=== PATIENT | male | born 1945 | race Caucasian/White ===

== ENCOUNTER 2016-04-09 17:50 | Emergency (ER) | payer BC ==
[~2016-04-09] VITALS: Ht 175.3 cm; Wt 54.0 kg
[~2016-04-09 17:50] MED LIST: ACTUDL PEG; AMLO-114 PEG; ASPCH81X PEG; ATOR-24 PEG; CHLO0.12 MT; CLOP1TAB15 PEG; LABE1TAB28 PEG; NUTR-673 PEG; NYSCR30 TD; OXYC1TAB3 PEG; PANTPAK PEG; PETR49OI TD; [UNRECOGNIZED DRUG - OTHER] PEG
[2016-04-09 17:55] VITALS: TEMP 36.7; Ht 175.3 cm; Wt 54.0 kg
[2016-04-09] MEDS ORDERED: FAMO20TA9 PEG (18:33)
[2016-04-09] MEDS ORDERED: LBT/300 PEG (18:33)
[2016-04-09] MEDS ORDERED: CRD1 PEG (18:33)
--- NOTE | 2016-04-09 19:55 | DIAGNOSTIC IMAGING REPORT ---
KUB HISTORY: feeding tube verification, please use one dose contrast COMPARISON: KUB 10/15/2006. FINDINGS: Water-soluble contrast was injected through the indwelling gastrostomy tube. The bulb is inflated within the expected location of the gastric antrum. Contrast is seen within the stomach and proximal small bowel. There is no extraluminal contrast to suggest a leak. IVC filter is noted. Multiple small gallstones. There are surgical clips within the epigastric region. Large amount well-formed stool seen within the descending colon. Pacemaker wires are noted. No pneumoperitoneum or pneumatosis. IMPRESSION: The gastrostomy tube appears to be in good position. The injected contrast confirms an intraluminal location within the gastric antrum. Electronically signed by: West Griffin M.D. 04/09/2016 7:53 PM Dictated Date/Time: 04/09/2016 7:51 PM
[2016-04-09 20:22] VITALS: BP 122/72; PULSE 68; O2SAT 96
--- NOTE | 2016-04-09 22:39 | EMERGENCY ROOM VISIT NOTE ---
History Report prepared by Brielle: Olvin Guerrero Under the Supervision of: Dr. Clay Maldonado M.D. First contact with patient: 18:31 Chief Complaint: FEEDING TUBE PROBLEM Stated Complaint: PEG TUBE PULLED OUT (G-TUBE) History of Present Illness The patient is a 70 year old male who presents to the Emergency Room with complaints of a sudden feeding tube problem occurring around 1700 today. The patient's daughter states that he is currently in minimal discomfort. The daughter states that the caregiver was giving medicine through the G-tube, and they both jerked and the tube came out. They then called [facility] for their normal doctor, and they recommended them to come to the ED for evaluation. The daughter states that the patient has had the G-tube for about a year and a half now. Pt denies LOC, headache, fevers, chills, diaphoresis, visual changes, neck pain, chest pain, breathing difficulties, nausea, vomiting, abdominal pain, back pain, melena, hematochezia, urinary symptoms, numbness, weakness, lymphadenopathy, rash, or other complaints. Source of History: patient, family Onset: 1700 Position: other (feeding tube) Symptom Intensity: minimal Quality: other (removal) Timing: other (sudden) Review of Systems See HPI for pertinent positives and negatives. A total of ten systems were reviewed and were otherwise negative. 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 Surgical Problems: (1) History of laryngoscopy (2) S/P cataract surgery (3) S/p colonoscopy (4) S/p EGD (5) S/P IVC filter (6) S/p laparoscopic hepatectomy partial lobectomy (7) S/p left carotid stent placement (8) S/P wrist surgery Family History Cancer FATHER (lung CA) Social History Smoking Status: Never Smoker Alcohol Use: none Drug Use: none Marital Status: Housing Status: lives with significant other Current/Historical Medications Scheduled Amlodipine (Norvasc), 10 MG PEG QAM Aspirin (Aspirin Chewable), 81 MG PEG QAM Atorvastatin (Lipitor), 40 MG PEG QPM Banana Flakes (Banatrol), 1 PKT PEG TID Chlorhexidine Gluconate (Peridex Oral Soln), 15 ML MT BID Clopidogrel (Plavix), 75 MG PEG QAM Doxazosin Mesylate (Doxazosin Mesylate), 1 MG PEG DAILY Enteral Nutrition Formula (Jevity 1.5 Octaviano), PEG CONTINOUS Famotidine (Pepcid), 20 MG PEG DAILY Labetalol Hcl (Normodyne), 300 MG PEG TID Nystatin (Nystatin Cream), 1 APPLN TD BID Petrolatum-Zinc Oxide (Sensi-Care Protective Bar), 1 APPLN TD BID Scheduled PRN Acetaminophen (Acetaminophen), 650 MG PEG Q4 PRN for Mild Pain Oxycodone Ir (Roxicodone Ir), 10 MG PEG Q4H PRN for Severe Pain Oxycodone Ir (Roxicodone Ir), 5 MG PEG Q4 PRN for Moderate Pain Allergies Coded Allergies: No Known Allergies (Verified , 01/10/15) Physical Exam Vital Signs Date Time Temp Pulse Resp B/P Pulse Ox O2 Delivery O2 Flow Rate FiO2 04/09/16 20:22 68 16 122/72 96 Room Air 04/09/16 19:18 69 16 119/73 96 Room Air 04/09/16 17:55 36.7 81 18 109/69 97 Room Air Physical Exam GENERAL: Awake, alert, well-appearing, in no distress HENT: Normocephalic, atraumatic. Oropharynx unremarkable. EYES: Normal conjunctiva. Sclera non-icteric. NECK: Supple. No nuchal rigidity. FROM. No JVD. RESPIRATORY: Clear to auscultation. CARDIAC: Regular rate, normal rhythm. Extremities warm and well perfused. Pulses equal. ABDOMEN: Ostomy in the left upper quadrant. Soft, non-distended. No tenderness to palpation. No rebound or guarding. No masses. MUSCULOSKELETAL: Chest examination reveals no tenderness. There is no CVA tenderness to palpation. No joint edema. LOWER EXTREMITIES: Calves are equal size bilaterally and non-tender. No edema. No discoloration. NEURO: Normal sensorium. No sensory or motor deficits noted. SKIN: No rash or jaundice noted. Medical Decision & Procedures ER Provider Diagnostic Interpretation: X-ray: Per my interpretation, radiologist review. KUB HISTORY: feeding tube verification, please use one dose contrast COMPARISON: KUB 10/15/2006. FINDINGS: Water-soluble contrast was injected through the indwelling gastrostomy tube. The bulb is inflated within the expected location of the gastric antrum. Contrast is seen within the stomach and proximal small bowel. There is no extraluminal contrast to suggest a leak. IVC filter is noted. Multiple small gallstones. There are surgical clips within the epigastric region. Large amount well-formed stool seen within the descending colon. Pacemaker wires are noted. No pneumoperitoneum or pneumatosis. IMPRESSION: The gastrostomy tube appears to be in good position. The injected contrast confirms an intraluminal location within the gastric antrum. Electronically signed by: West Griffin M.D. 04/09/2016 7:53 PM Dictated Date/Time: 04/09/2016 7:51 PM ED Course 1831: The patient was evaluated in room C7. A complete history and physical exam was performed. 1846: 14 Georgian Kc catheter was inserted into the gastrotomy site without difficulty or complications 2019: I reevaluated the patient, and he is doing well. Discussed results and discharge instructions: He verbalized understanding and agreement. The patient is ready for discharge. Medical Decision The patient presented to emergency department with his feeding tube pulled out. I evaluated the patient. His physical examination was unremarkable. The ostomy was still open. I was able to place a 14 Georgian Kc catheter to temporize the tract. A KUB with contrast was done and the tube was confirmed to be in position. This was dressed. The patient has a follow-up tomorrow with [facility] gastroenterology. I discussed the care with the patient 's daughter. They desired discharge. There is no evidence of perforation or infection. The patient will be discharged and follow-up tomorrow. Impression Primary Impression: Gastrostomy complication Scribe Attestation The scribe's documentation has been prepared under my direction and personally reviewed by me in its entirety. I confirm that the note above accurately reflects all work, treatment, procedures, and medical decision making performed by me. Departure Information Dispostion Home / Self-Care Referrals Vishnu Rai M.D. ([facility]) (PCP) Forms HOME CARE DOCUMENTATION FORM, IMPORTANT VISIT INFORMATION, WORK / SCHOOL INSTRUCTIONS Patient Instructions A Signature Page, 2theloo Additional Instructions Continue current care. The tube is verified in place and can be used if needed for medications or feeding. Please flush well after use. Return to the Emergency Room for any tube problems, abdominal pain, fever or as needed. Follow up with gastroenterology tomorrow as scheduled.
== END 2016-04-09 20:33 | disposition home or self-care (01) ==
LOC: C.EDB 17:52 → C.EDC 20:33
DX: K94.29 Other complications of gastrostomy (principal); K21.9 Gastro-esophageal reflux disease without esophagitis; Z95.0 Presence of cardiac pacemaker; Z86.711 Personal history of pulmonary embolism; Z86.718 Personal history of other venous thrombosis and embolism; Z85.89 Personal history of malignant neoplasm of other organs and systems; Z79.02 Long term (current) use of antithrombotics/antiplatelets; Z79.82 Long term (current) use of aspirin; Z79.899 Other long term (current) drug therapy; Z80.1 Family history of malignant neoplasm of trachea, bronchus and lung

== ENCOUNTER 2024-03-05 14:42 | Inpatient (IN) ==
--- NOTE | 2024-03-05 15:16 | Emergency Department Note ---
Impression & Plan Generalized weakness, Elevated troponin, Closed rib fracture, Frequent falls, Pneumonia ED Provider Note ED Provider Note NAME: GABRIEL WEST AGE:78 SEX: Male : 1945 ARRIVES VIA: EMS INFORMANT: Patient, daughter ED PROVIDER(s): Harleen Quinn DO CHIEF COMPLAINT: Weakness, falls HPI: This is a 78-year-old male presents emergency department due to concern for weakness and recurrent falls. Patient lives at home with family helps to care for him. Patient has had prior strokes but does have expressive aphasia. Family states he had a fall on Thursday when attempting to transfer to go to the bathroom. He seemed okay when they helped him up just rather "sore" which they thought was from the fall. He states since then he has been hesitant to go to the bathroom and has been incontinent of stool several times. They have not noticed any change in the stools. Patient receives tube feeds. The seem to be working normally and he is not appear to have any distress or discomfort following tube feeds. They state he fell again yesterday. Family concerned for possible increased weakness as they felt his legs may be more weaker and that is perhaps why he fell. They state he does occasionally fall. They had not noticed any recent URI symptoms or cough. They had not noticed any recent fevers. PAST MEDICAL HISTORY:See Below PAST SURGICAL HISTORY:See Below FAMILY HISTORY:See Below SOCIAL HISTORY:See Below HOME MEDICATIONS:See Below ALLERGIES:See Below VITALS:See Below PHYSICAL EXAMINATION: GENERAL: alert, well appearing, well nourished, no distress, non-toxic EYE EXAM: normal conjunctiva, PERRL and EOM's grossly intact OROPHARYNX: no exudate, no erythema, lips, buccal mucosa, and tongue normal and mucous membranes are moist NECK: supple, no nuchal rigidity, no adenopathy, non-tender LUNGS: Clear to auscultation. Normal chest wall mechanics, no w/r/r HEART: no murmurs, S1 normal and S2 normal ABDOMEN: abdomen soft, non-tender, normo-active bowel sounds, no masses, no rebound or guarding. Feeding tube in place. BACK: Back is symmetrical on inspection and there is no deformity, no midline tenderness, no CVA tenderness. SKIN: no rashes, petechiae, orbruising UPPER EXTREMITIES: nml pulses b/l, right upper extremity with chronic appearing muscular atrophy and contractures secondary to prior stroke LOWER EXTREMITIES: No pitting edema. FROM, nml pulses b/l. Scattered areas bilaterally to distal lower extremities of abrasions, healing lacerations, and areas of ecchymosis in various stages of healing NEURO EXAM: Normal sensorium, cranial nerves II-XII grossly intact, normal speech, no facial droop,nogross weakness of arms, no gross weakness of legs. Gross sensation intact. No ataxia. Vital Signs: reviewed and remarkable Differential Diagnosis: dehydration, stroke, anemia, hypoglycemia, hyponatremia, hypernatremia, urinary tract infection, pneumonia, bronchitis, sepsis, gastroenteritis, additional abdominal pathology, metabolic abnormalities, as well as others were considered MEDICAL DECISION MAKING: This is a 78-year-old male presents emergency department with family who provides majority of the history due to concern for increased weakness and recurrent falls over the last few days. Patient with complex past medical history including prior strokes and expressive aphasia. Patient does have weakness at baseline although they feel that has been worsening in the last few days and patient has had several falls. They states he does fall occasionally although they felt it was worse recently. He was afebrile vital signs stable on arrival. Labs drawn and sent, IV established, EKG and chest ray performed at bedside interpreted me and patient monitored on telemetry. Due to daughters concern for looser stools compared to normal and patient seemingly holding his abdomen at 1 point this week he was initially sent for CT of the abdomen pelvis as well as CT lumbar spine to evaluate for possible etiology of the weakness as well as possible trauma given recent falls. Patient CT is reassuring although did note a rib fracture. Following this finding, patient sent for CT chest for further evaluation. A rib fracture was again noted, no other evidence of pulmonary contusion, or other acute trauma. There was mention of possible pneumonia versus mass on the right. In light of patient's history of prior pneumonia including aspiration, he was started on IV Zosyn as he was noted to have a leukocytosis initially. Procalcitonin and lactic added as a precaution. Patient noted to have elevated troponin. I did feel initial chest x-ray had mildly increased interstitial markings and did add a BNP, this was also elevated. Patient's EKG did not show any changes. Due to patient's limitations in conversation, it is unclear if he has been having chest pain even preceding the fall. It is possible this could have been contributing to his weakness which led to the falls. Troponin may also be elevated secondary to evolving infection. All results were discussed with the patient and daughter at bedside. We discussed further need for additional inpatient evaluation and management and she verbalized understanding was in agreement. Case discussed with the hospitalist team additionally. Consultation(s): 1929: Discussed with Dr. Fierro, [facility] hospitalist team, for additional evaluation and management. ER Treatment Provided: See below 1510: Discussed with daughter who now presents to bedside. Diagnostics Interpreted By Me: -ECG: nsr at 71, nml axis, nml intervals, no acute ST/T wave changes -Cardiac Monitoring: An order was placed for continuous cardiac monitoring. The monitor shows a rate of 74 with normal sinus rhythm. -Laboratory studies: As stated above and show below. -Imaging studies: X-ray Chest: A single view study of the chest was reviewed and was negative for cardiomegaly, focal infiltrate, effusion, pulmonary edema, or wide mediastinum. Triage Nursing Note Reviewed Prior/Outside Records Reviewed Critical Care: Critical care of 46 min performed to assess and manage high likelihood of life-threatening elevated troponin, involving labs and imaging performed with assessment to evaluate weakness diagnosis with frequent reassessment. This time includes bedside time, treatment discussions with patient/family/consultants, documentation time and excludes procedure time. Past Med/Surg History Problem List Pneumonia (Acute) Frequent falls (Acute) Thrombocytopenia Postobstructive pneumonia Mass of upper lobe of right lung Closed rib fracture (Acute) Elevated troponin (Acute) Generalized weakness (Acute) Esophageal thickening Weakness (Acute) Esophageal stricture (Chronic) Respiratory failure with hypoxia (Acute) Pneumonia (Acute) DVT prophylaxis Discharge planning issues Epistaxis (Acute) Aspiration pneumonia (Acute) Sepsis Cholelithiasis (Chronic) Noted on CT chest 04/11/18 Pulmonary nodule (Chronic) Noted on CT chest 04/11/18. Follow-up in 6 months recommended. 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 Surgical History S/P percutaneous endoscopic gastrostomy (PEG) tube placement History of esophagogastroduodenoscopy (EGD) History of carotid endarterectomy RIGHT? History of tonsillectomy Family History Other Cancer Family history of stroke Hypertension Social History Smoking Status: Former smoker Cigarettes Per Day: 20; Second Hand Exposure: No; Do You Dip or Chew Tobacco: No; Tobacco Cessation Education Requested by Patient: No Hx Alcohol Use: No Hx Substance Use: No Preferred Language: [place] Communication Ability: Impaired Communication Ability Comment: DIFFICULTY WITH VERBAL COMMUNICATION. A&O X3 PER DAUGHTER. Set Up Operator Tool Required: No Beliefs That Will Affect Care: None marital status: Current Living Situation: Family Other Information That Helps Us Care for You: No Feels Safe at Home: Yes Safety Concerns: Feels Safe At This Time Assistive Devices: Wheelchair Allergies Allergies Allergy/AdvReac Type Severity Reaction Status Date / Time No Known Allergies Allergy Unknown Verified 11/28/19 10:09 Home Meds Home Medications Medication Instructions Recorded Confirmed acetaminophen 325 mg capsule 975 mg feeding tube BID PRN Pain 04/11/18 03/05/24 (Tylenol) amlodipine 10 mg tablet (Norvasc) 5 mg feeding tube QAM 04/11/18 03/05/24 aspirin 81 mg chewable tablet 81 mg feeding tube [id number] 04/11/18 03/05/24 atorvastatin 40 mg tablet (Lipitor) 40 mg feeding tube HS 04/11/18 03/05/24 clopidogrel 75 mg tablet (Plavix) 75 mg feeding tube QAM 04/11/18 03/05/24 famotidine 20 mg tablet (Pepcid) 20 mg feeding tube QAM 04/11/18 03/05/24 labetalol 300 mg tablet 300 mg feeding tube TID 04/11/18 03/05/24 lactose-reduced food with fiber 375 ea feeding tube BID 11/28/19 03/05/24 oral liquid lactose-reduced food with fiber 500 ea feeding tube QPM 11/28/19 03/05/24 oral liquid finasteride 5 mg tablet 5 mg feeding tube DAILY 03/05/24 03/05/24 ketoconazole 2 % topical cream 1 applic topical DIRECTED PRN 03/05/24 03/05/24 Other triamcinolone acetonide 0.1 % 1 applic topical BID PRN Other 03/05/24 03/05/24 topical cream Results & Data (ED) Vital Signs Vital Signs - 24 hr 03/05/24 14:45 03/05/24 14:49 03/05/24 14:54 Temperature 37.1 C Temperature Source Oral Pulse Rate 69 70 Pulse Rate [Apical] Pulse Rate from SpO2 Sensor 70 Respiratory Rate 18 22 Respiratory Effort / Characteristics Non-Labored Spontaneous Respiratory Depth Normal Respiratory Pattern Regular Blood Pressure 107/58 L 107/58 L Blood Pressure [Left Arm] Blood Pressure Mean 75 74 Blood Pressure Mean [Left Arm] Pulse Oximetry 97 97 Oxygen Delivery Method Room Air Sepsis Recent Fever Within 48 Hours No Sepsis New/Unexplained Change in Mental Status No Sepsis Action Taken by Nursing No Action Required 03/05/24 15:00 03/05/24 15:03 03/05/24 15:16 Temperature Temperature Source Pulse Rate 70 Pulse Rate [Apical] 69 Pulse Rate from SpO2 Sensor 70 Respiratory Rate 23 18 Respiratory Effort / Characteristics Respiratory Depth Respiratory Pattern Blood Pressure 122/58 L Blood Pressure [Left Arm] 122/58 L Blood Pressure Mean 85 Blood Pressure Mean [Left Arm] 79 Pulse Oximetry 98 98 Oxygen Delivery Method Room Air Sepsis Recent Fever Within 48 Hours Sepsis New/Unexplained Change in Mental Status Sepsis Action Taken by Nursing 03/05/24 15:16 03/05/24 15:27 03/05/24 15:45 Temperature Temperature Source Pulse Rate 69 70 Pulse Rate [Apical] Pulse Rate from SpO2 Sensor 69 70 Respiratory Rate 20 19 Respiratory Effort / Characteristics Respiratory Depth Respiratory Pattern Blood Pressure Blood Pressure [Left Arm] Blood Pressure Mean Blood Pressure Mean [Left Arm] Pulse Oximetry 97 95 Oxygen Delivery Method Room Air Sepsis Recent Fever Within 48 Hours Sepsis New/Unexplained Change in Mental Status Sepsis Action Taken by Nursing 03/05/24 15:51 03/05/24 16:00 03/05/24 16:00 Temperature Temperature Source Pulse Rate 69 69 Pulse Rate [Apical] Pulse Rate from SpO2 Sensor 70 69 Respiratory Rate 18 20 Respiratory Effort / Characteristics Respiratory Depth Respiratory Pattern Blood Pressure 137/64 Blood Pressure [Left Arm] Blood Pressure Mean 101 Blood Pressure Mean [Left Arm] Pulse Oximetry 96 96 Oxygen Delivery Method Sepsis Recent Fever Within 48 Hours Sepsis New/Unexplained Change in Mental Status Sepsis Action Taken by Nursing 03/05/24 16:12 03/05/24 16:23 03/05/24 16:30 Temperature Temperature Source Pulse Rate 71 70 72 Pulse Rate [Apical] Pulse Rate from SpO2 Sensor 72 73 Respiratory Rate 24 Respiratory Effort / Characteristics Respiratory Depth Respiratory Pattern Blood Pressure Blood Pressure [Left Arm] Blood Pressure Mean Blood Pressure Mean [Left Arm] Pulse Oximetry 93 95 Oxygen Delivery Method Sepsis Recent Fever Within 48 Hours Sepsis New/Unexplained Change in Mental Status Sepsis Action Taken by Nursing 03/05/24 16:51 03/05/24 17:00 03/05/24 19:00 Temperature Temperature Source Pulse Rate 72 62 Pulse Rate [Apical] 73 Pulse Rate from SpO2 Sensor 72 Respiratory Rate 23 17 24 Respiratory Effort / Characteristics Respiratory Depth Respiratory Pattern Blood Pressure 135/73 Blood Pressure [Left Arm] 118/56 L Blood Pressure Mean 106 Blood Pressure Mean [Left Arm] 76 Pulse Oximetry 99 100 94 Oxygen Delivery Method Room Air Sepsis Recent Fever Within 48 Hours Sepsis New/Unexplained Change in Mental Status Sepsis Action Taken by Nursing Laboratory Data 03/06/24 10:43 03/06/24 10:43 Lab Results 03/05/24 03/05/24 03/05/24 Range/Units 15:29 15:52 18:57 WBC 18.59 H (4.8-10.8) K/ul RBC 3.43 L (4.70-6.10) M/uL Hgb 10.8 L (14.0-18.0) g/dl Hct 33.3 L (42.0-52.0) % MCV 97.1 (80.0-100.0) fL MCH 31.5 (25.0-34.0) pg MCHC 32.4 (32.0-36.0) g/dL RDW Std Deviation 50.4 H (36.4-46.3) fL RDW Coeff of Ming 14.1 (11.5-14.5) % Plt Count 75 L (130-400) K/uL MPV 13.3 H (9.4-12.4) fL Immature Gran % (Auto) 2.5 % Neut % (Auto) 80.7 % Lymph % (Auto) 3.4 % [place] % (Auto) 13.1 % Eos % (Auto) 0.0 % Baso % (Auto) 0.3 % Neut # (Auto) 15.01 H (1.40-6.50) K/uL Lymph # (Auto) 0.63 L (1.20-3.40) K/uL [place] # (Auto) 2.43 H (0.11-0.59) K/uL Eos # (Auto) 0.00 (0.00-0.50) K/uL Baso # (Auto) 0.05 (0.00-0.20) K/uL Immature Gran # (Auto) 0.47 H (0.01-0.20) K/uL Dohle Bodies 1+ Polychromasia 1+ Sodium 133 L (136-145) mmol/L Potassium 4.4 (3.5-5.1) mmol/L Chloride 100 (98-107) mmol/L Carbon Dioxide 23 (21-32) mmol/L Anion Gap 10 (3-11) BUN 53 H (6-23) mg/dl Creatinine 1.28 (0.6-1.4) mg/dl Est Cr Clr Drug Dosing 47.5 ml/min eGFR 58.00 BUN/Creatinine Ratio 41.4 H (10-20) Glucose 131 H (70-99(Fasting)) mg/dl Lactate 1.9 (0.4-2.0) mmol/L Calcium 9.6 (8.6-10.3) mg/dl Magnesium 2.1 (1.7-2.4) mg/dl Total Bilirubin 0.9 (0.2-1.0) mg/dl AST 28 (13-39) U/L ALT 28 (7-52) U/L Alkaline Phosphatase 88 (34-104) U/L Troponin I High Sens 375.7 H* (0-20) pg/ml B-Natriuretic Peptide 285 H (0-100) pg/ml Total Protein 7.0 (6.0-8.3) gm/dl Albumin 4.2 (3.4-5.0) gm/dl Globulin 2.8 (2.5-4.0) gm/dl Albumin/Globulin Ratio 1.5 (0.9-2) Procalcitonin 0.34 (0-0.5) ng/ml TSH 6.032 H (0.300-4.500) uIu/ml Free T4 0.70 (0.61-1.60) ng/dl Adenovirus (PCR) Not Detected (NotDetected) B. pertussis DNA (PCR) Not Detected (NotDetected) B.parapertussis DNA PCR Not Detected (NotDetected) C. pneumoniae DNA (PCR) Not Detected (NotDetected) Coronavirus OC43 (PCR) Not Detected (NotDetected) Coronavirus HKU1 (PCR) Not Detected (NotDetected) Coronavirus 229E (PCR) Not Detected (NotDetected) SARS-CoV-2 (PCR) Not Detected (NotDetected) Coronavirus NL63 (PCR) Not Detected (NotDetected) Human Metapneumovir PCR Not Detected (NotDetected) Influenza Type A (PCR) Not Detected (NotDetected) Influenza Type B (PCR) Not Detected (NotDetected) M. pneumoniae (PCR) Not Detected (NotDetected) Parainfluenza 1 (PCR) Not Detected (NotDetected) Parainfluenza 2 (PCR) Not Detected (NotDetected) Parainfluenza 3 (PCR) Not Detected (NotDetected) Parainfluenza 4 (PCR) Not Detected (NotDetected) RSV (PCR) Not Detected (NotDetected) Entero/Rhino (PCR) Not Detected (NotDetected) Administered Medications Acetaminophen (Acetaminophen Susp 325 Mg/10.15 Ml Udc) 975 mg PEG BID PRN PRN Reason: Pain Stop: 04/04/24 22:53 Last Admin: 03/06/24 16:56 Dose: 975 mg Documented By: TMP Amlodipine Besylate (Amlodipine Besylate 5 Mg Tab) [facility] Stop: 04/05/24 08:59 Last Admin: 03/06/24 10:10 Dose: 5 mg Documented By: TMP Atorvastatin Calcium (Atorvastatin 40 Mg Tab) 40 mg PEG [facility] Stop: 04/04/24 22:46 Last Admin: 03/06/24 20:35 Dose: 40 mg Documented By: Admin: 03/06/24 00:29 Dose: 40 mg Documented By: ZHANG Clopidogrel Bisulfate (Clopidogrel Bisulfate 75 Mg Tab) 75 mg [facility] [place] Stop: 04/05/24 08:59 Last Admin: 03/06/24 10:09 Dose: 75 mg Documented By: TMP Famotidine (Famotidine 20 Mg Tab) 20 mg JT [facility] Stop: 04/05/24 08:59 Last Admin: 03/06/24 10:09 Dose: 20 mg Documented By: TMP Finasteride (Finasteride 5 Mg Tab) 5 mg PEG [facility] Stop: 04/05/24 20:59 Last Admin: 03/06/24 20:36 Dose: 5 mg Documented By: EVELYN Piperacillin Sod/Tazobactam Sod (Zosyn) 4.5 gm in 100 mls @ 25 mls/hr IV Q8H [facility]; Protocol Stop: 03/11/24 00:00 Last Infusion: 03/06/24 17:15 Dose: 25 mls/hr Documented By: Infusion: 03/06/24 16:58 Dose: 0 mls/hr Documented By: Admin: 03/06/24 16:50 Dose: 25 mls/hr Documented By: Infusion: 03/06/24 13:08 Dose: Infused Documented By: Admin: 03/06/24 08:53 Dose: 25 mls/hr Documented By: Infusion: 03/06/24 05:49 Dose: Infused Documented By: Admin: 03/06/24 00:29 Dose: 25 mls/hr Documented By: ZHANG Doxycycline Hyclate 100 mg/ (Dextrose) 100 mls @ 50 mls/hr IV Q12H [facility] Stop: 03/10/24 22:46 Last Infusion: 03/06/24 15:09 Dose: Infused Documented By: Admin: 03/06/24 13:09 Dose: 50 mls/hr Documented By: Infusion: 03/06/24 02:59 Dose: Infused Documented By: Admin: 03/06/24 00:29 Dose: 50 mls/hr Documented By: ZHANG Labetalol HCl (Labetalol Hcl 300 Mg Tab) 300 mg PEG TID [facility] Stop: 04/04/24 22:46 Last Admin: 03/06/24 20:35 Dose: 300 mg Documented By: Admin: 03/06/24 13:58 Dose: 300 mg Documented By: Admin: 03/06/24 10:10 Dose: 300 mg Documented By: Admin: 03/06/24 00:29 Dose: 300 mg Documented By: ZHANG Nutritional Formula (Patient's Own Enteral Feeding) 0 ml PEG UD@0900,1200,1700 [facility]; Protocol Stop: 04/05/24 11:59 Last Admin: 03/06/24 16:51 Dose: 125 ml Documented By: Admin: 03/06/24 11:35 Dose: 375 ml Documented By: CELESTE Sterile Water (Tube Feeding Water Flush) 100 ml PEG Q4H [facility] Stop: 04/05/24 11:59 Last Admin: 03/06/24 20:32 Dose: 100 ml Documented By: Admin: 03/06/24 16:51 Dose: 100 ml Documented By: Admin: 03/06/24 11:35 Dose: 100 ml Documented By: CELESTE Discontinued Medications Finasteride (Finasteride 5 Mg Tab) 5 mg PEG DAILY [facility] Stop: 04/05/24 08:59 Last Admin: 03/06/24 10:54 Dose: Not Given Documented By: CELESTE Sodium Chloride (Nss) 500 mls @ 80 mls/hr IV .Q6H15M [facility] Stop: 03/05/24 21:44 Last Infusion: 03/05/24 22:00 Dose: Infused Documented By: Admin: 03/05/24 15:37 Dose: 80 mls/hr Documented By: MAGUE Piperacillin Sod/Tazobactam Sod (Zosyn) 4.5 gm in 100 mls @ 200 mls/hr IV NOW ONE; Protocol Stop: 03/05/24 19:13 Last Infusion: 03/05/24 20:11 Dose: Infused Documented By: Admin: 03/05/24 19:25 Dose: 200 mls/hr Documented By: RICK Sodium Chloride (Nss) 1,000 mls @ 80 mls/hr IV .[id number] [facility] Stop: 03/06/24 11:16 Last Infusion: 03/06/24 13:09 Dose: Infused Documented By: Admin: 03/06/24 00:30 Dose: 80 mls/hr Documented By: ZHANG Ioversol (Optiray 320 100ml) 90 ml IV ONCE ONE Stop: 03/05/24 17:13 Last Admin: 03/05/24 17:12 Dose: 90 ml Documented By: TANJA Ioversol (Optiray 320 100ml) 90 ml IV ONCE ONE Stop: 03/05/24 18:15 Last Admin: 03/05/24 18:15 Dose: 90 ml Documented By: YUMI Imaging Data Radiologist's Impression: Abdomen/Pelvis CT 03/05/24 15:16 EXAM: CT Abdomen and Pelvis With Intravenous Contrast INDICATION: Posttraumatic pain. TECHNIQUE: Axial computed tomography images of the abdomen and pelvis with intravenous contrast. Sagittal and coronal reformatted images were created and reviewed. This CT exam was performed using one or more of the following dose reduction techniques: automated exposure control, adjustment of the mA and/or kV according to patient size, and/or use of iterative reconstruction technique. CONTRAST: 90ml of Optiray 320 was administered intravenously. COMPARISON: No relevant prior studies available. FINDINGS: Limitations: None. Lung bases: Airway thickening and atelectasis present in the lung bases. Pleural space: No basilar pleural effusion. Heart: Cardiomegaly noted. Cardiac pacing device noted. Metallic artifact limits assessment of lead integrity. Mediastinum: No abnormality noted. ABDOMEN: Liver: No abnormality noted. Gallbladder and bile ducts: Innumerable gallstones present. No ductal dilatation or stone. Pancreas: Homogeneous enhancement. No mass, inflammation or ductal dilation. Spleen: No significant abnormality noted. Adrenals: No significant abnormality noted. Kidneys and ureters: Simple bilateral renal cysts noted. No follow-up necessary. No stones or hydronephrosis. There is a 5 mm nonobstructing stone in each renal upper pole. Renal vascular calcification noted. No hydronephrosis. No urinary gas or perinephric fluid. Stomach and bowel: Large amounts of stool in the redundant colon without obstruction or inflammation. Gastrostomy balloon inflated in the stomach. PELVIS: Appendix: No findings to suggest acute appendicitis. Bladder: No filling defects to suggest mass or large stone. No inflammation. Reproductive: No abnormalities noted. ABDOMEN and PELVIS: Intraperitoneal space: No free air. No significant fluid collection. Bones/joints: There is an acute appearing nondisplaced fracture of the right lateral ninth and 10th ribs. Degenerative changes present in the spine. No pelvic or spinal fracture noted. Soft tissues: There is mild subcutaneous contusion at the level of the right hip. There are small bilateral fat containing inguinal hernias. Vasculature: Inferior vena cava filter in good position. Atherosclerotic calcification of the aorta and branches. No aneurysm. Lymph nodes: No pathologically enlarged lymph nodes. IMPRESSION: 1. There are acute appearing nondisplaced fractures of the right lateral ninth and 10th ribs. 2. No traumatic change of the solid organs. 3. Large amounts of stool in the colon without obstruction. 4. Cholelithiasis. 5. There is mild subcutaneous contusion at the level of the right hip. No body wall hematoma noted. ACT 112: Negative or not required by law. Electronically signed by Humera Hemphill 03-05-2024 5:41 PM Chest X-Ray 03/05/24 15:16 EXAM: Radiograph of the Chest 1 View INDICATION: Weakness TECHNIQUE: Frontal view of the chest. COMPARISON: 11/28/2019 and 04/12/2018 FINDINGS: Lungs and pleural spaces: Generalized increased interstitial markings with 1.4 x 1.3 cm nodular versus infiltrate in the right perihilar. . Heart: Shape and configuration within normal limits allowing for technique. Mediastinum: Normal contour. Bones/joints: No fracture, erosion or dislocation. Soft tissues: No abnormality noted. No radiopaque foreign body noted. Vasculature: Left carotid stent is present. Tubes, lines and devices: Stable prominent cardiac shadow and right atrial and ventricular intact pacing wires. Upper abdomen: No abnormality noted. IMPRESSION: 1. Increased interstitial markings may reflect bronchitis or vascular congestion. 2. Right perihilar infiltrate versus nodule. If additional imaging is warranted rather than follow-up following treatment, CT with contrast is the modality of choice. ACT 112: Negative or not required by law. Electronically signed by Humera Hemphill 03-05-2024 4:[address] 03/05/24 15:16 EXAM: CT Lumbar Spine With Intravenous Contrast INDICATION: Posttraumatic back pain. Change in bowel habits. TECHNIQUE: Axial computed tomography images of the lumbar spine with intravenous contrast. Sagittal and coronal reformatted images were created and reviewed. This CT exam was performed using one or more of the following dose reduction techniques: automated exposure control, adjustment of the mA and/or kV according to patient size, and/or use of iterative reconstruction technique. CONTRAST: 90ml of Optiray 320 was administered intravenously. COMPARISON: No relevant prior studies available. FINDINGS: Limitations: None. Vertebrae: There is mild facet hypertrophic change at all levels. Mild to moderate diffuse spondylosis. Mild uncal spurring noted at L3-L4. Moderate to space narrowing L3-L4 and L1-L2. Mild narrowing noted at other levels. Sacrum/coccyx: No significant abnormality noted. No acute change noted. Discs/spinal canal/neural foramina: See above. Soft tissues: No significant abnormality noted. Vasculature: Inferior vena cava filter in good position. IMPRESSION: Degenerative changes. No lumbar fracture. ACT 112: Negative or not required by law. Electronically signed by Humera Hemphill 03-05-2024 5:[address] 03/05/24 17:50 EXAM: CT Chest With Intravenous Contrast INDICATION: Posttraumatic pain. Rib fracture. TECHNIQUE: Axial computed tomography images of the chest with intravenous contrast. Sagittal and coronal reformatted images were created and reviewed. This CT exam was performed using one or more of the following dose reduction techniques: automated exposure control, adjustment of the mA and/or kV according to patient size, and/or use of iterative reconstruction technique. CONTRAST: 89ml of Optiray 320 was administered intravenously. COMPARISON: CT abdomen the same day. FINDINGS: Limitations: None. Lungs and pleural spaces: There is a right upper lobe perihilar soft tissue mass measuring 2.3 cm transverse by 1.7 cm AP by 1.5 cm long. There is a 5 mm noncalcified nodule in the right lower lobe posterior to the major fissure series 3 image 25. There is airway thickening which is likely chronic. T there is mucus in the left mainstem bronchus. No bronchiectasis. No consolidation. No significant effusion. Heart: Cardiomegaly noted. Cardiac pacing device noted. Metallic artifact limits assessment of lead integrity. Thyroid: No abnormality noted. Bones/joints: There is an acute nondisplaced fracture of the right lateral ninth rib. Soft tissues: No significant abnormality noted. Vasculature: No abnormality noted. No thoracic aortic aneurysm. Lymph nodes: No enlarged lymph nodes. IMPRESSION: 1. There is an acute fracture of the right lateral ninth rib. 2. Right perihilar upper lobe soft tissue mass. Considerations include neoplasm, pneumonia and adenopathy. 3. Mucus in the left mainstem bronchus. There is chronic airway thickening and basilar atelectasis. 4. Cholelithiasis. ACT 112: Negative or not required by law. Electronically signed by Humera Hemphill 03-05-2024 6:37 PM Discharge Plan Visit Data Chief Complaint: Fall Stated Complaint: WEAKNESS ED Provider: Harleen Quinn Discharge Problem: Generalized weakness, Elevated troponin, Closed rib fracture, Frequent falls, Pneumonia Patient Disposition: Admitted As Inpatient Discharge Instructions Interventions: ED Discharge Assessment Last Done: 03/05/24 21:45
[2024-03-05] MEDS: SODIUM CHLORIDE 0.9% 500 ML IV SCH (15:37)
--- NOTE | 2024-03-05 16:01 | XRay Report ---
EXAM: Radiograph of the Chest 1 View INDICATION: Weakness TECHNIQUE: Frontal view of the chest. COMPARISON: 11/28/2019 and 04/12/2018 FINDINGS: Lungs and pleural spaces: Generalized increased interstitial markings with 1.4 x 1.3 cm nodular versus infiltrate in the right perihilar. . Heart: Shape and configuration within normal limits allowing for technique. Mediastinum: Normal contour. Bones/joints: No fracture, erosion or dislocation. Soft tissues: No abnormality noted. No radiopaque foreign body noted. Vasculature: Left carotid stent is present. Tubes, lines and devices: Stable prominent cardiac shadow and right atrial and ventricular intact pacing wires. Upper abdomen: No abnormality noted. IMPRESSION: 1. Increased interstitial markings may reflect bronchitis or vascular congestion. 2. Right perihilar infiltrate versus nodule. If additional imaging is warranted rather than follow-up following treatment, CT with contrast is the modality of choice. ACT 112: Negative or not required by law. Electronically signed by Humera Hemphill 03-05-2024 4:00 PM
[2024-03-05 16:25] LABS: Albumin Globulin Ratio 1.5 (0.9-2); Albumin Level 4.2 gm/dl (3.4-5.0); BUN Creatinine Ratio 41.4 (10-20); Bilirubin,Total 0.9 mg/dl (0.2-1.0); Calcium 9.6 mg/dl (8.6-10.3); Creatinine Clr Calc Pharmacy 47.5 ml/min; Globulin 2.8 gm/dl (2.5-4.0); Magnesium 2.1 mg/dl (1.7-2.4); Potassium 4.4 mmol/L (3.5-5.1)
[2024-03-05 16:31] LABS: Troponin I High Sensitivity 375.7 pg/ml (0-20)
[2024-03-05 16:32] LABS: Basophils # (auto) 0.05 K/uL (0.00-0.20); Basophils % (auto) 0.3 %; Dohle Bodies 1+; Hematocrit (blood only) 33.3 % (42.0-52.0); Hemoglobin 10.8 g/dl (14.0-18.0); Immature Granulocytes # (auto) 0.47 K/uL (0.01-0.20); Immature Granulocytes % (auto) 2.5 %; Lymphocytes # (auto) 0.63 K/uL (1.20-3.40); Lymphocytes % (auto) 3.4 %; Mean Corpuscular Hemoglobin 31.5 pg (25.0-34.0); Mean Corpuscular Hgb Conc 32.4 g/dL (32.0-36.0); Mean Corpuscular Volume 97.1 fL (80.0-100.0); Mean Platelet Volume 13.3 fL (9.4-12.4); Monocytes # (auto) 2.43 K/uL (0.11-0.59); Monocytes % (auto) 13.1 %; Neutrophils # (auto) 15.01 K/uL (1.40-6.50); Neutrophils % (auto) 80.7 %; Platelet Count 75 K/uL (130-400); Polychromasia 1+; RDW Coefficient of Variation 14.1 % (11.5-14.5); RDW Standard Deviation 50.4 fL (36.4-46.3); Red Blood Count 3.43 M/uL (4.70-6.10); White Blood Count 18.59 K/ul (4.8-10.8)
[2024-03-05 16:38] LABS: Thyroid Stimulating Hormone 6.032 uIu/ml (0.300-4.500)
[2024-03-05 16:45] LABS: Adenovirus PCR Not Detected (NotDetected); Bordetella parapertussis PCR Not Detected (NotDetected); Bordetella pertussis PCR Not Detected (NotDetected); Chlamydia pneumoniae PCR Not Detected (NotDetected); Coronavirus 229E PCR Not Detected (NotDetected); Coronavirus CoV-2 (COVID19)PCR Not Detected (NotDetected); Coronavirus HKU1 PCR Not Detected (NotDetected); Coronavirus NL63 PCR Not Detected (NotDetected); Coronavirus OC43PCR Not Detected (NotDetected); Human Metapneumovirus PCR Not Detected (NotDetected); Influenza A PCR Not Detected (NotDetected); Influenza B PCR Not Detected (NotDetected); Mycoplasma pneumoniae PCR Not Detected (NotDetected); Parainfluenza Virus 1 PCR Not Detected (NotDetected); Parainfluenza Virus 2 PCR Not Detected (NotDetected); Parainfluenza Virus 3 PCR Not Detected (NotDetected); Parainfluenza Virus 4 PCR Not Detected (NotDetected); Respiratory Syncytial VirusPCR Not Detected (NotDetected); Rhinovirus/Enterovirus PCR Not Detected (NotDetected)
[2024-03-05] MEDS: OPTIRAY 320 100ml IV ONE ×2 (17:12→18:15)
[2024-03-05 17:14] LABS: T4 Free Thyroxine 0.7 ng/dl (0.61-1.60)
--- NOTE | 2024-03-05 17:26 | CT Scan Report ---
EXAM: CT Lumbar Spine With Intravenous Contrast INDICATION: Posttraumatic back pain. Change in bowel habits. TECHNIQUE: Axial computed tomography images of the lumbar spine with intravenous contrast. Sagittal and coronal reformatted images were created and reviewed. This CT exam was performed using one or more of the following dose reduction techniques: automated exposure control, adjustment of the mA and/or kV according to patient size, and/or use of iterative reconstruction technique. CONTRAST: 90ml of Optiray 320 was administered intravenously. COMPARISON: No relevant prior studies available. FINDINGS: Limitations: None. Vertebrae: There is mild facet hypertrophic change at all levels. Mild to moderate diffuse spondylosis. Mild uncal spurring noted at L3-L4. Moderate to space narrowing L3-L4 and L1-L2. Mild narrowing noted at other levels. Sacrum/coccyx: No significant abnormality noted. No acute change noted. Discs/spinal canal/neural foramina: See above. Soft tissues: No significant abnormality noted. Vasculature: Inferior vena cava filter in good position. IMPRESSION: Degenerative changes. No lumbar fracture. ACT 112: Negative or not required by law. Electronically signed by Humera Hemphill 03-05-2024 5:26 PM
--- NOTE | 2024-03-05 17:42 | CT Scan Report ---
EXAM: CT Abdomen and Pelvis With Intravenous Contrast INDICATION: Posttraumatic pain. TECHNIQUE: Axial computed tomography images of the abdomen and pelvis with intravenous contrast. Sagittal and coronal reformatted images were created and reviewed. This CT exam was performed using one or more of the following dose reduction techniques: automated exposure control, adjustment of the mA and/or kV according to patient size, and/or use of iterative reconstruction technique. CONTRAST: 90ml of Optiray 320 was administered intravenously. COMPARISON: No relevant prior studies available. FINDINGS: Limitations: None. Lung bases: Airway thickening and atelectasis present in the lung bases. Pleural space: No basilar pleural effusion. Heart: Cardiomegaly noted. Cardiac pacing device noted. Metallic artifact limits assessment of lead integrity. Mediastinum: No abnormality noted. ABDOMEN: Liver: No abnormality noted. Gallbladder and bile ducts: Innumerable gallstones present. No ductal dilatation or stone. Pancreas: Homogeneous enhancement. No mass, inflammation or ductal dilation. Spleen: No significant abnormality noted. Adrenals: No significant abnormality noted. Kidneys and ureters: Simple bilateral renal cysts noted. No follow-up necessary. No stones or hydronephrosis. There is a 5 mm nonobstructing stone in each renal upper pole. Renal vascular calcification noted. No hydronephrosis. No urinary gas or perinephric fluid. Stomach and bowel: Large amounts of stool in the redundant colon without obstruction or inflammation. Gastrostomy balloon inflated in the stomach. PELVIS: Appendix: No findings to suggest acute appendicitis. Bladder: No filling defects to suggest mass or large stone. No inflammation. Reproductive: No abnormalities noted. ABDOMEN and PELVIS: Intraperitoneal space: No free air. No significant fluid collection. Bones/joints: There is an acute appearing nondisplaced fracture of the right lateral ninth and 10th ribs. Degenerative changes present in the spine. No pelvic or spinal fracture noted. Soft tissues: There is mild subcutaneous contusion at the level of the right hip. There are small bilateral fat containing inguinal hernias. Vasculature: Inferior vena cava filter in good position. Atherosclerotic calcification of the aorta and branches. No aneurysm. Lymph nodes: No pathologically enlarged lymph nodes. IMPRESSION: 1. There are acute appearing nondisplaced fractures of the right lateral ninth and 10th ribs. 2. No traumatic change of the solid organs. 3. Large amounts of stool in the colon without obstruction. 4. Cholelithiasis. 5. There is mild subcutaneous contusion at the level of the right hip. No body wall hematoma noted. ACT 112: Negative or not required by law. Electronically signed by Humera Hemphill 03-05-2024 5:41 PM
--- NOTE | 2024-03-05 18:37 | CT Scan Report ---
EXAM: CT Chest With Intravenous Contrast INDICATION: Posttraumatic pain. Rib fracture. TECHNIQUE: Axial computed tomography images of the chest with intravenous contrast. Sagittal and coronal reformatted images were created and reviewed. This CT exam was performed using one or more of the following dose reduction techniques: automated exposure control, adjustment of the mA and/or kV according to patient size, and/or use of iterative reconstruction technique. CONTRAST: 89ml of Optiray 320 was administered intravenously. COMPARISON: CT abdomen the same day. FINDINGS: Limitations: None. Lungs and pleural spaces: There is a right upper lobe perihilar soft tissue mass measuring 2.3 cm transverse by 1.7 cm AP by 1.5 cm long. There is a 5 mm noncalcified nodule in the right lower lobe posterior to the major fissure series 3 image 25. There is airway thickening which is likely chronic. T there is mucus in the left mainstem bronchus. No bronchiectasis. No consolidation. No significant effusion. Heart: Cardiomegaly noted. Cardiac pacing device noted. Metallic artifact limits assessment of lead integrity. Thyroid: No abnormality noted. Bones/joints: There is an acute nondisplaced fracture of the right lateral ninth rib. Soft tissues: No significant abnormality noted. Vasculature: No abnormality noted. No thoracic aortic aneurysm. Lymph nodes: No enlarged lymph nodes. IMPRESSION: 1. There is an acute fracture of the right lateral ninth rib. 2. Right perihilar upper lobe soft tissue mass. Considerations include neoplasm, pneumonia and adenopathy. 3. Mucus in the left mainstem bronchus. There is chronic airway thickening and basilar atelectasis. 4. Cholelithiasis. ACT 112: Negative or not required by law. Electronically signed by Humera Hemphill 03-05-2024 6:37 PM
[2024-03-05] MEDS: PIPERACILLIN/TAZOBACTAM 4.5 GM/100 ML BAG IV ONE (19:25)
[2024-03-05] MEDS ORDERED: TRIAMCINOLONE ACET 0.1% CR 15 GM TUBE TOP PRN (22:47)
[2024-03-05] MEDS ORDERED: LACTOSE REDUCED FOOD WITH FIBR feeding tube SCH ×2 (22:47)
[2024-03-05] MEDS ORDERED: NITROGLYCERIN SL 0.4 MG/TAB TAB SL PRN (22:47)
[2024-03-05] MEDS ORDERED: KETOCONAZOLE 2% CR 15 GM TUBE EXT PRN (22:47)
[2024-03-05 23:14] LABS: Appearance Urine Clear (Clear); Bacteria Urine Automated None Seen (None Seen); Bilirubin Urine Negative (Negative); Blood Urine 1+ (Negative); Cast Urine Automated 0-2 /lpf (0-2); Color Urine Yellow; Epithelial Cell Urine Auto 0-2 /hpf (0-2); Glucose Urine UA Negative (Negative); Ketones Urine Negative (Negative); Leukocyte Esterase Urine Trace (Negative); Nitrite Urine Negative (Negative); Protein Urine Negative (Negative); Specific Gravity Urine > 1.045 (1.000-1.030); Urobilinogen Urine Negative (Negative); WBC Urine Automated 0-5 /hpf (0-5); pH Urine 5.5 (4.5-7.5)
[2024-03-06] MEDS: PIPERACILLIN/TAZOBACTAM 4.5 GM/100 ML BAG IV SCH (00:29)
[2024-03-06] MEDS: ATORVASTATIN 40 MG TAB PEG SCH (00:29)
[2024-03-06] MEDS: DOXYCYCLINE HYCLATE 100 MG in DEXTROSE 5% MINI-B 100 ML IV SCH (00:29)
[2024-03-06] MEDS: LABETALOL HCL 300 MG TAB PEG SCH (00:29)
[2024-03-06] MEDS: SODIUM CHLORIDE 0.9% 1,000 ML IV SCH (00:30)
--- NOTE | 2024-03-06 08:00 | History & Physical Report ---
Date of Service March 05, 2024 Assessment & Plan (1) Pneumonia: Plan: 78-year-old male with past medical history significant for hypertension history of CVA with expressive aphasia and nonambulatory status, status post PEG tube, hypertension, history of tonsillar cancer s/p chemo radiation treatment, radiation-induced arteritis, carotid stenosis, GERD, esophageal stricture, history of DVT and PE, sinus node dysfunction status post pacemaker, BPH comes because of fall. Patient is mostly bedbound. Patient can transfer to the wheelchair. Last Thursday he fell down when getting transferred to the wheelchair but did not pass out. Since then he had couple more falls and the family brought him here. He seems to holding his chest but family not sure if he has any pain. No recent fever. No cough. No nausea or vomiting. He alternates diarrhea and constipation. Micturating okay. Daughter is in the room who helped with H&P. Hemodynamics are okay. Pneumonia leukocytosis Chest CT showing right perihilar upper lobe soft tissue mass possible pneumonia versus neoplasm's and adenopathy and also mucus in left mainstem bronchus seen Started on Zosyn and Doxy Pulmonary consult for further recommendations Elevated troponin Initial troponin 375 and repeat is 301 Patient does not seem to be in distress EKG no acute findings Mostly demand ischemia from ongoing infection Holding IV heparin for now as patient has thrombocytopenia Will follow serial cardiac enzymes and echo Cardiac consult in a.m. 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 Had complete remission but 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 Also had some rectovesical mass which was biopsied and was squamous cell carcinoma Heme-onc was following but stopped following after he had a stroke in 2015 as per epic notes Thrombocytopenia Chronic Platelets 75 today Will follow labs Anemia Hemoglobin 10.8 Baseline around 13 range Will check stool for Hemoccult Iron studies vitamin B12 and folate levels Follow labs DVT prophylaxis SCDs for now as patient is thrombocytopenia Disposition Med/telemetry and close monitor CODE STATUS full code as per discussion with daughter History of Present Illness Chief Complaint: Falls Primary Care Provider: Reid Barraza MD 78-year-old male with past medical history significant for hypertension history of CVA with expressive aphasia and nonambulatory status, status post PEG tube, hypertension, history of tonsillar cancer s/p chemo radiation treatment, radiation-induced arteritis, carotid stenosis, GERD, esophageal stricture, history of DVT and PE, sinus node dysfunction status post pacemaker, BPH comes because of fall. Patient is mostly bedbound. Patient can transfer to the wheelchair. Last Thursday he fell down when getting transferred to the wheelchair but did not pass out. Since then he had couple more falls and the family brought him here. He seems to holding his chest but family not sure if he has any pain. No recent fever. No cough. No nausea or vomiting. He alternates diarrhea and constipation. Micturating okay. Daughter is in the room who helped with H&P. Hemodynamics are okay. Past medical history. As mentioned above Past surgical history. Alveoloplasty with extraction. Biopsy of the throat. Colonoscopy. EGD. Pacemaker placement. Laryngoscopy. Laparoscopic Ectomy partial lobectomy. Mechanical thrombectomy. Left carotid stent with cerebral angiogram. [place] filter. Social history. . Quit smoking 2007. Smoked 1 pack a day for 40 years. No alcohol history. No drug use. Family history. Father had lung cancer. Allergies Allergy/AdvReac Type Severity Reaction Status Date / Time No Known Allergies Allergy Unknown Verified 11/28/19 10:09 Home Medications Medication Instructions Recorded Confirmed Type acetaminophen 325 mg capsule 975 mg feeding tube BID PRN Pain 04/11/18 03/05/24 History (Tylenol) amlodipine 10 mg tablet (Norvasc) 5 mg feeding tube QAM 04/11/18 03/05/24 History aspirin 81 mg chewable tablet 81 mg feeding tube [id number] 04/11/18 03/05/24 History atorvastatin 40 mg tablet (Lipitor) 40 mg feeding tube HS 04/11/18 03/05/24 History clopidogrel 75 mg tablet (Plavix) 75 mg feeding tube QAM 04/11/18 03/05/24 History famotidine 20 mg tablet (Pepcid) 20 mg feeding tube QAM 04/11/18 03/05/24 History labetalol 300 mg tablet 300 mg feeding tube TID 04/11/18 03/05/24 History lactose-reduced food with fiber 375 ea feeding tube BID 11/28/19 03/05/24 History oral liquid lactose-reduced food with fiber 500 ea feeding tube QPM 11/28/19 03/05/24 History oral liquid finasteride 5 mg tablet 5 mg feeding tube DAILY 03/05/24 03/05/24 History ketoconazole 2 % topical cream 1 applic topical DIRECTED PRN 03/05/24 03/05/24 History Other triamcinolone acetonide 0.1 % 1 applic topical BID PRN Other 03/05/24 03/05/24 History topical cream Past Med/Surg History Problem List Closed rib fracture (Acute) Elevated troponin (Acute) Generalized weakness (Acute) Esophageal thickening Weakness (Acute) Esophageal stricture (Chronic) Respiratory failure with hypoxia (Acute) Pneumonia (Acute) DVT prophylaxis Discharge planning issues Epistaxis (Acute) Aspiration pneumonia (Acute) Sepsis Cholelithiasis (Chronic) Noted on CT chest 04/11/18 Pulmonary nodule (Chronic) Noted on CT chest 04/11/18. Follow-up in 6 months recommended. Dyslipidemia (Chronic) Nutrition disorder (Chronic) Essential hypertension (Chronic) Cerebrovascular disease (Chronic) stroke 2014 with left carotid thrombectomy + stent left MCA stroke 2016 with residual expressive aphasia and RUE weakness Sensorineural hearing loss (Chronic) Neoplasm of tonsil (Chronic) "s/p excision, chemo, and radiation, with mets to liver s/p partial liver resection" GERD (gastroesophageal reflux disease) (Chronic) H/O History of DVT of lower extremity (Chronic) 2013 History of pulmonary embolism (Chronic) 2013 Sinus node dysfunction (Chronic) Cardiac pacemaker in situ (Chronic) LAST CHECKED JUNE 2018 Left carotid artery stenosis (Chronic) S/P cataract surgery (Chronic) S/P wrist surgery (Chronic) History of laryngoscopy (Chronic) S/P IVC filter (Chronic) Medical History (Updated 03/06/24 @ 00:07 by Harleen Quinn DO) Pneumonia H/O ASPIRATION PNEUMONIA PER RECORD Carotid stenosis Stroke ~4 YEARS AGO. Surgical History S/P percutaneous endoscopic gastrostomy (PEG) tube placement History of esophagogastroduodenoscopy (EGD) History of carotid endarterectomy RIGHT? History of tonsillectomy Family History Other Cancer Family history of stroke Hypertension Social History Smoking Status: Former smoker Cigarettes Per Day: 20; Second Hand Exposure: No; Do You Dip or Chew Tobacco: No; Tobacco Cessation Education Requested by Patient: No Hx Alcohol Use: No Hx Substance Use: No Preferred Language: Belarusian Communication Ability: Impaired Communication Ability Comment: DIFFICULTY WITH VERBAL COMMUNICATION. A&O X3 PER DAUGHTER. Motorized Squad [employer] Required: No Beliefs That Will Affect Care: None marital status: Current Living Situation: Family Other Information That Helps Us Care for You: No Feels Safe at Home: Yes Safety Concerns: Feels Safe At This Time Assistive Devices: Wheelchair Review of Systems Review of Systems: Other Expressive aphasia Physical Exam Physical Exam: General- aphasia, Not in distress Head- atraumatic Eyes- PERRL. ENT- oropharynx dry Neck- supple, no JVD. Lungs- clear to auscultation and percussion Heart- regular rate and rhythm; no murmur, no gallop. Abdomen- normal bowel sounds, soft, nontender, no distension.Peg tube site no erythema or drainage seen Extremities- no pretibial edema, no erythema seen Neuro- alert and awake expressive aphasia present ; PERRL, no facial palsy; minimal movement of lower extremities Results & Data Results & Data Vital Signs (Past 12 Hours) Vital Signs Temp Pulse Pulse Resp BP BP Pulse Ox 03/05/24 17:00 62 17 135/73 100 03/05/24 16:51 72 23 99 03/05/24 16:30 72 24 95 03/05/24 16:23 70 03/05/24 16:12 71 93 03/05/24 16:00 137/64 03/05/24 16:00 69 20 96 03/05/24 15:51 69 18 96 03/05/24 15:45 70 19 95 03/05/24 15:27 69 20 97 03/05/24 15:16 03/05/24 15:16 69 18 122/58 L 98 03/05/24 15:03 70 23 98 03/05/24 15:00 122/58 L 03/05/24 14:54 70 22 97 03/05/24 14:49 37.1 C 69 18 107/58 L 97 03/05/24 14:45 107/58 L O2 Del Method 03/05/24 17:00 03/05/24 16:51 03/05/24 16:30 03/05/24 16:23 03/05/24 16:12 03/05/24 16:00 03/05/24 16:00 03/05/24 15:51 03/05/24 15:45 03/05/24 15:27 03/05/24 15:16 Room Air 03/05/24 15:16 Room Air 03/05/24 15:03 03/05/24 15:00 03/05/24 14:54 03/05/24 14:49 Room Air 03/05/24 14:45 Diagnostic Findings Laboratory Results WBC 18.59 K/ul (4.8-10.8) H 03/05/24 15:52 RBC 3.43 M/uL (4.70-6.10) L 03/05/24 15:52 Hgb 10.8 g/dl (14.0-18.0) L 03/05/24 15:52 Hct 33.3 % (42.0-52.0) L 03/05/24 15:52 MCV 97.1 fL (80.0-100.0) 03/05/24 15:52 MCH 31.5 pg (25.0-34.0) 03/05/24 15:52 MCHC 32.4 g/dL (32.0-36.0) 03/05/24 15:52 RDW Std Deviation 50.4 fL (36.4-46.3) H 03/05/24 15:52 RDW Coeff of Ming 14.1 % (11.5-14.5) 03/05/24 15:52 Plt Count 75 K/uL (130-400) L 03/05/24 15:52 MPV 13.3 fL (9.4-12.4) H 03/05/24 15:52 Immature Gran % (Auto) 2.5 % 03/05/24 15:52 Neut % (Auto) 80.7 % 03/05/24 15:52 Lymph % (Auto) 3.4 % 03/05/24 15:52 [place] % (Auto) 13.1 % 03/05/24 15:52 Eos % (Auto) 0.0 % 03/05/24 15:52 Baso % (Auto) 0.3 % 03/05/24 15:52 Neut # (Auto) 15.01 K/uL (1.40-6.50) H 03/05/24 15:52 Lymph # (Auto) 0.63 K/uL (1.20-3.40) L 03/05/24 15:52 [place] # (Auto) 2.43 K/uL (0.11-0.59) H 03/05/24 15:52 Eos # (Auto) 0.00 K/uL (0.00-0.50) 03/05/24 15:52 Baso # (Auto) 0.05 K/uL (0.00-0.20) 03/05/24 15:52 Immature Gran # (Auto) 0.47 K/uL (0.01-0.20) H 03/05/24 15:52 Dohle Bodies 1+ 03/05/24 15:52 Polychromasia 1+ 03/05/24 15:52 Sodium 133 mmol/L (136-145) L 03/05/24 15:52 Potassium 4.4 mmol/L (3.5-5.1) 03/05/24 15:52 Chloride 100 mmol/L (98-107) 03/05/24 15:52 Carbon Dioxide 23 mmol/L (21-32) 03/05/24 15:52 Anion Gap 10 (3-11) 03/05/24 15:52 BUN 53 mg/dl (6-23) H 03/05/24 15:52 Creatinine 1.28 mg/dl (0.6-1.4) 03/05/24 15:52 Est Cr Clr Drug Dosing 47.5 ml/min 03/05/24 15:52 eGFR 58.00 03/05/24 15:52 BUN/Creatinine Ratio 41.4 (10-20) H 03/05/24 15:52 Glucose 131 mg/dl (70-99(Fasting)) H 03/05/24 15:52 Lactate 1.9 mmol/L (0.4-2.0) 03/05/24 18:57 Calcium 9.6 mg/dl (8.6-10.3) 03/05/24 15:52 Magnesium 2.1 mg/dl (1.7-2.4) 03/05/24 15:52 Total Bilirubin 0.9 mg/dl (0.2-1.0) 03/05/24 15:52 AST 28 U/L (13-39) 03/05/24 15:52 ALT 28 U/L (7-52) 03/05/24 15:52 Alkaline Phosphatase 88 U/L (34-104) 03/05/24 15:52 Troponin I High Sens 301.5 pg/ml (0-20) H* 03/05/24 21:39 B-Natriuretic Peptide 285 pg/ml (0-100) H 03/05/24 15:52 Total Protein 7.0 gm/dl (6.0-8.3) 03/05/24 15:52 Albumin 4.2 gm/dl (3.4-5.0) 03/05/24 15:52 Globulin 2.8 gm/dl (2.5-4.0) 03/05/24 15:52 Albumin/Globulin Ratio 1.5 (0.9-2) 03/05/24 15:52 Procalcitonin 0.34 ng/ml (0-0.5) 03/05/24 15:52 TSH 6.032 uIu/ml (0.300-4.500) H 03/05/24 15:52 Free T4 0.70 ng/dl (0.61-1.60) 03/05/24 15:52 Urine Color Yellow 03/05/24 22:20 Urine Appearance Clear (Clear) 03/05/24 22:20 Urine pH 5.5 (4.5-7.5) 03/05/24 22:20 Ur Specific [place] > 1.045 (1.000-1.030) H 03/05/24 22:20 Urine Protein Negative (Negative) 03/05/24 22:20 Urine Glucose (UA) Negative (Negative) 03/05/24 22:20 Urine Ketones Negative (Negative) 03/05/24 22:20 Urine Blood 1+ (Negative) H 03/05/24 22:20 Urine Nitrite Negative (Negative) 03/05/24 22:20 Urine Bilirubin Negative (Negative) 03/05/24 22:20 Urine Urobilinogen Negative (Negative) 03/05/24 22:20 Ur Leukocyte Esterase Trace (Negative) H 03/05/24 22:20 Urine WBC (Auto) 0-5 /hpf (0-5) 03/05/24 22:20 Urine RBC (Auto) 6-10 /hpf (0-2) H 03/05/24 22:20 U Hyaline Cast (Auto) 0-2 /lpf (0-2) 03/05/24 22:20 U Epithel Cells (Auto) 0-2 /hpf (0-2) 03/05/24 22:20 Urine Bacteria (Auto) None Seen (None Seen) 03/05/24 22:20 Adenovirus (PCR) Not Detected (NotDetected) 03/05/24 15:29 B. pertussis DNA (PCR) Not Detected (NotDetected) 03/05/24 15:29 B.parapertussis DNA PCR Not Detected (NotDetected) 03/05/24 15:29 C. pneumoniae DNA (PCR) Not Detected (NotDetected) 03/05/24 15:29 Coronavirus OC43 (PCR) Not Detected (NotDetected) 03/05/24 15:29 Coronavirus HKU1 (PCR) Not Detected (NotDetected) 03/05/24 15:29 Coronavirus 229E (PCR) Not Detected (NotDetected) 03/05/24 15:29 SARS-CoV-2 (PCR) Not Detected (NotDetected) 03/05/24 15:29 Coronavirus NL63 (PCR) Not Detected (NotDetected) 03/05/24 15:29 Human Metapneumovir PCR Not Detected (NotDetected) 03/05/24 15:29 Influenza Type A (PCR) Not Detected (NotDetected) 03/05/24 15:29 Influenza Type B (PCR) Not Detected (NotDetected) 03/05/24 15:29 M. pneumoniae (PCR) Not Detected (NotDetected) 03/05/24 15:29 Parainfluenza 1 (PCR) Not Detected (NotDetected) 03/05/24 15:29 Parainfluenza 2 (PCR) Not Detected (NotDetected) 03/05/24 15:29 Parainfluenza 3 (PCR) Not Detected (NotDetected) 03/05/24 15:29 Parainfluenza 4 (PCR) Not Detected (NotDetected) 03/05/24 15:29 RSV (PCR) Not Detected (NotDetected) 03/05/24 15:29 Entero/Rhino (PCR) Not Detected (NotDetected) 03/05/24 15:29 Impressions Abdomen/Pelvis CT 03/05/24 15:16 EXAM: CT Abdomen and Pelvis With Intravenous Contrast INDICATION: Posttraumatic pain. TECHNIQUE: Axial computed tomography images of the abdomen and pelvis with intravenous contrast. Sagittal and coronal reformatted images were created and reviewed. This CT exam was performed using one or more of the following dose reduction techniques: automated exposure control, adjustment of the mA and/or kV according to patient size, and/or use of iterative reconstruction technique. CONTRAST: 90ml of Optiray 320 was administered intravenously. COMPARISON: No relevant prior studies available. FINDINGS: Limitations: None. Lung bases: Airway thickening and atelectasis present in the lung bases. Pleural space: No basilar pleural effusion. Heart: Cardiomegaly noted. Cardiac pacing device noted. Metallic artifact limits assessment of lead integrity. Mediastinum: No abnormality noted. ABDOMEN: Liver: No abnormality noted. Gallbladder and bile ducts: Innumerable gallstones present. No ductal dilatation or stone. Pancreas: Homogeneous enhancement. No mass, inflammation or ductal dilation. Spleen: No significant abnormality noted. Adrenals: No significant abnormality noted. Kidneys and ureters: Simple bilateral renal cysts noted. No follow-up necessary. No stones or hydronephrosis. There is a 5 mm nonobstructing stone in each renal upper pole. Renal vascular calcification noted. No hydronephrosis. No urinary gas or perinephric fluid. Stomach and bowel: Large amounts of stool in the redundant colon without obstruction or inflammation. Gastrostomy balloon inflated in the stomach. PELVIS: Appendix: No findings to suggest acute appendicitis. Bladder: No filling defects to suggest mass or large stone. No inflammation. Reproductive: No abnormalities noted. ABDOMEN and PELVIS: Intraperitoneal space: No free air. No significant fluid collection. Bones/joints: There is an acute appearing nondisplaced fracture of the right lateral ninth and 10th ribs. Degenerative changes present in the spine. No pelvic or spinal fracture noted. Soft tissues: There is mild subcutaneous contusion at the level of the right hip. There are small bilateral fat containing inguinal hernias. Vasculature: Inferior vena cava filter in good position. Atherosclerotic calcification of the aorta and branches. No aneurysm. Lymph nodes: No pathologically enlarged lymph nodes. IMPRESSION: 1. There are acute appearing nondisplaced fractures of the right lateral ninth and 10th ribs. 2. No traumatic change of the solid organs. 3. Large amounts of stool in the colon without obstruction. 4. Cholelithiasis. 5. There is mild subcutaneous contusion at the level of the right hip. No body wall hematoma noted. ACT 112: Negative or not required by law. Electronically signed by Humera Hemphill 03-05-2024 5:41 PM Chest X-Ray 03/05/24 15:16 EXAM: Radiograph of the Chest 1 View INDICATION: Weakness TECHNIQUE: Frontal view of the chest. COMPARISON: 11/28/2019 and 04/12/2018 FINDINGS: Lungs and pleural spaces: Generalized increased interstitial markings with 1.4 x 1.3 cm nodular versus infiltrate in the right perihilar. . Heart: Shape and configuration within normal limits allowing for technique. Mediastinum: Normal contour. Bones/joints: No fracture, erosion or dislocation. Soft tissues: No abnormality noted. No radiopaque foreign body noted. Vasculature: Left carotid stent is present. Tubes, lines and devices: Stable prominent cardiac shadow and right atrial and ventricular intact pacing wires. Upper abdomen: No abnormality noted. IMPRESSION: 1. Increased interstitial markings may reflect bronchitis or vascular congestion. 2. Right perihilar infiltrate versus nodule. If additional imaging is warranted rather than follow-up following treatment, CT with contrast is the modality of choice. ACT 112: Negative or not required by law. Electronically signed by Humera Hemphill 03-05-2024 4:[address] 03/05/24 15:16 EXAM: CT Lumbar Spine With Intravenous Contrast INDICATION: Posttraumatic back pain. Change in bowel habits. TECHNIQUE: Axial computed tomography images of the lumbar spine with intravenous contrast. Sagittal and coronal reformatted images were created and reviewed. This CT exam was performed using one or more of the following dose reduction techniques: automated exposure control, adjustment of the mA and/or kV according to patient size, and/or use of iterative reconstruction technique. CONTRAST: 90ml of Optiray 320 was administered intravenously. COMPARISON: No relevant prior studies available. FINDINGS: Limitations: None. Vertebrae: There is mild facet hypertrophic change at all levels. Mild to moderate diffuse spondylosis. Mild uncal spurring noted at L3-L4. Moderate to space narrowing L3-L4 and L1-L2. Mild narrowing noted at other levels. Sacrum/coccyx: No significant abnormality noted. No acute change noted. Discs/spinal canal/neural foramina: See above. Soft tissues: No significant abnormality noted. Vasculature: Inferior vena cava filter in good position. IMPRESSION: Degenerative changes. No lumbar fracture. ACT 112: Negative or not required by law. Electronically signed by Humera Hemphill 03-05-2024 5:[address] 03/05/24 17:50 EXAM: CT Chest With Intravenous Contrast INDICATION: Posttraumatic pain. Rib fracture. TECHNIQUE: Axial computed tomography images of the chest with intravenous contrast. Sagittal and coronal reformatted images were created and reviewed. This CT exam was performed using one or more of the following dose reduction techniques: automated exposure control, adjustment of the mA and/or kV according to patient size, and/or use of iterative reconstruction technique. CONTRAST: 89ml of Optiray 320 was administered intravenously. COMPARISON: CT abdomen the same day. FINDINGS: Limitations: None. Lungs and pleural spaces: There is a right upper lobe perihilar soft tissue mass measuring 2.3 cm transverse by 1.7 cm AP by 1.5 cm long. There is a 5 mm noncalcified nodule in the right lower lobe posterior to the major fissure series 3 image 25. There is airway thickening which is likely chronic. T there is mucus in the left mainstem bronchus. No bronchiectasis. No consolidation. No significant effusion. Heart: Cardiomegaly noted. Cardiac pacing device noted. Metallic artifact limits assessment of lead integrity. Thyroid: No abnormality noted. Bones/joints: There is an acute nondisplaced fracture of the right lateral ninth rib. Soft tissues: No significant abnormality noted. Vasculature: No abnormality noted. No thoracic aortic aneurysm. Lymph nodes: No enlarged lymph nodes. IMPRESSION: 1. There is an acute fracture of the right lateral ninth rib. 2. Right perihilar upper lobe soft tissue mass. Considerations include neoplasm, pneumonia and adenopathy. 3. Mucus in the left mainstem bronchus. There is chronic airway thickening and basilar atelectasis. 4. Cholelithiasis. ACT 112: Negative or not required by law. Electronically signed by Humera Hemphill 03-05-2024 6:37 PM ECG Additional Comments: ECG. Atrial paced rhythm at rate of 71. No significant change was found. Code Status & VTE Plan VTE Prophylaxis Plan VTE Prophylaxis will be ordered: Yes (1) Pneumonia Aspiration pneumonia type: unspecified Laterality: bilateral Lung location: unspecified part of lung Pneumonia type: aspiration pneumonia Qualified Code(s): J69.0 - Pneumonitis due to inhalation of food and vomit
--- NOTE | 2024-03-06 08:25 | Electrocardiogram Report ---
Test Reason : Blood Pressure : */* mmHG Vent. Rate : 71 BPM Atrial Rate : 71 BPM P-R Int : 170 ms QRS Dur : 70 ms QT Int : 412 ms P-R-T Axes : -3 56 73 degrees QTcB Int : 447 ms Atrial-paced rhythm Abnormal ECG When compared with ECG of 28-Nov-2019 08:50, No significant change was found Confirmed by Raghu Matthews ([id number]) on 03/06/2024 8:24:50 AM Referred By: REFERRED SELF Confirmed By: Raghu Matthews
--- NOTE | 2024-03-06 08:31 | Cardiology Consultation ---
Date of Consultation March 06, 2024 Assessment & Plan (1) Elevated troponin: (2) Closed rib fracture: (3) Generalized weakness: (4) Pneumonia: Plan Complex 78-year-old male with multiple recent falls and rib fracture per review of the records referred for evaluation of elevated troponin. EKG with atrial paced rhythm both no acute ischemic changes with normal AV node conduction. Echocardiogram without wall motion abnormality. Suspect demand based ischemia on basis of underlying medical concerns. Would continue to treat with home medications. No symptoms and thrombocytopenia contraindication to IV heparin History of Present Illness Reason for Consultation: Elevated troponin Requesting Physician: [facility] hospitalist Attending Physician: Jorge Lucero MD History of Present Illness 78-year-old male with complex history as outlined. Notable for prior stroke, hypertension, sick sinus syndrome status post dual-chamber pacemaker insertion. Patient has expressive aphasia as well as limited mobility. Clinical history obtained from review of records with patient difficulty verbalizing complaints. Notes reflect multiple falls in the recent week with acute right rib fracture. Possible pneumonia. Laboratory studies on broad check on admission demonstrated elevation in troponins. No acute EKG changes. Echocardiogram with preserved wall motion Patient does not admit to current chest pain Allergies Allergy/AdvReac Type Severity Reaction Status Date / Time No Known Allergies Allergy Unknown Verified 11/28/19 10:09 Home Medications Medication Instructions Recorded Confirmed Type acetaminophen 325 mg capsule 975 mg feeding tube BID PRN Pain 04/11/18 03/05/24 History (Tylenol) amlodipine 10 mg tablet (Norvasc) 5 mg feeding tube QAM 04/11/18 03/05/24 History aspirin 81 mg chewable tablet 81 mg feeding tube [id number] 04/11/18 03/05/24 History atorvastatin 40 mg tablet (Lipitor) 40 mg feeding tube HS 04/11/18 03/05/24 History clopidogrel 75 mg tablet (Plavix) 75 mg feeding tube QAM 04/11/18 03/05/24 History famotidine 20 mg tablet (Pepcid) 20 mg feeding tube QAM 04/11/18 03/05/24 H istory labetalol 300 mg tablet 300 mg feeding tube TID 04/11/18 03/05/24 History lactose-reduced food with fiber 375 ea feeding tube BID 11/28/19 03/05/24 History oral liquid lactose-reduced food with fiber 500 ea feeding tube QPM 11/28/19 03/05/24 History oral liquid finasteride 5 mg tablet 5 mg feeding tube DAILY 03/05/24 03/05/24 History ketoconazole 2 % topical cream 1 applic topical DIRECTED PRN 03/05/24 03/05/24 History Other triamcinolone acetonide 0.1 % 1 applic topical BID PRN Other 03/05/24 03/05/24 History topical cream Patient History Medical History (Updated 03/06/24 @ 00:07 by Harleen uQinn DO) Pneumonia H/O ASPIRATION PNEUMONIA PER RECORD Carotid stenosis Stroke ~4 YEARS AGO. Surgical History S/P percutaneous endoscopic gastrostomy (PEG) tube placement History of esophagogastroduodenoscopy (EGD) History of carotid endarterectomy RIGHT? History of tonsillectomy Family History Other Cancer Family history of stroke Hypertension Social History Smoking Status: Former smoker Cigarettes Per Day: 20; Second Hand Exposure: No; Do You Dip or Chew Tobacco: No; Tobacco Cessation Education Requested by Patient: No Hx Alcohol Use: No Hx Substance Use: No Preferred Language: Irish Communication Ability: Impaired Communication Ability Comment: DIFFICULTY WITH VERBAL COMMUNICATION. A&O X3 PER DAUGHTER. [employer] Specialist Required: No Beliefs That Will Affect Care: None marital status: Current Living Situation: Family Other Information That Helps Us Care for You: No Feels Safe at Home: Yes Safety Concerns: Feels Safe At This Time Assistive Devices: Wheelchair Review of Systems Review of Systems: Unobtainable due to cognitive status Physical Exam Constitutional: no acute distress Eyes: PERRL, conjunctivae normal, anicteric sclerae Neck: Radiation changes Respiratory: symmetric chest movement Auscultation: + diminished lung sounds Cardiovascular: Rate/Rhythm: regular rate and regular rhythm (Atrial paced) Heart Sounds: normal S1 and normal S2 Vessels: no JVD Extremities: no edema Chest (Breasts): Chest: + pacemaker Gastrointestinal (Abdomen): G-tube in place Results & Data Vital Signs (Past 12 Hours) Vital Signs Temp Pulse Pulse Pulse Resp BP Pulse Ox 03/06/24 07:37 36.4 C L 70 16 122/61 95 03/06/24 07:05 64 03/06/24 03:07 36.5 C 71 18 130/63 96 03/05/24 22:24 81 03/05/24 22:20 36.4 C L 84 16 114/51 L 97 03/05/24 21:42 91 H 20 130/66 93 O2 Del Method 03/06/24 07:37 Room Air 03/06/24 07:05 03/06/24 03:07 Room Air 03/05/24 22:24 03/05/24 22:20 Room Air 03/05/24 21:42 Room Air Laboratory Results Laboratory Results - last 24 hr 03/05/24 03/05/24 03/05/24 15:29 15:52 18:57 WBC 18.59 H RBC 3.43 L Hgb 10.8 L Hct 33.3 L MCV 97.1 MCH 31.5 MCHC 32.4 RDW Std Deviation 50.4 H RDW Coeff of Ming 14.1 Plt Count 75 L MPV 13.3 H Immature Gran % (Auto) 2.5 Neut % (Auto) 80.7 Lymph % (Auto) 3.4 Fisher % (Auto) 13.1 Eos % (Auto) 0.0 Baso % (Auto) 0.3 Neut # (Auto) 15.01 H Lymph # (Auto) 0.63 L Fisher # (Auto) 2.43 H Eos # (Auto) 0.00 Baso # (Auto) 0.05 Immature Gran # (Auto) 0.47 H Dohle Bodies 1+ Polychromasia 1+ Sodium 133 L Potassium 4.4 Chloride 100 Carbon Dioxide 23 Anion Gap 10 BUN 53 H Creatinine 1.28 Est Cr Clr Drug Dosing 47.5 eGFR 58.00 BUN/Creatinine Ratio 41.4 H Glucose 131 H Lactate 1.9 Calcium 9.6 Magnesium 2.1 Total Bilirubin 0.9 AST 28 ALT 28 Alkaline Phosphatase 88 Troponin I High Sens 375.7 H* B-Natriuretic Peptide 285 H Total Protein 7.0 Albumin 4.2 Globulin 2.8 Albumin/Globulin Ratio 1.5 Procalcitonin 0.34 TSH 6.032 H Free T4 0.70 Urine Color Urine Appearance Urine pH Ur Specific [place] Urine Protein Urine Glucose (UA) Urine Ketones Urine Blood Urine Nitrite Urine Bilirubin Urine Urobilinogen Ur Leukocyte Esterase Urine WBC (Auto) Urine RBC (Auto) U Hyaline Cast (Auto) U Epithel Cells (Auto) Urine Bacteria (Auto) Adenovirus (PCR) Not Detected B. pertussis DNA (PCR) Not Detected B.parapertussis DNA PCR Not Detected C. pneumoniae DNA (PCR) Not Detected Coronavirus OC43 (PCR) Not Detected Coronavirus HKU1 (PCR) Not Detected Coronavirus 229E (PCR) Not Detected SARS-CoV-2 (PCR) Not Detected Coronavirus NL63 (PCR) Not Detected Human Metapneumovir PCR Not Detected Influenza Type A (PCR) Not Detected Influenza Type B (PCR) Not Detected M. pneumoniae (PCR) Not Detected Parainfluenza 1 (PCR) Not Detected Parainfluenza 2 (PCR) Not Detected Parainfluenza 3 (PCR) Not Detected Parainfluenza 4 (PCR) Not Detected RSV (PCR) Not Detected Entero/Rhino (PCR) Not Detected 03/05/24 03/05/24 21:39 22:20 WBC RBC Hgb Hct MCV MCH MCHC RDW Std Deviation RDW Coeff of Ming Plt Count MPV Immature Gran % (Auto) Neut % (Auto) Lymph % (Auto) Fisher % (Auto) Eos % (Auto) Baso % (Auto) Neut # (Auto) Lymph # (Auto) Fisher # (Auto) Eos # (Auto) Baso # (Auto) Immature Gran # (Auto) Dohle Bodies Polychromasia Sodium Potassium Chloride Carbon Dioxide Anion Gap BUN Creatinine Est Cr Clr Drug Dosing eGFR BUN/Creatinine Ratio Glucose Lactate Calcium Magnesium Total Bilirubin AST ALT Alkaline Phosphatase Troponin I High Sens 301.5 H* B-Natriuretic Peptide Total Protein Albumin Globulin Albumin/Globulin Ratio Procalcitonin TSH Free T4 Urine Color Yellow Urine Appearance Clear Urine pH 5.5 Ur Specific [place] > 1.045 H Urine Protein Negative Urine Glucose (UA) Negative Urine Ketones Negative Urine Blood 1+ H Urine Nitrite Negative Urine Bilirubin Negative Urine Urobilinogen Negative Ur Leukocyte Esterase Trace H Urine WBC (Auto) 0-5 Urine RBC (Auto) 6-10 H U Hyaline Cast (Auto) 0-2 U Epithel Cells (Auto) 0-2 Urine Bacteria (Auto) None Seen Adenovirus (PCR) B. pertussis DNA (PCR) B.parapertussis DNA PCR C. pneumoniae DNA (PCR) Coronavirus OC43 (PCR) Coronavirus HKU1 (PCR) Coronavirus 229E (PCR) SARS-CoV-2 (PCR) Coronavirus NL63 (PCR) Human Metapneumovir PCR Influenza Type A (PCR) Influenza Type B (PCR) M. pneumoniae (PCR) Parainfluenza 1 (PCR) Parainfluenza 2 (PCR) Parainfluenza 3 (PCR) Parainfluenza 4 (PCR) RSV (PCR) Entero/Rhino (PCR) Diagnostic Findings Pacemaker interrogation 11/21/2023 Normal device function estimated battery life 5.75 years 99% atrial pacing 0% RV pacing no atrial fibrillation (4) Pneumonia Aspiration pneumonia type: unspecified Laterality: bilateral Lung location: unspecified part of lung Pneumonia type: aspiration pneumonia Qualified Code(s): J69.0 - Pneumonitis due to inhalation of food and vomit
--- NOTE | 2024-03-06 08:34 | Electrocardiogram Report ---
Test Reason : Blood Pressure : */* mmHG Vent. Rate : 68 BPM Atrial Rate : 68 BPM P-R Int : 172 ms QRS Dur : 68 ms QT Int : 436 ms P-R-T Axes : 50 45 63 degrees QTcB Int : 463 ms Atrial-paced rhythm Abnormal ECG When compared with ECG of 05-Mar-2024 14:48, No significant change was found Confirmed by Raghu Matthews ([id number]) on 03/06/2024 8:33:37 AM Referred By: REFERRED SELF Confirmed By: Raghu Matthews
[2024-03-06] MEDS: FAMOTIDINE 20 MG TAB JT SCH (10:09)
[2024-03-06] MEDS: CLOPIDOGREL BISULFATE 75 MG TAB PEG SCH (10:09)
[2024-03-06] MEDS: amLODIPine BESYLATE 5 MG TAB PEG SCH (10:10)
[2024-03-06] MEDS: FINASTERIDE 5 MG TAB PEG SCH ×2 (10:54→20:36)
[2024-03-06 11:11] LABS: Basophils # (auto) 0.04 K/uL (0.00-0.20); Basophils % (auto) 0.3 %; Eosinophils # (auto) 0.02 K/uL (0.00-0.50); Eosinophils % (auto) 0.2 %; Hematocrit (blood only) 35.6 % (42.0-52.0); Hemoglobin 11.2 g/dl (14.0-18.0); Immature Granulocytes # (auto) 0.06 K/uL (0.01-0.20); Immature Granulocytes % (auto) 0.5 %; Lymphocytes % (auto) 6.2 %; Mean Corpuscular Hemoglobin 31.7 pg (25.0-34.0); Mean Corpuscular Hgb Conc 31.5 g/dL (32.0-36.0); Mean Corpuscular Volume 100.8 fL (80.0-100.0); Monocytes % (auto) 13.8 %; Neutrophils # (auto) 10.28 K/uL (1.40-6.50); Platelet Count 63 K/uL (130-400); RDW Coefficient of Variation 14.5 % (11.5-14.5); RDW Standard Deviation 53.1 fL (36.4-46.3); Red Blood Count 3.53 M/uL (4.70-6.10)
[2024-03-06 11:24] LABS: Iron 20 mcg/dl (35-175); Total Iron Binding Cap Calc 314 mcg/dl (250-450); Transferrin (FE) Percent Satur 6 % (20-50); Unsaturated Iron Binding Cap 294 mcg/dl (155-355)
[2024-03-06 11:28] LABS: BUN Creatinine Ratio 33.1 (10-20); Calcium 9.2 mg/dl (8.6-10.3); Creatinine Clr Calc Pharmacy 46.3 ml/min; Magnesium 2.3 mg/dl (1.7-2.4); Potassium 4.1 mmol/L (3.5-5.1)
[2024-03-06] MEDS: TUBE FEEDING WATER FLUSH PEG SCH (11:35)
[2024-03-06] MEDS: PATIENT'S OWN ENTERAL FEEDING PEG SCH (11:35)
[2024-03-06 11:54] LABS: Folate (Folic Acid),Ser orPlas > 22.30 ng/ml (>5.38)
[2024-03-06 11:55] LABS: Vitamin B12 907 pg/ml (180-914)
--- NOTE | 2024-03-06 11:56 | Hospitalist Progress Note ---
Date of Service March 06, 2024 Assessment & Plan (1) Pneumonia: Plan: 78-year-old male with past medical history significant for hypertension history of CVA with expressive aphasia and nonambulatory status, status post PEG tube, hypertension, history of tonsillar cancer s/p chemo radiation treatment, radiation-induced arteritis, carotid stenosis, GERD, esophageal stricture, history of DVT and PE, sinus node dysfunction status post pacemaker, BPH comes because of fall. Patient is mostly bedbound. Patient can transfer to the wheelchair. Last Thursday he fell down when getting transferred to the wheelchair but did not pass out. Since then he had couple more falls and the family brought him here. He seems to holding his chest but family not sure if he has any pain. No recent fever. No cough. No nausea or vomiting. He alternates diarrhea and constipation. Micturating okay. Daughter is in the room who helped with H&P. Hemodynamics are okay. Pneumonia Leukocytosis Chest CT showing right perihilar upper lobe soft tissue mass possible pneumonia versus neoplasm's and adenopathy and also mucus in left mainstem bronchus seen Started on Zosyn and Doxy - cont. WBC 18k -> 13K Pulmonary consulted for further recommendations - cont. current abx, then may switch to Levaquin Mass of upper lobe of right lung: Per pulm. - Patient had an incidental 3 cm right upper lobe mass on CT chest as part of a trauma workup this admission. The mass may potentially be partially involving the right upper lobe bronchus. I do not have any older CT chest scans to review aside for 2019 where there was a perifissural nodule measuring about 8 mm in a similar region. Presumably this area has grown over time. I do not have records of his oncological care. 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 Recommend to involve pt's outpatient oncologist to discuss. He is currently quite complex given the rib fractures, acute pneumonia and thrombocytopenia. He is also on Plavix for history of CVA. I do not think that he is currently a candidate for bronchoscopy but may be in the near future once the acute issues resolved. I would recommend an outpatient PET scan and would defer bronchoscopy to be done at the preference of the patient and the patient's family perhaps in [place] when he is clinically stable. Elevated troponin Initial troponin 375 and repeat is 301 Patient does not seem to be in distress EKG no acute findings Mostly demand ischemia from ongoing infection Holding IV heparin for now as patient has thrombocytopenia serial cardiac enzymes and echo obtained Cardiology consulted, appreciate their input Falls Possibly from above PT OT when stable Rib fracture Acute fracture of the right lateral ninth rib Pain control History of CVA Expressive aphasia Mostly bedbound Can transfer to wheelchair Nutrition from PEG tube Meds via PEG tube On aspirin Plavix and statin PT OT when stable Hyperlipidemia On statin Hypertension On labetalol and amlodipine Will monitor Nutrition Tube feeds Continue home tube feeds Dietitian consult 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 Had complete remission but 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 Also had some rectovesical mass which was biopsied and was squamous cell carcinoma Heme-onc was following but stopped following after he had a stroke in 2014 as per [facility] notes Thrombocytopenia Chronic Platelets 75 on admission Will follow labs Anemia Hemoglobin 10.8 Baseline around 13 range Will check stool for Hemoccult Iron studies vitamin B12 and folate levels Follow labs DVT prophylaxis SCDs for now as patient is thrombocytopenia Disposition Med/telemetry and close monitor CODE STATUS full code as per discussion of admitting provier with daughter Admission and Anticipated Discharge Date Admission Date: March 05, 2024 Subjective Pt seen in follow up of PNA Pt has hx of CVA, aphasic, hx of lung nodule. PEG tube w/ tube feeds at home. Presents after fall, + leukocytosis, + elevated troponin, rib fx Currently laying in bed in NAD, seems to have no complaints. Pt's present at the bedside and also voices no complaints. When asked if he has any pain, shortness of breath etc. pt states no WBC 18k -> 13K Review of Systems Review of Systems: All systems reviewed & are unremarkable except as noted in Subjective Physical Exam Physical Exam: General- elderly M , +chronically ill appearing, +aphasia, NAD Head- atraumatic Eyes- PERRL. Neck- supple Lungs- + mild rhonchi, no wheezing Heart- regular rate and rhythm; no murmur Abdomen- normal bowel sounds, soft, nontender, no distension.Peg tube site no erythema or drainage seen Extremities- no pretibial edema, no erythema seen Neuro- alert and awake expressive aphasia present ; PERRL, no facial palsy; minimal movement of lower extremities Results & Data Results & Data Vital Signs (Past 12 Hours) Vital Signs Temp Pulse Pulse Pulse Resp BP Pulse Ox 03/06/24 11:48 37.1 C 82 20 118/58 L 95 03/06/24 10:10 03/06/24 07:37 36.4 C L 70 16 122/61 95 03/06/24 07:05 64 03/06/24 03:07 36.5 C 71 18 130/63 96 O2 Del Method 03/06/24 11:48 Room Air 03/06/24 10:10 Room Air 03/06/24 07:37 Room Air 03/06/24 07:05 03/06/24 03:07 Room Air Laboratory Results 03/06/24 03/05/24 03/05/24 Range/Units 10:43 22:20 21:39 WBC 13.00 H (4.8-10.8) K/ul RBC 3.53 L (4.70-6.10) M/uL Hgb 11.2 L (14.0-18.0) g/dl Hct 35.6 L (42.0-52.0) % MCV 100.8 H (80.0-100.0) fL MCH 31.7 (25.0-34.0) pg MCHC 31.5 L (32.0-36.0) g/dL RDW Std Deviation 53.1 H (36.4-46.3) fL RDW Coeff of Ming 14.5 (11.5-14.5) % Plt Count 63 L (130-400) K/uL MPV 13.0 H (9.4-12.4) fL Immature Gran % (Auto) 0.5 % Neut % (Auto) 79.0 % Lymph % (Auto) 6.2 % [place] % (Auto) 13.8 % Eos % (Auto) 0.2 % Baso % (Auto) 0.3 % Neut # (Auto) 10.28 H (1.40-6.50) K/uL Lymph # (Auto) 0.80 L (1.20-3.40) K/uL [place] # (Auto) 1.80 H (0.11-0.59) K/uL Eos # (Auto) 0.02 (0.00-0.50) K/uL Baso # (Auto) 0.04 (0.00-0.20) K/uL Immature Gran # (Auto) 0.06 (0.01-0.20) K/uL Dohle Bodies Polychromasia Sodium 137 (136-145) mmol/L Potassium 4.1 (3.5-5.1) mmol/L Chloride 105 (98-107) mmol/L Carbon Dioxide 25 (21-32) mmol/L Anion Gap 7 (3-11) BUN 42 H (6-23) mg/dl Creatinine 1.27 (0.6-1.4) mg/dl Est Cr Clr Drug Dosing 46.3 ml/min eGFR 58.55 BUN/Creatinine Ratio 33.1 H (10-20) Glucose 118 H (70-99(Fasting)) mg/dl Lactate (0.4-2.0) mmol/L Calcium 9.2 (8.6-10.3) mg/dl Magnesium 2.3 (1.7-2.4) mg/dl Iron 20 L (35-175) mcg/dl TIBC 314 (250-450) mcg/dl Unsaturated IBC 294 (155-355) mcg/dl Transferrin % Sat 6 L (20-50) % Total Bilirubin (0.2-1.0) mg/dl AST (13-39) U/L ALT (7-52) U/L Alkaline Phosphatase (34-104) U/L Troponin I High Sens 270.9 H* 301.5 H* (0-20) pg/ml B-Natriuretic Peptide (0-100) pg/ml Total Protein (6.0-8.3) gm/dl Albumin (3.4-5.0) gm/dl Globulin (2.5-4.0) gm/dl Albumin/Globulin Ratio (0.9-2) Vitamin B12 Pending Folate > 22.30 (>5.38) ng/ml Procalcitonin (0-0.5) ng/ml TSH (0.300-4.500) uIu/ml Free T4 (0.61-1.60) ng/dl Urine Color Yellow Urine Appearance Clear (Clear) Urine pH 5.5 (4.5-7.5) Ur Specific [place] > 1.045 H (1.000-1.030) Urine Protein Negative (Negative) Urine Glucose (UA) Negative (Negative) Urine Ketones Negative (Negative) Urine Blood 1+ H (Negative) Urine Nitrite Negative (Negative) Urine Bilirubin Negative (Negative) Urine Urobilinogen Negative (Negative) Ur Leukocyte Esterase Trace H (Negative) Urine WBC (Auto) 0-5 (0-5) /hpf Urine RBC (Auto) 6-10 H (0-2) /hpf U Hyaline Cast (Auto) 0-2 (0-2) /lpf U Epithel Cells (Auto) 0-2 (0-2) /hpf Urine Bacteria (Auto) None Seen (None Seen) Adenovirus (PCR) (NotDetected) B. pertussis DNA (PCR) (NotDetected) B.parapertussis DNA PCR (NotDetected) C. pneumoniae DNA (PCR) (NotDetected) Coronavirus OC43 (PCR) (NotDetected) Coronavirus HKU1 (PCR) (NotDetected) Coronavirus 229E (PCR) (NotDetected) SARS-CoV-2 (PCR) (NotDetected) Coronavirus NL63 (PCR) (NotDetected) Human Metapneumovir PCR (NotDetected) Influenza Type A (PCR) (NotDetected) Influenza Type B (PCR) (NotDetected) M. pneumoniae (PCR) (NotDetected) Parainfluenza 1 (PCR) (NotDetected) Parainfluenza 2 (PCR) (NotDetected) Parainfluenza 3 (PCR) (NotDetected) Parainfluenza 4 (PCR) (NotDetected) RSV (PCR) (NotDetected) Entero/Rhino (PCR) (NotDetected) 03/05/24 03/05/24 03/05/24 Range/Units 18:57 15:52 15:29 WBC 18.59 H (4.8-10.8) K/ul RBC 3.43 L (4.70-6.10) M/uL Hgb 10.8 L (14.0-18.0) g/dl Hct 33.3 L (42.0-52.0) % MCV 97.1 (80.0-100.0) fL MCH 31.5 (25.0-34.0) pg MCHC 32.4 (32.0-36.0) g/dL RDW Std Deviation 50.4 H (36.4-46.3) fL RDW Coeff of Ming 14.1 (11.5-14.5) % Plt Count 75 L (130-400) K/uL MPV 13.3 H (9.4-12.4) fL Immature Gran % (Auto) 2.5 % Neut % (Auto) 80.7 % Lymph % (Auto) 3.4 % [place] % (Auto) 13.1 % Eos % (Auto) 0.0 % Baso % (Auto) 0.3 % Neut # (Auto) 15.01 H (1.40-6.50) K/uL Lymph # (Auto) 0.63 L (1.20-3.40) K/uL [place] # (Auto) 2.43 H (0.11-0.59) K/uL Eos # (Auto) 0.00 (0.00-0.50) K/uL Baso # (Auto) 0.05 (0.00-0.20) K/uL Immature Gran # (Auto) 0.47 H (0.01-0.20) K/uL Dohle Bodies 1+ Polychromasia 1+ Sodium 133 L (136-145) mmol/L Potassium 4.4 (3.5-5.1) mmol/L Chloride 100 (98-107) mmol/L Carbon Dioxide 23 (21-32) mmol/L Anion Gap 10 (3-11) BUN 53 H (6-23) mg/dl Creatinine 1.28 (0.6-1.4) mg/dl Est Cr Clr Drug Dosing 47.5 ml/min eGFR 58.00 BUN/Creatinine Ratio 41.4 H (10-20) Glucose 131 H (70-99(Fasting)) mg/dl Lactate 1.9 (0.4-2.0) mmol/L Calcium 9.6 (8.6-10.3) mg/dl Magnesium 2.1 (1.7-2.4) mg/dl Iron (35-175) mcg/dl TIBC (250-450) mcg/dl Unsaturated IBC (155-355) mcg/dl Transferrin % Sat (20-50) % Total Bilirubin 0.9 (0.2-1.0) mg/dl AST 28 (13-39) U/L ALT 28 (7-52) U/L Alkaline Phosphatase 88 (34-104) U/L Troponin I High Sens 375.7 H* (0-20) pg/ml B-Natriuretic Peptide 285 H (0-100) pg/ml Total Protein 7.0 (6.0-8.3) gm/dl Albumin 4.2 (3.4-5.0) gm/dl Globulin 2.8 (2.5-4.0) gm/dl Albumin/Globulin Ratio 1.5 (0.9-2) Vitamin B12 Folate (>5.38) ng/ml Procalcitonin 0.34 (0-0.5) ng/ml TSH 6.032 H (0.300-4.500) uIu/ml Free T4 0.70 (0.61-1.60) ng/dl Urine Color Urine Appearance (Clear) Urine pH (4.5-7.5) Ur Specific [place] (1.000-1.030) Urine Protein (Negative) Urine Glucose (UA) (Negative) Urine Ketones (Negative) Urine Blood (Negative) Urine Nitrite (Negative) Urine Bilirubin (Negative) Urine Urobilinogen (Negative) Ur Leukocyte Esterase (Negative) Urine WBC (Auto) (0-5) /hpf Urine RBC (Auto) (0-2) /hpf U Hyaline Cast (Auto) (0-2) /lpf U Epithel Cells (Auto) (0-2) /hpf Urine Bacteria (Auto) (None Seen) Adenovirus (PCR) Not Detected (NotDetected) B. pertussis DNA (PCR) Not Detected (NotDetected) B.parapertussis DNA PCR Not Detected (NotDetected) C. pneumoniae DNA (PCR) Not Detected (NotDetected) Coronavirus OC43 (PCR) Not Detected (NotDetected) Coronavirus HKU1 (PCR) Not Detected (NotDetected) Coronavirus 229E (PCR) Not Detected (NotDetected) SARS-CoV-2 (PCR) Not Detected (NotDetected) Coronavirus NL63 (PCR) Not Detected (NotDetected) Human Metapneumovir PCR Not Detected (NotDetected) Influenza Type A (PCR) Not Detected (NotDetected) Influenza Type B (PCR) Not Detected (NotDetected) M. pneumoniae (PCR) Not Detected (NotDetected) Parainfluenza 1 (PCR) Not Detected (NotDetected) Parainfluenza 2 (PCR) Not Detected (NotDetected) Parainfluenza 3 (PCR) Not Detected (NotDetected) Parainfluenza 4 (PCR) Not Detected (NotDetected) RSV (PCR) Not Detected (NotDetected) Entero/Rhino (PCR) Not Detected (NotDetected) Medications Administered Current Inpatient Medications Acetaminophen (Acetaminophen Susp 325 Mg/10.15 Ml Udc) 975 mg PEG BID PRN PRN Reason: Pain Stop: 04/04/24 22:53 Amlodipine Besylate (Amlodipine Besylate 5 Mg Tab) [facility] Stop: 04/05/24 08:59 Last Admin: 03/06/24 10:10 Dose: 5 mg Aspirin (Aspirin 81 Mg Chew) 81 mg PEG MoWeFr@0900 [facility] Stop: 04/06/24 08:59 Atorvastatin Calcium (Atorvastatin 40 Mg Tab) 40 mg PEG HS [facility] Stop: 04/04/24 22:46 Last Admin: 03/06/24 00:29 Dose: 40 mg Clopidogrel Bisulfate (Clopidogrel Bisulfate 75 Mg Tab) 75 mg PEG QAM [facility] Stop: 04/05/24 08:59 Last Admin: 03/06/24 10:09 Dose: 75 mg Famotidine (Famotidine 20 Mg Tab) 20 mg JT QAM [facility] Stop: 04/05/24 08:59 Last Admin: 03/06/24 10:09 Dose: 20 mg Finasteride (Finasteride 5 Mg Tab) 5 mg PEG HS [facility] Stop: 04/05/24 20:59 Piperacillin Sod/Tazobactam Sod (Zosyn) 4.5 gm in 100 mls @ 25 mls/hr IV Q8H [facility]; Protocol Stop: 03/11/24 00:00 Last Admin: 03/06/24 08:53 Dose: 25 mls/hr Doxycycline Hyclate 100 mg/ (Dextrose) 100 mls @ 50 mls/hr IV Q12H [facility] Stop: 03/10/24 22:46 Last Infusion: 03/06/24 02:59 Dose: Infused Ketoconazole (Ketoconazole 2% Cr 15 Gm Tube) 1 appln EXT DAILY PRN PRN Reason: Other Stop: 12/17/24 22:46 Labetalol HCl (Labetalol Hcl 300 Mg Tab) 300 mg PEG TID [facility] Stop: 04/04/24 22:46 Last Admin: 03/06/24 10:10 Dose: 300 mg Nitroglycerin (Nitroglycerin Sl 0.4 Mg/Tab Tab) 0.4 mg SL Q5M PRN PRN Reason: Chest Pain Stop: 04/04/24 22:46 Nutritional Formula (Patient's Own Enteral Feeding) 0 ml PEG UD@0900,1200,1700 [facility]; Protocol Stop: 04/05/24 11:59 Last Admin: 03/06/24 11:35 Dose: 375 ml Sterile Water (Tube Feeding Water Flush) 100 ml PEG Q4H [facility] Stop: 04/05/24 11:59 Last Admin: 03/06/24 11:35 Dose: 100 ml Triamcinolone Acetonide (Triamcinolone Acet 0.1% Cr 15 Gm Tube) 1 appln TOP BID PRN PRN Reason: Other Stop: 04/04/24 22:46 (1) Pneumonia Aspiration pneumonia type: unspecified Laterality: bilateral Lung location: unspecified part of lung Pneumonia type: aspiration pneumonia Qualified Code(s): J69.0 - Pneumonitis due to inhalation of food and vomit
--- NOTE | 2024-03-06 13:10 | Pulmonary Consultation ---
Date of Consultation March 06, 2024 Assessment & Plan (1) Mass of upper lobe of right lung: Patient had an incidental 3 cm right upper lobe mass on CT chest as part of a trauma workup this admission. The mass may potentially be partially involving the right upper lobe bronchus. I do not have any older CT chest scans to review aside for 2008 where there was a perifissural nodule measuring about 8 mm in a similar region. Presumably this area has grown over time. I do not have records of his oncological care. 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 Recommend that his primary team involve his outpatient oncologist to discuss the case further input. He is currently quite complex given the rib fractures, acute pneumonia and thrombocytopenia. He is also on Plavix for history of CVA. I do not think that he is currently a candidate for bronchoscopy but may be in the near future once the acute issues resolved. I would recommend an outpatient PET scan and would defer bronchoscopy to be done at the preference of the [facility] and the patient's family perhaps in [place] when he is clinically stable. 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 (3) Closed rib fracture: Pain control per primary team. No invasive interventions required at this time. Recommend incentive spirometry as able and out of bed to chair. (4) Postobstructive pneumonia: It is reasonable to continue antibiotics with coverage for pseudomonal organisms and possible atypical organisms for the next 7 days. Can likely transition to Levaquin in the next 1 to 2 days depending on clinical course. MRSA screen has not been done. I have ordered an MRSA screen. (5) Thrombocytopenia: Patient appears to have thrombocytopenia which is chronic at baseline, but appears to be worsening today. Unclear etiology. Will defer to primary team for further workup. Possibly sepsis induced thrombocytopenia versus other cathy ologies. Plan Thank you for the consult. Please call with questions. History of Present Illness Reason for Consultation: "Lung mass? " Attending Physician: Jorge Lucero MD History of Present Illness History unobtainable from the patient as he has baseline expressive aphasia from a stroke roughly 6 years ago. Patient's daughter was present in the room was able to give collateral history. She notes that he has been treated in the past for cancer and ultimately she vented frustrations to me involving his prior care related to holding his Plavix years ago. She notes that there was a delay in him receiving a PEG tube which then led to prolonged holding of his Plavix and led to him having a very severe ischemic stroke which left him aphasic. She notes that she is generally frustrated with her care here at [facility] because of this prior experience. 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 Patient's daughter notes that he is "5 years free of cancer" He was a previous smoker and quit in 2007. He smoked about a half a pack to a pack a day for 40 years. He presented to the hospital this time due to recurrent falls at home. He was also minimally admitted for possible pneumonia and had a CT of his chest, C- spine and abdomen/pelvis. Acute fractures of the right lateral ninth rib were seen and a right perihilar upper lobe soft tissue mass was noted. Mucus was also noted in the left mainstem bronchus and chronic airway thickening with basilar atelectasis. He was found to have an elevated white count of 18,590 on admission. He was also thrombocytopenic with a platelet count of 75,000 which is trended down to 63,000. Allergies Allergy/AdvReac Type Severity Reaction Status Date / Time No Known Allergies Allergy Unknown Verified 11/28/19 10:09 Home Medications Medication Instructions Recorded Confirmed Type acetaminophen 325 mg capsule 975 mg feeding tube BID PRN Pain 04/11/18 03/05/24 History (Tylenol) amlodipine 10 mg tablet (Norvasc) 5 mg feeding tube QAM 04/11/18 03/05/24 History aspirin 81 mg chewable tablet 81 mg feeding tube [id number] 04/11/18 03/05/24 History atorvastatin 40 mg tablet (Lipitor) 40 mg feeding tube HS 04/11/18 03/05/24 History clopidogrel 75 mg tablet (Plavix) 75 mg feeding tube QAM 04/11/18 03/05/24 History famotidine 20 mg tablet (Pepcid) 20 mg feeding tube QAM 04/11/18 03/05/24 History labetalol 300 mg tablet 300 mg feeding tube TID 04/11/18 03/05/24 History lactose-reduced food with fiber 375 ea feeding tube BID 11/28/19 03/05/24 History oral liquid lactose-reduced food with fiber 500 ea feeding tube QPM 11/28/19 03/05/24 History oral liquid finasteride 5 mg tablet 5 mg feeding tube DAILY 03/05/24 03/05/24 History ketoconazole 2 % topical cream 1 applic topical DIRECTED PRN 03/05/24 03/05/24 History Other triamcinolone acetonide 0.1 % 1 applic topical BID PRN Other 03/05/24 03/05/24 History topical cream Patient History Medical History (Updated 03/06/24 @ 13:08 by Silvano Medel MD) Pneumonia H/O ASPIRATION PNEUMONIA PER RECORD Carotid stenosis Stroke ~4 YEARS AGO. Surgical History S/P percutaneous endoscopic gastrostomy (PEG) tube placement History of esophagogastroduodenoscopy (EGD) History of carotid endarterectomy RIGHT? History of tonsillectomy Family History Other Cancer Family history of stroke Hypertension Social History Smoking Status: Former smoker Cigarettes Per Day: 20; Second Hand Exposure: No; Do You Dip or Chew Tobacco: No; Tobacco Cessation Education Requested by Patient: No Hx Alcohol Use: No Hx Substance Use: No Preferred Language: Nigerian Communication Ability: Impaired Communication Ability Comment: DIFFICULTY WITH VERBAL COMMUNICATION. A&O X3 PER DAUGHTER. [employer] Required: No Beliefs That Will Affect Care: None marital status: Current Living Situation: Family Other Information That Helps Us Care for You: No Feels Safe at Home: Yes Safety Concerns: Feels Safe At This Time Assistive Devices: Wheelchair Review of Systems Review of Systems: 10 point ROS difficult to obtain given t he patient's expressive aphasia. He appears to be resting comfortably in his bed. He does endorse some pain in his right lower anterior chest region when asked. Physical Exam Constitutional: no acute distress Eyes: PERRL, conjunctivae normal, anicteric sclerae Neck: Radiation changes Respiratory: symmetric chest movement Auscultation: + diminished lung sounds and + rhonchi Cardiovascular: Rate/Rhythm: regular rate and regular rhythm (Atrial paced) Heart Sounds: normal S1 and normal S2 Vessels: no JVD Extremities: no edema Chest (Breasts): Chest: + pacemaker Gastrointestinal (Abdomen): G-tube in place Results & Data Results & Data Vital Signs (Past 12 Hours) Vital Signs Temp Pulse Pulse Pulse Resp BP Pulse Ox 03/06/24 11:48 37.1 C 82 20 118/58 L 95 03/06/24 10:10 03/06/24 07:37 36.4 C L 70 16 122/61 95 03/06/24 07:05 64 03/06/24 03:07 36.5 C 71 18 130/63 96 O2 Del Method 03/06/24 11:48 Room Air 03/06/24 10:10 Room Air 03/06/24 07:37 Room Air 03/06/24 07:05 03/06/24 03:07 Room Air PG Care Time/CCT Total # of Minutes Spent Total Time Spent with Patient: Total time spent is greater than 50% in coordination of care (as documented) at patient's floor/unit and/or counseling patient: Coding Level of Care Code 07907 INT INP/OBS CARE 3/75MIN Diagnoses Mass of upper lobe of right lung R91.8 Tonsillar cancer C09.9 Closed rib fracture S22.39XA Postobstructive pneumonia J18.9 Thrombocytopenia D69.6
[2024-03-06] MEDS: ACETAMINOPHEN SUSP 325 MG/10.15 ML UDC PEG PRN (16:56)
[2024-03-06 21:05] LABS: Appearance Urine Clear (Clear); Bacteria Urine Automated None Seen (None Seen); Bilirubin Urine Negative (Negative); Blood Urine Negative (Negative); Cast Urine Automated 0-2 /lpf (0-2); Color Urine Yellow; Epithelial Cell Urine Auto 0-2 /hpf (0-2); Glucose Urine UA Negative (Negative); Ketones Urine Negative (Negative); Leukocyte Esterase Urine 2+ (Negative); Nitrite Urine Negative (Negative); Protein Urine Negative (Negative); RBC Urine Automated 0-2 /hpf (0-2); Specific Gravity Urine 1.031 (1.000-1.030); Urobilinogen Urine Negative (Negative); WBC Urine Automated 21-50 /hpf (0-5)
--- OUTSIDE RECORDS SUMMARY | 2024-03-07 03:16 | External Medical Summary | Summary of Care ---
Author Name Unknown Organization [facility] Address [address] [place] [address] Phone [phone] Care Team Providers Care Washing Machine Assembler Name Role Phone Reid Barraza MD Primary Care Provider + Reason for Visit * Reason Comments Follow Up Pt here for PEG Tube Encounter Details Date Type Department Care Team (Late st Contact Info) Description 02/09/2024 8:40 AM EST Office Visit Gastroenterology, [facility] [address] [facility] [place] [address] Agnes Clifton MD [address] [facility] [address] PEG (percutaneous endoscopic gastrostomy) status (FORMERLY [facility])* Allergies No known active allergiesdocumented as of this encounter (statuses as of 02/09/2024) Medications Feeding Tubes - Bags (KANGAROO GRAVITY FEEDING BAG) MISCIndications:D ysphagia,G tube feedings ([facility]),On tube feeding diet Use for daily PEG tube feedings 30 Each 5 6 Active chlorHEXIDINE (PERIOGARD) 0.12 % solutionIndicatio ns:Severe protein-calorie malnutrition (HCC) Swish and spit 15 mL 2 times a day. 473 mL 3 6 Active Additional Information Patient not taking.Reported on 02/09/2024 aspirin 81 MG chewable tabletIndications :PEG (percutaneous endoscopic gastrostomy) status ([facility]) Take one three days per week through G tube 100 Tab 5 9 Active Acetaminophen 325 MG Oral Tablet (Tylenol)Indicati ons:Chronic pain,Fever, unspecified fever cause ADMINISTER 2 TABLETS INTO PEG TUBE EVERY 6 HOURS NEEDED FOR FEVER >38C(100.5F) OR MILD PAIN 500 Tablet 3 3 Active Clotrimazole 1 % External Cream (Lotrimin)Indicat ions:Intertrigo Apply topically to affected area 2 times a day. Apply to groin rash for at least 4 weeks 113 g 3 3 Active Isosource 1.5 Octaviano Oral Liquid Administer 1000 mL daily, as directed through feeding tube via gravity bag. 98164 mL 11 4 Active Triamcinolone Acetonide 0.1 % External Cream (Aristocort)Indic ations:Attention to gastrostomy (HCC) APPLY TOPICALLY TO AFFECTED area twice daily. 30 g 4 Active Clopidogrel Bisulfate 75 MG Oral Tablet (pLAVix) ADMINISTER 1 TABLET INTO PEG TUBE EVERY MORNING 90 Tablet 3 4 Active Famotidine 20 MG Oral Tablet (Pepcid) ADMINISTER 1 TABLET INTO PEG TUBE DAILY IN THE MORNING 90 Tablet 4 Active Zoster Vac Recomb Adjuvanted 50 MCG/0.5ML Intramuscular Suspension Reconstituted (Shingrix)Indicat ions:Need for shingles vaccine Inject 0.5 mL into a large muscle now and repeat dose in 60 to 180 days 1 Each 1 09/18/2023 2:50 PM EDT 4 Active Finasteride 5 MG Oral Tablet (Proscar)Indicati ons:BPH with obstruction/lower urinary tract symptoms GIVE ONE TABLET CRUSHED VIA PEG DAILY 30 Tablet 5 4 Active Atorvastatin Calcium 40 MG Oral Tablet (Lipitor) ADMINISTER ONE TABLET INTO PEG TUBE AT BEDTIME 90 Tablet 1 4 Active amLODIPine Besylate 5 MG Oral Tablet (Norvasc) ADMINISTER 1 TABLET INTO PEG TUBE IN THE MORNING 90 Tablet 1 4 Active Labetalol HCl 300 MG Oral Tablet TAKE ONE TABLET BY MOUTH THREE TIMES A DAY (MORNING, NOON, BEFORE BEDTIME) 270 Tablet 1 4 Active documented as of this encounter (statuses as of 02/09/2024) Active Problems Problem Noted Date Diagnosed Date Mild protein-calorie malnutrition 02/12/2023 History of shingles 02/16/2020 Carotid stenosis 04/14/2019 Hemiparesis and aphasia as l ate effect of cerebrovascular accident (CVA) 08/05/2018 BPH with obstruction/lower urinary tract symptom s 08/05/2018 Well adult exam 08/05/2018 Overview (06/27/2022): meds crushed together, given in bag. 06/19 add finasteride. (can't use flomax-clogs. Same category as doxazosin, which he is using) 08/15 upper endoscopy order 2009 colon-mult tubulovillous adenoma, tubular adenoma History of ischemic left MCA stroke 12/13/2017 History of malignant neoplasm metastatic to live r 12/13/2017 History of cancer tonsil 12/13/2017 Personal history of DVT (deep vein thrombosis) 0 12/13/2017 History of pulmonary embolism 12/13/2017 Cerebrovascular disease, arteriosclerotic, post- stroke 10/05/2015 PEG (percutaneous endoscopic gastrostomy) status 02/16/2015 Radiation-induced arteritis 01/19/2015 Chronic anticoagulation 01/17/2015 Carotid artery stenosis with cerebral infarction over 8 weeks ago 01/17/2015 Hypokalemia 01/17/2015 Chronotropic incompetence with sinus node dysfun ction 09/07/2014 Cardiac pacemaker in situ 09/07/2014 Left carotid artery stenosis 08/09/2014 Carotid stenosis, non-symptomatic 10/05/2013 History of tobacco use 10/05/2013 Esophageal stricture 07/02/2012 Esophageal reflux 12/18/2009 MEDICATION USE AGREEMENT 10/05/2009 Overview (10/05/2009): Managed by [employer]. To view the Medication Usage Agreement, go to Action, Patient Files. Constipation 08/18/2009 Overview (12/29/2016): ICD-10 update of inactive term Hypertension 08/24/2007 Overview (02/15/2009): Modified per HTN protocol #16. 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 documented as of this encounter (statuses as of 02/09/2024) Resolved Problems Problem Noted Date Diagnosed Date Resolved Date Acute ischemic left MCA stroke 01/22/2015 12/13/2017 Right internal carotid occlusion 01/19/2015 02/16/2015 History of cerebral infarction 01/19/2015 04/11/2018 S/P gastrostomy 01/19/2015 04/11/2018 Aphasia as late effect of ce rebrovascular accident (CVA) 01/19/2015 08/05/2018 Right hemiparesis 01/19/2015 08/05/2018 Dysphagia 01/17/2015 12/13/2017 Candidal esophagitis 01/17/2015 019 Gastritis 01/17/2015 04/11/2018 Severe protein-calorie malnutrition 01/17/2015 04/11/2018 DVT (deep venous thrombosis) (HCC) (aka DVT (DEEP VENOUS THROMBOSIS) (HCC)) 11/10/2014 12/14/19 18 Pulmonary embolism (HCC) (ak a PULMONARY EMBOLISM (HCC)) 11/10/2014 12/13/2017 Phlebitis and thrombophlebit is of other deep vessels of lower extremities 07/01/2010 04/11/2018 Anticoagulation management encounter 07/01/2010 04/11/2018 terminal supervisor current use of ant icoagulant therapy 07/01/2010 12/27/2015 Overview (12/29/2016): ICD-10 update of inactive term Other pulmonary embolism and infarction 07/01/2010 12/25/2017 Malignant neoplasm of liver 09/03/2009 12/13/2017 Urinary tract infection 08/18/200910/28 Secondary malignant neoplasm of liver 07/09/2009 12/13/2017 Autoimmune disease 02/19/2009 8 ADVANCE DIRECTIVE INFORMATION 09/10/2007 02/01/2024 Overview (09/10/2007): No, Advance Directive brochure offered , patient declined. Dental caries 08/27/2007 12/13/2017 Overview (07/03/2015): ICD-10 update of inactive term Cataract extraction status 08/24/2007 0 04/09/2018 M-NEOPLASM, TONSIL 08/11/2007 8 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 12/13/2017 documented as of this encounter (statuses as of 02/09/2024) Immunizations Name Administration Dates Next Due PPD 02/21/2015,02/14/2015 Pneumococcal Conjugate Vacc, 13 Valent (Prevnar) 12/27/2015 Pneumococcal Polysaccharide PPV23 (Pneumovax) 02/16/2013,04/27/2007 Season Influenza, Quad, PF, Adjuvanted, 65+ Yrs, IM (FLUAD) 01/24/2020 Seasonal Influenza Vac., MDV , IM, 0.5 mL (Fluzone) 12/06/2013,12/14/2012,12/03/2011,12/31,01/11/2010,01/01/2009,02/04/2008 ,04/27/2007 Seasonal Influenza, PF, 6 M & above, IM , (FluLaval or Fluzone) 04/09/2018 Seasonal Influenza, Quadriva lent, No Preserve, IM 12/27/2015 TDAP (age 10 and older)(Boostrix) 06/27/2022 TDAP, Age 7 and older, IM (Adacel) 12/31/2010 Zoster Vaccine Recombinant (Shingrix) 09/18/2023 documented as of this encounter Social History Tobacco Use Types Packs/Day Years Used Date Smoking Tobacco: Former Cigarettes 1 40 0 08/29/1967 - 08/29/2007 Smokeless Tobacco: Never Comments:started age 20-had stopped for couple of years and restarted Alcohol Use Standard Drinks/Week Comments No 0 (1 standard drink = 0.6 oz pur e alcohol) PHQ-2 Answer Date Recorded PHQ-2 Score 0 01/31/2018 Utilities Answer Date Recorded Do you have trouble paying y our heating, water, or electric bill? (Adult - for ages 18 years and over) Not on file 09/15/2023 Is your family able to pay t he heat, water, or electric bill? (Household - for ages 0-17 years) Not on file 09/15/2023 Does your family have access to good internet? (Household - for ages 0-17 years) Not on file 09/15/2023 Social Connections Answer Date Recorded How often do you feel lonely or isolated from those around you? (Adult - for ages 18 years and over) Not on file 09/15/2023 Sex and Gender Information Value Date Recorded Sex Assigned at Not on file Legal Sex Male 5:44 AM EST Gender Identity Not on file Sexual Orientation Not on file Occupation Industry Job Start Date Job End Date retired Not on file Not on file Not on file documented as of this encounter Last Filed Vital Signs Vital Sign Reading Time Taken Comments Blood Pressure 105/54 02/09/2024 8:56 AM EST Pulse 89 02/09/2024 8:56 AM EST Temperature 36.6 C (97.9 F) 02/09/2024 8:56 AM ES T Respiratory Rate - - Oxygen Saturation - - Inhaled Oxygen Concentration - - Weight 62.1 kg (137 lb) 02/09/2024 8:56 AM EST Height - - Body Mass Index 21.46 07/31/2023 3:01 PM EDT documented in this encounter Functional Status * Are you deaf or do you have serious difficulty hearing? Answer Date of Assessment Author Yes 02/26/2015 10:00 AM Karon Hooker OSA * Are you blind or do you have serious difficulty seeing, even when wearing glasses? Answer Date of Assessment Author No 02/26/2015 10:00 AM Karon Hooker OSA * Do you have serious difficulty walking or climbing stairs? (5 years old or older) Answer Date of Assessment Author Yes 04/14/2019 11:00 AM EST Zakiya Gonzalez RN * Do you have difficulty dressing or bathing? (5 years old or older) Answer Date of Assessment Author Yes 02/26/2015 10:00 AM Karon Hooker OSA * Because of a physical, mental, or emotional condition, do you have difficulty doing errands alone such as visiting a doctors office or shopping? (15 years old or older) Answer Date of Assessment Author Yes 02/26/2015 10:00 AM Karon Hooker OSA documented as of this encounter Mental Status * Because of a physical, mental, or emotional condition, do you have serious difficulty concentrating, remembering, or making decisions? (5 years old or older) Answer Entry Date Author No 02/26/2015 10:00 AM Karon Hooker OSA documented in this encounter Progress Notes * Agnes Clifton MD - 02/09/2024 9:04 AM EST Pt with 16 fr 4 cm Eusebio for PEG tube change. Peg is working well, no complaints. PEG tube replaced without difficulty, 10 ml of fluid into balloon; placement confirmed by insufflation and aspiration of bilious fluid. documented in this encounter Nursing Notes * Constance Goncalves LPN - 02/09/2024 8:56 AM EST Chief Complaint Patient presents with Follow Up Pt here for PEG Tube documented in this encounter Plan of Treatment Upcoming Encounters Date Type Department Care Team (Late st Contact Info) Description 08/17/2024 4:00 PM EDT Office Visit Gastroenterology, [facility] [address] [place] [address] Agnes Clifton MD [address] [place] [id number] Health Maintenance Due Date Last Done Comments COVID-19 Vaccine (#1) 12/06/1950 Albumin/Creatinine Ratio 12/06/1965 Colonoscopy 08/02/2010 08/02/2009 Adult Wellness Visit 12/06/2013 Depression Screening 12/23/2018 12/23/2017 Zoster Vaccines (2 of 2) 11/13/2023 09/18/2023 Influenza Vaccine (FLU shot) (#1) 2023 01/24/2020, 04/09/2018, 12/27/2015, Additional history exists GFR 10/25/2024 10/26/2023, 08/28, 06/27/2022, Additional history exists DTap/Tdap Vaccines (3 - Td or Tdap) 06/27/2032 06/27/2022, 12/31/2010 RETIRED - COLONOSCOPY-ANNUAL AGES 18-100 Discontinued 08/02/2009, 08/02/2009 Pneumococcal Vaccine: 65+ Years Completed 12/27/2015, 02/16/2013, 04/27/2007 HPV (Gardasil) Vaccine Aged Out No lo nger eligible based on patient's age to complete this topic Hepatitis B Vaccine Aged Out No longe r eligible based on patient's age to complete this topic MENINGOCOCCAL (MENACTRA/MENVEO) Aged Out No longer eligible based on patient's age to complete this topic documented as of this encounter Medical Devices Implanted Type Area Contracts Representative Device Identifier Shelf Expiration Date Model / Serial / Lot Stent Carotid [id number] - [id number] Implanted:Qty: 1 on 08/09/2014 by Hayes Song MD at [facility] Left: Carotid [employer] : VASCULAR DEVICES 12/27/2016 [id number] / / [id number] Precise Pro Rx Carotid Stent 6mm X 40mm Implanted:Qty: 1 on 01/19/2015 by Mendez Hutchinson MD at OR [facility] Left: Head [employer]YX [employer]X CORDIS 02/27/2016 / [id number] / [id number] Description:Left Carotid bif urcation Precise Pro Rx Carotid Stent 6mm X 20 Mm Implanted:Qty: 1 on 01/19/2015 by Mendez Hutchinson MD at OR [facility] Left: Head [employer]YX CORDIS 02/27/2016 / [id number] / [id number] Description:Left Carotid art broderick bifurcation 4.00 Mm X 28 Mm [employer] Multi-Link Vision [place] Chromium Coronary Stent Implanted:Qty: 1 on 04/13/2019 by Mendez Hutchinson MD at OR [facility] Left: Carotid 11/28/2019 [id number] / [id number] / [id number] Description:4.00 mm x 28 mm [employer] Multi-Link Vision [place] Chromium Coronary Stent Stent Visi Pro 05 X 27mm X 135 - [id number] Implanted:Qty: 1 on 04/13/2019 by Mendez Hutchinson MD at OR [facility] [employer] : VASCULAR [id number] 04/15/2020 [id number] / / [id number] documented as of this encounter Visit Diagnoses Diagnosis PEG (percutaneous endoscopic gastrostomy) status (HCC)- Primary documented in this encounter Advance Directives * No Code (Latest Code Status on File) Date Activated Date Inactivated Comments 04/13/2019 2:42 PM 04/14/2019 7:31 PM This order r eflects the patients wishes and were consensually agreed upon. Question Answer Comments Discussion of Advance Directives occurred with: Family Does the patient have a Living Will? No Does the patient have Health Care Power of Attor beatriz? No * Full Code Date Activated Date Inactivated Comments 04/13/2019 10:59 AM 04/13/2019 2:42 PM This order reflects the patients wishes and were consensually agreed upon. Question Answer Comments Discussion of Advance Directives occurred with: Patient/Family * Full Code Date Activated Date Inactivated Comments 04/13/2019 6:08 AM 04/13/2019 10:59 AM This order reflects the patients wishes and were consensually agreed upon. * Full Code Date Activated Date Inactivated Comments 01/15/2015 7:24 PM 01/27/2015 7:56 PM This order reflects the patients wishes and were consensually agreed upon. Question Answer Comments Discussion of Advance Directives occurred with: Patient Does the patient have a Living Will? No Does the patient have Health Care Power of Attor beatriz? No * Full Code Date Activated Date Inactivated Comments 08/09/2014 9:45 AM 08/12/2014 5:15 PM This order r eflects the patients wishes and were consensually agreed upon. Care Teams Washing Machine Assembler Relationship Specialty Start Date End Date Reid Barraza MD [address] [place] [id number] PCP - General Family Medicine 04/21/18 documented as of this encounter
--- OUTSIDE RECORDS SUMMARY | 2024-03-07 03:16 | External Medical Summary | Summary of Care ---
Author Name Unknown Organization [facility] Address [address] [place] [address] Phone [phone] Care Team Providers Care Interventional Radiology Technologist Name Role Phone Reid Gallego MD Primary Care Provider + Reason for Visit * Reason Comments eRx-Medication Refill Encounter Details Date Type Department Care Team (Late st Contact Info) Description 11/02/2023 Refill Family Practice [facility] [address] [facility] [place] [address] Reid Gallego MD [address] [place] [address] Allergies No known active allergiesdocumented as of this encounter (statuses as of 11/03/2023) Medications Medication Sig Dispensed Refills Start Date End Date Status Feeding Tubes - Bags (KANGAROO GRAVITY FEEDING BAG) MISCIndications:Dy sphagia,G tube feedings (HCC),On tube feeding diet Use for daily PEG tube feedings 30 Each 5 6 Active chlorHEXIDINE (PERIOGARD) 0.12 % solutionIndication s:Severe protein-calorie malnutrition (HCC) Swish and spit 15 mL 2 times a day. 473 mL 3 6 Active Additional Information Patient not taking.Reported on 02/10/2023 aspirin 81 MG chewable tabletIndications: PEG (percutaneous endoscopic gastrostomy) status (HCC) Take one three days per week through G tube 100 Tab 5 9 Active Acetaminophen 325 MG Oral Tablet (Tylenol)Indicatio ns:Chronic pain,Fever, unspecified fever cause ADMINISTER 2 TABLETS INTO PEG TUBE EVERY 6 HOURS NEEDED FOR FEVER >38C(100.5F) OR MILD PAIN 500 Tablet 3 3 Active Clotrimazole 1 % External Cream (Lotrimin)Indicati ons:Intertrigo Apply topically to affected area 2 times a day. Apply to groin rash for at least 4 weeks 113 g 3 3 Active Isosource 1.5 Octaviano Oral Liquid Administer 1000 mL daily, as directed through feeding tube via gravity bag. 14486 mL 11 4 Active Triamcinolone Acetonide 0.1 % External Cream (Aristocort)Indica tions:Attention to gastrostomy (HCC) APPLY TOPICALLY TO AFFECTED area twice daily. 30 g 4 Active Clopidogrel Bisulfate 75 MG Oral Tablet (pLAVix) ADMINISTER 1 TABLET INTO PEG TUBE EVERY MORNING 90 Tablet 3 4 Active Famotidine 20 MG Oral Tablet (Pepcid) ADMINISTER 1 TABLET INTO PEG TUBE DAILY IN THE MORNING 90 Tablet 4 Active Zoster Vac Recomb Adjuvanted 50 MCG/0.5ML Intramuscular Suspension Reconstituted (Shingrix)Indicati ons:Need for shingles vaccine Inject 0.5 mL into a large muscle now and repeat dose in 60 to 180 days 1 Each 1 4 Active Finasteride 5 MG Oral Tablet (Proscar)Indicatio ns:BPH with obstruction/lower urinary tract symptoms GIVE ONE [...] BEFORE BEDTIME) 270 Tablet 1 4 Active Labetalol HCl 300 MG Oral Tablet TAKE ONE TABLET BY MOUTH THREE TIMES A DAY (MORNING, NOON, AND BEFORE BEDTIME) 270 Tablet 3 3 11/03/19 24 Discontinued Atorvastatin Calcium 40 MG Oral Tablet (Lipitor) ADMINISTER 1 TABLET INTO PEG TUBE AT BEDTIME 90 Tablet 3 3 11/03/19 24 Discontinued amLODIPine Besylate 5 MG Oral Tablet (Norvasc) ADMINISTR 1 TABLET INTO PEG TUBE IN THE MORNING 90 Tablet 1 4 11/03/19 24 Discontinued documented as of this encounter (statuses as of 11/03/2023) Active Problems Problem Noted Date Diagnosed Date Mild protein-calorie malnutrition 02/12/2023 History of shingles 02/16/2020 Carotid stenosis 04/14/2019 Hemiparesis and aphasia as l ate effect of cerebrovascular accident (CVA) 08/05/2018 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 06/19 [...] Esophageal reflux 12/18/2009 MEDICATION USE AGREEMENT 10/05/2009 Overview: Managed by [employer]. To view the Medication Usage Agreement, go to Action, Patient Files. Constipation 08/18/2009 Overview: ICD-10 update of inactive term ADVANCE DIRECTIVE INFORMATION 09/10/2007 Overview: No, Advance Directive brochure offered , patient declined. Hypertension 08/24/2007 Overview: Modified per HTN protocol #16. 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 12/13/2017 Autoimmune disease 02/19/2009 8 Dental caries 08/27/2007 12/13/2017 Overview: ICD-10 update of inactive term Cataract extraction status 08/24/2007 0 04/09/2018 M-NEOPLASM, TONSIL 08/11/2007 8 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 12/13/2017 documented as of this encounter (statuses as of 11/03/2023) Immunizations Name Administration Dates Next Due PPD 02/21/2015,02/14/2015 Pneumococcal Conjugate Vacc, 13 Valent (Prevnar) 12/27/2015 Pneumococcal Polysaccharide PPV23 (Pneumovax) 02/16/2013,04/27/2007 Season Influenza, Quad, PF, Adjuvanted, 65+ Yrs, IM (FLUAD) 01/24/2020 Seasonal Influenza, PF, 6 M & above, IM , (FluLaval or Fluzone) 04/09/2018 Seasonal Influenza, Quadriva lent, No Preserve, IM 12/27/2015 Seasonal Influenza, Split, I IV3, With Preserve, Inj 12/06/2013,12/14/2012,12/03/2011,12/31,01/11/2010,01/01/2009,02/04/2008 ,04/27/2007 TDAP (age 10 and older)(Boostrix) 06/27/2022 TDAP, [...] Recorded Sex Assigned at Not on file Gender Identity Not on file Sexual Orientation Not on file Job Start Date Occupation Industry Not on file Not on file Not on file documented as of this encounter Functional Status Functional Status Response Date of Assess ment Are you deaf or do you have serious difficulty h earing? Yes 02/26/2015 Are you blind or do you have serious difficulty seeing, even when wearing glasses? No 02/26/2015 Do you have serious difficul ty walking or climbing stairs? (5 years old or older) Yes 04/14/2019 Do you have difficulty dress ing or bathing? (5 years old or older) Yes 02/26/2015 Because of a physical, menta l, or emotional condition, do you have difficulty doing errands alone such as visiting a doctor s office or shopping? (15 years old or older) Yes 02/27/20 15 Cognitive Status Response Date of Assessm ent Because of a physical, menta l, or emotional condition, do you have serious difficulty concentrating, remembering, or making decisions? (5 years old or older) No 02/26/2015 documented as of this encounter Miscellaneous Notes * Telephone Encounter - Edith James [facility] - 11/03/2023 4:22 PM EDTSigned Prescriptions: Disp Refills Atorvastatin Calcium 40 MG Oral Tablet (Li*90 Tab*1 Sig: ADMINISTER ONE TABLET INTO PEG TUBE AT BEDTIMEAuthorizing Provider: REID GALLEGO User: EDITH JAMES amLODIPine Besylate 5 MG Oral Tablet (Norv*90 Tab*1 Sig: ADMINISTER 1 TABLET INTO PEG TUBEIN THE MORNINGAuthorizing Provider: REID GALLEGO User: EDITH JAMES Labetalol HCl 300MG Oral Tablet 270 Ta*1 Sig: TAKE ONE TABLET BY MOUTH THREE TIMES A DAY (MORNING, NOON, BEFORE BEDTIME)Authorizing Provider: REID GALLEGO User: EDITH JAMES documented in this encounter Plan of Treatment Upcoming Encounters Date Type Department Care Team (Late st Contact Info) Description 02/09/2024 8:40 AM EST Office Visit Gastroenterology, [facility] [address] [place] [address] Agnes Clifton MD [address] [place] [address] Health Maintenance Due Date Last Done Comments COVID-19 Vaccine (#1) 12/06/1950 Albumin/Creatinine Ratio 12/06/1965 Colonoscopy 08/02/2010 08/02/2009 Depression Screening 12/23/2018 12/23/2017 Zoster Vaccines (2 of 2) 11/13/2023 09/18/2023 Influenza Vaccine (FLU shot) (#1) 2023 01/24/2020, 04/09/2018, 12/27/2015, Additional history exists GFR 10/25/2024 10/26/2023, 08/28, 06/27/2022, Additional history exists DTaP,Tdap,and Td Vaccines (3 - Td or Tdap) 06/27/2032 [...] this encounter Medical Devices Implanted Type Area Credit Union Teller Device Identifier Shelf Expiration Date Model / Serial / Lot Stent Carotid 8-6x40 [id number] - [id number] Implanted:Qty: 1 on 08/09/2014 [place] [facility] [place] Carotid [employer] : VASCULAR DEVICES 12/27/2016 [id number] / / [id number] Precise Pro Rx Carotid Stent 6mm X 40mm Implanted:Qty: 1 on 01/19/2015 [place] Hutch[place] [facility] [place] Head ALYX & ALYX CORDIS 02/27/2016 / [id number] / [id number] Description:Left Carotid bif urcation Precise Pro Rx Carotid Stent 6mm X 20 Mm Implanted:Qty: 1 on 01/19/2015 [place] Hutch[place] [facility] [place] Head ALYX & ALYX CORDIS 02/27/2016 / [id number] / [id number] Description:Left Carotid art broderick bifurcation 4.00 Mm X 28 Mm Arteaga Multi-[employer] [place] Chromium Coronary Stent Implanted:Qty: 1 on 04/13/2019 by Mendez Hutchinson [place] [facility] [place]: Carotid 11/28/2019 [id number] / [id number] / [id number] Description:4.00 mm x 28 mm Arteaga Multi-Link [employer] [place] Chromium Coronary Stent Stent Visi Pro 05 X 27mm X 135 - [id number] Implanted:Qty: 1 on 04/13/2019 by Mendez Hutchinson [place] [facility] [place] [employer] : VASCULAR [id number] 04/15/2020 [id number] [id number] / / [id number] documented as of this encounter Advance Directives * No Code [...] and were consensually agreed upon. Care Teams Interventional Radiology Technologist Relationship Specialty Start Date End Date Reid Gallego MD [address] [place] [address] PCP - General Family Medicine 04/21/18 documented as of this encounter
--- OUTSIDE RECORDS SUMMARY | 2024-03-07 03:16 | External Medical Summary | Summary of Care ---
Author Name Unknown Organization [facility] Address [address] [place] [address] Phone [phone] Care Team Providers Care Certified Prosthetist Vice President Name Role Phone Reid Barraza MD Primary Care Provider + Encounter Details Date Type Department Care Team (Late st Contact Info) Description 11/27/2023 Result Scan Unspecified Department Gregor Bravo MD [address] [place] [address] <No scans attached> Allergies No known active allergiesdocumented as of this encounter (statuses as of 11/27/2023) Medications Medication Sig Dispensed Refills Start Date End Date Status Feeding Tubes - Bags (KANGAROO GRAVITY FEEDING BAG) MISCIndications:Dysp hagia,G tube feedings (HCC),On tube feeding diet Use for daily PEG tube feedings 30 Each 5 11/07/2015 Active chlorHEXIDINE (PERIOGARD) 0.12 % solutionIndications: Severe protein-calorie malnutrition (HCC) Swish and spit 15 mL 2 times a day. 473 mL 3 11/07/2015 Active Additional Information Patient not taking.Reported on 02/10/2023 aspirin 81 MG chewable tabletIndications:PE G (percutaneous endoscopic gastrostomy) status (HCC) Take one three days per week through G tube 100 Tab 5 04/26/2018 Active Acetaminophen 325 MG Oral Tablet (Tylenol)Indications :Chronic pain,Fever, unspecified fever cause ADMINISTER 2 TABLETS INTO PEG TUBE EVERY 6 HOURS NEEDED FOR FEVER >38C(100.5F) OR MILD PAIN 500 Tablet 3 11/11/2022 Active Clotrimazole 1 % External Cream (Lotrimin)Indication s:Intertrigo Apply topically to affected area 2 times a day. Apply to groin rash for at least 4 weeks 113 g 3 02/12/2023 Active Isosource 1.5 Octaviano Oral Liquid Administer 1000 mL daily, as directed through feeding tube via gravity bag. 58922 mL 11 04/03/2023 Active Triamcinolone Acetonide 0.1 % External Cream (Aristocort)Indicati ons:Attention to gastrostomy (HCC) APPLY TOPICALLY TO AFFECTED area twice daily. 30 g 07/16/2023 Active Clopidogrel Bisulfate 75 MG Oral Tablet (pLAVix) ADMINISTER 1 TABLET INTO PEG TUBE EVERY MORNING 90 Tablet 3 08/06/2023 Active Famotidine 20 MG Oral Tablet (Pepcid) ADMINISTER 1 TABLET INTO PEG TUBE DAILY IN THE MORNING 90 Tablet 09/04/2023 Active Zoster Vac Recomb Adjuvanted 50 MCG/0.5ML Intramuscular Suspension Reconstituted (Shingrix)Indication s:Need for shingles vaccine Inject 0.5 mL into a large muscle now and repeat dose in 60 to 180 days 1 Each 1 09/18/2023 Active Finasteride 5 MG Oral Tablet (Proscar)Indications :BPH with obstruction/lower urinary tract symptoms GIVE ONE TABLET CRUSHED VIA PEG DAILY 30 Tablet 5 09/21/2023 Active Atorvastatin Calcium 40 MG Oral Tablet (Lipitor) ADMINISTER ONE TABLET INTO PEG TUBE AT BEDTIME 90 Tablet 1 11/03/2023 Active amLODIPine Besylate 5 MG Oral Tablet (Norvasc) ADMINISTER 1 TABLET INTO PEG TUBE IN THE MORNING 90 Tablet 1 11/03/2023 Active Labetalol HCl 300 MG Oral Tablet TAKE ONE TABLET BY MOUTH THREE TIMES A DAY (MORNING, NOON, BEFORE BEDTIME) 270 Tablet 1 11/03/2023 Active documented as of this encounter (statuses as of 11/27/2023) Active Problems Problem Noted Date Diagnosed Date [...] as of this encounter (statuses as of 11/27/2023) Resolved Problems Problem Noted Date Diagnosed Date [...] 07/01/2010 04/11/2018 Anticoagulation management encounter 07/01/2010 04/11/2018 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 07/01/2010 [...] as of this encounter (statuses as of 11/27/2023) Immunizations Name Administration Dates Next Due PPD 02/21/2015,02/14/2015 Pneumococcal Conjugate Vacc, 13 Valent (Prevnar) 12/27/2015 Pneumococcal Polysaccharide PPV23 (Pneumovax) 02/16/2013,04/27/2007 Season Influenza, Quad, PF, Adjuvanted, 65+ Yrs, IM (FLUAD) 01/24/2020 Seasonal Influenza, PF, 6 M & above, IM , (FluLaval or Fluzone) 04/09/2018 Seasonal Influenza, Quadriva lent, No Preserve, IM 12/27/2015 Seasonal Influenza, Trivalen t, (IIV3), with Preserv, (Fluzone) 12/06/2013,12/14/2012,12/03/2011,12/31,01/11/2010,01/01/2009,02/04/2008 ,04/27/2007 TDAP (age 10 and older)(Boostrix) [...] No 02/26/2015 documented as of this encounter Plan of Treatment Upcoming Encounters Date Type Department Care Team (Late st Contact Info) Description 02/09/2024 8:40 AM EST Office Visit Gastroenterology, [facility] [address] [place] [address] Agnes Clifton MD [address] [place] [address] Health Maintenance Due Date Last Done Comments [...] this encounter Medical Devices Implanted Type Area Stain Wiper Device Identifier Shelf Expiration Date Model / Serial / Lot Stent Carotid 8-6x40 [id number] - [id number] Implanted:Qty: 1 on 08/09/2014 by Hayes Song [place] [facility] [facility] [place] Carotid [employer] : VASCULAR DEVICES 12/27/2016 [id number] / / [id number] Precise Pro Rx Carotid Stent 6mm X 40mm Implanted:Qty: 1 on 01/19/2015 by Mendez Hutchinson MD [place] [facility] [place]: Head ALYX & ALYX CORDIS 02/27/2016 / [id number] / [id number] Description:Left Carotid bif urcation Precise Pro Rx Carotid Stent 6mm X 20 Mm Implanted:Qty: 1 on 01/19/2015 by Mendez Hutchinson MD [place] [facility] [place]: Head ALYX & ALYX CORDIS 02/27/2016 / [id number] / [id number] Description:Left Carotid art broderick bifurcation 4.00 Mm X 28 Mm Arteaga Multi-Link Vision [place] Chromium Coronary Stent Implanted:Qty: 1 on 04/13/2019 by Mendez Hutchinson MD at [place] [facility] [place] Left: Carotid 11/28/2019 [id number] / [id number] / [id number] Description:4.00 mm x 28 mm Arteaga Multi-Link Vision [place] Chromium Coronary Stent Stent Visi Pro 05 X 27mm X 135 - [id number] Implanted:Qty: 1 on 04/13/2019 by Mendez Hutchinson MD at [place] [facility] [place] [employer] : VASCULAR [id number] 04/15/2020 [id number] 27-135 / / [id number] documented as of this encounter Procedures Procedure Name Priority Date/Time Associated Diagnosis Comments CARDIOLOGY SCANNED RESULT 11/27/2023 documented in this encounter Results * CARDIOLOGY SCANNED RESULT (11/27/2023) 11/27/2023 Gregor Bravo MD OTHER documented in this encounter Advance Directives * [...] and were consensually agreed upon. Care Teams Certified Prosthetist Vice President Relationship Specialty Start Date End Date Reid Barraza MD [address] [place] [address] PCP - General Family Medicine 04/21/18 documented as of this encounter
--- OUTSIDE RECORDS SUMMARY | 2024-03-07 03:16 | External Medical Summary | Summary of Care ---
Author Name Unknown Organization [facility] Address [address] [place] [address] Phone [phone] Care Team Providers Care Radiopharmacist Name Role Phone Reid Barraza MD Primary Care Provider + Reason for Visit * Reason Onset Date Comments Advice 10/19/2023 Encounter Details Date Type Department Care Team (Late st Contact Info) Description 10/19/2023 Telephone Family Practice [facility] [address] [facility] [place] [address] [facility] [address] [facility] [address] Advice Allergies No known active allergiesdocumented as of this encounter (statuses as of 10/26/2023) Medications Medication Sig Dispensed Refills Start Date [...] G tube 100 Tab 5 04/26/2018 Active Labetalol HCl 300 MG Oral Tablet TAKE ONE TABLET BY MOUTH THREE TIMES A DAY (MORNING, NOON, AND BEFORE BEDTIME) 270 Tablet 3 11/06/2022 Active Atorvastatin Calcium 40 MG Oral Tablet (Lipitor) ADMINISTER 1 TABLET INTO PEG TUBE AT BEDTIME 90 Tablet 3 11/06/2022 Active Acetaminophen 325 MG Oral Tablet (Tylenol)Indications [...] directed through feeding tube via gravity bag. 88275 mL 11 04/03/2023 Active amLODIPine Besylate 5 MG Oral Tablet (Norvasc) ADMINISTR 1 TABLET INTO PEG TUBE IN THE MORNING 90 Tablet 1 05/07/2023 Active Triamcinolone Acetonide 0.1 % External Cream [...] PEG DAILY 30 Tablet 5 09/21/2023 Active documented as of this encounter (statuses as of 10/26/2023) Active Problems Problem Noted Date Diagnosed Date [...] MEDICATION USE AGREEMENT 10/05/2009 Overview: Managed by [employer]. To view the Medication Usage Agreement, go to Action, Patient Files. Constipation 08/18/2009 Overview: ICD-10 update of inactive term ADVANCE DIRECTIVE INFORMATION 09/10/2007 Overview: No, Advance Directive brochure offered , patient declined. Hypertension 08/24/2007 Overview: Modified per HTN protocol #16. 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 documented as of this encounter (statuses as of 10/26/2023) Resolved Problems Problem Noted Date Diagnosed Date [...] 07/01/2010 04/11/2018 Anticoagulation management encounter 07/01/2010 04/11/2018 long term acute care registered nurse current use of ant icoagulant therapy 07/01/2010 [...] as of this encounter (statuses as of 10/26/2023) Immunizations Name Administration Dates Next Due PPD [...] encounter Miscellaneous Notes * Telephone Encounter - Danitza Contreras OSA - 10/26/2023 11:21 AM EDT LM for patient to call back and schedule mobile lab * Telephone Encounter - Reid Barraza MD - 10/22/2023 10:32 PM EDT Nursing-please call daughter Keysha (TIMI). I apologize, I hadn't meant for him to get another blood draw today, but looks like I accidentally set him up for weekly blood draws. I will cancel this. His platelets are stable, we'll recheck in 1year Scheduling-can you cancel the 3 future mobile lab visits? Cc : Ladarius Almanzar * Telephone Encounter - Natalie Prater OSA - 10/19/2023 11:04 AM EDT Pt's called she was a little upset that the mobile lab just showed up and she was not made aware she was coming. She feels she should know when the appt are so she knows she is coming to the house. She will be avail until 1pm today and tomorrow. documented in this encounter Plan of Treatment Upcoming Encounters Date Type Department Care Team (Late st Contact Info) Description 02/09/2024 8:40 AM EST Office Visit Gastroenterology, [facility] [address] [place] [address] Agnes Clifton MD [address] [place] [address] 09/27/2024 1:40 PM EDT Office Visit Family Practice [facility] [address] [place] [address] Reid Barraza MD [address] [place] [address] Health Maintenance Due Date Last Done Comments COVID-19 Vaccine (#1) 12/06/1950 Albumin/Creatinine Ratio 12/06/1965 Colonoscopy 08/02/2010 08/02/2009 Depression Screening 12/23/2018 12/23/2017 Zoster Vaccines (2 of 2) 11/13/2023 09/18/2023 Influenza Vaccine (FLU shot) (#1) 2023 01/24/2020, 04/09/2018, 12/27/2015, Additional history exists GFR 09/14/2024 09/15/2023, 05/30, 04/14/2019, Additional history exists DTaP,Tdap,and Td Vaccines (3 [...] this encounter Medical Devices Implanted Type Area Building Repair Maintenance Supervisor Device Identifier Shelf Expiration Date Model / Serial / Lot Stent Carotid 8-6x40 [id number] - [id number] Implanted:Qty: 1 on 08/09/2014 by Hayes Song MD [place] [facility] [place] Left: Carotid [employer] : VASCULAR DEVICES 12/27/2016 [id number] / / [id number] Precise Pro Rx Carotid Stent 6mm X 40mm Implanted:Qty: 1 on 01/19/2015 by Mendez Hutchinson MD at [place] [facility] [place] Left: Head ALYX & ALYX CORDIS 02/27/2016 / [id number] / [id number] Description:Left Carotid bif urcation Precise Pro Rx Carotid Stent 6mm X 20 Mm Implanted:Qty: 1 on 01/19/2015 by Mendez Hutchinson MD at [place] [facility] [place] Left: Head ALYX & ALYX CORDIS 02/27/2016 / [id number] / [id number] Description:Left Carotid art broderick bifurcation 4.00 Mm X 28 Mm [employer] Multi-Link Vision [place] Chromium Coronary Stent Implanted:Qty: 1 on 04/13/2019 by Mendez Hutchinson MD at [place] [facility] [place] Left: Carotid 11/28/2019 [id number] / [id number] / [id number] Description:4.00 mm x 28 mm [employer] Multi-Link Vision [place] Chromium Coronary Stent Stent Visi Pro 05 X 27mm X 135 - [id number] Implanted:Qty: 1 on 04/13/2019 by Mendez Hutchinson MD at [place] [facility] [place] [employer] : VASCULAR [id number] 04/15/2020 [id number] 27-135 / / [id number] documented as of this encounter Advance Directives [...] and were consensually agreed upon. Care Teams Radiopharmacist Relationship Specialty Start Date End Date Reid Barraza MD [address] [place] [address] PCP - General Family Medicine 04/21/18 documented as of this encounter
--- OUTSIDE RECORDS SUMMARY | 2024-03-07 03:16 | External Medical Summary | Summary of Care ---
Author Name Unknown Organization [facility] Address [address] [place] [address] Phone [phone] Care Team Providers Care Paper Cone Drying Machine Operator Name Role Phone Reid Barraza MD Primary Care Provider + Reason for Visit * Reason Onset Date Comments Med Request 02/10/2024 Encounter Details Date Type Department Care Team (Late st Contact Info) Description 02/10/2024 Telephone Nutrition & Weight Management, [facility] [address] [place] [address] Swati Faulkner PA-C [address] [facility] [place] [address] Med Request Allergies No known active allergiesdocumented as of this encounter (statuses as of 02/11/2024) Medications Feeding Tubes - Bags (KANGAROO GRAVITY FEEDING BAG) MISCIndications:D ysphagia,G tube feedings (HCC),On tube feeding diet Use for daily PEG tube feedings 30 Each 5 11/07/19 16 Active chlorHEXIDINE (PERIOGARD) 0.12 % solutionIndicatio ns:Severe protein-calorie malnutrition (HCC) Swish and spit 15 mL 2 times a day. 473 mL 3 11/07/19 16 Active Additional Information Patient not taking.Reported on 02/09/2024 aspirin 81 MG chewable tabletIndications :PEG (percutaneous endoscopic gastrostomy) status (HCC) Take one three days per week through G tube 100 Tab 5 04/26/19 19 Active Acetaminophen 325 MG Oral Tablet (Tylenol)Indicati ons:Chronic pain,Fever, unspecified fever cause ADMINISTER 2 TABLETS INTO PEG TUBE EVERY 6 HOURS NEEDED FOR FEVER >38C(100.5F) OR MILD PAIN 500 Tablet 3 11/12/19 23 Active Clotrimazole 1 % External Cream (Lotrimin)Indicat ions:Intertrigo Apply topically to affected area 2 times a day. Apply to groin rash for at least 4 weeks 113 g 3 02/13/20 23 Active Triamcinolone Acetonide 0.1 % External Cream (Aristocort)Indic ations:Attention to gastrostomy (HCC) APPLY TOPICALLY TO AFFECTED area twice daily. 30 g 07/16/19 24 Active Clopidogrel Bisulfate 75 MG Oral Tablet (pLAVix) ADMINISTER 1 TABLET INTO PEG TUBE EVERY MORNING 90 Tablet 3 08/06/19 24 Active Famotidine 20 MG Oral Tablet (Pepcid) ADMINISTER 1 TABLET INTO PEG TUBE DAILY IN THE MORNING 90 Tablet 09/04/19 24 Active Zoster Vac Recomb Adjuvanted 50 MCG/0.5ML Intramuscular Suspension Reconstituted (Shingrix)Indicat ions:Need for shingles vaccine Inject 0.5 mL into a large muscle now and repeat dose in 60 to 180 days 1 Each 1 4 2:50 PM EDT 09/18/19 24 Active Finasteride 5 MG Oral Tablet (Proscar)Indicati ons:BPH with obstruction/lower urinary tract symptoms GIVE ONE TABLET CRUSHED VIA PEG DAILY 30 Tablet 5 09/21/19 24 Active Atorvastatin Calcium 40 MG Oral Tablet (Lipitor) ADMINISTER ONE TABLET INTO PEG TUBE AT BEDTIME 90 Tablet 1 11/03/19 24 Active amLODIPine Besylate 5 MG Oral Tablet (Norvasc) ADMINISTER 1 TABLET INTO PEG TUBE IN THE MORNING 90 Tablet 1 11/03/19 24 Active Labetalol HCl 300 MG Oral Tablet TAKE ONE TABLET BY MOUTH THREE TIMES A DAY (MORNING, NOON, BEFORE BEDTIME) 270 Tablet 1 11/03/19 24 Active Isosource 1.5 Octaviano Oral Liquid Administer 1000 mL daily, as directed through feeding tube via gravity bag. 84972 mL 11 02/11/20 24 Active Isosource 1.5 Octaviano Oral Liquid Administer 1000 mL daily, as directed through feeding tube via gravity bag. 56000 mL 11 04/03/19 24 024 Discontin ued(Refil l) documented as of this encounter (statuses as of 02/11/2024) Active Problems Problem Noted Date Diagnosed Date [...] USE AGREEMENT 10/05/2009 Overview (10/05/2009): Managed by [employer]. To view the Medication Usage Agreement, go to Action, Patient Files. Constipation 08/18/2009 Overview (12/29/2016): ICD-10 update of inactive term Hypertension 08/24/2007 Overview (02/15/2009): Modified per HTN protocol #16. 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 Answer Date of Assessment Author Yes 02/26/2015 10:00 AM Karon Hooker EDIE * Are you blind or do you have serious difficulty seeing, even when wearing glasses? Answer Date of Assessment Author No 02/26/2015 10:00 AM Karon Hooker EDIE * Do you have serious difficulty walking or climbing stairs? (5 years old or older) Answer Date of Assessment Author Yes 04/14/2019 11:00 AM Zakiya Oliva RN * Do you have difficulty dressing or bathing? (5 years old or older) Answer Date of Assessment Author Yes 02/26/2015 10:00 AM Karon Hooker EDIE * Because of a physical, mental, or emotional condition, do you have difficulty doing errands alone such as visiting a doctors office or shopping? (15 years old or older) Answer Date of Assessment Author Yes 02/26/2015 10:00 AM Karon Hooker EDIE documented as of this encounter Mental Status * Because of a physical, mental, or emotional condition, do you have serious difficulty concentrating, remembering, or making decisions? (5 years old or older) Answer Entry Date Author No 02/26/2015 10:00 AM Karon Hooker EDIE documented in this encounter Plan of Treatment Upcoming Encounters Date Type Department Care Team (Late st Contact Info) Description 08/17/2024 4:00 PM EDT Office Visit Gastroenterology, [facility] [address] [place] [address] [address] Agnes Clifton MD [address] [facility] [place] [address] Health Maintenance Due Date Last Done Comments [...] this encounter Medical Devices Implanted Type Area Escort Blind Device Identifier Shelf Expiration Date Model / Serial / Lot Stent Carotid 8-6x40 [id number] - [id number] Implanted:Qty: 1 on 08/09/2014 [place] [facility] [place] Carotid [employer] : VASCULAR DEVICES 12/27/2016 [id number] / / [id number] Precise Pro Rx Carotid Stent 6mm X 40mm Implanted:Qty: 1 on 01/19/2015 by Mendez Hutchinson [place] [facility] [place] Head ALYX & ALYX CORDIS 02/27/2016 / [id number] / [id number] Description:Left Carotid bif urcation Precise Pro Rx Carotid Stent 6mm X 20 Mm Implanted:Qty: 1 on 01/19/2015 by Mendez Hutchinson [place] [facility] [place] Head ALYX & ALYX CORDIS 02/27/2016 / [id number] / [id number] Description:Left Carotid art broderick bifurcation 4.00 Mm X 28 Mm Arteaga Multi-Link Vision [place] Chromium Coronary Stent Implanted:Qty: 1 on 04/13/2019 by Mendez Hutchinson MD [place] [facility] [place]: Carotid 11/28/2019 [id number] / [id number] / [id number] Description:4.00 mm x 28 mm Arteaga Multi-Link Vision [place] Chromium Coronary Stent Stent Visi Pro 05 X 27mm X 135 - [id number] Implanted:Qty: 1 on 04/13/2019 by Mendez Hutchinson MD at [facility] [employer] : VASCULAR [id number] 04/15/2020 [id number] 27-135 / / [id number] documented as of this encounter Advance Directives [...] and were consensually agreed upon. Care Teams Paper Cone Drying Machine Operator Relationship Specialty Start Date End Date Reid Barraza MD [address] [place] [address] PCP - General Family Medicine 04/21/18 documented as of this encounter
--- OUTSIDE RECORDS SUMMARY | 2024-03-07 03:16 | External Medical Summary | Summary of Care ---
Author Name Unknown Organization [facility] Address [address] [place] [address] Phone [phone] Care Team Providers Care Regional Owner Operator Truck Driver Name Role Phone Reid Barraza MD Primary Care Provider + Reason for Visit * Reason Onset Date Comments Advice 10/19/2023 Encounter Details Date Type Department Care Team (Late st Contact Info) Description 10/19/2023 Telephone Family Practice [facility] [address] [facility] [place] [address] Reid Barraza MD [address] [facility] [address] Advice Allergies No known active allergiesdocumented as of this encounter (statuses as of 10/28/2023) Medications Medication Sig Dispensed Refills Start Date [...] directed through feeding tube via gravity bag. 76970 mL 11 04/03/2023 Active amLODIPine Besylate 5 [...] as of this encounter (statuses as of 10/28/2023) Active Problems Problem Noted Date Diagnosed Date [...] MEDICATION USE AGREEMENT 10/05/2009 Overview: Managed by [employer]. To view the Medication Usage Agreement, go to Action, Patient Files. Constipation 08/18/2009 Overview: ICD-10 update of inactive term ADVANCE DIRECTIVE INFORMATION 09/10/2007 Overview: No, Advance Directive brochure offered , patient declined. Hypertension 08/24/2007 Overview: Modified per HTN protocol #16. 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 Notified of below. Mobile lab needs cancelled. * Telephone Encounter - Danitza Contreras OSA - 10/26/2023 11:21 AM EDT LM for patient to call back and schedule mobile lab * Telephone Encounter - Reid Barraza MD - 10/22/2023 10:32 PM EDT Nursing-please call daughter Keysha (POA). I apologize, I hadn't meant for him [...] 02/09/2024 8:40 AM EST Office Visit Gastroenterology, [facility] [address] [place] [address] Agnes Clifton MD [address] [place] [address] 09/27/2024 1:40 PM EDT Office Visit Family Practice [facility] [address] [place] [address] Reid Barraza MD [address] [facility] [place] [address] Health Maintenance Due Date Last Done Comments COVID-19 Vaccine (#1) 12/06/1950 Albumin/Creatinine Ratio 12/06/1965 Colonoscopy 08/02/2010 08/02/2009 Depression Screening 12/23/2018 12/23/2017 Zoster Vaccines (2 of 2) 11/13/2023 09/18/2023 Influenza Vaccine (FLU shot) (#1) 2023 01/24/2020, 04/09/2018, 12/27/2015, Additional history exists GFR 10/25/2024 10/26/2023, 08/28, 06/27/2022, Additional history exists DTaP,Tdap,and Td Vaccines (3 - Td or Tdap) 06/27/2032 06/27/2022, 12/31/2010 Hepatitis C Screening Completed 08/10/2006 RETIRED - COLONOSCOPY-ANNUAL AGES 18-100 Discontinued 08/02/2009, [...] this encounter Medical Devices Implanted Type Area Nurse Transition Device Identifier Shelf Expiration Date Model / Serial / Lot Stent Carotid 8-6x40 [id number] - [id number] Implanted:Qty: 1 on 08/09/2014 by Hayes Song MD at [place] [facility] [place] Left: Carotid [employer] : VASCULAR DEVICES 12/27/2016 [id number] / / [id number] Precise Pro Rx Carotid Stent 6mm X 40mm Implanted:Qty: 1 on 01/19/2015 by Mendez Hutchinson MD at [place] [facility] Left: Head ALYX & ALYX CORDIS 02/27/2016 / [id number] / [id number] Description:Left Carotid bif urcation Precise Pro Rx Carotid Stent 6mm X 20 Mm Implanted:Qty: 1 on 01/19/2015 by Mendez Hutchinson MD at [place] [facility] Left: Head ALYX & ALYX CORDIS 02/27/2016 / [id number] / [id number] Description:Left Carotid art broderick bifurcation 4.00 Mm X 28 Mm [employer] Multi-Link Vision [place] Chromium Coronary Stent Implanted:Qty: 1 on 04/13/2019 by Mendez Hutchinson MD at [place] [facility] Left: Carotid 11/28/2019 [id number] / [id number] / [id number] Description:4.00 mm x 28 mm Arteaga Multi-Link Vision [place] Chromium Coronary Stent Stent Visi Pro 05 X 27mm X 135 - [id number] Implanted:Qty: 1 on 04/13/2019 by Mendez Hutchinson MD at OR [facility] [employer] : VASCULAR [id number] 04/15/2020 [id number] 27-135 / / [id number] documented as of this encounter Advance Directives [...] and were consensually agreed upon. Care Teams Regional Owner Operator Truck Driver Relationship Specialty Start Date End Date Reid Barraza MD [address] [place] [address] PCP - General Family Medicine 04/21/18 documented as of this encounter
--- OUTSIDE RECORDS SUMMARY | 2024-03-07 03:16 | External Medical Summary | Summary of Care ---
Author Name Unknown Organization [facility] Address [address] [place] [address] Phone [phone] Care Team Providers Care Clinical Applications Manager Name Role Phone Reid Barraza MD Primary Care Provider + Reason for Visit * Reason Onset Date Comments Appointment 10/26/2023 Encounter Details Date Type Department Care Team (Late st Contact Info) Description 10/26/2023 Telephone Family Practice [facility] [address] [facility] [place] [address] Reid Barraza MD [address] [facility] [address] Appointment Allergies No known active allergiesdocumented as of [...] directed through feeding tube via gravity bag. 99217 mL 11 04/03/2023 Active amLODIPine Besylate 5 [...] MEDICATION USE AGREEMENT 10/05/2009 Overview: Managed by [employer]. To view the Medication Usage Agreement, go [...] 07/01/2010 04/11/2018 Anticoagulation management encounter 07/01/2010 04/11/2018 regional intermodal truck driver current use of ant [...] Telephone Encounter - Danitza Contreras OSA - 10/28/2023 4:52 PM EDT Future Appts canceled * Telephone Encounter - Reid Barraza MD - 10/27/2023 8:47 PM EDT He does not need future labs. Will review in 1 year. Please cancel any future visits. * Telephone Encounter - Danitza Contreras OSA - 10/26/2023 11:17 AM EDT LM for patient to call and schedule mobile labs in 3 months documented in this encounter Plan of Treatment Upcoming Encounters Date Type Department Care Team (Late st Contact Info) Description 02/09/2024 8:40 AM EST Office Visit Gastroenterology, [facility] [address] [place] [address] Agnes Clifton MD [address] [place] [address] Health Maintenance Due Date Last Done Comments [...] this encounter Medical Devices Implanted Type Area Scientific Aide Device Identifier Shelf Expiration Date Model / Serial / Lot Stent Carotid 8-6x40 [id number] - [id number] Implanted:Qty: 1 on 08/09/2014 by Hayes Song MD at [place] [facility] [place] Left: Carotid [employer] : VASCULAR DEVICES 12/27/2016 [id number] / / [id number] Precise Pro Rx Carotid Stent 6mm X 40mm Implanted:Qty: 1 on 01/19/2015 by Mendez Hutchinson MD at OR [facility] [place] Left: Head ALYX & ALYX CORDIS 02/27/2016 / [id number] / [id number] Description:Left Carotid bif urcation Precise Pro Rx Carotid Stent 6mm X 20 Mm Implanted:Qty: 1 on 01/19/2015 by Mendez Hutchinson MD at OR [facility] [place] Left: Head ALYX & ALYX CORDIS 02/27/2016 / [id number] / [id number] Description:Left Carotid art broderick bifurcation 4.00 Mm X 28 Mm Arteaga Multi-Link Vision [place] Chromium Coronary Stent Implanted:Qty: 1 on 04/13/2019 by Mendez Hutchinson MD at OR [facility] [place] Left: Carotid 11/28/2019 [id number] [id number] / [id number] / [id number] Description:4.00 mm x 28 mm Arteaga Multi-Link Vision [place] Chromium Coronary Stent Stent Visi Pro 05 X 27mm X 135 - [id number] Implanted:Qty: 1 on 04/13/2019 by Mendez Hutchinson MD at OR [facility] [place] [employer] : VASCULAR [id number] 04/15/2020 [id number] 27-135 / / [id number] documented as of this encounter Advance Directives [...] and were consensually agreed upon. Care Teams Clinical Applications Manager Relationship Specialty Start Date End Date Reid Barraza MD [address] [place] [address] PCP - General Family Medicine 04/21/18 documented as of this encounter
--- OUTSIDE RECORDS SUMMARY | 2024-03-07 03:16 | External Medical Summary | Summary of Care ---
Author Name Unknown Organization [facility] Address [address] [place] [address] Phone [phone] Care Team Providers Care Editorial Director Name Role Phone Reid Barraza MD Primary Care Provider + Reason for Visit * Reason Onset Date Comments Advice 10/19/2023 Encounter Details Date Type Department Care Team (Late st Contact Info) Description 10/19/2023 Telephone Family Practice [facility] [address] [facility] [place] [address] Reid Barraza MD [address] [facility] [address] Advice Allergies No known active allergiesdocumented as of this encounter (statuses as of 10/27/2023) Medications Medication Sig Dispensed Refills Start Date [...] directed through feeding tube via gravity bag. 29204 mL 11 04/03/2023 Active amLODIPine Besylate 5 [...] as of this encounter (statuses as of 10/27/2023) Active Problems Problem Noted Date Diagnosed Date [...] MEDICATION USE AGREEMENT 10/05/2009 Overview: Managed by [employer]. To view the Medication Usage Agreement, go to Action, Patient Files. Constipation 08/18/2009 Overview: ICD-10 update of inactive term ADVANCE DIRECTIVE INFORMATION 09/10/2007 Overview: No, Advance Directive brochure offered , patient declined. Hypertension 08/24/2007 Overview: Modified per HTN protocol #16. 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 documented as of this encounter (statuses as of 10/27/2023) Resolved Problems Problem Noted Date Diagnosed Date [...] 07/01/2010 04/11/2018 Anticoagulation management encounter 07/01/2010 04/11/2018 roasterman current use of ant icoagulant therapy 07/01/2010 [...] as of this encounter (statuses as of 10/27/2023) Immunizations Name Administration Dates Next Due PPD [...] 02/09/2024 8:40 AM EST Office Visit Gastroenterology, [facility] [address] [place] [address] Agnes Clifton MD [address] [place] [address] 09/27/2024 1:40 PM EDT Office Visit Family Practice [facility] [address] [place] [address] Reid Barraza MD [address] [facility] [place] [address] Health Maintenance Due Date Last Done Comments [...] this encounter Medical Devices Implanted Type Area Peoplesoft Functional Analyst Device Identifier Shelf Expiration Date Model / Serial / Lot Stent Carotid 8-6x40 [id number] - [id number] Implanted:Qty: 1 on 08/09/2014 by Hayes Song MD at OR [facility] [place] Left: Carotid [employer] : VASCULAR DEVICES 12/27/2016 [id number] / / [id number] Precise Pro Rx Carotid Stent 6mm X 40mm Implanted:Qty: 1 on 01/19/2015 by Mendez Hutchinson MD at OR [facility] [place] Left: Head ALYX & ALYX CORDIS 02/27/2016 / [id number] / [id number] Description:Left Carotid bif urcation Precise Pro Rx Carotid Stent 6mm X 20 Mm Implanted:Qty: 1 on 01/19/2015 by Mendez Hutchinson MD at OR [facility] [place] Left: Head ALYX & ALYX CORDIS 02/27/2016 / [id number] / [id number] Description:Left Carotid art broderick bifurcation 4.00 Mm X 28 Mm Arteaga Multi-Link Vision [place] Chromium Coronary Stent Implanted:Qty: 1 on 04/13/2019 by Mendez Hutchinson MD at OR [facility] [place] Left: Carotid 11/28/2019 [id number] / [id number] / [id number] Description:4.00 mm x 28 mm Arteaga Multi-Link Vision [place] Chromium Coronary Stent Stent Visi Pro 05 X 27mm X 135 - [id number] Implanted:Qty: 1 on 04/13/2019 by Mendez Hutchinson MD at OR [facility] [place] [employer] : VASCULAR [id number] 04/15/2020 [id number]- 27-135 / / [id number] documented as of this encounter Advance Directives [...] and were consensually agreed upon. Care Teams Editorial Director Relationship Specialty Start Date End Date Reid Barraza MD [address] [place] [address] PCP - General Family Medicine 04/21/18 documented as of this encounter
--- OUTSIDE RECORDS SUMMARY | 2024-03-07 03:16 | External Medical Summary | Summary of Care ---
Author Name Unknown Organization [facility] Address [address] [place] [address] Phone [phone] Care Team Providers Care In Home Sales Representative Name Role Phone Reid Gallego MD Primary Care Provider + Reason for Visit * Reason Comments eRx-Medication Refill Encounter Details Date Type Department Care Team (Late st Contact Info) Description 02/28/2024 Refill Family Practice [facility] [address] [facility] [place] [address] Reid Gallego MD [address] [facility] [place] [address] Allergies No known active allergiesdocumented as of this encounter (statuses as of 02/29/2024) Medications Feeding Tubes - Bags (KANGAROO GRAVITY FEEDING BAG) MISCIndications: Dysphagia,G tube feedings (HCC),On tube feeding diet Use for daily PEG tube feedings 30 Each 5 11/07/19 16 Active chlorHEXIDINE (PERIOGARD) 0.12 % solutionIndicati ons:Severe protein-calorie malnutrition (HCC) Swish and spit 15 mL 2 times a day. 473 mL 3 11/07/19 16 Active Additional Information Patient not taking.Reported on 02/09/2024 aspirin 81 MG chewable tabletIndication s:PEG (percutaneous endoscopic gastrostomy) status (HCC) Take one three days per week through G tube 100 Tab 5 04/26/19 19 Active Acetaminophen 325 MG Oral Tablet (Tylenol)Indicat ions:Chronic pain,Fever, unspecified fever cause ADMINISTER 2 TABLETS INTO PEG TUBE EVERY 6 HOURS NEEDED FOR FEVER >38C(100.5F) OR MILD PAIN 500 Tablet 3 11/12/19 23 Active Clotrimazole 1 % External Cream (Lotrimin)Indica tions:Intertrigo Apply topically to affected area 2 times a day. Apply to groin rash for at least 4 weeks 113 g 3 02/13/20 23 Active Triamcinolone Acetonide 0.1 % External Cream (Aristocort)Yareli cations:Attentio n to gastrostomy (HCC) APPLY TOPICALLY TO AFFECTED area twice daily. 30 g 07/16/19 24 Active Clopidogrel Bisulfate 75 MG Oral Tablet (pLAVix) ADMINISTER 1 TABLET INTO PEG TUBE EVERY MORNING 90 Tablet 3 08/06/19 24 Active Zoster Vac Recomb Adjuvanted 50 MCG/0.5ML Intramuscular Suspension Reconstituted (Shingrix)Indica tions:Need for shingles vaccine Inject 0.5 mL into a large muscle now and repeat dose in 60 to 180 days 1 Each 1 4 2:50 PM EDT 09/18/19 24 Active Finasteride 5 MG Oral Tablet (Proscar)Indicat ions:BPH with obstruction/lowe r urinary tract symptoms GIVE ONE TABLET CRUSHED [...] directed through feeding tube via gravity bag. 75497 mL 11 02/11/20 24 Active Ketoconazole 2 % External Cream Apply topically to affected area 2 times a day. 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 [...] as of this encounter (statuses as of 02/29/2024) Immunizations Name Administration Dates Next Due PPD [...] Karon Hooker EDIE documented in this encounter Miscellaneous Notes * Telephone Encounter - Juan Miguel Gudino [facility] - 02/29/2024 5:20 PM ESTSigned Prescriptions: Disp Refills Famotidine 20 MG Oral Tablet (Pepcid) 90 Tab*1 Sig: ADMINISTER 1TABLET INTO PEG TUBE DAILY IN THE MORNINGAuthorizing Provider: REID GALLEGO User: JUAN MIGUEL GUDINO documented in this encounter Plan of Treatment Upcoming Encounters Date Type Department Care Team (Late st Contact Info) Description 08/17/2024 4:00 PM EDT Office Visit Gastroenterology, [facility] [address] [place] [address] Agnes Clifton MD [address] [place] [address] Health Maintenance Due Date Last Done Comments [...] this encounter Medical Devices Implanted Type Area Custom Car Builder Device Identifier Shelf Expiration Date Model / Serial / Lot Stent Carotid 8-6x40 [id number] - [id number] Implanted:Qty: 1 on 08/09/2014 [place] [facility] [place] Carotid [employer] : VASCULAR DEVICES 12/27/2016 [id number] / / [id number] Precise Pro Rx Carotid Stent 6mm X 40mm Implanted:Qty: 1 on 01/19/2015 by Mendez Hutchinson [place] [facility] [place]: Head ALYX & ALYX CORDIS 02/27/2016 / [id number] / [id number] Description:Left Carotid bif urcation Precise Pro Rx Carotid Stent 6mm X 20 Mm Implanted:Qty: 1 on 01/19/2015 by Mendez Hutchinson [place] [facility] [place]: Head ALYX & ALYX CORDIS 02/27/2016 / [id number] / [id number] Description:Left Carotid art broderick bifurcation 4.00 Mm X 28 Mm Arteaga Multi-Link Vision Baxter Chromium Coronary Stent Implanted:Qty: 1 on 04/13/2019 by Mendez Hutchinson [place] [facility] [place]: Carotid 11/28/2019 [id number] / [id number] / [id number] Description:4.00 mm x 28 mm Arteaga Multi-Link Vision Baxter Chromium Coronary Stent Stent Visi Pro 05 X 27mm X 135 - [id number] Implanted:Qty: 1 on 04/13/2019 by Mendez Hutchinson [place] [facility] [place] [employer] : VASCULAR [id number] 04/15/2020 [id number] 27-135 / / [id number] documented as of this encounter Advance Directives [...] and were consensually agreed upon. Care Teams In Home Sales Representative Relationship Specialty Start Date End Date Reid Gallego MD [address] [place] [address] PCP - General Family Medicine 04/21/18 documented as of this encounter
--- OUTSIDE RECORDS SUMMARY | 2024-03-07 03:16 | External Medical Summary | Summary of Care ---
Author Name Unknown Organization [facility] Address [address] [place] [address] Phone [phone] Care Team Providers Care Senior Backup Administrator Name Role Phone Reid Barraza MD Primary Care Provider + Reason for Visit * Reason Onset Date Comments Appointment 10/26/2023 Encounter Details Date Type Department Care Team (Late st Contact Info) Description 10/26/2023 Telephone Family Practice [facility] [address] [facility] [place] [address] Reid [facility]za MD [address] [facility] [address] Appointment Allergies No known active allergiesdocumented as [...] directed through feeding tube via gravity bag. 14309 mL 11 04/03/2023 Active amLODIPine Besylate 5 [...] MEDICATION USE AGREEMENT 10/05/2009 Overview: Managed by [employer]. 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 07/01/2010 [...] encounter Miscellaneous Notes * Telephone Encounter - Reid Barraza MD [...] 02/09/2024 8:40 AM EST Office Visit Gastroenterology, [facility] [address] [place] [address] Agnes Clifton MD [address] [address] 09/27/2024 1:40 PM EDT Office Visit Family Practice [facility] [address] [place] [address] Reid Barraza MD [address] [place] [address] Health Maintenance Due Date Last Done Comments [...] this encounter Medical Devices Implanted Type Area Manager Camp Device Identifier Shelf Expiration Date Model / Serial / Lot Stent Carotid 8-6x40 [id number] - [id number] Implanted:Qty: 1 on 08/09/2014 by Hayes Song MD at [place] [facility] [place] Left: Carotid [employer] : VASCULAR DEVICES 12/27/2016 [id number] / / [id number] Precise Pro Rx Carotid Stent 6mm X 40mm Implanted:Qty: 1 on 01/19/2015 by Mendez Hutchinson MD at [place] [facility] [place] Left: Head ALYX & ALYX CORDIS 02/27/2016 / [id number] / [id number] Description:Left Carotid bif urcation Precise Pro Rx Carotid Stent 6mm X 20 Mm Implanted:Qty: 1 on 01/19/2015 by Mendez Hutchinson MD at [place] [facility] [place] Left: Head ALYX & ALYX CORDIS 02/27/2016 / [id number] / [id number] Description:Left Carotid art broderick bifurcation 4.00 Mm X 28 Mm Arteaga Multi-Link Vision [place] Chromium Coronary Stent Implanted:Qty: 1 on 04/13/2019 by Mendez Hutchinson MD at [place] [facility] [place] Left: Carotid 11/28/2019 [id number] / [id number] / [id number] Description:4.00 mm x 28 mm Arteaga Multi-Link Vision [place] Chromium Coronary Stent Stent Visi Pro 05 X 27mm X 135 - [id number] Implanted:Qty: 1 on 04/13/2019 by Mendez Hutchinson MD at [place] [facility] [place] [employer] : VASCULAR [id number] 04/15/2020 [id number] 27-135 / / [id number] documented as of this encounter Advance Directives [...] and were consensually agreed upon. Care Teams Senior Backup Administrator Relationship Specialty Start Date End Date Damaske, Reid Pato, MD [address] [place] [address] PCP - General Family Medicine 04/21/18 documented as of this encounter
--- OUTSIDE RECORDS SUMMARY | 2024-03-07 03:17 | External Medical Summary ---
Author Name Unknown Address Unknown Organization K01:[facility] - [address] [place] [id number] Laboratory Report Ordering Provider Test Date Status LASHONDA TAYLOR 10/26/2023 09:55:00 Final Observation Date Value Abnormality Reference (Units ) Status Vitamin B12 10/26/2023 09:55:00 6122 542-7921 (pg/mL) Final Performing Location [facility] - [address] [place] [address]
--- OUTSIDE RECORDS SUMMARY | 2024-03-07 03:17 | External Medical Summary ---
Author Name Unknown Address Unknown Organization [id number]:[facility] - [address] [facility] [address] Laboratory Report Ordering Provider Test Date Status LASHONDA TAYLOR 10/19/2023 10:37:00 Final Observation Date Value Abnormality Reference (Units ) Status WBC, Total 10/19/2023 10:37:00 5.12 4.00-10.8 0 (K/uL) Final RBC 10/19/2023 10:37:00 4.07 4.50-5.25 (M/uL) Final Hemoglobin 10/19/2023 10:37:00 13.1 Below low normal 14 .0-16.8 (g/dL) Final Anemia reflex testing trigge rs on a HGB < 12.0 for Females and HGB < 13.0 for Males in accordance with the WHO Anemia Guidelines HCT 10/19/2023 10:37:00 41.4 40.0-48.4 (%) Final MCV 10/19/2023 10:37:00 101.7 82.0-99.5 (fL) Final MCH 10/19/2023 10:37:00 32.2 27.0-34.0 (pg) Final MCHC 10/19/2023 10:37:00 31.6 32.0-36.0 (g/dL) Final RDW 10/19/2023 10:37:00 13.9 11.5-15.5 (%) Final Platelets 10/19/2023 10:37:00 82 Below low normal 140 -400 (K/uL) Final MPV 10/19/2023 10:37:00 13.5 6.6-11.1 ( fL) Final Nucleated erythrocytes/100 leukocytes [Ratio] in Blood by Automated count 10/19/2023 10:37:00 0 <=0 (/100 WBCs) Fi nal Performing Location [facility] - [address] [facility] [address]
--- OUTSIDE RECORDS SUMMARY | 2024-03-07 03:17 | External Medical Summary ---
Author Name Unknown Address Unknown Organization K01:[facility] - [address] [place] [address] Laboratory Report Ordering Provider Test Date Status LASHONDA TAYLOR 10/26/2023 09:55:00 Final Observation Date Value Abnormality Reference (Units ) Status Iron 10/26/2023 09:55:00 69 45-176 (ug /dL) Final Iron-binding capacity 10/26/2023 09:55:00 378 250-425 (ug/dL) Final Transferrin Sat % 10/26/2023 09:55:00 18 15 -55 (%) Final Performing Location [facility] - [address] [place] [address]
--- OUTSIDE RECORDS SUMMARY | 2024-03-07 03:17 | External Medical Summary | Summary of Care ---
Author Name Unknown Organization [facility] Address [address] [place] [address] Phone [phone] Care Team Providers Care Fraud Investigator Name Role Phone Reid Barraza MD Primary Care Provider + Reason for Visit * Reason Comments Outpatient Testing Encounter Details Date Type Department Care Team (Late st Contact Info) Description 09/15/2023 9:10 AM EDT Laboratory Laboratory [facility] [address] [place] [address] [facility] [address] [facility] [address] Encounter for long-term (current) use of medications Allergies No known active allergiesdocumented as of this encounter (statuses as of 09/15/2023) Medications Medication Sig Dispensed Refills Start Date End Date Status Feeding Tubes - Bags (KANGAROO GRAVITY FEEDING BAG) MISCIndications:Dys phagia,G tube feedings (HCC),On tube feeding diet Use for daily PEG tube feedings 30 Each 5 11/07/2015 Active chlorHEXIDINE (PERIOGARD) 0.12 % solutionIndications :Severe protein-calorie malnutrition (HCC) Swish and spit 15 mL 2 times a day. 473 mL 3 11/07/2015 Active Additional Information Patient not taking.Reported on 02/10/2023 aspirin 81 MG chewable tabletIndications:P EG (percutaneous endoscopic gastrostomy) status (HCC) Take one [...] 11/06/2022 Active Acetaminophen 325 MG Oral Tablet (Tylenol)Indication s:Chronic pain,Fever, unspecified fever cause ADMINISTER 2 TABLETS INTO PEG TUBE EVERY 6 HOURS NEEDED FOR FEVER >38C(100.5F) OR MILD PAIN 500 Tablet 3 11/11/2022 Active Clotrimazole 1 % External Cream (Lotrimin)Indicatio ns:Intertrigo Apply topically to affected area 2 times a day. Apply to groin rash for at least 4 weeks 113 g 3 02/12/2023 Active Isosource 1.5 Octaviano Oral Liquid Administer 1000 mL daily, as directed through feeding tube via gravity bag. 82178 mL 11 04/03/2023 Active amLODIPine Besylate 5 MG Oral Tablet (Norvasc) ADMINISTR 1 TABLET INTO PEG TUBE IN THE MORNING 90 Tablet 1 05/07/2023 Active Finasteride 5 MG Oral Tablet (Proscar)Indication s:BPH with obstruction/lower urinary tract symptoms GIVE ONE TABLET CRUSHED VIA PEG DAILY 30 Tablet 2 06/23/2023 Active Triamcinolone Acetonide 0.1 % External Cream (Aristocort)Indicat ions:Attention to gastrostomy (HCC) APPLY TOPICALLY TO AFFECTED area twice daily. 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 07/01/2010 [...] as of this encounter (statuses as of 09/15/2023) Immunizations Name Administration Dates Next Due PPD [...] Age 7 and older, IM (Adacel) 12/31/2010 documented as of this encounter Social History [...] Care Team (Late st Contact Info) Description 09/18/2023 2:00 PM EDT Office Visit Family [address] [place] [address] Reid Barraza MD [address] [place] [address] 09/30/2023 12:30 PM EDT Nutrition Services Nutrition & Weight Management, [facility] [place] [address] Brie Gonsalez RDN [address] [place] [address] 02/09/2024 8:40 AM EST Office Visit Gastroenterology, [facility] [address] [place] [address] Agnes Clifton MD [address] [place] [address] Pending Results Name Type Priority Associated Diagnoses Date /Time LIPID PANEL WITH DIRECT LDL IF TG IS HIGH Lab Routine Encounter for long-term (current) use of medications 09/15/2023 9:09 AM EDT BASIC METABOLIC PANEL Lab Routine Encounter for long-term (current) use of medications 09/15/2023 9:09 AM EDT Health Maintenance Due Date Last Done Comments COVID-19 Vaccine (#1) 12/06/1950 Albumin/Creatinine Ratio 12/06/1965 Zoster Vaccines (1 of 2) 12/06/1966 Colonoscopy 08/02/2010 08/02/2009 Depression Screening 12/23/2018 12/23/2017 GFR 06/28/2023 06/27/2022, 03/30, 04/13/2019, Additional history exists Influenza Vaccine (FLU shot) (Season Ended) 2023 01/24/2020, 04/09/2018, 12/27/2015, Additional history exists DTaP,Tdap,and Td Vaccines (3 - Td or Tdap) 06/27/2032 06/27/2022, 12/31/2010 RETIRED - COLONOSCOPY-ANNUAL AGES 18-100 Discontinued 08/02/2009, 08/02/2009 Pneumococcal Vaccine: 65+ Years Completed 12/27/2015, 02/16/2013, 04/27/2007 GARDASIL-HPV IMMUNIZATION SERIES Aged Out No longer eligible based on patient's age to complete this topic Hepatitis B Aged Out No longer eligi ble based on patient's age to complete this topic MENINGOCOCCAL (MENACTRA/MENVEO) Aged Out No longer eligible based on patient's age to complete this topic documented as of this encounter Medical Devices Implanted Type Area Reports Analyst Device Identifier Shelf Expiration Date Model / Serial / Lot Stent Carotid 8-6x40 [id number] - [id number] Implanted:Qty: 1 on 08/09/2014 by Hayes Song [place] [facility] [place]: Carotid [employer] : VASCULAR DEVICES 12/27/2016 [id number] / / [id number] Precise Pro Rx Carotid Stent 6mm X 40mm Implanted:Qty: 1 on 01/19/2015 by Mendez Hutchinson MD [place] [facility] [place]: Head ALYX & ALYX CORDIS 02/27/2016 / [id number] / [id number] Description:Left Carotid bif urcation Precise Pro Rx Carotid Stent 6mm X 20 Mm Implanted:Qty: 1 on 01/19/2015 by Mendez Hutchinson MD [place] [facility] [place]: Head ALYX & ALYX CORDIS 02/27/2016 / [id number] / [id number] Description:Left Carotid art broderick bifurcation 4.00 Mm X 28 Mm Arteaga Multi-Link Vision Colver Chromium Coronary Stent Implanted:Qty: 1 on 04/13/2019 by Mendez Hutchinson MD [place] [facility] [place] Left: Carotid 11/28/2019 [id number] / [id number] / [id number] Description:4.00 mm x 28 mm Arteaga Multi-Link Vision Colver Chromium Coronary Stent Stent Visi Pro 05 X 27mm X 135 - [id number] Implanted:Qty: 1 on 04/13/2019 by Mendez Hutchinson MD [place] [facility] [place] [employer] : VASCULAR [id number] 04/15/2020 [id number] 27-135 / / [id number] documented as of this encounter Procedures Procedure Name Priority Date/Time Associated Diagnosis Comments CBC Routine 09/15/2023 9:09 AM EDT Encounter for long-term (current) use of medications documented in this encounter Results * (ABNORMAL) CBC (09/15/2023 9:09 AM EDT) WBC 4.52 4.00 - 10.80 K/uL 09/15/2023 9:24 AM EDT [facility] 56 RBC 4.20 4.50 - 5.25 M/uL 09/15/2023 9:24 AM EDT [address] HGB 13.2(L) 14.0 - 16.8 g/dL 09/15/2023 9:24 AM EDT [address] HCT 41.7 40.0 - 48.4 % 09/15/2023 9:24 AM EDT [facility] 56 MCV 99.3 82.0 - 99.5 fL 09/15/2023 9:24 AM EDT [address] MCH 31.4 27.0 - 34.0 pg 09/15/2023 9:24 AM EDT [address] MCHC 31.7 32.0 - 36.0 g/dL 09/15/2023 9:24 AM EDT [address] RDW 14.2 11.5 - 15.5 % 09/15/2023 9:24 AM EDT [facility] 56 PLT 69(L) 140 - 400 K/uL 09/15/2023 9:24 AM EDT [facility] 56 MPV 12.5 6.6 - 11.1 fL 09/15/2023 9:24 AM EDT [facility] 56 Blood Venipuncture / Unknown 09/15/2023 9:09 AM EDT 09/15/2023 9:09 AM EDT Mariela Vargas [facility] LAB BLOOD ORDERABLES [facility] [address] [place] [address] documented in this encounter Visit Diagnoses Diagnosis Encounter for long-term (current) use of medications Encounter for long-term (current) use of other medications documented in this encounter Advance Directives * [...] and were consensually agreed upon. Care Teams Fraud Investigator Relationship Specialty Start Date End Date Reid Barraza MD [address] [place] [address] PCP - General Family Medicine 04/21/18 documented as of this encounter
--- OUTSIDE RECORDS SUMMARY | 2024-03-07 03:17 | External Medical Summary | Summary of Care ---
Author Name Unknown Organization [facility] Address [address] [place] [address] Phone [phone] Care Team Providers Care Refining Engineer Name Role Phone Reid Barraza MD Primary Care Provider + Reason for Referral * Ancillary Services (Within 10 days (routine)) - Authorized Specialty Diagnoses / Procedures Referred By Contac t Referred To Contact Rose Grower Diagnoses Thrombocytopenia (HCC) Reid Barraza MD [address] [place] [address] Referral ID Status Reason Start Date Expiration Date Visits Requested Visits Authorized [id number] Authorized Ancillary Services Required 09/18/2023 999 999 Question Answer Referral Priority Within 10 days (routine) Where should this appointment be scheduled? [place] Comments Is Patient homebound? Yes All sections of this form must be filled out completely. Forms with missing or illegible information will be returned for completion. This form should not be modified in any way. Forms that have been modified will be returned. This form may not be submitted by a home health agency. It must be complete and submitted by the ordering provider. One full business day lead time is required and service will be scheduled based on the next service day for the [facility] Home Phlebotomy does not service every geographical location on a daily basis. Contact [facility] Client Services at to find out service days for a specific location. Medical Laboratory [address] [place] [id number] Freddie Mcintosh M.D. Director and Records Specialist Patient Name: Brandt Tate : 1945 Sex: male Address [address] [facility] [id number] Provider: Reid Barraza MD? Reid Barraza MD? 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); Need for shingles vaccine; PEG (percutaneous endoscopic gastrostomy) status ([facility]); Asymptomatic stenosis of left carotid artery; Radiation-induced arteritis ([facility]); Esophageal stricture Allergies No known active allergiesdocumented as of this encounter (statuses as of 09/18/2023) Medications Medication Sig Dispensed Refills Start Date End Date Status Feeding Tubes - Bags (KANGAROO GRAVITY FEEDING BAG) MISCIndications:Dysp hagia,G tube feedings (HCC),On tube feeding diet Use for daily PEG tube feedings 30 Each 5 11/07/2015 Active chlorHEXIDINE (PERIOGARD) 0.12 % solutionIndications: Severe protein-calorie malnutrition ([facility]) Swish and spit 15 mL 2 times [...] directed through feeding tube via gravity bag. 53275 mL 11 04/03/2023 Active amLODIPine Besylate 5 MG Oral Tablet (Norvasc) ADMINISTR 1 TABLET INTO PEG TUBE IN THE MORNING 90 Tablet 1 05/07/2023 Active Finasteride 5 MG Oral Tablet (Proscar)Indications [...] 180 days 1 Each 1 09/18/2023 Active documented as of this encounter (statuses as of 09/18/2023) Active Problems Problem Noted Date Diagnosed Date [...] as of this encounter (statuses as of 09/18/2023) Resolved Problems Problem Noted Date Diagnosed Date [...] 04/11/2018 Anticoagulation management encounter 07/01/2010 04/11/2018 terminal make up operator current use of ant icoagulant therapy [...] as of this encounter (statuses as of 09/18/2023) Immunizations Name Administration Dates Next Due PPD [...] 0 [birth year]29/1965 - 08/29/2007 Smokeless Tobacco: Never Tobacco Cessation:Counseling Given: Not Answered Comments:started age 20-had stopped for couple of [...] Sign Reading Time Taken Comments Blood Pressure 100/58 09/18/2023 2:07 PM EDT Pulse 64 09/18/2023 2:07 PM EDT Temperature - - Respiratory Rate 16 09/18/2023 2:07 PM EDT Oxygen Saturation 97% 09/18/2023 2:07 PM EDT Inhaled Oxygen Concentration - - Weight - - Height - - Body Mass Index - - documented in this encounter Functional Status Functional Status Response [...] No 02/26/2015 documented as of this encounter Progress Notes * Reid Barraza MD - 09/18/2023 5:05 PM EDT SUBJECTIVE: Brandt Tate is a 77 year old male here for Return Visit (6 month return) . Here w/daughter , Keysha Saab. He is non verbal but communicates with nods. He is doing well. They have mxoqu-ihz-rwohs AIDS with [facility] nursing students. He was started on finasteride year ago and no longer has significant nocturia at night. Was going up to 5 times at night previously before starting it. That has resolved. Appreciate GI consult. We reviewed his labs together. His platelets are lower than his average low. He has not having any spontaneous bleeding. No current complaints. No fever, chills, chest pain, shortness of breath, headache, nausea, vomit, diarrhea, constipation or vision changes Physical: BP 100/58 | Pulse 64 | Resp 16 | SpO2 97% General-No apparent Distress in wheelchair Head, Eyes, Ears, Nose, Throat--Normocephalic, atraumatic Neck-+surg/XRT scarring Lymph-no lymphadenopathy Lungs-Clear to Auscultation bilaterally Cardiovascular--Regular rate & Rhythm, +s1, s2, no murmur Abdomen-soft, nontender, nondistended + bowel sounds Gtube port CDI Extremities--no edema Neuro-alert & oriented x3 right UE>LE hemiparasis (D69.6) Thrombocytopenia (HCC) (primary encounter diagnosis) Plan: HOME PHLEBOTOMY REFERRAL OP, CBC WITH WBC DIFFERENTIAL AND ANEMIA REFLEX WORKUP Labs reviewed [facility] labs 1mo Plan heme consult if cont to drop. 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 As such, there may be misspellings, word substitutions, or other variations that should not change the essence of the clinical content of this encounter note.If there is need for further clarification, please direct questions to the provider listed above.) Reid Barraza MD documented in this encounter Nursing Notes * Jessica Lopes LPN - 09/18/2023 2:07 PM EDT The patient has been properly identified by confirmation of name and date of . Chief Complaint Patient presents with Return Visit 6 month return documented in this encounter Plan of Treatment Upcoming Encounters Date Type Department Care Team (Late st Contact Info) Description 09/30/2023 12:30 PM EDT Nutrition Services Nutrition & Weight Management, [address] [place] [address] Brie Gonsalez RDN [address] [place] [address] 02/09/2024 8:40 AM EST Office Visit Gastroenterology, [facility] [address] [place] [address] Agnes Clifton MD [address] [place] [address] 09/27/2024 1:40 PM EDT Office Visit Family Practice [facility] [address] [place] [address] Reid Barraza MD [address] [place] [address] Scheduled Orders Name Type Priority Associated Diagnoses Orde r Schedule CBC WITH WBC DIFFERENTIAL AND ANEMIA REFLEX WORKUP Lab Routine Thrombocytopenia (HCC) 5 Occurrences starting 09/18/2023 until 09/17/2024 Scheduled Referrals Name Type Priority Associated Diagnoses Orde r Schedule HOME PHLEBOTOMY REFERRAL OP Referral Within 10 days (routine) Thrombocytopenia (HCC) Ordered: 09/18/2023 Health Maintenance Due Date Last Done Comments COVID-19 Vaccine (#1) 12/06/1950 Albumin/Creatinine Ratio 12/06/1965 Colonoscopy 08/02/2010 08/02/2009 Depression Screening 12/23/2018 12/23/2017 Zoster Vaccines (2 of 2) 11/13/2023 09/18/2023 Influenza Vaccine (FLU shot) (Season Ended) 2023 [...] this encounter Medical Devices Implanted Type Area Biscuit Machine Operator Device Identifier Shelf Expiration Date Model / Serial / Lot Stent Carotid 8-6x40 [id number] - [id number] Implanted:Qty: 1 on 08/09/2014 by Hayes Song MD at OR [facility] Left: Carotid [employer] : VASCULAR DEVICES 12/27/2016 [id number] / / [id number] Precise Pro Rx Carotid Stent 6mm X 40mm Implanted:Qty: 1 on 01/19/2015 by Mendez Hutchinson MD at OR [facility] Left: Head ALYX & ALYX CORDIS 02/27/2016 / [id number] / [id number] Description:Left Carotid bif urcation Precise Pro Rx Carotid Stent 6mm X 20 Mm Implanted:Qty: 1 on 01/19/2015 by Mendez Hutchinson MD at OR [facility] Left: Head ALYX & ALYX CORDIS 02/27/2016 / [id number] / [id number] Description:Left Carotid art broderick bifurcation 4.00 Mm X 28 Mm Arteaga Multi-Link Vision [place] Chromium Coronary Stent Implanted:Qty: 1 on 04/13/2019 by Mendez Hutchinson MD at OR [facility] Left: Carotid 11/28/2019 [id number] / [id number] / [id number] Description:4.00 mm x 28 mm Arteaga Multi-Link Vision [place] Chromium Coronary Stent Stent Visi Pro 05 X 27mm X 135 - [id number] Implanted:Qty: 1 on 04/13/2019 by Mendez Hutchinson MD at OR [facility] [employer] : VASCULAR [id number] 04/15/2020 [id number] / / [id number] documented as of this encounter Visit Diagnoses Diagnosis Thrombocytopenia (HCC)- Primary Thrombocytopenia, unspecified 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 Care Teams Refining Engineer Relationship Specialty Start Date End Date Reid Barraza MD [address] [place] [address] PCP - General Family Medicine 04/21/18 documented as of this encounter"
--- OUTSIDE RECORDS SUMMARY | 2024-03-07 03:17 | External Medical Summary | Summary of Care ---
Author Name Unknown Organization [facility] Address [address] [place] [address] Phone [phone] Care Team Providers Care Hr Payroll Coordinator Name Role Phone Reid Barraza MD Primary Care Provider + Encounter Details Date Type Department Care Team (Late st Contact Info) Description 09/16/2023 Telephone Family Practice [facility] [address] [facility] [place] [address] Reid Barraza MD [address] [facility] [address] Allergies No known active allergiesdocumented as of this encounter (statuses as of 09/21/2023) Medications Medication Sig Dispensed Refills Start Date [...] directed through feeding tube via gravity bag. 83490 mL 11 04/03/2023 Active amLODIPine Besylate 5 [...] as of this encounter (statuses as of 09/21/2023) Active Problems Problem Noted Date Diagnosed Date [...] MEDICATION USE AGREEMENT 10/05/2009 Overview: Managed by [employer]. To view the Medication Usage Agreement, go to Action, Patient Files. Constipation 08/18/2009 Overview: ICD-10 update of inactive term ADVANCE DIRECTIVE INFORMATION 09/10/2007 Overview: No, Advance Directive brochure offered , patient declined. Hypertension 08/24/2007 Overview: Modified per HTN protocol #16. 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 documented as of this encounter (statuses as of 09/21/2023) Resolved Problems Problem Noted Date Diagnosed Date [...] 07/01/2010 04/11/2018 Anticoagulation management encounter 07/01/2010 04/11/2018 detention current use of ant icoagulant therapy 07/01/2010 [...] as of this encounter (statuses as of 09/21/2023) Immunizations Name Administration Dates Next Due PPD [...] encounter Miscellaneous Notes * Telephone Encounter - Enma Young MED ASSIST - 09/21/2023 11:23 AM EDT Pt seen in office 09/17 * Telephone Encounter - Jessica Lopes LPN - 09/17/2023 1:34 PM EDT Called daughter Keysha. LMOM for daughter to return call to nurse line. * Telephone Encounter - Reid Barraza MD - 09/16/2023 10:50 PM EDT Call daughter Keysha (POA)--platelets are a little lower than they have been--I'll see him at his appt Thursday, but we'll plan on repeating labs in 1 month documented in this encounter Plan of Treatment Upcoming Encounters Date Type Department Care Team (Late st Contact Info) Description 09/30/2023 12:30 PM EDT Nutrition Services Nutrition & Weight Management, [facility] [address] [place] [address] Brie Gonsalez RDN [address] [place] [address] 10/12/2023 7:00 AM EDT Laboratory Lab [facility] [address] [employer] [address] [place] [address] M[facility], G[facility] Mobile Home Draw [address] [place] [address] 10/19/2023 7:00 AM EDT Laboratory [facility] [address] [place] [address] M[facility], G[facility] Mobile Home Draw [address] [place] [address] 10/26/2023 7:00 AM EDT Laboratory Lab [facility] [address] [place] [address] Mvmg, Gml Mobile Home Draw [address] [address] 11/02/2023 7:00 AM EDT Laboratory Lab [facility] [address] [place] [address] Mvmg, Gml Mobile Home Draw [address] [address] 11/09/2023 7:00 AM EDT Laboratory Lab [facility] [address] [place] [address] Mvmg, Gml Mobile Home Draw [address] [place] [address] 02/09/2024 8:40 AM EST Office Visit Gastroenterology, [facility] [address] [place] [address] Agnes Clifton MD [address] [place] [address] 09/27/2024 1:40 PM EDT Office Visit Family Practice [facility] [address] [place] [address] Reid Barraza MD [address] [place] [address] Health Maintenance Due Date Last Done Comments [...] this encounter Medical Devices Implanted Type Area Graphic Design Assistant Device Identifier Shelf Expiration Date Model / Serial / Lot Stent Carotid 8-6x40 [id number] - [id number] Implanted:Qty: 1 on 08/09/2014 by Hayes Song MD at OR [facility] Left: Carotid [employer] : VASCULAR DEVICES 12/27/2016 [id number] / / [id number] Precise Pro Rx Carotid Stent 6mm X 40mm Implanted:Qty: 1 on 01/19/2015 by Mendez Hutchinson MD at OR [facility] Left: Head ALYX & ALYX CORDIS 02/27/2016 / [id number] / [id number] Description:Left Carotid bif urcation Precise Pro Rx Carotid Stent 6mm X 20 Mm Implanted:Qty: 1 on 01/19/2015 by Mendez Hutchisnon MD at OR [facility] Left: Head ALYX & ALXY CORDIS 02/27/2016 / [id number] / [id number] Description:Left Carotid art broderick bifurcation 4.00 Mm X 28 Mm Arteaga Multi-Link Vision [place] Chromium Coronary Stent Implanted:Qty: 1 on 04/13/2019 by Mendez Hutchinson MD at OR [facility] Left: Carotid 11/28/2019 [id number] / [id number] Description:4.00 mm x 28 mm Arteaga Multi-Link Vision [place] Chromium Coronary Stent Stent Visi Pro 05 X 27mm X 135 - [id number] Implanted:Qty: 1 on 04/13/2019 by Mendez Hutchinson MD at OR [facility] [employer] : VASCULAR [id number] 04/15/2020 [id number] 27-135 / / [id number] documented as of this encounter Advance Directives [...] and were consensually agreed upon. Care Teams Hr Payroll Coordinator Relationship Specialty Start Date End Date Reid Barraza MD [address] [place] [address] PCP - General Family Medicine 04/21/18 documented as of this encounter
--- OUTSIDE RECORDS SUMMARY | 2024-03-07 03:17 | External Medical Summary ---
Author Name Unknown Address Unknown Organization [id number]:[facility] [place] [address] Laboratory Report Ordering Provider Test Date Status SONALI LOPEZ 09/15/2023 09:09:18 Final Observation Date Value Abnormality Reference (Units ) Status BUN 09/15/2023 09:09:18 19 6-20 (mg/dL) Final Creatinine 09/15/2023 09:09:18 0.8 0.6-1.2 (mg/dL) Final Glomerular filtration rate/1.73 sq M.predicted [Volume Rate/Area] in Serum, Plasma or Blood by Creatinine-based formula (CKD-EPI) 09/15/2023 09:09:18 >90 >=60 (mL/min) Final eGFR is calculated based on the CKD-EPI 2020 equation Sodium 09/15/2023 09:09:18 144 135-146 (m mol/L) Final Potassium 09/15/2023 09:09:18 4.2 3.5-5.1 (m mol/L) Final Cl 09/15/2023 09:09:18 105 98-107 (mm ol/L) Final CO2 09/15/2023 09:09:18 26 22-32 (mmo l/L) Final Anion gap 09/15/2023 09:09:18 13 7-15 (mmol /L) Final Glucose 09/15/2023 09:09:18 95 70-120 (mg /dL) Final Calcium 09/15/2023 09:09:18 9.9 8.4-10.2 ( mg/dL) Final Performing Location [facility] [place] [address]
--- OUTSIDE RECORDS SUMMARY | 2024-03-07 03:17 | External Medical Summary ---
Author Name Unknown Address Unknown Organization [id number]:[facility] - [address] [place] [address] Laboratory Report Ordering Provider Test Date Status LASHONDA TAYLOR 10/26/2023 09:55:00 Final Observation Date Value Abnormality Reference (Units ) Status TSH 10/26/2023 09:55:00 5.62 Above high normal 0. 27-4.20 (uIU/mL) Final Performing Location [facility] - [address] [place] [address]
--- OUTSIDE RECORDS SUMMARY | 2024-03-07 03:17 | External Medical Summary | Summary of Care ---
Author Name Unknown Organization [facility] Address [address] [place] [address] Phone [phone] Care Team Providers Care Retail Sales Consultant Name Role Phone Reid Barraza MD Primary Care Provider + Reason for Visit * Reason Onset Date Comments Appointment 10/26/2023 Encounter Details Date Type Department Care Team (Late st Contact Info) Description 10/26/[address] [facility] [address] [facility] [place] [address] Reid Barraza MD [address] [facility] [address] Appointment Allergies No known active allergiesdocumented as [...] directed through feeding tube via gravity bag. 74717 mL 11 04/03/2023 Active amLODIPine Besylate 5 [...] MEDICATION USE AGREEMENT 10/05/2009 Overview: Managed by [facility]. To view the Medication Usage Agreement, go [...] 02/09/2024 8:40 AM EST Office Visit Gastroenterology, [facility] [address] [place] [address] Agnes Clifton MD [address] [place] [address] 09/27/2024 1:40 PM EDT Office Visit Family Practice [facility] [address] [place] [address] Reid Barraza MD [address] [place] [address] Health Maintenance Due Date Last Done Comments [...] this encounter Medical Devices Implanted Type Area Marine Safety Officer Device Identifier Shelf Expiration Date Model / Serial / Lot Stent Carotid 8-6x40 [id number] - [id number] Implanted:Qty: 1 on 08/09/2014 by Hayes Song MD at [place] [facility] Left: Carotid [employer] : VASCULAR DEVICES 12/27/2016 [id number] / / [id number] Precise Pro Rx Carotid Stent 6mm X 40mm Implanted:Qty: 1 on 01/19/2015 by Mendez Hutchinson MD at [place] [facility] Left: Head ALYX & ALYX CORDIS 02/27/2016 / [id number] / [id number] Description:Left Carotid bif urcation Precise Pro Rx Carotid Stent 6mm X 20 Mm Implanted:Qty: 1 on 01/19/2015 by Mendez Hutchinson MD at [place] [facility] Left: Head ALYX & ALYX CORDIS 02/27/2016 / [id number] / [id number] Description:Left Carotid art broderick bifurcation 4.00 Mm X 28 Mm Arteaga Multi-Link Vision [place] Chromium Coronary Stent Implanted:Qty: 1 on 04/13/2019 by Mendez Hutchinson MD at [place] [facility] Left: Carotid 11/28/2019 [id number] / [id number] / [id number] Description:4.00 mm x 28 mm Arteaga Multi-Link Vision [place] Chromium Coronary Stent Stent Visi Pro 05 X 27mm X 135 - [id number] Implanted:Qty: 1 on 04/13/2019 by Mendez Hutchinson MD at [facility] [employer] : VASCULAR [id number] 04/15/2020 [id number] 27-135 / / [id number] documented as of this encounter Advance Directives [...] and were consensually agreed upon. Care Teams Retail Sales Consultant Relationship Specialty Start Date End Date Reid Barraza MD [address] [place] [address] PCP - General Family Medicine 04/21/18 documented as of this encounter
--- OUTSIDE RECORDS SUMMARY | 2024-03-07 03:17 | External Medical Summary ---
Author Name Unknown Address Unknown Organization [id number]:[facility] - [address] [facility] [address] Laboratory Report Ordering Provider Test Date Status LASHONDA TAYLOR 10/19/2023 10:37:00 Final Observation Date Value Abnormality Reference (Units ) Status SYNC LEUKOCYTES IN BLOOD BY AUTOMATED COUNT 10/19/2023 10:37:00 5.12 4.00-10.80 (K/uL) Final Segs 10/19/2023 10:37:00 72.6 40.0-75.0 (%) Final Lymphs % 10/19/2023 10:37:00 15.2 Below low normal 18.0-42.0 (%) Final Monos 10/19/2023 10:37:00 9.6 1.0-11.0 (%) Final Eosinophils 10/19/2023 10:37:00 1.8 0.0-6.0 (%) Final Basos 10/19/2023 10:37:00 0.4 0.0-2.0 (%) Final Immature Granulocyte, Percent 10/19/2023 10:37:00 0.4 0.0-2.0 (%) Final Absolute Segs 10/19/2023 10:37:00 3.72 1.80-7.70 (K/uL) Final Lymphs, absolute 10/19/2023 10:37:00 0.78 Below low normal 1.00-4.80 (K/ul) Final Monos, Abs 10/19/2023 10:37:00 0.49 0.00-1.10 (K/uL) Final Eos, Abs 10/19/2023 10:37:00 0.09 0.00-0.70 (K/uL) Final Basos, Abs 10/19/2023 10:37:00 0.02 0.00-0.20 (K/uL) Final Immature Granulocytes, Number 10/19/2023 10:37:00 0.02 0.00-0.20 (K/uL) Final Performing Location [facility] - [facility] [place] [address]
--- OUTSIDE RECORDS SUMMARY | 2024-03-07 03:17 | External Medical Summary ---
Author Name Unknown Address Unknown Organization K01:[facility] - [address] [place] [address] Laboratory Report Ordering Provider Test Date Status LASHONDA TAYLOR 10/26/2023 09:55:00 Final Observation Date Value Abnormality Reference (Units ) Status Creatinine 10/26/2023 09:55:00 0.9 0.6-1.2 (mg/dL) Final Glomerular filtration rate/1.73 sq M.predicted [Volume Rate/Area] in Serum, Plasma or Blood by Creatinine-based formula (CKD-EPI) 10/26/2023 09:55:00 90 >=60 (mL/min) Final eGFR is calculated based on the CKD-EPI 2020 equation. Performing Location [facility] - [address] [place] [address]
--- OUTSIDE RECORDS SUMMARY | 2024-03-07 03:17 | External Medical Summary | Summary of Care ---
Author Name Unknown Organization [facility] Address [address] [place] [address] Phone [phone] Care Team Providers Care Material Control Analyst Name Role Phone Reid Gallego MD Primary Care Provider + Reason for Visit * Reason Comments eRx-Medication Refill Encounter Details Date Type Department Care Team (Late st Contact Info) Description 09/19/2023 Refill Family Practice [facility] [address] [place] [address] Reid [facility]lego MD [address] [facility] [address] BPH with obstruction/lower urinary tract symptoms Allergies No known active allergiesdocumented as of [...] chewable tabletIndications: PEG (percutaneous endoscopic gastrostomy) status ([facility]) Take one three days per week through G tube 100 Tab 5 9 Active Labetalol HCl 300 MG Oral Tablet TAKE ONE TABLET BY MOUTH THREE TIMES A DAY (MORNING, NOON, AND BEFORE BEDTIME) 270 Tablet 3 3 Active Atorvastatin Calcium 40 MG Oral Tablet (Lipitor) ADMINISTER 1 TABLET INTO PEG TUBE AT BEDTIME 90 Tablet 3 3 Active Acetaminophen 325 MG Oral Tablet (Tylenol)Indicatio [...] directed through feeding tube via gravity bag. 52287 mL 11 4 Active amLODIPine Besylate 5 MG Oral Tablet (Norvasc) ADMINISTR 1 TABLET INTO PEG TUBE IN THE MORNING 90 Tablet 1 4 Active Triamcinolone Acetonide 0.1 % External [...] PEG DAILY 30 Tablet 5 4 Active Finasteride 5 MG Oral Tablet (Proscar)Indicatio ns:BPH with obstruction/lower urinary tract symptoms GIVE ONE TABLET CRUSHED VIA PEG DAILY 30 Tablet 2 4 06/24/20 24 Discontinued documented as of this encounter [...] MEDICATION USE AGREEMENT 10/05/2009 Overview: Managed by [employer]. To view the Medication Usage Agreement, go [...] 07/01/2010 04/11/2018 Anticoagulation management encounter 07/01/2010 04/11/2018 [facility] current use of ant icoagulant therapy 07/01/2010 [...] encounter Miscellaneous Notes * Telephone Encounter - Geno Singh RPh - 09/21/2023 5:24 AM EDTSigned Prescriptions: Disp Refills Finasteride 5 MG Oral Tablet (Proscar) 30 Tab*5 Sig: GIVE ONE TABLET CRUSHED VIA PEG DAILYAuthorizing Provider: REID GALLEGO User: GENO SINGH documented in this encounter Plan of Treatment Upcoming Encounters Date Type Department Care Team (Late st Contact Info) Description 09/30/2023 12:30 PM EDT Nutrition Services Nutrition & Weight Management, [facility] [address] [place] [address] Brie Gonsalez RDN [address] [place] [place] [address] 02/09/2024 8:40 AM EST Office Visit Gastroenterology, [facility] [address] [place] [address] Agnes Clifton MD [address] [place] [address] 09/27/2024 1:40 PM EDT Office Visit Family Practice [facility] [address] [place] [address] Reid Gallego MD [address] [place] [address] Health Maintenance Due Date Last Done Comments [...] this encounter Medical Devices Implanted Type Area Sales Process Manager Device Identifier Shelf Expiration Date Model / Serial / Lot Stent Carotid 8-6x40 [id number] - [id number] Implanted:Qty: 1 on 08/09/2014 [place] [facility] [place] Carotid [employer] : VASCULAR DEVICES 12/27/2016 [id number] / / [id number] Precise Pro Rx Carotid Stent 6mm X 40mm Implanted:Qty: 1 on 01/19/2015 by M[place] Hutchinson [place] [facility] [place]: Head ALYX & ALYX CORDIS 02/27/2016 / [id number] / [id number] Description:Left Carotid bif urcation Precise Pro Rx Carotid Stent 6mm X 20 Mm Implanted:Qty: 1 on 01/19/2015 by M[place] Hutchinson [place] [facility] [place]: Head ALYX & ALYX CORDIS 02/27/2016 / [id number] / [id number] Description:Left Carotid art broderick bifurcation 4.00 Mm X 28 Mm [employer] Multi[employer] [place] Chromium Coronary Stent Implanted:Qty: 1 on 04/13/2019 by M[place] Hutchinson [place] [facility] [place]: Carotid 11/28/2019 [id number] / [id number] / [id number] Description:4.00 mm x 28 mm [employer] Multi-Link [employer] [place] Chromium Coronary Stent Stent Visi Pro 05 X 27mm X 135 - [id number] Implanted:Qty: 1 on 04/13/2019 by Mendez Hutchinson [place] [facility] [place] [employer] : VASCULAR [id number] 04/15/2020 [id number] 27-135 / / [id number] documented as of this encounter Visit Diagnoses Diagnosis BPH with obstruction/lower urinary tract symptoms Hypertrophy of prostate with urinary obstruction and other lower urinary tract symptoms (LUTS) documented in this encounter Advance Directives * [...] and were consensually agreed upon. Care Teams Material Control Analyst Relationship Specialty Start Date End Date Reid Gallego MD [address] [place] [address] PCP - General Family Medicine 04/21/18 documented as of this encounter
--- OUTSIDE RECORDS SUMMARY | 2024-03-07 03:17 | External Medical Summary ---
Author Name Unknown Address Unknown Organization [id number]:LABORATORY [facility] [place] [facility] [address] [facility] [address] Laboratory Report Ordering Provider Test Date Status SONALI LOPEZ 09/15/2023 09:09:18 Final Observation Date Value Abnormality Reference (Units ) Status Triglyceride 09/15/2023 09:09:18 134 <=174 ( mg/dL) Final Triglyceride Reference Range s (mg/dL):
<150 Acceptable
150-174 Borderline high
175-499 High
>=500 Very high Cholesterol 09/15/2023 09:09:18 127 <200 (mg /dL) Final Total Cholesterol Reference Ranges (mg/dL):
<200 Desirable
200-239 Borderline high
>=240 High HDL 09/15/2023 09:09:18 37 Below low normal >39 (mg/dL) Final HDL Cholesterol Reference Ra nges (mg/dL):
>=60 High (Desirable)
<50 Low (Undesirable) For Females
<40 Low (Undesirable) For Males NON-HDL CHOLESTEROL 09/15/2023 09:09:18 90 <=159 (mg/dL) Final Non-HDL Cholesterol Referenc e Range (mg/dL):
<100 Target level for high risk ASCVD patient
<130 Optimal for general population
130-159 Near optimal for general population
160-189 Borderline High
190-219 High
>=220 Very High LDL, (calculated) 09/15/2023 09:09:18 63 <= 129 (mg/dL) Final LDL Cholesterol Reference Ra nges (mg/dL):
<70 Target level for high risk ASCVD patient
<100 Optimal for general population
100-129 Near optimal for general population
130-159 Borderline high
160-189 High
>=190 Very high Performing Location LABORATORY [facility] - [address] [facility] [address]
--- OUTSIDE RECORDS SUMMARY | 2024-03-07 03:17 | External Medical Summary ---
Author Name Unknown Address Unknown Organization K01:LABORATORY [facility] [place] - [address] [facility] [address] Laboratory Report Ordering Provider Test Date Status LASHONDA TAYLOR 10/26/2023 09:55:00 Final Observation Date Value Abnormality Reference (Units ) Status Folic Acid 10/26/2023 09:55:00 >20.0 >4.5 (ng/ mL) Final Performing Location LABORATORY C - [address] [facility] [place] [address]
--- OUTSIDE RECORDS SUMMARY | 2024-03-07 03:17 | External Medical Summary ---
Author Name Unknown Address Unknown Organization K01:LABORATORY [facility] [place] - [address] [facility] [address] Laboratory Report Ordering Provider Test Date Status LASHONDA TAYLOR 10/26/2023 09:55:00 Final Observation Date Value Abnormality Reference (Units ) Status SYNC LEUKOCYTES IN BLOOD BY AUTOMATED COUNT 10/26/2023 09:55:00 5.64 4.00-10.80 (K/uL) Final Segs 10/26/2023 09:55:00 78.1 Above high normal 40.0-75.0 (%) Final Lymphs % 10/26/2023 09:55:00 14.5 Below low normal 18.0-42.0 (%) Final Monos 10/26/2023 09:55:00 5.3 1.0-11.0 (%) Final Eosinophils 10/26/2023 09:55:00 1.4 0.0-6.0 (%) Final Basos 10/26/2023 09:55:00 0.5 0.0-2.0 (%) Final Immature Granulocyte, Percent 10/26/2023 09:55:00 0.2 0.0-2.0 (%) Final Absolute Segs 10/26/2023 09:55:00 4.40 1.80-7.70 (K/uL) Final Lymphs, absolute 10/26/2023 09:55:00 0.82 Below low normal 1.00-4.80 (K/ul) Final Monos, Abs 10/26/2023 09:55:00 0.30 0.00-1.10 (K/uL) Final Eos, Abs 10/26/2023 09:55:00 0.08 0.00-0.70 (K/uL) Final Basos, Abs 10/26/2023 09:55:00 0.03 0.00-0.20 (K/uL) Final Immature Granulocytes, Number 10/26/2023 09:55:00 0.01 0.00-0.20 (K/uL) Final Performing Location LABORATORY [facility] [place] - [facility] [place] [address]
--- OUTSIDE RECORDS SUMMARY | 2024-03-07 03:17 | External Medical Summary ---
Author Name Unknown Address Unknown Organization K01:[place] [place] [address] [facility] [address] Laboratory Report Ordering Provider Test Date Status LASHONDA TAYLOR 10/12/2023 10:05:00 Final Observation Date Value Abnormality Reference (Units ) Status SYNC LEUKOCYTES IN BLOOD BY AUTOMATED COUNT 10/12/2023 10:05:00 4.55 4.00-10.80 (K/uL) Final Segs 10/12/2023 10:05:00 74.2 40.0-75.0 (%) Final Lymphs % 10/12/2023 10:05:00 16.5 Below low normal 18.0-42.0 (%) Final Monos 10/12/2023 10:05:00 5.9 1.0-11.0 (%) Final Eosinophils 10/12/2023 10:05:00 2.6 0.0-6.0 (%) Final Basos 10/12/2023 10:05:00 0.4 0.0-2.0 (%) Final Immature Granulocyte, Percent 10/12/2023 10:05:00 0.4 0.0-2.0 (%) Final Absolute Segs 10/12/2023 10:05:00 3.37 1.80-7.70 (K/uL) Final Lymphs, absolute 10/12/2023 10:05:00 0.75 Below low normal 1.00-4.80 (K/ul) Final Monos, Abs 10/12/2023 10:05:00 0.27 0.00-1.10 (K/uL) Final Eos, Abs 10/12/2023 10:05:00 0.12 0.00-0.70 (K/uL) Final Basos, Abs 10/12/2023 10:05:00 0.02 0.00-0.20 (K/uL) Final Immature Granulocytes, Number 10/12/2023 10:05:00 0.02 0.00-0.20 (K/uL) Final Performing Location [facility] [facility] [place] [facility] [place] [address]
--- OUTSIDE RECORDS SUMMARY | 2024-03-07 03:17 | External Medical Summary | Summary of Care ---
Author Name Unknown Organization [facility] Address [address] [place] [address] Phone [phone] Care Team Providers Care Bundle Collector Name Role Phone Reid Barraza MD Primary Care Provider + Reason for Visit * Reason Onset Date Comments Appointment 10/26/2023 Encounter Details Date Type Department Care Team (Late st Contact Info) Description 10/26/2023 Telephone Family Practice [facility] [address] [facility] [place] [address] Reid Barraza MD [address] [facility] [address] Appointment Allergies No known active allergiesdocumented as [...] directed through feeding tube via gravity bag. 62103 mL 11 04/03/2023 Active amLODIPine Besylate 5 [...] MEDICATION USE AGREEMENT 10/05/2009 Overview: Managed by [employer]. 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 [...] Encounter - Danitza Contreras OSA - 10/26/2023 11:01 AM EDT LM for patien to call back and schedule for mobile labs in 3 months documented in this encounter Plan of Treatment Upcoming Encounters Date Type Department Care Team (Late st Contact Info) Description 02/09/2024 8:40 AM EST Office Visit Gastroenterology, [facility] [address] [place] [address] Agnes Clifton MD [address] [place] [address] 09/27/2024 1:40 PM EDT Office Visit Family Practice [facility] [address] [place] [address] Reid Barraza MD [address] [place] [address] Health Maintenance Due Date Last Done Comments [...] this encounter Medical Devices Implanted Type Area Marketing Team Lead Device Identifier Shelf Expiration Date Model / Serial / Lot Stent Carotid 8-6x40 [id number] - [id number] Implanted:Qty: 1 on 08/09/2014 [place] [facility] [place] Carotid [employer] : VASCULAR DEVICES 12/27/2016 [id number] / / [id number] Precise Pro Rx Carotid Stent 6mm X 40mm Implanted:Qty: 1 on 01/19/2015 by Mendez Hutchinson [place] [facility] [facility] [place]: Head ALYX & ALYX CORDIS 02/27/2016 / [id number] / [id number] Description:Left Carotid bif urcation Precise Pro Rx Carotid Stent 6mm X 20 Mm Implanted:Qty: 1 on 01/19/2015 by M[place] Hutchinson [place] [facility] [place]: Head ALYX & ALYX CORDIS 02/27/2016 / [id number] / [id number] Description:Left Carotid art broderick bifurcation 4.00 Mm X 28 Mm [employer] Multi[employer] [place] Chromium Coronary Stent Implanted:Qty: 1 on 04/13/2019 by Mendez Hutchinson MD [place] [facility] [place]: Carotid 11/28/2019 [id number] / [id number] / [id number] Description:4.00 mm x 28 mm [employer] Multi-Link [employer] [place] Chromium Coronary Stent Stent Visi Pro 05 X 27mm X 135 - [id number] Implanted:Qty: 1 on 04/13/2019 by Mendez Hutchinson MD at [facility] [employer] : VASCULAR [id number] 04/15/2020 [id number] 27-135 / / [id number] documented as of this encounter Advance Directives [...] and were consensually agreed upon. Care Teams Bundle Collector Relationship Specialty Start Date End Date Reid Barraza MD [address] [place] [address] PCP - General Family Medicine 04/21/18 documented as of this encounter
--- OUTSIDE RECORDS SUMMARY | 2024-03-07 03:17 | External Medical Summary ---
Author Name Unknown Address Unknown Organization K01:LABORATORY [place] [address] [facility] [address] Laboratory Report Ordering Provider Test Date Status LASHONDA TAYLOR 10/26/2023 09:55:00 Final Observation Date Value Abnormality Reference (Units ) Status Retic, % (auto) 10/26/2023 09:55:00 2.34 Above high normal 0.80-1.90 (%) Final Reticulocytes, Absolute 10/26/2023 09:55:00 93.4 31.3-100.1 (K/uL) Final Reticulocyte fraction, immature 10/26/2023 09:55:00 21.1 Above high normal 2.5-20.6 (%) Final Reticulocyte HGB 10/26/2023 09:55:00 34.7 29.7-37.4 (pg) Final Performing Location LABORATORY [facility] [place] - [facility] [address] [facility] [address] [facility] [address]
--- OUTSIDE RECORDS SUMMARY | 2024-03-07 03:17 | External Medical Summary ---
Author Name Unknown Address Unknown Organization K09:LABORATORY [place] [address] Laboratory Report Ordering Provider Test Date Status SONALI LOPEZ 09/15/2023 09:09:18 Final Observation Date Value Abnormality Reference (Units ) Status WBC, Total 09/15/2023 09:09:18 4.52 4.00-10.8 0 (K/uL) Final RBC 09/15/2023 09:09:18 4.20 4.50-5.25 (M/uL) Final Hemoglobin 09/15/2023 09:09:18 13.2 Below low normal 14 .0-16.8 (g/dL) Final HCT 09/15/2023 09:09:18 41.7 40.0-48.4 (%) Final MCV 09/15/2023 09:09:18 99.3 82.0-99.5 (fL) Final MCH 09/15/2023 09:09:18 31.4 27.0-34.0 (pg) Final MCHC 09/15/2023 09:09:18 31.7 32.0-36.0 (g/dL) Final RDW 09/15/2023 09:09:18 14.2 11.5-15.5 (%) Final Platelets 09/15/2023 09:09:18 69 Below low normal 140 -400 (K/uL) Final MPV 09/15/2023 09:09:18 12.5 6.6-11.1 ( fL) Final Performing Location [facility] [place] [address]
--- OUTSIDE RECORDS SUMMARY | 2024-03-07 03:17 | External Medical Summary ---
Author Name Unknown Address Unknown Organization K01[place] [facility] [place] [address] [place] [address] Laboratory Report Ordering Provider Test Date Status LASHONDA TAYLOR 10/26/2023 09:55:00 Final Observation Date Value Abnormality Reference (Units ) Status WBC, Total 10/26/2023 09:55:00 5.64 4.00-10.8 0 (K/uL) Final RBC 10/26/2023 09:55:00 4.03 4.50-5.25 (M/uL) Final Hemoglobin 10/26/2023 09:55:00 12.8 Below low normal 14 .0-16.8 (g/dL) Final Anemia reflex testing trigge rs on a HGB < 12.0 for Females and HGB < 13.0 for Males in accordance with the WHO Anemia Guidelines HCT 10/26/2023 09:55:00 41.7 40.0-48.4 (%) Final MCV 10/26/2023 09:55:00 103.5 82.0-99.5 (fL) Final MCH 10/26/2023 09:55:00 31.8 27.0-34.0 (pg) Final MCHC 10/26/2023 09:55:00 30.7 32.0-36.0 (g/dL) Final RDW 10/26/2023 09:55:00 13.5 11.5-15.5 (%) Final Platelets 10/26/2023 09:55:00 81 Below low normal 140 -400 (K/uL) Final MPV 10/26/2023 09:55:00 13.4 6.6-11.1 ( fL) Final Nucleated erythrocytes/100 leukocytes [Ratio] in Blood by Automated count 10/26/2023 09:55:00 0 <=0 (/100 WBCs) Fi nal Performing Location [place] [facility] [place] [address] [place] [address]
--- OUTSIDE RECORDS SUMMARY | 2024-03-07 03:17 | External Medical Summary ---
Author Name Unknown Address Unknown Organization K01:LABORATORY [facility] [place] - [address] [facility] [address] Laboratory Report Ordering Provider Test Date Status LASHONDA TAYLOR 10/12/2023 10:05:00 Final Observation Date Value Abnormality Reference (Units ) Status WBC, Total 10/12/2023 10:05:00 4.55 4.00-10.8 0 (K/uL) Final RBC 10/12/2023 10:05:00 4.08 4.50-5.25 (M/uL) Final Hemoglobin 10/12/2023 10:05:00 13.0 Below low normal 14 .0-16.8 (g/dL) Final Anemia reflex testing trigge rs on a HGB < 12.0 for Females and HGB < 13.0 for Males in accordance with the WHO Anemia Guidelines HCT 10/12/2023 10:05:00 40.7 40.0-48.4 (%) Final MCV 10/12/2023 10:05:00 99.8 82.0-99.5 (fL) Final MCH 10/12/2023 10:05:00 31.9 27.0-34.0 (pg) Final MCHC 10/12/2023 10:05:00 31.9 32.0-36.0 (g/dL) Final RDW 10/12/2023 10:05:00 13.8 11.5-15.5 (%) Final Platelets 10/12/2023 10:05:00 80 Below low normal 140 -400 (K/uL) Final MPV 10/12/2023 10:05:00 13.4 6.6-11.1 ( fL) Final Nucleated erythrocytes/100 leukocytes [Ratio] in Blood by Automated count 10/12/2023 10:05:00 0 <=0 (/100 WBCs) Final Performing Location LABORATORY C - [address] [place] [address]
--- OUTSIDE RECORDS SUMMARY | 2024-03-07 03:17 | External Medical Summary | Summary of Care ---
Author Name Unknown Organization [facility] Address [address] [place] [address] Phone [phone] Care Team Providers Care Film Sorter Name Role Phone Reid Barraza MD Primary Care Provider + Reason for Visit * Reason Comments Home Tube Feeding Medical Nutrition Therapy Weight Management Encounter Details Date Type Department Care Team (Late st Contact Info) Description 09/30/2023 12:30 PM EDT Telemedicine Nutrition & Weight Management, [facility] [address] [place] [address] Brie Gonsalez RDN [address] [place] [address] PEG (percutaneous endoscopic gastrostomy) status ([facility])*; Oropharyngeal dysphagia; On enteral nutrition; Body mass index (BMI) of 22.0-22.9 in adult Allergies No known active allergiesdocumented as of this encounter (statuses as of 09/30/2023) Medications Medication Sig Dispensed Refills Start Date [...] directed through feeding tube via gravity bag. 15541 mL 11 04/03/2023 Active amLODIPine Besylate 5 [...] as of this encounter (statuses as of 09/30/2023) Active Problems Problem Noted Date Diagnosed Date [...] as of this encounter (statuses as of 09/30/2023) Resolved Problems Problem Noted Date Diagnosed Date [...] 07/01/2010 04/11/2018 Anticoagulation management encounter 07/01/2010 04/11/2018 FDC current use of ant icoagulant therapy 07/01/2010 [...] as of this encounter (statuses as of 09/30/2023) Immunizations Name Administration Dates Next Due PPD [...] as of this encounter Progress Notes * Brie Gonsalez RDN - 09/30/2023 12:30 PM EDT HOME TUBE FEEDING NUTRITION Follow up [facility] Name: Brandt Tate Location: NUTRITION & WEIGHT MANAGEMENT, [facility] Date: 09/30/2023 Time: 12:08 PM Patient was identified by name and date. Patient location: HOME. I was in a hospital or clinic location. After connecting through [employer],patient was verified with two unique identifiers. Patient (or authorized legal graphic art sales representative) was then informed that this was a Telemedicine visit and being conducted confidentially over secure lines. Methods to assure confidentiality were taken. Patient acknowledged consent and understanding of pr ivacy and security of the Telemedicine visit. The patient agreed to participate. 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 Pato is non-verbal. Date: 09/30/2023 09/30/23 -Routine Dietary Follow Up Today with Keysha (daughter) -Keysha reporting things are going well, no complaints -Pato's wt is down from Mar but Keysha is wondering if his weight was taken correctly. She is reporting that it is hard for her dad to get on the scale and sometimes nursing does not help him. 04/01/23 -Reestablishing with RD, last seen 11/14/21 -With daughter Keysha -Needs new order placed for GHIS as [facility] is no longer able to supply enteral formula and supplies 11/14/21 They are not having any issues. They just need to see someone to get new orders for the tube feed itself. Theya re getting too much each delivery and need it lowered. Transferred to [facility] to getset up with same day as tube change in october. Patient has difficulty speaking. Per his , would like to reduce formula delivery to 4 cases a month from current 6 cases. Tolerating feeds well. Weight is stable. Using gravity bag with 2 oz water flush after each feed Barriers to Learning: None and Ability to communicate Special Education Needs: Instruct caregiver Social Demographics: Lives at home, daughter Keysha Saab assists with care Food/Nutrition-Related History Oral Diet Recall: NPO Current Tube Feeding Regimen: Isosource 1.5 4 cartons daily (1,000 mL TV) administered via gravity bag plus 354 mL water at each feed (12 oz per pt) Adult Energy Intake: No significant decrease in energy intake Home Infusion Company: [email or web address] Pertinent Medications (current): Current Outpatient Medications Medication Sig Dispense Refill Feeding Tubes - Bags (KANGAROO GRAVITY FEEDING BAG) [facility] Use for daily PEG tube feedings 30 Each 5 chlorHEXIDINE (PERIOGARD) 0.12 % solution Swish and spit 15 mL 2 times a day. (Patient not taking: Reported on 02/10/2023) 473 mL 3 aspirin 81 MG chewable tablet Take one three days per week through G tube 100 Tab 5 Labetalol HCl 300 MG Oral Tablet TAKE ONE TABLET BY MOUTH THREE TIMES A DAY (MORNING, NOON, AND BEFORE BEDTIME) 270 Tablet 3 Atorvastatin Calcium 40 MG Oral Tablet (Lipitor) ADMINISTER 1 TABLET INTO PEG TUBE AT BEDTIME 90 Tablet 3 Acetaminophen 325 MG Oral Tablet (Tylenol) ADMINISTER 2 TABLETS INTO PEG TUBE EVERY 6 HOURS NEEDED FOR FEVER >38C(100.5F) OR MILD PAIN 500 Tablet 3 Clotrimazole 1 % External Cream (Lotrimin) Apply topically to affected area 2 times a day. Apply togroin rash for at least 4 weeks 113 g 3 Isosource 1.5 Octaviano Oral Liquid Administer 1000 mL daily, as directed through feeding tube via gravity bag. 12902 mL 11 amLODIPine Besylate 5 MG Oral Tablet (Norvasc) ADMINISTR 1 TABLET INTO PEG TUBE IN THE MORNING 90 Tablet 1 Triamcinolone Acetonide 0.1 % External Cream (Aristocort) APPLY TOPICALLY TO AFFECTED area twice daily. 30 g 0 Clopidogrel Bisulfate 75 MG Oral Tablet (pLAVix) ADMINISTER 1 TABLET INTO PEG TUBE EVERY MORNING 90Tablet 3 Famotidine 20 MG Oral Tablet (Pepcid) ADMINISTER 1 TABLET INTO PEG TUBE DAILY IN THE MORNING 90 Tablet 0 Zoster Vac Recomb Adjuvanted 50 MCG/0.5ML Intramuscular Suspension Reconstituted (Shingrix) Inject 0.5 mL into a large muscle now and repeat dose in 60 to 180 days 1 Each 1 Finasteride 5 MG Oral Tablet (Proscar) GIVE ONE TABLET CRUSHED VIA PEG DAILY 30 Tablet 5 No current facility-administered medications for this visit. Administration method: Feeding tube Nutrition-Focused Physical Findings Appearance: WNWD NFPE deferred for video visit. Keysha sharing there have been no changes to skin, conjunctiva of eyes, color of tongue, no lip or skin cracking around mouth, no edema noted Fluid accumulation: Fluid Assessment: Normal Fluid Location: N/A Fluid Description: N/A Digestive system: Digestive: Swallow function, compromised Enteral Access: G-tube Placed: Changed 07/31/23 16 fr 4 cm Eusebio for PEG tube with GI Nerves and cognition: Awake, alert Skin: Intact Anthropometrics Measurements Height: 67" reported Weight: 141 lbs measured at GI visit 07/31/23 OTTO Wt: 148 lbs self reported in Mar [address] Weight History: Wt Readings from Last 15 Encounters: 07/31/23 64.2 kg (141 lb 9.6 oz) 02/12/23 62.6 kg (138 lb) 02/10/23 63 kg (138 lb 12.8 oz) 08/26/22 64.7 kg (142 lb 11.2 oz) 04/25/22 67.3 kg (148 lb 4.8 oz) 11/14/21 67.6 kg (149 lb) 11/14/21 67.6 kg (149 lb 1.6 oz) 10/05/21 67.1 kg (148 lb) 07/03/21 67.4 kg (148 lb 11.2 oz) 03/14/21 67.3 kg (148 lb 4.8 oz) 11/12/20 67.5 kg (148 lb 12.8 oz) 07/12/20 67.6 kg (149 lb 1.6 oz) 02/01/20 66.5 kg (146 lb 9.6 oz) 04/14/19 66 kg (145 lb 8.1 oz) 03/10/19 67 kg (147 lb 9.6 oz) Weight Change: 3-5% Loss over 6 months. Keysha reporting she doesn't feel her dad has lost 7 lbs since Mar visit with RD. [place] Body Weight: 148 lbs BMI: 23.2 Biochemical Data, Medical Tests and Procedures Reviewed NUTRITION DIAGNOSIS: Swallowing difficulty related to tonsillar squamous cell carcinoma as evidenced by need of tube feeding regimine. NUTRITION INTERVENTION: Continue current enteral nutrition routine Nutrition Justification of Enteral Feeds: Adequate nutrition impossible by diet adjustment and/or oral supplements. Tube feedings required for sufficient nutrients to maintain weight and strength. Patients condition warrants tube feeding for a long and indefinite duration Enteral feeding is the sole source of nutrition Nutrition Justification for Enteral Feeding Pump: Not applicable Nutrition Prescription: 22-25 Kcal/kg Current weight/day (62.6 kg) = 2997-6545 Kcal/day 0.8-1.0 grams protein/kg Current weight/day = 50-62 grams protein/day Fluid Needs: 22-25 mL/kg Current weight/ day = 2466-9873 ml/day Tube Feeding Prescription: Isosource 1.5 4 cartons daily (1,000 mL TV) administered via gravity bag plus 354 mL water at each feed (12 oz per pt) This will provide 1500 kcals, 68 g protein, 2180 mL water Goals: Patient will maintain weight., Patient will meet protein needs., Patient will meet calorie needs., Patient will receive adequate nutrition., Patient will meet hydration needs., and Proper feeding administration by self or other. Expected Compliance: Expect compliance with recommended home enteral nutrition therapy. Recommendations to Ordering Provider: Monitor weight NUTRITION MONITORING AND EVALUATION: Plan for Return Appointment: 1 year Minutes of MNT: 15 Brie Gonsalez RDN NUTRITION & WEIGHT MANAGEMENT, [facility] documented in this encounter Plan of Treatment Upcoming Encounters Date Type Department Care Team (Late st Contact Info) Description 10/12/2023 7:00 AM EDT Laboratory Lab Mobile Phlebotomy [facility] [address] [address] [facility] [address] [place] [address] 10/19/2023 7:00 AM EDT Laboratory Lab Mobile Phlebotomy [facility] [address] [place], [place] [address] [facility] [address] [place] [address] 10/26/2023 7:00 AM EDT Laboratory Lab Mobile Phlebotomy [facility] [address] [place] [address] [facility] [address] [place] [address] 11/02/2023 7:00 AM EDT Laboratory Lab Mobile Phlebotomy [facility] [address] [place] [address] [facility] [address] [place] [address] 11/09/2023 7:00 AM EDT Laboratory Lab Mobile Phlebotomy [facility] [address] [place] [address] [facility] [address] [place] [address] 02/09/2024 8:40 AM EST Office Visit Gastroenterology, [facility] [address] [place] [address] Agnes Clifton MD [address] [place] [address] 09/27/2024 1:40 PM EDT Office Visit Family [facility] [address] [place] [address] Reid Barraza MD [address] [place] [address] Health Maintenance Due Date Last Done Comments [...] this encounter Medical Devices Implanted Type Area Plate Gauger Device Identifier Shelf Expiration Date Model / Serial / Lot Stent Carotid [id number] - [id number] Implanted:Qty: 1 on 08/09/2014 by Hayes Song MD at OR [facility] Left: Carotid [employer] : VASCULAR DEVICES 12/27/2016 [id number] / / [id number] Precise Pro Rx Carotid Stent 6mm X 40mm Implanted:Qty: 1 on 01/19/2015 by Mendez Hutchinson MD at OR [facility] Left: Head ALYX [employer] ALYX CORDIS 02/27/2016 / [id number] / [id number] Description:Left Carotid bif urcation Precise Pro Rx Carotid Stent 6mm X 20 Mm Implanted:Qty: 1 on 01/19/2015 by Mendez Hutchinson MD at OR [facility] Left: Head ALYX [employer] ALYX CORDIS 02/27/2016 / [id number] / [id number] Description:Left Carotid art broderick bifurcation 4.00 Mm X 28 Mm Arte[employer] [place] Chromium Coronary Stent Implanted:Qty: 1 on 04/13/2019 by Mendez Hutchinson MD at OR [facility] Left: Carotid 11/28/2019 [id number] / [id number] / [id number] Description:4.00 mm x 28 mm [employer] Multi-Link [employer] [place] Chromium Coronary Stent Stent Visi Pro 05 X 27mm X 135 - [id number] Implanted:Qty: 1 on 04/13/2019 by Mendez Hutchinson MD at OR [facility] [employer] : VASCULAR [id number] 04/15/2020 [id number] / / [id number] documented as of this encounter Visit Diagnoses Diagnosis PEG (percutaneous endoscopic gastrostomy) status (HCC)- Primary Oropharyngeal dysphagia Dysphagia, oropharyngeal phase On enteral nutrition Other specified conditions influencing health status Body mass index (BMI) of 22.0-22.9 in adult Body Mass Index between 19-24, adult documented in this encounter Advance Directives * [...] and were consensually agreed upon. Care Teams Film Sorter Relationship Specialty Start Date End Date Reid Barraza MD [address] [facility] [place] [address] PCP - General Family Medicine 04/21/18 documented as of this encounter
--- OUTSIDE RECORDS SUMMARY | 2024-03-07 03:17 | External Medical Summary ---
Author Name Unknown Address Unknown Organization [id number]:LABORATORY [facility] - [address] [place] [address] Laboratory Report Ordering Provider Test Date Status LASHONDA TAYLOR 10/26/2023 09:55:00 Final Observation Date Value Abnormality Reference (Units ) Status Ferritin 10/26/2023 09:55:00 64 30-400 (ng /mL) Final Performing Location LABORATORY [facility] - [address] [place] [address]
[2024-03-07 06:35] LABS: Hemoglobin 10.1 g/dl (14.0-18.0); Mean Corpuscular Hemoglobin 31.9 pg (25.0-34.0); Mean Corpuscular Hgb Conc 32.6 g/dL (32.0-36.0); Mean Corpuscular Volume 97.8 fL (80.0-100.0); Mean Platelet Volume 12.9 fL (9.4-12.4); Platelet Count 69 K/uL (130-400); RDW Coefficient of Variation 14.3 % (11.5-14.5); RDW Standard Deviation 51.2 fL (36.4-46.3); Red Blood Count 3.17 M/uL (4.70-6.10); White Blood Count 10.47 K/ul (4.8-10.8)
[2024-03-07 06:53] LABS: BUN Creatinine Ratio 33.1 (10-20); Calcium 8.9 mg/dl (8.6-10.3); Creatinine Clr Calc Pharmacy 45.2 ml/min; Magnesium 2.1 mg/dl (1.7-2.4); Phosphorus 2.4 mg/dl (2.5-4.9); Potassium 3.9 mmol/L (3.5-5.1)
[2024-03-07] MEDS: ASPIRIN 81 MG CHEW PEG SCH (08:08)
--- NOTE | 2024-03-07 11:36 | Cardiology Progress Note ---
Date of Service March 07, 2024 Assessment & Plan (1) Elevated troponin: (2) Closed rib fracture: (3) Generalized weakness: (4) Pneumonia: Plan Complex 78-year-old male with multiple recent falls and rib fracture per review of the records referred for evaluation of elevated troponin. EKG with atrial paced rhythm both no acute ischemic changes with normal AV node conduction. Echocardiogram without wall motion abnormality. Suspect demand based ischemia on basis of underlying medical concerns. Continue treatment with home medications. Patient asymptomatic, with marked thrombocytopenia Outpatient pacemaker interrogations via the [facility] Please contact with any cardiac questions or concerns Admission and Anticipated Discharge Date Admission Date: March 05, 2024 Supervising Physician Co-Signing Physician Notes Attending attestation: Case reviewed with the advanced practitioner. I have personally performed a history and physical examination on the patient. I have reviewed the advanced practitioner's documentation on the date of service referenced in note, and I agree with, and take responsibility for the plan of care. Noe Ryan, DO Subjective Patient seen and examined. Chart, medications, telemetry reviewed. Unable to discern information from patient, ? irritation/discomfort from the condom catheter Telemetry: Sinus with atrial ectopy, heart rates in the 60's and 70's. March 06, 2024 TTE ([facility]): Normal size LV. Moderate concentric LVH. Normal LV wall motion. EF 55 to 60%. Grade 2 diastolic dysfunction. Moderate aortic valve sclerosis without significant stenosis. Doppler findings do not suggest pulmonary hypertension. Last available pacemaker interrogation transpired on September 22, 2023, revealing a dual-chamber Medtronic pacemaker that was implanted on August 11, 2014. Estimated remaining longevity: 5.5 years. No atrial or ventricular high rate episodes observed. Rhythm predominantly atrial paced (99.3%) Review of Systems Review of Systems: Unable to be obtained Physical Exam Physical Exam: General: NAD. HENT: Normocephalic. Atraumatic. Eyes: PER. Conjunctiva pink, sclera clear. Neck: Carotid bruits. Radiation changes. No JVD. Heart: RRR. Grade I-II/ systolic murmur. No diastolic murmur. Lungs: Clear to auscultation anteriorly Abdomen: +BS. G-tube. Condom catheter Extremities: Excoriations on the right knee and distally. No clubbing. No cyanosis Right sided hemiparesis. Pulses: radial=1/4, posterior tibial=1/4. Results & Data Vital Signs (Past 12 Hours) Vital Signs Temp Pulse Pulse Resp BP Pulse Ox O2 Del Method 03/07/24 08:21 Room Air 03/07/24 08:00 36.8 C 75 12 148/55 H 96 Room Air 03/07/24 07:09 69 03/07/24 00:48 70 Laboratory Results Cardiac Enzymes 03/06/24 Range/Units 17:21 Troponin I High Sens 210.1 H* D (0-20) pg/ml CBC 03/07/24 Range/Units 05:51 WBC 10.47 (4.8-10.8) K/ul RBC 3.17 L (4.70-6.10) M/uL Hgb 10.1 L (14.0-18.0) g/dl Hct 31.0 L (42.0-52.0) % Plt Count 69 L (130-400) K/uL Comprehensive Metabolic Panel 03/07/24 Range/Units 05:51 Sodium 140 (136-145) mmol/L Potassium 3.9 (3.5-5.1) mmol/L Chloride 107 (98-107) mmol/L Carbon Dioxide 24 (21-32) mmol/L BUN 43 H (6-23) mg/dl Creatinine 1.30 (0.6-1.4) mg/dl Glucose 125 H (70-99(Fasting)) mg/dl Calcium 8.9 (8.6-10.3) mg/dl Intake and Output 03/06/24 03/07/24 03/07/24 22:59 06:59 14:59 Intake Total 103.333 / 1500.000 296.667 / 1500.000 Output Total 301 / 703 Balance 103.333 / 797.000 -4.333 / 797.000 Intake: IV 103.333 / 1500.000 296.667 / 1500.000 Doxycycline Hyclate 100 mg In 100 / 200 100 / 200 Dextrose 5% Mini-B 100 ml @ 50 mls/hr IV Q12H [facility] Rx#:[id number] Piperacillin/Tazobactam 4.5 gm 3.333 / 300.000 196.667 / 300.000 In 100 ml @ 25 mls/hr IV Q8H [facility] Rx#:[id number] Output: Urine Amount (Catheter) 300 / 300 External 300 / 300 # Bowel Movements 1 / 3 Other: Weight 70.4 kg 72.756 kg Weight Measurement Method Built in [facility] (4) Pneumonia Aspiration pneumonia type: unspecified Laterality: bilateral Lung location: unspecified part of lung Pneumonia type: aspiration pneumonia Qualified Code(s): J69.0 - Pneumonitis due to inhalation of food and vomit
--- NOTE | 2024-03-07 17:52 | Hospitalist Progress Note ---
Date of Service March 07, 2024 Assessment & Plan (1) Pneumonia: Plan: 78-year-old male with past medical history significant for hypertension history of CVA with expressive aphasia and nonambulatory status, status post PEG tube, hypertension, history of tonsillar cancer s/p chemo radiation treatment, radiation-induced arteritis, carotid stenosis, GERD, esophageal stricture, history of DVT and PE, sinus node dysfunction status post pacemaker, BPH comes because of fall. Patient is mostly bedbound. Patient can transfer to the wheelchair. Last Thursday he fell down when getting transferred to the wheelchair but did not pass out. Since then he had couple more falls and the family brought him here. He seems to holding his chest but family not sure if he has any pain. No recent fever. No cough. No nausea or vomiting. He alternates diarrhea and constipation. Micturating okay. Daughter is in the room who helped with H&P. Hemodynamics are okay. Pneumonia Leukocytosis Chest CT showing right perihilar upper lobe soft tissue mass possible pneumonia versus neoplasm's and adenopathy and also mucus in left mainstem bronchus seen Started on Zosyn and Doxy - cont. WBC 18k -> 13K -> 10K Pulmonary consulted for further recommendations - cont. current abx, then may switch to Levaquin Mass of upper lobe of right lung: Per pulm. - Patient had an incidental 3 cm right upper lobe mass on CT chest as part of a trauma workup this admission. The mass may potentially be partially involving the right upper lobe bronchus. I do not have any older CT chest scans to review aside for 2019 where there was a perifissural nodule measuring about 8 mm in a similar region. Presumably this area has grown over time. I do not have records of his oncological care. 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 Recommend to involve pt's outpatient oncologist to discuss. He is currently quite complex given the rib fractures, acute pneumonia and thrombocytopenia. He is also on Plavix for history of CVA. I do not think that he is currently a candidate for bronchoscopy but may be in the near future once the acute issues resolved. I would recommend an outpatient PET scan and would defer bronchoscopy to be done at the preference of the patient and the patient's family perhaps in [place] when he is clinically stable. Elevated troponin Initial troponin 375 and repeat is 301 Patient does not seem to be in distress EKG no acute findings Mostly demand ischemia from ongoing infection Holding IV heparin for now as patient has thrombocytopenia serial cardiac enzymes and echo obtained Cardiology consulted, appreciate their input Falls Possibly from above PT OT ordered Rib fracture Acute fracture of the right lateral ninth rib Pain control History of CVA Expressive aphasia Mostly bedbound Can transfer to wheelchair Nutrition from PEG tube Meds via PEG tube On aspirin Plavix and statin PT OT when stable Hyperlipidemia On statin Hypertension On labetalol and amlodipine Will monitor Nutrition Tube feeds Continue home tube feeds Dietitian consult 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 Had complete remission but 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 Also had some rectovesical mass which was biopsied and was squamous cell carcinoma Heme-onc was following but stopped following after he had a stroke in 2014 as per [facility] notes Thrombocytopenia Chronic Platelets 75 on admission, 69 now Will follow labs Anemia Hemoglobin 10.8 Baseline around 13 range Will check stool for Hemoccult vitamin B12 and folate levels wnl Iron studies c/w BRAXTON ->will give venofer DVT prophylaxis SCDs for now as patient is thrombocytopenia Disposition Med/telemetry and close monitor CODE STATUS full code as per discussion of admitting provider with daughter Admission and Anticipated Discharge Date Admission Date: March 05, 2024 Subjective Pt seen in follow up of PNA Pt has hx of CVA, aphasic, hx of lung nodule. PEG tube w/ tube feeds at home. Presents after fall, + leukocytosis, + elevated troponin, rib fx Currently laying in bed in NAD, seems to have no complaints, except of condom catheter bothering him - discussed w/ RN When asked if he has any pain, shortness of breath etc. pt states no WBC 18k -> 13K -> 10K PT/OT ordered Review of Systems Review of Systems: All systems reviewed & are unremarkable except as noted in Subjective Physical Exam Physical Exam: General- elderly M , +chronically ill appearing, +aphasia, NAD Head- atraumatic Eyes- PERRL. Neck- supple Lungs- + mild rhonchi, no wheezing Heart- regular rate and rhythm; no murmur Abdomen- normal bowel sounds, soft, nontender, no distension.Peg tube site no erythema or drainage seen Extremities- no pretibial edema, no erythema seen Neuro- alert and awake expressive aphasia present ; PERRL, no facial palsy; minimal movement of lower extremities Results & Data Results & Data Vital Signs (Past 12 Hours) Vital Signs Temp Pulse Pulse Resp BP Pulse Ox O2 Del Method 03/07/24 15:03 73 03/07/24 12:01 36.6 C 71 16 112/47 L 97 Room Air 03/07/24 08:21 Room Air 03/07/24 08:00 36.8 C 75 12 148/55 H 96 Room Air 03/07/24 07:09 69 Laboratory Results 03/07/24 03/06/24 03/06/24 Range/Units 05:51 20:48 17:21 WBC 10.47 (4.8-10.8) K/ul RBC 3.17 L (4.70-6.10) M/uL Hgb 10.1 L (14.0-18.0) g/dl Hct 31.0 L (42.0-52.0) % MCV 97.8 (80.0-100.0) fL MCH 31.9 (25.0-34.0) pg MCHC 32.6 (32.0-36.0) g/dL RDW Std Deviation 51.2 H (36.4-46.3) fL RDW Coeff of Ming 14.3 (11.5-14.5) % Plt Count 69 L (130-400) K/uL MPV 12.9 H (9.4-12.4) fL Sodium 140 (136-145) mmol/L Potassium 3.9 (3.5-5.1) mmol/L Chloride 107 (98-107) mmol/L Carbon Dioxide 24 (21-32) mmol/L Anion Gap 9 (3-11) BUN 43 H (6-23) mg/dl Creatinine 1.30 (0.6-1.4) mg/dl Est Cr Clr Drug Dosing 45.2 ml/min eGFR 56.93 BUN/Creatinine Ratio 33.1 H (10-20) Glucose 125 H (70-99(Fasting)) mg/dl Calcium 8.9 (8.6-10.3) mg/dl Phosphorus 2.4 L (2.5-4.9) mg/dl Magnesium 2.1 (1.7-2.4) mg/dl Troponin I High Sens 210.1 H* D (0-20) pg/ml Urine Color Yellow Urine Appearance Clear (Clear) Urine pH 5.0 (4.5-7.5) Ur Specific [place] 1.031 H (1.000-1.030) Urine Protein Negative (Negative) Urine Glucose (UA) Negative (Negative) Urine Ketones Negative (Negative) Urine Blood Negative (Negative) Urine Nitrite Negative (Negative) Urine Bilirubin Negative (Negative) Urine Urobilinogen Negative (Negative) Ur Leukocyte Esterase 2+ H (Negative) Urine WBC (Auto) 21-50 H (0-5) /hpf Urine RBC (Auto) 0-2 (0-2) /hpf U Hyaline Cast (Auto) 0-2 (0-2) /lpf U Epithel Cells (Auto) 0-2 (0-2) /hpf Urine Bacteria (Auto) None Seen (None Seen) Medications Administered Current Inpatient Medications Acetaminophen (Acetaminophen Susp 325 Mg/10.15 Ml Udc) 975 mg PEG BID PRN PRN Reason: Pain Stop: 04/04/24 22:53 Last Admin: 03/06/24 16:56 Dose: 975 mg Amlodipine Besylate (Amlodipine Besylate 5 Mg Tab) 5 mg PEG QAM [facility] Stop: 04/05/24 08:59 Last Admin: 03/07/24 08:09 Dose: 5 mg Aspirin (Aspirin 81 Mg Chew) 81 mg PEG MoWeFr@0900 [facility] Stop: 04/06/24 08:59 Last Admin: 03/07/24 08:08 Dose: 81 mg Atorvastatin Calcium (Atorvastatin 40 Mg Tab) 40 mg PEG HS [facility] Stop: 04/04/24 22:46 Last Admin: 03/06/24 20:35 Dose: 40 mg Clopidogrel Bisulfate (Clopidogrel Bisulfate 75 Mg Tab) 75 mg PEG QAM [facility] Stop: 04/05/24 08:59 Last Admin: 03/07/24 08:09 Dose: 75 mg Famotidine (Famotidine 20 Mg Tab) 20 mg JT QAM [facility] Stop: 04/05/24 08:59 Last Admin: 03/07/24 08:09 Dose: 20 mg Finasteride (Finasteride 5 Mg Tab) 5 mg PEG HS [facility] Stop: 04/05/24 20:59 Last Admin: 03/06/24 20:36 Dose: 5 mg Piperacillin Sod/Tazobactam Sod (Zosyn) 4.5 gm in 100 mls @ 25 mls/hr IV Q8H [facility]; Protocol Stop: 03/11/24 00:00 Last Admin: 03/07/24 16:13 Dose: 25 mls/hr Doxycycline Hyclate 100 mg/ (Dextrose) 100 mls @ 50 mls/hr IV Q12H [facility] Stop: 03/10/24 22:46 Last Infusion: 03/07/24 13:48 Dose: Infused Ketoconazole (Ketoconazole 2% Cr 15 Gm Tube) 1 appln EXT DAILY PRN PRN Reason: Other Stop: 03/15/24 22:46 Labetalol HCl (Labetalol Hcl 300 Mg Tab) 300 mg PEG TID [facility] Stop: 04/04/24 22:46 Last Admin: 03/07/24 13:10 Dose: 300 mg Nitroglycerin (Nitroglycerin Sl 0.4 Mg/Tab Tab) 0.4 mg SL Q5M PRN PRN Reason: Chest Pain Stop: 04/04/24 22:46 Nutritional Formula (Patient's Own Enteral Feeding) 0 ml PEG UD@0900,1200,1700 [facility]; Protocol Stop: 04/05/24 11:59 Last Admin: 03/07/24 16:13 Dose: 125 ml Sterile Water (Tube Feeding Water Flush) 100 ml PEG Q4H [facility] Stop: 04/05/24 11:59 Last Admin: 03/07/24 16:13 Dose: 100 ml Triamcinolone Acetonide (Triamcinolone Acet 0.1% Cr 15 Gm Tube) 1 appln TOP BID PRN PRN Reason: Other Stop: 04/04/24 22:46 (1) Pneumonia Aspiration pneumonia type: unspecified Laterality: bilateral Lung location: unspecified part of lung Pneumonia type: aspiration pneumonia Qualified Code(s): J69.0 - Pneumonitis due to inhalation of food and vomit
[2024-03-07] MEDS: IRON SUCROSE 300 MG in SODIUM CHLORIDE 0.9% 250 ML IV ONE (20:36)
--- NOTE | 2024-03-08 08:30 | Hospitalist Progress Note ---
Date of Service March 08, 2024 Assessment & Plan (1) Pneumonia: Plan: 78-year-old male with past medical history significant for hypertension history of CVA with expressive aphasia and nonambulatory status, status post PEG tube, hypertension, history of tonsillar cancer s/p chemo radiation treatment, radiation-induced arteritis, carotid stenosis, GERD, esophageal stricture, history of DVT and PE, sinus node dysfunction status post pacemaker, BPH comes because of fall. Patient is mostly bedbound. Patient can transfer to the wheelchair. Last Thursday he fell down when getting transferred to the wheelchair but did not pass out. Since then he had couple more falls and the family brought him here. He seems to holding his chest but family not sure if he has any pain. No recent fever. No cough. No nausea or vomiting. He alternates diarrhea and constipation. Micturating okay. Daughter is in the room who helped with H&P. Hemodynamics are okay. Pneumonia Leukocytosis Chest CT showing right perihilar upper lobe soft tissue mass possible pneumonia versus neoplasm's and adenopathy and also mucus in left mainstem bronchus seen Started on Zosyn and Doxy - cont. WBC 18k -> 13K -> 10K -> 8.8K Pulmonary consulted for further recommendations - cont. current abx, then may switch to Levaquin Mass of upper lobe of right lung: Per pulm. - Patient had an incidental 3 cm right upper lobe mass on CT chest as part of a trauma workup this admission. The mass may potentially be partially involving the right upper lobe bronchus. I do not have any older CT chest scans to review aside for 2019 where there was a perifissural nodule measuring about 8 mm in a similar region. Presumably this area has grown over time. I do not have records of his oncological care. 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 Recommend to involve pt's outpatient oncologist to discuss. He is currently quite complex given the rib fractures, acute pneumonia and thrombocytopenia. He is also on Plavix for history of CVA. I do not think that he is currently a candidate for bronchoscopy but may be in the near future once the acute issues resolved. I would recommend an outpatient PET scan and would defer bronchoscopy to be done at the preference of the patient and the patient's family perhaps in [place] when he is clinically stable. Elevated troponin Initial troponin 375 and repeat is 301 Patient does not seem to be in distress EKG no acute findings Mostly demand ischemia from ongoing infection Holding IV heparin for now as patient has thrombocytopenia serial cardiac enzymes and echo obtained Cardiology consulted, appreciate their input Falls Possibly from above PT OT ordered Rib fracture Acute fracture of the right lateral ninth rib Pain control History of CVA Expressive aphasia Mostly bedbound Can transfer to wheelchair Nutrition from PEG tube Meds via PEG tube On aspirin Plavix and statin PT OT when stable Hyperlipidemia On statin Hypertension On labetalol and amlodipine Will monitor Nutrition Tube feeds Continue home tube feeds Dietitian consult 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 Had complete remission but 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 Also had some rectovesical mass which was biopsied and was squamous cell carcinoma Heme-onc was following but stopped following after he had a stroke in 2014 as per epic notes Thrombocytopenia Chronic Platelets 70s Will follow labs Anemia Hemoglobin 10.8 Baseline around 13 range Will check stool for Hemoccult vitamin B12 and folate levels wnl Iron studies c/w BRAXTON -> gave IV iron (venofer) on 03/07/24 DVT prophylaxis SCDs for now as patient is thrombocytopenic Disposition Med/telemetry and close monitor CODE STATUS full code as per discussion of admitting provider with daughter Admission and Anticipated Discharge Date Admission Date: March 05, 2024 Subjective Pt seen in follow up of PNA Pt has hx of CVA, aphasic, hx of lung nodule. PEG tube w/ tube feeds at home. Presents after fall, + leukocytosis, + elevated troponin, rib fx Currently laying in bed in NAD, seems to have no complaints, except of condom catheter bothering him - discussed w/ RN When asked if he has any pain, shortness of breath etc. pt states no WBC 18k -> 13K -> 8.8K PT/OT ordered Review of Systems Review of Systems: All systems reviewed & are unremarkable except as noted in Subjective Physical Exam Physical Exam: General- elderly M , +chronically ill appearing, +aphasia, NAD Head- atraumatic Eyes- PERRL. Neck- supple Lungs- + mild rhonchi, no wheezing Heart- regular rate and rhythm; no murmur Abdomen- normal bowel sounds, soft, nontender, no distension.Peg tube site no erythema or drainage seen Extremities- no pretibial edema, no erythema seen Neuro- alert and awake expressive aphasia present ; PERRL, no facial palsy; minimal movement of lower extremities Results & Data Results & Data Vital Signs (Past 12 Hours) Vital Signs Temp Pulse Pulse Resp BP Pulse Ox O2 Del Method 03/08/24 07:41 36.6 C 81 16 123/68 96 Room Air 03/08/24 07:09 Room Air 03/08/24 02:51 36.3 C L 72 18 138/61 95 Room Air 03/07/24 22:33 36.6 C 75 18 148/55 H 96 Room Air 03/07/24 21:47 75 Laboratory Results 03/08/24 Range/Units 07:06 WBC 8.79 (4.8-10.8) K/ul RBC 3.23 L (4.70-6.10) M/uL Hgb 10.2 L (14.0-18.0) g/dl Hct 31.9 L (42.0-52.0) % MCV 98.8 (80.0-100.0) fL MCH 31.6 (25.0-34.0) pg MCHC 32.0 (32.0-36.0) g/dL RDW Std Deviation 52.7 H (36.4-46.3) fL RDW Coeff of Ming 14.6 H (11.5-14.5) % Plt Count 73 L (130-400) K/uL MPV 13.0 H (9.4-12.4) fL Sodium 142 (136-145) mmol/L Potassium 3.9 (3.5-5.1) mmol/L Chloride 108 H (98-107) mmol/L Carbon Dioxide 25 (21-32) mmol/L Anion Gap 9 (3-11) BUN 34 H (6-23) mg/dl Creatinine 1.15 (0.6-1.4) mg/dl Est Cr Clr Drug Dosing 51.1 ml/min eGFR 65.96 BUN/Creatinine Ratio 29.6 H (10-20) Glucose 101 H (70-99(Fasting)) mg/dl Calcium 8.9 (8.6-10.3) mg/dl Phosphorus 2.9 (2.5-4.9) mg/dl Magnesium 1.9 (1.7-2.4) mg/dl Medications Administered Current Inpatient Medications Acetaminophen (Acetaminophen Susp 325 Mg/10.15 Ml Udc) 975 mg PEG BID PRN PRN Reason: Pain Stop: 04/04/24 22:53 Last Admin: 03/06/24 16:56 Dose: 975 mg Amlodipine Besylate (Amlodipine Besylate 5 Mg Tab) 5 mg PEG QAM [facility] Stop: 04/05/24 08:59 Last Admin: 03/08/24 06:57 Dose: 5 mg Aspirin (Aspirin 81 Mg Chew) 81 mg PEG MoWeFr@0900 [facility] Stop: 04/06/24 08:59 Last Admin: 03/07/24 08:08 Dose: 81 mg Atorvastatin Calcium (Atorvastatin 40 Mg Tab) 40 mg PEG HS [facility] Stop: 04/04/24 22:46 Last Admin: 03/07/24 21:33 Dose: 40 mg Clopidogrel Bisulfate (Clopidogrel Bisulfate 75 Mg Tab) 75 mg PEG QAM [facility] Stop: 04/05/24 08:59 Last Admin: 03/08/24 06:57 Dose: 75 mg Famotidine ([facility]otidine 20 Mg Tab) [facility]: 04/05/24 08:59 Last Admin: 03/08/24 06:57 Dose: 20 mg Finasteride (Finasteride 5 Mg Tab) 5 mg PEG HS [facility] Stop: 04/05/24 20:59 Last Admin: 03/07/24 21:33 Dose: 5 mg Piperacillin Sod/Tazobactam Sod (Zosyn) 4.5 gm in 100 mls @ 25 mls/hr IV Q8H [facility]; Protocol Stop: 03/11/24 00:00 Last Admin: 03/08/24 06:56 Dose: 25 mls/hr Doxycycline Hyclate 100 mg/ (Dextrose) 100 mls @ 50 mls/hr IV Q12H [facility] Stop: 03/10/24 22:46 Last Infusion: 03/07/24 22:44 Dose: Infused Ketoconazole (Ketoconazole 2% Cr 15 Gm Tube) 1 appln EXT DAILY PRN PRN Reason: Other Stop: 03/15/24 22:46 Labetalol HCl (Labetalol Hcl 300 Mg Tab) 300 mg PEG TID [facility] Stop: 04/04/24 22:46 Last Admin: 03/08/24 06:58 Dose: 300 mg Nitroglycerin (Nitroglycerin Sl 0.4 Mg/Tab Tab) 0.4 mg SL Q5M PRN PRN Reason: Chest Pain Stop: 04/04/24 22:46 Nutritional Formula (Patient's Own Enteral Feeding) 0 ml PEG UD@0900,1200,1700 [facility]; Protocol Stop: 04/05/24 11:59 Last Admin: 03/08/24 06:58 Dose: 375 ml Sterile Water (Tube Feeding Water Flush) 100 ml PEG Q4H [facility] Stop: 04/05/24 11:59 Last Admin: 03/08/24 06:56 Dose: 100 ml Triamcinolone Acetonide (Triamcinolone Acet 0.1% Cr 15 Gm Tube) 1 appln TOP BID PRN PRN Reason: Other Stop: 04/04/24 22:46 (1) Pneumonia Aspiration pneumonia type: unspecified Laterality: bilateral Lung location: unspecified part of lung Pneumonia type: aspiration pneumonia Qualified Code(s): J69.0 - Pneumonitis due to inhalation of food and vomit
[2024-03-08 08:33] LABS: Hematocrit (blood only) 31.9 % (42.0-52.0); Hemoglobin 10.2 g/dl (14.0-18.0); Mean Corpuscular Hemoglobin 31.6 pg (25.0-34.0); Mean Corpuscular Volume 98.8 fL (80.0-100.0); Platelet Count 73 K/uL (130-400); RDW Coefficient of Variation 14.6 % (11.5-14.5); RDW Standard Deviation 52.7 fL (36.4-46.3); Red Blood Count 3.23 M/uL (4.70-6.10); White Blood Count 8.79 K/ul (4.8-10.8)
[2024-03-08 08:44] LABS: BUN Creatinine Ratio 29.6 (10-20); Calcium 8.9 mg/dl (8.6-10.3); Creatinine Clr Calc Pharmacy 51.1 ml/min; Magnesium 1.9 mg/dl (1.7-2.4); Phosphorus 2.9 mg/dl (2.5-4.9); Potassium 3.9 mmol/L (3.5-5.1)
[2024-03-09 08:41] LABS: Basophils # (auto) 0.05 K/uL (0.00-0.20); Basophils % (auto) 0.6 %; Eosinophils # (auto) 0.15 K/uL (0.00-0.50); Eosinophils % (auto) 1.9 %; Hematocrit (blood only) 33.1 % (42.0-52.0); Hemoglobin 10.4 g/dl (14.0-18.0); Immature Granulocytes # (auto) 0.11 K/uL (0.01-0.20); Immature Granulocytes % (auto) 1.4 %; Lymphocytes # (auto) 0.62 K/uL (1.20-3.40); Lymphocytes % (auto) 7.8 %; Mean Corpuscular Hemoglobin 31.6 pg (25.0-34.0); Mean Corpuscular Hgb Conc 31.4 g/dL (32.0-36.0); Mean Corpuscular Volume 100.6 fL (80.0-100.0); Mean Platelet Volume 12.9 fL (9.4-12.4); Monocytes # (auto) 1.14 K/uL (0.11-0.59); Monocytes % (auto) 14.3 %; Neutrophils # (auto) 5.89 K/uL (1.40-6.50); Nucleated RBC # (auto) 0.02 K/uL (0.00-0.12); Nucleated RBC % (auto) 0.3 %; Platelet Count 74 K/uL (130-400); RDW Coefficient of Variation 14.4 % (11.5-14.5); RDW Standard Deviation 53.5 fL (36.4-46.3); Red Blood Count 3.29 M/uL (4.70-6.10); White Blood Count 7.96 K/ul (4.8-10.8)
[2024-03-09 08:45] LABS: Albumin Globulin Ratio 1.2 (0.9-2); Albumin Level 3.4 gm/dl (3.4-5.0); BUN Creatinine Ratio 30.1 (10-20); Bilirubin,Total 0.6 mg/dl (0.2-1.0); Calcium 9.1 mg/dl (8.6-10.3); Globulin 2.9 gm/dl (2.5-4.0); Magnesium 1.7 mg/dl (1.7-2.4); Phosphorus 3.4 mg/dl (2.5-4.9); Potassium 3.9 mmol/L (3.5-5.1); Total Protein 6.3 gm/dl (6.0-8.3)
[2024-03-09] MEDS: LIDOCAINE 5% 1 PATCH TD STA (14:29)
--- NOTE | 2024-03-09 15:34 | Hospitalist Progress Note ---
Date of Service March 09, 2024 Assessment & Plan (1) Pneumonia: Plan: 78-year-old male with past medical history significant for hypertension history of CVA with expressive aphasia and nonambulatory status, status post PEG tube, hypertension, history of tonsillar cancer s/p chemo radiation treatment, radiation-induced arteritis, carotid stenosis, GERD, esophageal stricture, history of DVT and PE, sinus node dysfunction status post pacemaker, BPH presenting because of fall. Patient is mostly bedbound. Patient can transfer to the wheelchair. Last Thursday he fell down when getting transferred to the wheelchair but did not pass out. Since then he had couple more falls and the family brought him here. Pneumonia Chest CT showing right perihilar upper lobe soft tissue mass, possible pneumonia versus neoplasm and adenopathy. also mucus in left mainstem bronchus seen Started on IV Zosyn and Doxy, transitioned to po Levaquin on 03/09/24 Pulmonary consulted for further recommendations - cont. abx, then may switch to Levaquin after 1-2 days Continue with levaquin for 7 more days. Mass of upper lobe of right lung: Per pulm. - "Patient had an incidental 3 cm right upper lobe mass on CT chest as part of a trauma workup this admission. The mass may potentially be partially involving the right upper lobe bronchus. I do not have any older CT chest scans to review aside for 2019 where there was a perifissural nodule measuring about 8 mm in a similar region. Presumably this area has grown over time. I do not have records of his oncological care. 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 Recommend to involve pt's outpatient oncologist to discuss. He is currently quite complex given the rib fractures, acute pneumonia and thrombocytopenia. He is also on Plavix for history of CVA. I do not think that he is currently a candidate for bronchoscopy but may be in the near future once the acute issues resolved. I would recommend an outpatient PET scan and would defer bronchoscopy to be done at the preference of the patient and the patient's family perhaps in [place] when he is clinically stable." Elevated troponin Initial troponin 375 and repeat is 301 Patient does not seem to be in distress EKG no acute findings Mostly demand ischemia from ongoing infection Holding IV heparin for now as patient has thrombocytopenia serial cardiac enzymes and echo obtained Cardiology consulted, appreciate their input Falls Possibly from above PT OT ordered- recommending acute rehab Rib fracture Acute fracture of the right lateral ninth rib Pain control History of CVA Expressive aphasia Mostly bedbound Can transfer to wheelchair Nutrition from PEG tube Meds via PEG tube On aspirin Plavix and statin PT OT when stable Speech recommending complete NPO status, no soda if family not agreeable to permissive aspiration. Per daughter they are not currently. Hyperlipidemia On statin Hypertension On labetalol and amlodipine Will monitor Nutrition Tube feeds Continue home tube feeds Dietitian and speech consult Speech recommending complete NPO status, no soda if family not agreeable to permissive aspiration. Per daughter they are not currently. 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 Had complete remission but 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 Also had some rectovesical mass which was biopsied and was squamous cell carcinoma Heme-onc was following but stopped following after he had a stroke in 2014 as per [facility] notes Thrombocytopenia Chronic Platelets 70s Will follow labs Anemia Hemoglobin 10.8 Baseline around 13 range Will check stool for Hemoccult vitamin B12 and folate levels wnl Iron studies c/w BRAXTON -> gave IV iron (venofer) on 03/07/24 DVT prophylaxis SCDs for now as patient is thrombocytopenic Disposition acute rehab CODE STATUS full code as per discussion of admitting provider with daughter Admission and Anticipated Discharge Date Admission Date: March 05, 2024 Subjective patient was seen in the a.m. laying in bed. Alert Notified by nursing that patient's had questions. Reportedly also wanted to discuss giving patient soda which she reportedly takes at home despite being strict n.p.o. and getting all his nutrition via his PEG tube. However by the time this provider presented to bedside. Patient's had already departed. Call was placed to only listed contact in the chart. His daughter Keysha. Extensive discussion that patient is a full code and that drinking soda orally would not be recommended at this time due to the risk of choking as well as permissive aspiration. Daughter verbalized understanding and agreement and noted that she would pass this along to patient's . Also discussion of physical therapy. Also discussion of a possible palliative care evaluation which daughter declined at this time. Review of Systems Review of Systems: All systems reviewed & are unremarkable except as noted in Subjective Physical Exam Physical Exam: General: Alert Neuro: difficulty with speech and movement on the right HEENT: NC/AT CV: RRR Resp: no increased effort of breathing Abdomen: Soft, nontender Results & Data Results & Data Vital Signs (Past 12 Hours) Vital Signs Temp Pulse Pulse Resp BP Pulse Ox O2 Del Method 03/09/24 14:13 68 03/09/24 11:35 36.2 C L 68 18 122/56 L 97 Room Air 03/09/24 08:30 Room Air 03/09/24 08:00 71 03/09/24 07:35 36.3 C L 70 20 146/69 H 93 Room Air (1) Pneumonia Aspiration pneumonia type: unspecified Laterality: bilateral Lung location: unspecified part of lung Pneumonia type: aspiration pneumonia Qualified Code(s): J69.0 - Pneumonitis due to inhalation of food and vomit
[2024-03-10 05:56] LABS: Basophils # (auto) 0.05 K/uL (0.00-0.20); Basophils % (auto) 0.6 %; Eosinophils # (auto) 0.22 K/uL (0.00-0.50); Eosinophils % (auto) 2.6 %; Hematocrit (blood only) 30.1 % (42.0-52.0); Hemoglobin 9.5 g/dl (14.0-18.0); Immature Granulocytes # (auto) 0.08 K/uL (0.01-0.20); Immature Granulocytes % (auto) 0.9 %; Lymphocytes # (auto) 0.64 K/uL (1.20-3.40); Lymphocytes % (auto) 7.6 %; Mean Corpuscular Hemoglobin 31.3 pg (25.0-34.0); Mean Corpuscular Hgb Conc 31.6 g/dL (32.0-36.0); Monocytes # (auto) 1.19 K/uL (0.11-0.59); Monocytes % (auto) 14.1 %; Neutrophils # (auto) 6.25 K/uL (1.40-6.50); Neutrophils % (auto) 74.2 %; Nucleated RBC # (auto) 0.02 K/uL (0.00-0.12); Nucleated RBC % (auto) 0.2 %; Platelet Count 73 K/uL (130-400); RDW Coefficient of Variation 14.6 % (11.5-14.5); RDW Standard Deviation 52.7 fL (36.4-46.3); Red Blood Count 3.04 M/uL (4.70-6.10); White Blood Count 8.43 K/ul (4.8-10.8)
[2024-03-10 06:05] LABS: Albumin Globulin Ratio 1.1 (0.9-2); Albumin Level 3.1 gm/dl (3.4-5.0); Bilirubin,Total 0.5 mg/dl (0.2-1.0); Globulin 2.7 gm/dl (2.5-4.0); Magnesium 1.6 mg/dl (1.7-2.4); Phosphorus 3.3 mg/dl (2.5-4.9); Potassium 3.8 mmol/L (3.5-5.1); Total Protein 5.8 gm/dl (6.0-8.3)
[2024-03-10] MEDS: LIDOCAINE 5% 1 PATCH TD SCH (08:56)
[2024-03-10] MEDS: MAGNESIUM OXIDE 400 MG TAB PEG SCH (09:03)
--- NOTE | 2024-03-10 11:03 | Hospitalist Progress Note ---
Date of Service March 10, 2024 Assessment & Plan (1) Pneumonia: Plan: 78-year-old male with past medical history significant for hypertension history of CVA with expressive aphasia and nonambulatory status, status post PEG tube, hypertension, history of tonsillar cancer s/p chemo radiation treatment, radiation-induced arteritis, carotid stenosis, GERD, esophageal stricture, history of DVT and PE, sinus node dysfunction status post pacemaker, BPH presenting because of fall. Patient is mostly bedbound. Patient can transfer to the wheelchair. Last Thursday he fell down when getting transferred to the wheelchair but did not pass out. Since then he had couple more falls and the family brought him here. Pneumonia Chest CT showing right perihilar upper lobe soft tissue mass, possible pneumonia versus neoplasm and adenopathy. also mucus in left mainstem bronchus seen Started on IV Zosyn and Doxy, transitioned to po Levaquin on 03/09/24 Pulmonary consulted for further recommendations, advised the following -cont. abx, then may switch to Levaquin after 1-2 days Continue with levaquin at this time. Mass of upper lobe of right lung: Per pulm. - "Patient had an incidental 3 cm right upper lobe mass on CT chest as part of a trauma workup this admission. The mass may potentially be partially involving the right upper lobe bronchus. I do not have any older CT chest scans to review aside for 2019 where there was a perifissural nodule measuring about 8 mm in a similar region. Presumably this area has grown over time. I do not have records of his oncological care. 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 Recommend to involve pt's outpatient oncologist to discuss. He is currently quite complex given the rib fractures, acute pneumonia and thrombocytopenia. He is also on Plavix for history of CVA. I do not think that he is currently a candidate for bronchoscopy but may be in the near future once the acute issues resolved. I would recommend an outpatient PET scan and would defer bronchoscopy to be done at the preference of the patient and the patient's family perhaps in [place] when he is clinically stable." Please ensure pulmonology followup after discharge Elevated troponin Initial troponin 375 and repeat is 301 Patient does not seem to be in distress EKG no acute findings Mostly demand ischemia from ongoing infection Holding IV heparin for now as patient has thrombocytopenia serial cardiac enzymes and echo obtained Cardiology consulted, noted/stated the following: "Suspect demand based ischemia on basis of underlying medical concerns. Continue treatment with home medications. Patient asymptomatic, with marked thrombocytopenia Outpatient pacemaker interrogations via the [facility]" Falls Possibly from above PT OT ordered- recommending acute rehab Rib fracture Acute fracture of the right lateral ninth rib Pain control History of CVA Expressive aphasia Mostly bedbound Can transfer to wheelchair Nutrition from PEG tube Meds via PEG tube On aspirin Plavix and statin PT OT when stable Speech recommending complete NPO status. per family patient usually uses 1 bottle of half soda that lasts him for many weeks at home. However, family not agreeable at this time to permissive aspiration. - Daughter Keysha agreeable to deferring onto the use while hospitalized. Hyperlipidemia On statin Hypertension On labetalol and amlodipine Will monitor Nutrition Tube feeds Continue home tube feeds Dietitian and speech consult Speech recommending complete NPO status. per family patient usually uses 1 bottle of half soda that lasts him for many weeks at home. However, family not agreeable at this time to permissive aspiration. - Daughter Keysha agreeable to deferring onto the use while hospitalized. 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 Thrombocytopenia Chronic Platelets 70s Will follow labs Anemia Hemoglobin 10.8 Baseline around 13 range Will check stool for Hemoccult vitamin B12 and folate levels wnl Iron studies c/w BRAXTON -> gave IV iron (venofer) on 03/07/24 DVT prophylaxis SCDs for now as patient is thrombocytopenic Disposition acute rehab CODE STATUS full code as per discussion of admitting provider with daughter Admission and Anticipated Discharge Date Admission Date: March 05, 2024 Subjective patient was seen laying in bed and resting comfortably Was not acutely agitated at the time of exam Per nursing however he has been tearful and appears frustrated with inability to communicate. Noted incontinence of bowel movements Magnesium related to be replaced today Review of Systems Review of Systems: All systems reviewed & are unremarkable except as noted in Subjective Physical Exam Physical Exam: General: Alert Neuro: difficulty with speech and movement on the right, difficulty talking HEENT: NC/AT CV: RRR Resp: no increased effort of breathing Abdomen: Soft, nontender Results & Data Results & Data Vital Signs (Past 12 Hours) Vital Signs Temp Pulse Pulse Resp BP Pulse Ox O2 Del Method 03/10/24 08:00 68 03/10/24 07:49 36.5 C 84 20 134/64 94 Room Air 03/10/24 02:55 36.4 C L 74 18 118/59 L 96 Room Air (1) Pneumonia Aspiration pneumonia type: unspecified Laterality: bilateral Lung location: unspecified part of lung Pneumonia type: aspiration pneumonia Qualified Code(s): J69.0 - Pneumonitis due to inhalation of food and vomit
[2024-03-10] MEDS: levoFLOXacin 750 MG TAB PEG SCH (12:27)
[2024-03-10 17:27] LABS: Hematocrit (blood only) 32.3 % (42.0-52.0)
--- NOTE | 2024-03-10 18:35 | XRay Report ---
EXAM: Radiograph of the Chest 1 View INDICATION: Productive cough. TECHNIQUE: Frontal view of the chest. COMPARISON: 03/05/2024 FINDINGS: Lungs and pleural spaces: Worsening right perihilar and right upper lobe infiltrates. No pleural effusion or pneumothorax. Heart: Shape and configuration within normal limits allowing for technique. Mediastinum: Normal contour. Bones/joints: Old right lateral eighth rib fracture. Degenerative changes noted in the spine. Soft tissues: No abnormality noted. No radiopaque foreign body noted. Tubes, lines and devices: Stable cardiac shadow and intact pacing device. Upper abdomen: No abnormality noted. IMPRESSION: Worsening right perihilar and right upper lobe infiltrates. ACT 112: Negative or not required by law. Electronically signed by Humera Hemphill 03-10-2024 6:35 PM
[2024-03-10 20:06] LABS: Adenovirus PCR Not Detected (NotDetected); Bordetella parapertussis PCR Not Detected (NotDetected); Bordetella pertussis PCR Not Detected (NotDetected); Chlamydia pneumoniae PCR Not Detected (NotDetected); Coronavirus 229E PCR Not Detected (NotDetected); Coronavirus CoV-2 (COVID19)PCR Not Detected (NotDetected); Coronavirus HKU1 PCR Not Detected (NotDetected); Coronavirus NL63 PCR Not Detected (NotDetected); Coronavirus OC43PCR Not Detected (NotDetected); Human Metapneumovirus PCR Not Detected (NotDetected); Influenza A PCR Not Detected (NotDetected); Influenza B PCR Not Detected (NotDetected); Mycoplasma pneumoniae PCR Not Detected (NotDetected); Parainfluenza Virus 1 PCR Not Detected (NotDetected); Parainfluenza Virus 2 PCR Not Detected (NotDetected); Parainfluenza Virus 3 PCR Not Detected (NotDetected); Parainfluenza Virus 4 PCR Not Detected (NotDetected); Respiratory Syncytial VirusPCR Not Detected (NotDetected); Rhinovirus/Enterovirus PCR Not Detected (NotDetected)
[2024-03-11] MEDS ORDERED: SODIUM CHLORIDE 0.65% NA SOLN 45 ML (OCEAN) PRN (07:44)
[2024-03-11 08:39] LABS: Basophils # (auto) 0.06 K/uL (0.00-0.20); Basophils % (auto) 0.5 %; Eosinophils # (auto) 0.06 K/uL (0.00-0.50); Eosinophils % (auto) 0.5 %; Hematocrit (blood only) 32.7 % (42.0-52.0); Hemoglobin 10.1 g/dl (14.0-18.0); Immature Granulocytes # (auto) 0.14 K/uL (0.01-0.20); Immature Granulocytes % (auto) 1.1 %; Lymphocytes # (auto) 0.69 K/uL (1.20-3.40); Lymphocytes % (auto) 5.5 %; Mean Corpuscular Hemoglobin 31.1 pg (25.0-34.0); Mean Corpuscular Hgb Conc 30.9 g/dL (32.0-36.0); Mean Corpuscular Volume 100.6 fL (80.0-100.0); Mean Platelet Volume 13.6 fL (9.4-12.4); Monocytes # (auto) 1.74 K/uL (0.11-0.59); Monocytes % (auto) 13.8 %; Neutrophils # (auto) 9.91 K/uL (1.40-6.50); Neutrophils % (auto) 78.6 %; Nucleated RBC # (auto) 0.03 K/uL (0.00-0.12); Nucleated RBC % (auto) 0.2 %; Platelet Count 87 K/uL (130-400); RDW Coefficient of Variation 14.7 % (11.5-14.5); RDW Standard Deviation 54.1 fL (36.4-46.3); Red Blood Count 3.25 M/uL (4.70-6.10)
[2024-03-11 09:05] LABS: Albumin Globulin Ratio 1.1 (0.9-2); Albumin Level 3.3 gm/dl (3.4-5.0); BUN Creatinine Ratio 36.4 (10-20); Bilirubin,Total 0.6 mg/dl (0.2-1.0); Calcium 9.5 mg/dl (8.6-10.3); Creatinine Clr Calc Pharmacy 59.3 ml/min; Globulin 3.1 gm/dl (2.5-4.0); Magnesium 1.7 mg/dl (1.7-2.4); Phosphorus 3.7 mg/dl (2.5-4.9); Potassium 3.8 mmol/L (3.5-5.1); Total Protein 6.4 gm/dl (6.0-8.3)
[2024-03-11] MEDS: MAGNESIUM SULFATE / D5W 1 GM/100 ML BAG IV SCH ×2 (10:02→17:27)
--- NOTE | 2024-03-11 10:31 | Pulmonology Progress Note ---
Date of Service March 11, 2024 Assessment & Plan (1) Hemoptysis: Plan: Likely multifactorial related in the setting of a lung mass, postobstructive pneumonia and epistaxis. If hemoptysis worsens, then would recommend nebulized TXA, urgent CTA of his chest and if active bleeding noted on CTA then transfer to a tertiary center for embolization. Recommend ENT consultation to evaluate and treat the epistaxis. Agree with holding aspirin and Plavix in the setting of epistaxis, hemoptysis and thrombocytopenia. I would recommend discussion with the patient's family (as the patient is not able to be involved in a meaningful conversation given his expressive aphasia) given his prior history of stroke and antiplatelets being held. (2) Mass of upper lobe of right lung: Plan: Patient had an incidental 3 cm right upper lobe mass on CT chest as part of a trauma workup this admission. The mass may potentially be partially involving the right upper lobe bronchus. I do not have any older CT chest scans to review aside for 2019 where there was a perifissural nodule measuring about 8 mm in a similar region. Presumably this area has grown over time. 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 Recommend primary team consult oncology. He is currently quite complex given the rib fractures, acute pneumonia and thrombocytopenia. He is also on Plavix for history of CVA. I do not think that he is currently a candidate for bronchoscopy but may be in the near future once the acute issues resolved. I would recommend an outpatient PET scan and would defer bronchoscopy to be done at the preference of the patient and the patient's family perhaps in [place] when he is clinically stable. (3) Tonsillar cancer: Plan: I do not have oncologic records regarding his tonsillar cancer. 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 (4) Closed rib fracture: Plan: Pain control per primary team. No invasive interventions required at this time. Recommend incentive spirometry as able and out of bed to chair. (5) Postobstructive pneumonia: Plan: It is reasonable to continue antibiotics with coverage for pseudomonal organisms and possible atypical organisms for the next 7 days. Can likely transition to Levaquin in the next 1 to 2 days depending on clinical course. MRSA screen was negative. Repeat procalcitonin is pending. Urine Legionella antigen ordered as well. (6) Thrombocytopenia: Plan: Patient appears to have thrombocytopenia which is chronic at baseline, but appears to be worsening today. Unclear etiology. Will defer to primary team for further workup. Possibly sepsis induced thrombocytopenia versus other etiologies. Plan Thank you for the consult. Please call with questions. Admission and Anticipated Discharge Date Admission Date: March 05, 2024 Subjective History is difficult to elicit from the patient given expressive aphasia. He denies any significant shortness of breath or chest pain. He does endorse a cough with sputum production. Per nursing, he had epistaxis yesterday and this morning had blood admixed with the sputum when coughing. Unclear whether this is residual from his epistaxis. Pulmonary was asked to reevaluate the patient given the concern of possible hemoptysis. His primary team has held his Plavix and aspirin. Review of Systems Review of Systems: ROS difficult to obtain given patient's expressive aphasia. Physical Exam Constitutional: Frail and elderly appearing gentleman. Eyes: PERRL, conjunctivae normal, anicteric sclerae Neck: Radiation changes Respiratory: symmetric chest movement Auscultation: + diminished lung sounds and + rhonchi Cardiovascular: Rate/Rhythm: regular rate and regular rhythm (Atrial paced) Heart Sounds: normal S1 and normal S2 Vessels: no JVD Extremities: no edema Chest (Breasts): Chest: + pacemaker Gastrointestinal (Abdomen): G-tube in place Results & Data Results & Data Vital Signs (Past 12 Hours) Vital Signs Temp Pulse Resp BP Pulse Ox O2 Del Method 03/11/24 07:39 36.5 C 81 18 124/62 92 Room Air 03/10/24 23:57 36.6 C 71 18 107/59 L 94 Room Air PG Care Time/CCT Total # of Minutes Spent Total Time Spent with Patient: Total time spent is greater than 50% in coordination of care (as documented) at patient's floor/unit and/or counseling patient: Coding Level of Care Code 40190 SUB INP/OBS CARE 2/35MIN Diagnoses Hemoptysis R04.2 Mass of upper lobe of right lung R91.8 Tonsillar cancer C09.9 Closed rib fracture S22.39XA Postobstructive pneumonia J18.9 Thrombocytopenia D69.6
--- NOTE | 2024-03-11 13:23 | Hospitalist Progress Note ---
Date of Service March 11, 2024 Assessment & Plan (1) Pneumonia: Plan: 78-year-old male with past medical history significant for hypertension history of CVA with expressive aphasia and nonambulatory status, status post PEG tube, hypertension, history of tonsillar cancer s/p chemo radiation treatment, radiation-induced arteritis, carotid stenosis, GERD, esophageal stricture, history of DVT and PE, sinus node dysfunction status post pacemaker, BPH presenting because of fall. Patient is mostly bedbound. Patient can transfer to the wheelchair. Last Thursday he fell down when getting transferred to the wheelchair but did not pass out. Since then he had couple more falls and the family brought him here. Pneumonia Mass of upper lobe of right lung: Chest CT showing right perihilar upper lobe soft tissue mass, possible pneumonia versus neoplasm and adenopathy. also mucus in left mainstem bronchus seen Started on IV Zosyn and Doxy, transitioned to po Levaquin on 03/09/24 Pulmonary consulted for further recommendations, advised the following -cont. abx, then may switch to Levaquin after 1-2 days Continue with levaquin at this time. Per pulm. - "Patient had an incidental 3 cm right upper lobe mass on CT chest as part of a trauma workup this admission. The mass may potentially be partially involving the right upper lobe bronchus. I do not have any older CT chest scans to review aside for 2019 where there was a perifissural nodule measuring about 8 mm in a similar region. Presumably this area has grown over time. I do not have records of his oncological care. 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 Recommend to involve pt's outpatient oncologist to discuss. He is currently quite complex given the rib fractures, acute pneumonia and thrombocytopenia. He is also on Plavix for history of CVA. I do not think that he is currently a candidate for bronchoscopy but may be in the near future once the acute issues resolved. I would recommend an outpatient PET scan and would defer bronchoscopy to be done at the preference of the patient and the patient's family perhaps in [place] when he is clinically stable." 03/11-Pulmonology consulted once more for hemoptysis, recommendations reviewed. Later daughter was called and advised of pulmonary recommendations. Daughter states that she would like aspirin and Plavix resumed and not held. Also advised that she believes that hemoptysis is related to his nosebleeds and at this time, would not like follow-up with ENT or oncology. Not yet agreeable to transferring to a tertiary care center either given his medical complexity and full CODE STATUS. Notes that she has a difficult position of making decisions for him and is unsure of the best way to proceed. previously also declining palliative care consult. Elevated troponin Initial troponin 375 and repeat is 301 Patient does not seem to be in distress EKG no acute findings Mostly demand ischemia from ongoing infection Holding IV heparin for now as patient has thrombocytopenia serial cardiac enzymes and echo obtained Cardiology consulted, noted/stated the following: "Suspect demand based ischemia on basis of underlying medical concerns. Continue treatment with home medications. Patient asymptomatic, with marked thrombocytopenia Outpatient pacemaker interrogations via the [facility]" Falls Possibly from above PT OT ordered- recommending acute rehab Rib fracture Acute fracture of the right lateral ninth rib Pain control History of CVA Expressive aphasia Mostly bedbound Can transfer to wheelchair Nutrition from PEG tube Meds via PEG tube On aspirin Plavix and statin PT OT when stable Speech recommending complete NPO status. per family patient usually uses 1 bottle of half soda that lasts him for many weeks at home. However, family not agreeable at this time to permissive aspiration. - Daughter Keysha agreeable to deferring onto the use while hospitalized. Hyperlipidemia On statin Hypertension On labetalol and amlodipine Will monitor Nutrition Tube feeds Continue home tube feeds Dietitian and speech consult Speech recommending complete NPO status. per family patient usually uses 1 bottle of half soda that lasts him for many weeks at home. However, family not agreeable at this time to permissive aspiration. - Daughter Keysha agreeable to deferring onto the use while hospitalized. 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 Thrombocytopenia Chronic Platelets 70s Will follow labs Anemia Hemoglobin 10.8 Baseline around 13 range Will check stool for Hemoccult vitamin B12 and folate levels wnl Iron studies c/w BRAXTON -> gave IV iron (venofer) on 03/07/24 DVT prophylaxis SCDs for now as patient is thrombocytopenic Disposition acute rehab CODE STATUS full code as per discussion of admitting provider with daughter Admission and Anticipated Discharge Date Admission Date: March 05, 2024 Subjective patient was seen multiple times during the day Initially in the a.m. concern for increased frequency of hemoptysis and per nursing staff concern for bleeding with residual after his tube feeds. pulmonology was consulted H&H has been stable and aspirin and Plavix initially held in the AM. Later daughter was called and advised of pulmonary recommendations. Daughter adamant that she would like aspirin and Plavix resumed. Also advised that she believes that hemoptysis is related to his nosebleeds and would not like follow-up at this time with ENT or oncology. Not yet agreeable to transferring to a tertiary care center either given his medical complexity and full CODE STATUS. Notes that she has a difficult position of making decisions for him and is unsure of the best way to proceed. Review of Systems Review of Systems: All systems reviewed & are unremarkable except as noted in Subjective Physical Exam Physical Exam: General: Alert Neuro: difficulty with speech and movement on the right, difficulty talking HEENT: NC/AT CV: RRR Resp: no increased effort of breathing Abdomen: Soft, nontender Results & Data Results & Data Vital Signs (Past 12 Hours) Vital Signs Temp Pulse Pulse Resp BP Pulse Ox O2 Del Method 03/11/24 12:08 37.1 C 68 16 116/57 L 92 Room Air 03/11/24 11:46 Room Air 03/11/24 08:00 71 03/11/24 07:39 36.5 C 81 18 124/62 92 Room Air (1) Pneumonia Aspiration pneumonia type: unspecified Laterality: bilateral Lung location: unspecified part of lung Pneumonia type: aspiration pneumonia Qualified Code(s): J69.0 - Pneumonitis due to inhalation of food and vomit
[2024-03-11] MEDS: FUROSEMIDE 40 MG/4 ML VIAL IV ONE (17:27)
[2024-03-11] MEDS: POTASSIUM CHLORIDE 20 MEQ/15 ML UDC PEG STA (17:27)
[2024-03-11] MEDS: ASPIRIN 81 MG CHEW PO ONE (20:17)
--- NOTE | 2024-03-12 07:41 | Hospitalist Progress Note ---
Date of Service March 12, 2024 Assessment & Plan (1) Pneumonia: Plan: Pt is a 78-year-old male with past medical history significant for history of CVA with expressive aphasia and nonambulatory status, status post PEG tube, hypertension, history of tonsillar cancer s/p chemo radiation treatment, radiation-induced arteritis, carotid stenosis, GERD, esophageal stricture, history of DVT and PE, sinus node dysfunction status post pacemaker, BPH who presented because of a fall. Patient is mostly bedbound. Patient can transfer to the wheelchair. Thursday [employer] he fell down while being transferred to the wheelchair but did not pass out. Since then he had a few more falls and the family brought him for further evaluation. Pt's hospital stay has been complicated by the discovery of a new pulmonary mass, episodes of hemoptysis and epistaxis in the setting of chronic thrombocytopenia and need to continue plavix and aspirin with Hx of CVA, as well as difficulty with rehab placement which family would like as pt is not currently at his baseline of being able to transfer on his own. Fall R rib fractures Contusion, R hip Pt presenting from home after fall at home Abd/pelvis CT noting "acute appearing nondisplaced fractures of the right lateral ninth and 10th ribs". Also notes mild subcutaneous contusion on right hip, no organ trauma noted PRN pain control PT/OT- recommending acute rehab stay, CM assisting with placement Daughter Keysha (POA) would like pt to be back to baseline with ability to self- transfer to wheelchair/bed/commode before going back home Pulmonary Mass, RUL Post-Obstructive Pneumonia Pt with leukocytosis on admission Chest xray concerning for R perihilar infiltrate vs. nodule CT chest noting "right perihilar upper lobe soft tissue mass. Considerations include neoplasm, pneumonia and adenopathy." Respiratory viral panel negative Procalcitonin negative Legionella pending Sputum culture grew christopher glabarata Treated with IV Zosyn and doxycycline initially, transitioned to po Levaquin on 03/09/24 Given pt's cancer status and sputum cx results, also started on fluconazole 800mg daily Infectious Disease consulted, recs currently pending Pulmonology consulted, appreciate recs. Recommended/stated the following: -notes that mass may be primary vs. recurrence of previous tonsillar malignancy -might need bronchoscopy once acute issues resolve, at a tertiary care center possibly. Not currently a candidate for bronch -recommending oncology consult -recommending outpatient PET scan -"If urine Legionella is negative and white blood cell count is downtrending, recommend discontinuing Levaquin." Pt's daughter currently declining referral to oncology. Also declining palliative care consult. Pt remains a full code. Continue to monitor Hemoptysis Epistaxis Pt with episodes of hemoptysis on 03/10 and 03/11, also possible trace bleeding into PEG tube Per daughter, pt has frequent episodes of epistaxis at baseline On aspirin MWF and plavix due to Hx of prior CVA Pt with chronic thrombocytopenia Pt also with noted lung mass above that can also contribute to hemoptysis Pulmonology consulted, appreciate recs. Recommended/stated the following: -notes that hemoptysis was likely "multifactorial related in the setting of a lung mass, postobstructive pneumonia and epistaxis." -for worsening hemoptysis: nebulized TXA, urgent CTA chest, transfer to a tertiary center for embolization if active bleeding noted. -ENT consult for nosebleeds -"Agree with holding aspirin and Plavix in the setting of epistaxis, hemoptysis and thrombocytopenia. I would recommend discussion with the patient's family (as the patient is not able to be involved in a meaningful conversation given his expressive aphasia) given his prior history of stroke and antiplatelets being held." Discussion with pt's daughter Keysha (POA), she does NOT want aspirin/plavix held Continue plavix and aspirin per family request at this time Daughter declines ENT consult at this time, notes the nosebleeds are chronic PRN nasal saline Hemoptysis currently resolved on 03/[address] PEG Tube, accidental removal s/p replacement Nutrition Pt currently strict NPO in the setting of Hx of Tonsillar cancer s/p chemo Reports of pt drinking soda by mouth, sometimes provided by his Speech consulted, recommended strict NPO or permissive aspiration discussion Daughter Keysha (POA) agreeable to strict NPO while hospitalized, declines permissive aspiration Pt accidentally removed PEG tube on 03/12 GI consulted STAT, noted/stated the following: "Patient pulled out his current Eric-Suresh low profile 16 Fr x 4 cm PEG tube, unclear why or how did this happen, left the room and went home, I checked the tube and the balloon is busted. No Eric-Suresh tube available at the hospital hence I placed a regular balloon type 16 Fr tube, balloon inflated and position confirmed by seeing gastric secretions in the tube. The tube is EnFit tube however there are no compatible syringes or adapters available on the floor. Please get an adapter, prepare a 50 ml Syringe with PO contrast, order a bedside KUB and push the contrast in the tube immediately before they get the Xray to confirm and document position. Upon discharge, he should call GI office to have the tube replaced with a Eusebio tube as OP." KUB xray in followup noting working tube Continue tube feeds-pt uses home feeds that his daughter brings in Dietary consult GI followup after discharge for tube replacement Elevated troponin Demand Ischemia Pacemaker in situ Calcification of Aorta and branches Trop elevated as high as 375.7, downtrended EKG without signs of ischemia Echo noting EF 55-60%, moderate LVH, normal wall motion, Grade II diastolic dysfunction, moderate aortic sclerosis without stenosis Pt was asymptomatic Imaging noting "calcification of aorta and branches" Cardiology was consulted, recommended/stated the following: "Suspect demand based ischemia on basis of underlying medical concerns. Continue treatment with home medications. Patient asymptomatic, with marked thrombocytopenia Outpatient pacemaker interrogations via the [facility]" Continue to monitor on telemetry Congestive Heart Failure, diastolic Pt with elevated BNP, increased from 285 to 1639 Echo on admission noting Grade II diastolic dysfunction Repeat Chest XRAY on 03/10 with worsening infiltrates s/p doses of IV lasix 40mg on 03/11 and lasix 20mg on 03/12 Cardiology consulted once more, pt to be seen on 03/13, appreciate recs Diarrhea Pt with imaging noting retained stool However, pt with recent frequent BMs at this time C diff testing on 03/12 negative Since pt hospitalized more than 72hrs, system not allowing stool culture panel to be ordered PRN loperamide Concern for "soreness" with frequent cleaning/wiping PRN barrier cream Wound nurse consulted, appreciate recs and care Chronic Anemia Iron Deficiency Anemia Pt with chronic anemia, hgb 9-12 range On DAPT, noted thrombocytopenia-risk factors for bleeding FOBT negative on 03/09/24 Iron levels low on admission -s/p IV venofer -consider adding po daily iron supplement B12 and folate levels normal Transfuse for hgb <7 Continue to monitor Chronic Thrombocytopenia Platelets chronically low AM peripheral smear Hypomagnesemia Hypophosphatemia replete as needed Hypernatremia Sodium has been running high at 145-146 Continue to monitor D5w as needed Hyperglycemia AM [id number] Presence of IVC filter Noted to be in place on imaging Inguinal hernias Noted on imaging Small, bilateral PCP followup Bilateral renal cysts Nonobstructing nephrolithiasis noted on imaging no hydronephrosis stable Transaminitis Cholelithiasis Liver enzymes elevated CT abd/pelvis noting "innumerable gallstones" Continue to trend liver enzymes Consider dedicated RUQ US Consider GI consult Leukocytosis Initially resolved but persistent once more Likely in setting of pneumonia Repeat Chest xray at this time Repat UA Continue to monitor History of CVA Expressive aphasia Mostly bedbound Can transfer to wheelchair Nutrition from PEG tube Meds via PEG tube On aspirin Plavix and statin PT OT when stable Speech recommending complete NPO status. per family patient usually uses 1 bottle of half soda that lasts him for many weeks at home. However, family not agreeable at this time to permissive aspiration. - Daughter Keysha agreeable to deferring onto the use while hospitalized. 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 Hyperlipidemia On statin Hypertension On labetalol and amlodipine Will monitor GERD On Pepcid BPH on finasteride Diet: NPO, tube feeds DVT prophylaxis: SCDs fas patient is thrombocytopenic CODE STATUS full code as per discussion of admitting provider with daughter Disposition: acute rehab Admission and Anticipated Discharge Date Admission Date: March 05, 2024 Subjective Pt was seen multiple times during the day. In AM was resting comfortably. Later daughter called and advised that pt had removed PEG tube. Later called to bedside to discuss course with pt's daughter who expressed she was frustrated by lack of communication from specialists and previous providers. Discussion of possible transfer, she would like to wait until Thursday after discussion with pt's pcp who she wants to weigh in. She indicated that she was concerned that facility did not have pt's previous feeding tube and that she has to bring in his feeds. Review of Systems Review of Systems: All systems reviewed & are unremarkable except as noted in Subjective Physical Exam Physical Exam: General: Alert Neuro: difficulty with speech and movement on the right, difficulty talking HEENT: NC/AT CV: RRR Resp: no increased effort of breathing Abdomen: Soft, nontender Results & Data Results & Data Vital Signs (Past 12 Hours) Vital Signs Temp Pulse Pulse Resp BP Pulse Ox O2 Del Method 03/12/24 07:00 62 03/12/24 03:41 36.6 C 65 18 99/55 L 94 Room Air 03/12/24 00:21 36.6 C 72 18 110/58 L 92 Room Air 03/11/24 23:59 64 03/11/24 20:24 36.4 C L 71 18 109/55 L 92 Room Air 03/11/24 20:20 Room Air Diagnostic Findings Abdomen/Pelvis CT 03/05/24 15:16 EXAM: CT Abdomen and Pelvis With Intravenous Contrast INDICATION: Posttraumatic pain. TECHNIQUE: Axial computed tomography images of the abdomen and pelvis with intravenous contrast. Sagittal and coronal reformatted images were created and reviewed. This CT exam was performed using one or more of the following dose reduction techniques: automated exposure control, adjustment of the mA and/or kV according to patient size, and/or use of iterative reconstruction technique. CONTRAST: 90ml of Optiray 320 was administered intravenously. COMPARISON: No relevant prior studies available. FINDINGS: Limitations: None. Lung bases: Airway thickening and atelectasis present in the lung bases. Pleural space: No basilar pleural effusion. Heart: Cardiomegaly noted. Cardiac pacing device noted. Metallic artifact limits assessment of lead integrity. Mediastinum: No abnormality noted. ABDOMEN: Liver: No abnormality noted. Gallbladder and bile ducts: Innumerable gallstones present. No ductal dilatation or stone. Pancreas: Homogeneous enhancement. No mass, inflammation or ductal dilation. Spleen: No significant abnormality noted. Adrenals: No significant abnormality noted. Kidneys and ureters: Simple bilateral renal cysts noted. No follow-up necessary. No stones or hydronephrosis. There is a 5 mm nonobstructing stone in each renal upper pole. Renal vascular calcification noted. No hydronephrosis. No urinary gas or perinephric fluid. Stomach and bowel: Large amounts of stool in the redundant colon without obstruction or inflammation. Gastrostomy balloon inflated in the stomach. PELVIS: Appendix: No findings to suggest acute appendicitis. Bladder: No filling defects to suggest mass or large stone. No inflammation. Reproductive: No abnormalities noted. ABDOMEN and PELVIS: Intraperitoneal space: No free air. No significant fluid collection. Bones/joints: There is an acute appearing nondisplaced fracture of the right lateral ninth and 10th ribs. Degenerative changes present in the spine. No pelvic or spinal fracture noted. Soft tissues: There is mild subcutaneous contusion at the level of the right hip. There are small bilateral fat containing inguinal hernias. Vasculature: Inferior vena cava filter in good position. Atherosclerotic calcification of the aorta and branches. No aneurysm. Lymph nodes: No pathologically enlarged lymph nodes. IMPRESSION: 1. There are acute appearing nondisplaced fractures of the right lateral ninth and 10th ribs. 2. No traumatic change of the solid organs. 3. Large amounts of stool in the colon without obstruction. 4. Cholelithiasis. 5. There is mild subcutaneous contusion at the level of the right hip. No body wall hematoma noted. ACT 112: Negative or not required by law. Electronically signed by Humera Hemphill 03-05-2024 5:41 PM Chest X-Ray 03/05/24 15:16 EXAM: Radiograph of the Chest 1 View INDICATION: Weakness TECHNIQUE: Frontal view of the chest. COMPARISON: 11/28/2019 and 04/12/2018 FINDINGS: Lungs and pleural spaces: Generalized increased interstitial markings with 1.4 x 1.3 cm nodular versus infiltrate in the right perihilar. . Heart: Shape and configuration within normal limits allowing for technique. Mediastinum: Normal contour. Bones/joints: No fracture, erosion or dislocation. Soft tissues: No abnormality noted. No radiopaque foreign body noted. Vasculature: Left carotid stent is present. Tubes, lines and devices: Stable prominent cardiac shadow and right atrial and ventricular intact pacing wires. Upper abdomen: No abnormality noted. IMPRESSION: 1. Increased interstitial markings may reflect bronchitis or vascular congestion. 2. Right perihilar infiltrate versus nodule. If additional imaging is warranted rather than follow-up following treatment, CT with contrast is the modality of choice. ACT 112: Negative or not required by law. Electronically signed by Humera Hemphill 03-05-2024 4:[address] 03/05/24 15:16 EXAM: CT Lumbar Spine With Intravenous Contrast INDICATION: Posttraumatic back pain. Change in bowel habits. TECHNIQUE: Axial computed tomography images of the lumbar spine with intravenous contrast. Sagittal and coronal reformatted images were created and reviewed. This CT exam was performed using one or more of the following dose reduction techniques: automated exposure control, adjustment of the mA and/or kV according to patient size, and/or use of iterative reconstruction technique. CONTRAST: 90ml of Optiray 320 was administered intravenously. COMPARISON: No relevant prior studies available. FINDINGS: Limitations: None. Vertebrae: There is mild facet hypertrophic change at all levels. Mild to moderate diffuse spondylosis. Mild uncal spurring noted at L3-L4. Moderate to space narrowing L3-L4 and L1-L2. Mild narrowing noted at other levels. Sacrum/coccyx: No significant abnormality noted. No acute change noted. Discs/spinal canal/neural foramina: See above. Soft tissues: No significant abnormality noted. Vasculature: Inferior vena cava filter in good position. IMPRESSION: Degenerative changes. No lumbar fracture. ACT 112: Negative or not required by law. Electronically signed by Humera Hemphill 03-05-2024 5:[address] 03/05/24 17:50 EXAM: CT Chest With Intravenous Contrast INDICATION: Posttraumatic pain. Rib fracture. TECHNIQUE: Axial computed tomography images of the chest with intravenous contrast. Sagittal and coronal reformatted images were created and reviewed. This CT exam was performed using one or more of the following dose reduction techniques: automated exposure control, adjustment of the mA and/or kV according to patient size, and/or use of iterative reconstruction technique. CONTRAST: 89ml of Optiray 320 was administered intravenously. COMPARISON: CT abdomen the same day. FINDINGS: Limitations: None. Lungs and pleural spaces: There is a right upper lobe perihilar soft tissue mass measuring 2.3 cm transverse by 1.7 cm AP by 1.5 cm long. There is a 5 mm noncalcified nodule in the right lower lobe posterior to the major fissure series 3 image 25. There is airway thickening which is likely chronic. T there is mucus in the left mainstem bronchus. No bronchiectasis. No consolidation. No significant effusion. Heart: Cardiomegaly noted. Cardiac pacing device noted. Metallic artifact limits assessment of lead integrity. Thyroid: No abnormality noted. Bones/joints: There is an acute nondisplaced fracture of the right lateral ninth rib. Soft tissues: No significant abnormality noted. Vasculature: No abnormality noted. No thoracic aortic aneurysm. Lymph nodes: No enlarged lymph nodes. IMPRESSION: 1. There is an acute fracture of the right lateral ninth rib. 2. Right perihilar upper lobe soft tissue mass. Considerations include neoplasm, pneumonia and adenopathy. 3. Mucus in the left mainstem bronchus. There is chronic airway thickening and basilar atelectasis. 4. Cholelithiasis. ACT 112: Negative or not required by law. Electronically signed by Humera Hemphill 03-05-2024 6:37 PM Chest X-Ray 03/10/24 16:51 EXAM: Radiograph of the Chest 1 View INDICATION: Productive cough. TECHNIQUE: Frontal view of the chest. COMPARISON: 03/05/2024 FINDINGS: Lungs and pleural spaces: Worsening right perihilar and right upper lobe infiltrates. No pleural effusion or pneumothorax. Heart: Shape and configuration within normal limits allowing for technique. Mediastinum: Normal contour. Bones/joints: Old right lateral eighth rib fracture. Degenerative changes noted in the spine. Soft tissues: No abnormality noted. No radiopaque foreign body noted. Tubes, lines and devices: Stable cardiac shadow and intact pacing device. Upper abdomen: No abnormality noted. IMPRESSION: Worsening right perihilar and right upper lobe infiltrates. ACT 112: Negative or not required by law. Electronically signed by Humera Hemphill 03-10-2024 6:35 PM KUB X-Ray 03/12/24 13:58 EXAM: Radiograph of the Abdomen 1 View INDICATION: PEG tube placement. TECHNIQUE: Scalp view of the abdomen obtained. The patient is gastrostomy tube was then injected with 50 cc of contrast. COMPARISON: No relevant prior studies available. FINDINGS: Limitations: None. Gastrointestinal tract: Gastrostomy balloon is inflated in the gastric body. Contrast injected into the 2 edges of the stomach. No gross extravasation in 1 view. Organs: Multiple gallstones present. Bones/joints: See below. Soft tissues: No abnormality noted. No radiopaque foreign body noted. Vasculature: Atherosclerotic calcifications are noted. Inferior vena cava filter L2-L3. IMPRESSION: 1. Contrast injected into the gastrostomy tube enters the stomach. 2. Cholelithiasis. ACT 112: Negative or not required by law. Electronically signed by Humera Hemphill 03-12-2024 2:40 PM (1) Pneumonia Aspiration pneumonia type: unspecified Laterality: bilateral Lung location: unspecified part of lung Pneumonia type: aspiration pneumonia Qualified Code(s): J69.0 - Pneumonitis due to inhalation of food and vomit
[2024-03-12] MEDS: FLUCONAZOLE 100 MG TAB PO STA (12:00)
--- NOTE | 2024-03-12 13:23 | Pulmonology Progress Note ---
Date of Service March 12, 2024 Assessment & Plan (1) Hemoptysis: Plan: Resolved. Likely was multifactorial related in the setting of a lung mass, postobstructive pneumonia and epistaxis. (2) Pulmonary edema: Plan: Chest x-ray yesterday with increased evidence of bilateral infiltrates, right greater than left. BNP was elevated to 1639. I ordered 40 mg IV Lasix 03/11/2024. Oxygen saturations improved today. Monitor I's and O's closely and consider the addition of low-dose enteral diuretic therapy. Echo 03/06/2024 there is grade 2 diastolic dysfunction and moderate aortic valve sclerosis. (3) Mass of upper lobe of right lung: Plan: Patient had an incidental 3 cm right upper lobe mass on CT chest as part of a trauma workup this admission. The mass may potentially be partially involving the right upper lobe bronchus. I do not have any older CT chest scans to review aside for 2019 where there was a perifissural nodule measuring about 8 mm in a similar region. Presumably this area has grown over time. 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 Recommend primary team consult oncology. He is currently quite complex given the rib fractures, acute pneumonia and thrombocytopenia. He is also on Plavix for history of CVA. I do not think that he is currently a candidate for bronchoscopy but may be in the near future once the acute issues resolved. I would recommend an outpatient PET scan and would defer bronchoscopy to be done at the preference of the patient and the patient's family as an outpatient perhaps in [place] when he is clinically stable. (4) Tonsillar cancer: Plan: I do not have oncologic records regarding his tonsillar cancer. 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 (5) Closed rib fracture: Plan: Pain control per primary team. No invasive interventions required at this time. Recommend incentive spirometry as able and out of bed to chair. (6) Postobstructive pneumonia: Plan: Urine Legionella is pending. Repeat procalcitonin was 0.4 which is below the threshold for a "positive" procalcitonin. If urine Legionella is negative and white blood cell count is downtrending, recommend discontinuing Levaquin. (7) Thrombocytopenia: Plan: Patient appears to have thrombocytopenia which is chronic at baseline, but appears to be worsening today. Unclear etiology. Will defer to primary team for further workup. Possibly sepsis induced thrombocytopenia versus other etiologies. Plan Thank you for the consult. Pulmonary sign off at this time. Please call with questions. Admission and Anticipated Discharge Date Admission Date: March 05, 2024 Subjective No acute issues at present. Patient saturating well on room air. No further epistaxis or hemoptysis noted. Patient back on aspirin and Plavix. Discussed with bedside nursing. Review of Systems Review of Systems: All systems reviewed & are unremarkable except as noted in HPI & below Physical Exam Constitutional: no acute distress Eyes: PERRL, conjunctivae normal, anicteric sclerae Respiratory: symmetric chest movement Auscultation: + diminished lung sounds and + rhonchi Cardiovascular: Rate/Rhythm: regular rate and regular rhythm (Atrial paced) Heart Sounds: normal S1 and normal S2 Vessels: no JVD Extremities: no edema Chest (Breasts): Chest: + pacemaker Results & Data Results & Data Vital Signs (Past 12 Hours) Vital Signs Temp Pulse Pulse Resp BP BP Pulse Ox 03/12/24 12:26 37.1 C 86 16 115/59 L 95 03/12/24 08:40 03/12/24 07:55 36.9 C 67 22 138/70 94 03/12/24 07:00 62 03/12/24 03:41 36.6 C 65 18 99/55 L 94 O2 Del Method 03/12/24 12:26 Room Air 03/12/24 08:40 Room Air 03/12/24 07:55 Room Air 03/12/24 07:00 03/12/24 03:41 Room Air PG Care Time/CCT Total # of Minutes Spent Total Time Spent with Patient: Total time spent is greater than 50% in coordination of care (as documented) at patient's floor/unit and/or counseling patient: Coding Level of Care Code 94541 SUB INP/OBS CARE 2/35MIN Diagnoses Hemoptysis R04.2 Pulmonary edema J81.1 Mass of upper lobe of right lung R91.8 Tonsillar cancer C09.9 Closed rib fracture S22.39XA Postobstructive pneumonia J18.9 Thrombocytopenia D69.6
--- NOTE | 2024-03-12 13:59 | Gastrointestinal Consultation ---
Date of Consultation March 12, 2024 History of Present Illness Reason for Consultation: PEG tube replacement Attending Physician: Leslye Ayon MD History of Present Illness Patient pulled out his current Eric-Suresh low profile 16 Fr x 4 cm PEG tube, unclear why or how did this happen, left the room and went home, I checked the tube and the balloon is busted. No Eric-Suresh tube available at the hospital hence I placed a regular balloon type 16 Fr tube, balloon inflated and position confirmed by seeing gastric secretions in the tube. The tube is EnFit tube however there are no compatible syringes or adapters available on the floor. Please get an adapter, prepare a 50 ml Syringe with PO contrast, order a bedside KUB and push the contrast in the tube immediately before they get the Xray to confirm and document position. Upon discharge, he should call GI office to have the tube replaced with a Eusebio tube as OP. Recall if needed. Allergies Allergy/AdvReac Type Severity Reaction Status Date / Time No Known Allergies Allergy Unknown Verified 11/28/19 10:09 Home Medications Medication Instructions Recorded Confirmed Type acetaminophen 325 mg capsule 975 mg feeding tube BID PRN Pain 04/11/18 03/05/24 History (Tylenol) amlodipine 10 mg tablet (Norvasc) 5 mg feeding tube QAM 04/11/18 03/05/24 History aspirin 81 mg chewable tablet 81 mg feeding tube [id number] 04/11/18 03/05/24 History atorvastatin 40 mg tablet (Lipitor) 40 mg feeding tube HS 04/11/18 03/05/24 History clopidogrel 75 mg tablet (Plavix) 75 mg feeding tube QAM 04/11/18 03/05/24 History famotidine 20 mg tablet (Pepcid) 20 mg feeding tube QAM 04/11/18 03/05/24 History labetalol 300 mg tablet 300 mg feeding tube TID 04/11/18 03/05/24 History lactose-reduced food with fiber 375 ea feeding tube BID 11/28/19 03/05/24 History oral liquid lactose-reduced food with fiber 500 ea feeding tube QPM 11/28/19 03/05/24 History oral liquid finasteride 5 mg tablet 5 mg feeding tube DAILY 03/05/24 03/05/24 History ketoconazole 2 % topical cream 1 applic topical DIRECTED PRN 03/05/24 03/05/24 History Other triamcinolone acetonide 0.1 % 1 applic topical BID PRN Other 03/05/24 03/05/24 History topical cream Patient History Medical History (Updated 03/12/24 @ 13:19 by Silvano Medel MD) Pneumonia H/O ASPIRATION PNEUMONIA PER RECORD Carotid stenosis Stroke ~4 YEARS AGO. Surgical History S/P percutaneous endoscopic gastrostomy (PEG) tube placement History of esophagogastroduodenoscopy (EGD) History of carotid endarterectomy RIGHT? History of tonsillectomy Family History Other Cancer Family history of stroke Hypertension Social History Smoking Status: Former smoker Cigarettes Per Day: 20; Second Hand Exposure: No; Do You Dip or Chew Tobacco: No; Tobacco Cessation Education Requested by Patient: No Hx Alcohol Use: No Hx Substance Use: No Preferred Language: Yoruba Communication Ability: Impaired Communication Ability Comment: DIFFICULTY WITH VERBAL COMMUNICATION. A&O X3 PER DAUGHTER. Instrument Fitter Required: No Beliefs That Will Affect Care: None marital status: Current Living Situation: Family Other Information That Helps Us Care for You: No Feels Safe at Home: Yes Safety Concerns: Feels Safe At This Time Assistive Devices: Bedside Commode, Wheelchair and Other Results & Data Vital Signs (Past 12 Hours) Vital Signs Temp Pulse Pulse Resp BP BP Pulse Ox 03/12/24 12:26 37.1 C 86 16 115/59 L 95 03/12/24 08:40 03/12/24 07:55 36.9 C 67 22 138/70 94 03/12/24 07:00 62 03/12/24 03:41 36.6 C 65 18 99/55 L 94 O2 Del Method 03/12/24 12:26 Room Air 03/12/24 08:40 Room Air 03/12/24 07:55 Room Air 03/12/24 07:00 03/12/24 03:41 Room Air
--- NOTE | 2024-03-12 14:41 | XRay Report ---
EXAM: Radiograph of the Abdomen 1 View INDICATION: PEG tube placement. TECHNIQUE: Scalp view of the abdomen obtained. The patient is gastrostomy tube was then injected with 50 cc of contrast. COMPARISON: No relevant prior studies available. FINDINGS: Limitations: None. Gastrointestinal tract: Gastrostomy balloon is inflated in the gastric body. Contrast injected into the 2 edges of the stomach. No gross extravasation in 1 view. Organs: Multiple gallstones present. Bones/joints: See below. Soft tissues: No abnormality noted. No radiopaque foreign body noted. Vasculature: Atherosclerotic calcifications are noted. Inferior vena cava filter L2-L3. IMPRESSION: 1. Contrast injected into the gastrostomy tube enters the stomach. 2. Cholelithiasis. ACT 112: Negative or not required by law. Electronically signed by Humera Hemphill 03-12-2024 2:40 PM
[2024-03-12 15:38] LABS: Basophils # (auto) 0.05 K/uL (0.00-0.20); Basophils % (auto) 0.4 %; Eosinophils # (auto) 0.05 K/uL (0.00-0.50); Eosinophils % (auto) 0.4 %; Hematocrit (blood only) 29.6 % (42.0-52.0); Hemoglobin 9.2 g/dl (14.0-18.0); Immature Granulocytes # (auto) 0.17 K/uL (0.01-0.20); Immature Granulocytes % (auto) 1.4 %; Lymphocytes # (auto) 0.78 K/uL (1.20-3.40); Lymphocytes % (auto) 6.3 %; Mean Corpuscular Hemoglobin 31.5 pg (25.0-34.0); Mean Corpuscular Hgb Conc 31.1 g/dL (32.0-36.0); Mean Corpuscular Volume 101.4 fL (80.0-100.0); Mean Platelet Volume 13.9 fL (9.4-12.4); Monocytes # (auto) 2.11 K/uL (0.11-0.59); Neutrophils # (auto) 9.24 K/uL (1.40-6.50); Neutrophils % (auto) 74.5 %; Nucleated RBC # (auto) 0.03 K/uL (0.00-0.12); Nucleated RBC % (auto) 0.2 %; Platelet Count 88 K/uL (130-400); RDW Coefficient of Variation 14.9 % (11.5-14.5); RDW Standard Deviation 55.3 fL (36.4-46.3); Red Blood Count 2.92 M/uL (4.70-6.10)
[2024-03-12 15:48] LABS: Albumin Level 3.2 gm/dl (3.4-5.0); Bilirubin,Total 0.4 mg/dl (0.2-1.0); Calcium 9.2 mg/dl (8.6-10.3); Magnesium 2.3 mg/dl (1.7-2.4); Potassium 3.7 mmol/L (3.5-5.1)
[2024-03-12 15:54] LABS: Albumin Globulin Ratio 1.1 (0.9-2); BUN Creatinine Ratio 42.1 (10-20); Creatinine Clr Calc Pharmacy 51.5 ml/min; Globulin 2.9 gm/dl (2.5-4.0); Phosphorus 3.4 mg/dl (2.5-4.9); Total Protein 6.1 gm/dl (6.0-8.3)
[2024-03-12] MEDS: FUROSEMIDE INJ 20 MG/2 ML VIAL IV ONE (16:41)
[2024-03-13 06:11] LABS: Hemoglobin 9.1 g/dl (14.0-18.0); Mean Corpuscular Hgb Conc 31.4 g/dL (32.0-36.0); Mean Corpuscular Volume 102.1 fL (80.0-100.0); Mean Platelet Volume 13.8 fL (9.4-12.4); Nucleated RBC # (auto) 0.03 K/uL (0.00-0.12); Nucleated RBC % (auto) 0.2 %; Platelet Count 94 K/uL (130-400); RDW Coefficient of Variation 15.2 % (11.5-14.5); RDW Standard Deviation 57.2 fL (36.4-46.3); Red Blood Count 2.84 M/uL (4.70-6.10); White Blood Count 12.02 K/ul (4.8-10.8)
[2024-03-13 06:20] LABS: Albumin Globulin Ratio 1.1 (0.9-2); Albumin Level 3.3 gm/dl (3.4-5.0); BUN Creatinine Ratio 42.4 (10-20); Bilirubin,Total 0.5 mg/dl (0.2-1.0); Calcium 9.1 mg/dl (8.6-10.3); Creatinine Clr Calc Pharmacy 49.8 ml/min; Magnesium 2.1 mg/dl (1.7-2.4); Phosphorus 4.2 mg/dl (2.5-4.9); Potassium 3.6 mmol/L (3.5-5.1); Total Protein 6.3 gm/dl (6.0-8.3)
[2024-03-13 06:23] LABS: Basophils # (auto) 0.04 K/uL (0.00-0.20); Basophils % (auto) 0.3 %; Eosinophils # (auto) 0.04 K/uL (0.00-0.50); Eosinophils % (auto) 0.3 %; Immature Granulocytes # (auto) 0.13 K/uL (0.01-0.20); Immature Granulocytes % (auto) 1.1 %; Lymphocytes # (auto) 0.79 K/uL (1.20-3.40); Lymphocytes % (auto) 6.6 %; Monocytes # (auto) 1.59 K/uL (0.11-0.59); Monocytes % (auto) 13.2 %; Neutrophils # (auto) 9.43 K/uL (1.40-6.50); Neutrophils % (auto) 78.5 %
[2024-03-13] MEDS: FLUCONAZOLE 100 MG TAB PO SCH (07:22)
[2024-03-13 07:37] LABS: Estimated Average Glucose 114 mg/dl; Hemoglobin A1C 5.6 % (4.5-5.6)
[2024-03-13] MEDS: LOPERAMIDE HCL 2 MG CAP PO PRN (07:40)
--- NOTE | 2024-03-13 08:57 | XRay Report ---
XR chest 1V portable CLINICAL HISTORY: Wheezing COMPARISON STUDY: Chest CT March 05, 2024. Chest radiograph March 10, 2024. FINDINGS: A left subclavian pacer is in place. There is no pneumothorax or pleural effusion. Intersti tial thickening is present. Cardiomediastinal silhouette is stable. Right hilar prominence is again n oted. Extensive right upper lobe airspace opacity is significantly progressed. The suspicious right u pper lobe lesion on chest CT of March 05, 2024 is obscured on this exam. IMPRESSION: 1. Progression of extensive right upper lobe airspace opacity. The findings favor pneumonia or postob structive pneumonia given the suspicious right upper lobe lesion on prior chest CT. Pulmonary consult ation is recommended. 2. Cardiomegaly with mild interstitial pulmonary edema. 3. Right hilar prominence due to lymphadenopathy better depicted on CT. ACT 112: Positive. There are findings on this exam that require communication between the performing entity and the patient following Patient Test Result Information Act ([place] Act 112) guidelines. Electronically signed by: Jonny Loya M.D. 03/13/2024 8:55 AM
[2024-03-13 09:43] LABS: Appearance Urine Clear (Clear); Bacteria Urine Automated None Seen (None Seen); Bilirubin Urine Negative (Negative); Blood Urine Negative (Negative); Cast Urine Automated 0-2 /lpf (0-2); Color Urine Yellow; Epithelial Cell Urine Auto 0-2 /hpf (0-2); Glucose Urine UA Negative (Negative); Ketones Urine Negative (Negative); Leukocyte Esterase Urine 1+ (Negative); Nitrite Urine Negative (Negative); Protein Urine Trace (Negative); Urobilinogen Urine Negative (Negative); WBC Urine Automated 0-5 /hpf (0-5); pH Urine 5.5 (4.5-7.5)
[2024-03-13] MEDS: OPTIRAY 320 125ml IV ONE (10:32)
--- NOTE | 2024-03-13 10:52 | CT Scan Report ---
CT ANGIOGRAPHY OF THE CHEST, PULMONARY EMBOLUS PROTOCOL CLINICAL HISTORY: Wheezing. Hemoptysis. Evaluate for pulmonary embolus. COMPARISON STUDY: Chest CT March 05, 2024. Chest radiograph performed earlier today. TECHNIQUE: Following IV administration of 83 mL of Optiray, helical axial images of the chest were ob tained utilizing the pulmonary embolus protocol. Maximal intensity projections and sagittal and grayson nal reformats were viewed on an independent 3D workstation. IV contrast was administered without com plication. Automated exposure control was utilized for the study. A dose lowering technique was uti lized adhering to the principles of ALARA. CT DOSE: 776.5 mGy.cm FINDINGS: No pulmonary emboli are identified although segmental and subsegmental pulmonary arteries are suboptimally assessed due to respiratory motion. A left subclavian pacer is in place. There is no pericardial effusion. Heart is mildly enlarged. Several enlarged right hilar lymph nodes are present . Index right hilar node on image 120 measures 2.5 x 1.5 cm. A partially loculated moderate right ple ural effusion has developed since prior CT. There is a trace left pleural effusion. Interlobular sept al thickening is noted. Extensive consolidation throughout the right upper lobe as progressed. Additi onal patchy bilateral airspace opacities are present. A 3 cm spiculated right upper lobe mass on imag e 131 is unchanged. There is no pneumothorax. Subacute nondisplaced lateral right ninth and 10th rib fractures are present. There are no thoracic spine fractures. Postoperative findings within the later al segment of the liver are incidentally noted. IMPRESSION: 1. No pulmonary emboli identified although segmental and subsegmental pulmonary arteries suboptimally assessed due to respiratory motion. 2. Significant progression of extensive right upper lobe airspace opacity suggestive of pneumonia. Ad ditional patchy bilateral airspace opacities may be infectious or represent alveolar pulmonary edema. 3. Interval development of a partially loculated moderate right pleural effusion. A developing empyem a cannot be excluded. 4. Redemonstration of a 3 cm right upper lobe mass. This favors a primary lung neoplasm. 5. Right hilar adenopathy which is likely neoplastic although reactive adenopathy could appear simila r. 6. Subacute nondisplaced right ninth and 10th rib fractures. No pneumothorax. ACT 112: Negative or not required by law. Electronically signed by: Jonny Loya M.D. 03/13/2024 10:50 AM
[2024-03-13] MEDS: FUROSEMIDE 40 MG/4 ML VIAL IV ONE (12:16)
--- NOTE | 2024-03-13 12:31 | XRay Report ---
KUB CLINICAL HISTORY: Abdominal pain. COMPARISON STUDY: CT of the abdomen and pelvis March 05, 2024. KUB March 12, 2024. FINDINGS: IVC filter and cholecystectomy clips are incidentally noted. There are calcified gallstones within the gallbladder. Excreted contrast within the collecting systems and ureters from recent cont rast-enhanced CT is noted. Hyperdense material within the colon favors oral contrast. The bowel gas p attern is normal. The amount of stool is within normal limits. IMPRESSION: 1. No evidence for a bowel obstruction. 2. Cholelithiasis. ACT 112: Negative or not required by law. Electronically signed by: Jonny Loya M.D. 03/13/2024 12:29 PM
--- NOTE | 2024-03-13 12:45 | Hospitalist Progress Note ---
Date of Service March 13, 2024 Assessment & Plan (1) Pneumonia: Plan: Pt is a 78-year-old male with past medical history significant for history of CVA with expressive aphasia and nonambulatory status, status post PEG tube, hypertension, history of tonsillar cancer s/p chemo radiation treatment, radiation-induced arteritis, carotid stenosis, GERD, esophageal stricture, history of DVT and PE, sinus node dysfunction status post pacemaker, BPH who presented because of a fall. Patient is mostly bedbound. Patient can transfer to the wheelchair. Thursday [employer] he fell down while being transferred to the wheelchair but did not pass out. Since then he had a few more falls and the family brought him for further evaluation. Pt's hospital stay has been complicated by the discovery of a new pulmonary mass, episodes of hemoptysis and epistaxis in the setting of chronic thrombocytopenia and need to continue plavix and aspirin with Hx of CVA, as well as difficulty with rehab placement which family would like as pt is not currently at his baseline of being able to transfer on his own. Fall R rib fractures Contusion, R hip Pt presenting from home after fall at home Abd/pelvis CT noting "acute appearing nondisplaced fractures of the right lateral ninth and 10th ribs". Also notes mild subcutaneous contusion on right hip, no organ trauma noted PRN pain control PT/OT- recommending acute rehab stay, CM assisting with placement Daughter Keysha (POA) would like pt to be back to baseline with ability to self- transfer to wheelchair/bed/commode before going back home Pulmonary Mass, RUL Post-Obstructive Pneumonia Pt with leukocytosis on admission Chest xray concerning for R perihilar infiltrate vs. nodule CT chest noting "right perihilar upper lobe soft tissue mass. Considerations include neoplasm, pneumonia and adenopathy." Respiratory viral panel negative Procalcitonin negative Legionella pending Sputum culture grew christopher glabarata Treated with IV Zosyn and doxycycline initially, transitioned to po Levaquin on 03/09/24 Given pt's cancer status and sputum cx results, also started on fluconazole 800mg daily Infectious Disease consulted, recs currently pending Pulmonology consulted, appreciate recs. Recommended/stated the following: -notes that mass may be primary vs. recurrence of previous tonsillar malignancy -might need bronchoscopy once acute issues resolve, at a tertiary care center possibly. Not currently a candidate for bronch -recommending oncology consult -recommending outpatient PET scan -"If urine Legionella is negative and white blood cell count is downtrending, recommend discontinuing Levaquin." Pt's daughter currently declining referral to oncology. Also declining palliative care consult. Pt remains a full code. Continue to monitor Hemoptysis Epistaxis Pt with episodes of hemoptysis on 03/10 and 03/11, also possible trace bleeding into PEG tube Per daughter, pt has frequent episodes of epistaxis at baseline On aspirin MWF and plavix due to Hx of prior CVA Pt with chronic thrombocytopenia Pt also with noted lung mass above that can also contribute to hemoptysis Pulmonology consulted, appreciate recs. Recommended/stated the following: -notes that hemoptysis was likely "multifactorial related in the setting of a lung mass, postobstructive pneumonia and epistaxis." -for worsening hemoptysis: nebulized TXA, urgent CTA chest, transfer to a tertiary center for embolization if active bleeding noted. -ENT consult for nosebleeds -"Agree with holding aspirin and Plavix in the setting of epistaxis, hemoptysis and thrombocytopenia. I would recommend discussion with the patient's family (as the patient is not able to be involved in a meaningful conversation given his expressive aphasia) given his prior history of stroke and antiplatelets being held." Discussion with pt's daughter Keysha (POA), she does NOT want aspirin/plavix held Continue plavix and aspirin per family request at this time Daughter declines ENT consult at this time, notes the nosebleeds are chronic PRN nasal saline Hemoptysis currently resolved on 03/[address] PEG Tube, accidental removal s/p replacement Nutrition Pt currently strict NPO in the setting of Hx of Tonsillar cancer s/p chemo Reports of pt drinking soda by mouth, sometimes provided by his Speech consulted, recommended strict NPO or permissive aspiration discussion Daughter Keysha (POA) agreeable to strict NPO while hospitalized, declines permissive aspiration Pt accidentally removed PEG tube on 03/12 GI consulted STAT, noted/stated the following: "Patient pulled out his current Eric-Suresh low profile 16 Fr x 4 cm PEG tube, unclear why or how did this happen, left the room and went home, I checked the tube and the balloon is busted. No Eric-Suresh tube available at the hospital hence I placed a regular balloon type 16 Fr tube, balloon inflated and position confirmed by seeing gastric secretions in the tube. The tube is EnFit tube however there are no compatible syringes or adapters available on the floor. Please get an adapter, prepare a 50 ml Syringe with PO contrast, order a bedside KUB and push the contrast in the tube immediately before they get the Xray to confirm and document position. Upon discharge, he should call GI office to have the tube replaced with a Eusebio tube as OP." KUB xray in followup noting working tube Continue tube feeds-pt uses home feeds that his daughter brings in Dietary consult GI followup after discharge for tube replacement Elevated troponin Demand Ischemia Pacemaker in situ Calcification of Aorta and branches Trop elevated as high as 375.7, downtrended EKG without signs of ischemia Echo noting EF 55-60%, moderate LVH, normal wall motion, Grade II diastolic dysfunction, moderate aortic sclerosis without stenosis Pt was asymptomatic Imaging noting "calcification of aorta and branches" Cardiology was consulted, recommended/stated the following: "Suspect demand based ischemia on basis of underlying medical concerns. Continue treatment with home medications. Patient asymptomatic, with marked thrombocytopenia Outpatient pacemaker interrogations via the [facility]" Continue to monitor on telemetry Congestive Heart Failure, diastolic Pt with elevated BNP, increased from 285 to 1639 Echo on admission noting Grade II diastolic dysfunction Repeat Chest XRAY on 03/10 with worsening infiltrates s/p doses of IV lasix 40mg on 03/11 and lasix 20mg on 03/12 Cardiology consulted once more, pt to be seen on 03/13, appreciate recs Diarrhea Pt with imaging noting retained stool However, pt with recent frequent BMs at this time C diff testing on 03/12 negative Since pt hospitalized more than 72hrs, system not allowing stool culture panel to be ordered PRN loperamide Concern for "soreness" with frequent cleaning/wiping PRN barrier cream Wound nurse consulted, appreciate recs and care Rectal tube placed on 03/13/24 Chronic Anemia Iron Deficiency Anemia Pt with chronic anemia, hgb 9-12 range On DAPT, noted thrombocytopenia-risk factors for bleeding FOBT negative on 03/09/24 Iron levels low on admission -s/p IV venofer -consider adding po daily iron supplement B12 and folate levels normal Transfuse for hgb <7 Continue to monitor Chronic Thrombocytopenia Platelets chronically low AM peripheral smear Hypomagnesemia Hypophosphatemia replete as needed Hypernatremia Sodium has been running high at 145-146 Continue to monitor D5w as needed Hyperglycemia AM [id number] Presence of IVC filter Noted to be in place on imaging Inguinal hernias Noted on imaging Small, bilateral PCP followup Bilateral renal cysts Nonobstructing nephrolithiasis noted on imaging no hydronephrosis stable Transaminitis Cholelithiasis Liver enzymes elevated CT abd/pelvis noting "innumerable gallstones" Continue to trend liver enzymes Consider dedicated RUQ US Consider GI consult Leukocytosis Initially resolved but persistent once more Likely in setting of pneumonia Repeat Chest xray at this time Repat UA Continue to monitor History of CVA Expressive aphasia Mostly bedbound Can transfer to wheelchair Nutrition from PEG tube Meds via PEG tube On aspirin Plavix and statin PT OT when stable Speech recommending complete NPO status. per family patient usually uses 1 bottle of half soda that lasts him for many weeks at home. However, family not agreeable at this time to permissive aspiration. - Daughter Keysha agreeable to deferring onto the use while hospitalized. 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 Hyperlipidemia On statin Hypertension On labetalol and amlodipine Will monitor GERD On Pepcid BPH on finasteride Diet: NPO, tube feeds DVT prophylaxis: SCDs fas patient is thrombocytopenic CODE STATUS full code as per discussion of admitting provider with daughter Disposition: acute rehab Admission and Anticipated Discharge Date Admission Date: March 05, 2024 Review of Systems Review of Systems: All systems reviewed & are unremarkable except as noted in Subjective Physical Exam Physical Exam: General: Alert Neuro: difficulty with speech and movement on the right, difficulty talking HEENT: NC/AT CV: RRR Resp: no increased effort of breathing Abdomen: Soft, nontender Results & Data Results & Data Vital Signs (Past 12 Hours) Vital Signs Temp Pulse Pulse Resp BP BP Pulse Ox 03/13/24 12:15 36.6 C 73 36 H 119/66 91 03/13/24 08:05 36.8 C 86 16 116/57 L 90 03/13/24 07:25 03/13/24 07:00 69 03/13/24 04:02 36.3 C L 74 20 104/62 90 O2 Del Method O2 Flow Rate 03/13/24 12:15 Nasal Cannula 2 03/13/24 08:05 Room Air 03/13/24 07:25 Room Air 03/13/24 07:00 03/13/24 04:02 Room Air (1) Pneumonia Aspiration pneumonia type: unspecified Laterality: bilateral Lung location: unspecified part of lung Pneumonia type: aspiration pneumonia Qualified Code(s): J69.0 - Pneumonitis due to inhalation of food and vomit
[2024-03-13] MEDS ORDERED: MEROPENEM 1,000 MG in SYRINGE 0 ML IV ONE (12:46)
[2024-03-13] MEDS ORDERED: LINEZOLID 600 MG/300 ML BAG IV ONE (12:49)
[2024-03-13 12:54] LABS: Basophils # (auto) 0.05 K/uL (0.00-0.20); Basophils % (auto) 0.4 %; Eosinophils # (auto) 0.03 K/uL (0.00-0.50); Eosinophils % (auto) 0.2 %; Hematocrit (blood only) 30.7 % (42.0-52.0); Hemoglobin 9.5 g/dl (14.0-18.0); Immature Granulocytes # (auto) 0.16 K/uL (0.01-0.20); Immature Granulocytes % (auto) 1.2 %; Lymphocytes # (auto) 0.83 K/uL (1.20-3.40); Lymphocytes % (auto) 6.2 %; Mean Corpuscular Hemoglobin 31.6 pg (25.0-34.0); Mean Corpuscular Hgb Conc 30.9 g/dL (32.0-36.0); Mean Platelet Volume 13.6 fL (9.4-12.4); Monocytes # (auto) 1.89 K/uL (0.11-0.59); Monocytes % (auto) 14.1 %; Neutrophils # (auto) 10.47 K/uL (1.40-6.50); Neutrophils % (auto) 77.9 %; Nucleated RBC # (auto) 0.05 K/uL (0.00-0.12); Nucleated RBC % (auto) 0.4 %; Platelet Count 102 K/uL (130-400); RDW Coefficient of Variation 15.4 % (11.5-14.5); RDW Standard Deviation 57.4 fL (36.4-46.3); Red Blood Count 3.01 M/uL (4.70-6.10); White Blood Count 13.43 K/ul (4.8-10.8)
[2024-03-13 13:06] LABS: Albumin Level 3.2 gm/dl (3.4-5.0); BUN Creatinine Ratio 41.3 (10-20); Bilirubin,Total 0.5 mg/dl (0.2-1.0); Calcium 9.3 mg/dl (8.6-10.3); Creatinine Clr Calc Pharmacy 46.6 ml/min; Globulin 3.2 gm/dl (2.5-4.0); Magnesium 2.1 mg/dl (1.7-2.4); Phosphorus 4.2 mg/dl (2.5-4.9); Total Protein 6.4 gm/dl (6.0-8.3)
[2024-03-13] MEDS: CEFEPIME 2000MG 2,000 MG/20 ML SYR IV STA (13:06)
--- NOTE | 2024-03-13 13:13 | Nephrology Consultation ---
Date of Consultation March 13, 2024 History of Present Illness Reason for Consultation: hypernatremia, fluid /volume concerns w/ HF Requesting Physician: Dr Ayon Attending Physician: Leslye Ayon MD Allergies Allergy/AdvReac Type Severity Reaction Status Date / Time No Known Allergies Allergy Unknown Verified 11/28/19 10:09 Home Medications Medication Instructions Recorded Confirmed Type acetaminophen 325 mg capsule 975 mg feeding tube BID PRN Pain 04/11/18 03/05/24 History (Tylenol) amlodipine 10 mg tablet (Norvasc) 5 mg feeding tube QAM 04/11/18 03/05/24 History aspirin 81 mg chewable tablet 81 mg feeding tube [id number] 04/11/18 03/05/24 History atorvastatin 40 mg tablet (Lipitor) 40 mg feeding tube HS 04/11/18 03/05/24 History clopidogrel 75 mg tablet (Plavix) 75 mg feeding tube QAM 04/11/18 03/05/24 History famotidine 20 mg tablet (Pepcid) 20 mg feeding tube QAM 04/11/18 03/05/24 History labetalol 300 mg tablet 300 mg feeding tube TID 04/11/18 03/05/24 History lactose-reduced food with fiber 375 ea feeding tube BID 11/28/19 03/05/24 History oral liquid lactose-reduced food with fiber 500 ea feeding tube QPM 11/28/19 03/05/24 History oral liquid finasteride 5 mg tablet 5 mg feeding tube DAILY 03/05/24 03/05/24 History ketoconazole 2 % topical cream 1 applic topical DIRECTED PRN 03/05/24 03/05/24 History Other triamcinolone acetonide 0.1 % 1 applic topical BID PRN Other 03/05/24 03/05/24 History topical cream Patient History Medical History (Updated 03/12/24 @ 13:19 by Silvano Medel MD) Pneumonia H/O ASPIRATION PNEUMONIA PER RECORD Carotid stenosis Stroke ~4 YEARS AGO. Surgical History S/P percutaneous endoscopic gastrostomy (PEG) tube placement History of esophagogastroduodenoscopy (EGD) History of carotid endarterectomy RIGHT? History of tonsillectomy Family History Other Cancer Family history of stroke Hypertension Social History Smoking Status: Former smoker Cigarettes Per Day: 20; Second Hand Exposure: No; Do You Dip or Chew Tobacco: No; Hx Alcohol Use: No Hx Substance Use: No Preferred Language: Danish Communication Ability: Impaired Communication Ability Comment: DIFFICULTY WITH VERBAL COMMUNICATION. A&O X3 PER DAUGHTER. Menagerie Superintendent Required: No Beliefs That Will Affect Care: None marital status: Current Living Situation: Family Feels Safe at Home: Yes Assistive Devices: Bedside Commode, Wheelchair and Other Results & Data Vital Signs (Past 12 Hours) Vital Signs Temp Pulse Pulse Resp BP BP Pulse Ox 03/13/24 12:15 36.6 C 73 36 H 119/66 91 03/13/24 08:05 36.8 C 86 16 116/57 L 90 03/13/24 07:25 03/13/24 07:00 69 03/13/24 04:02 36.3 C L 74 20 104/62 90 O2 Del Method O2 Flow Rate 03/13/24 12:15 Nasal Cannula 2 03/13/24 08:05 Room Air 03/13/24 07:25 Room Air 03/13/24 07:00 03/13/24 04:02 Room Air
--- NOTE | 2024-03-13 13:29 | Critical Care Consultation ---
Date of Consultation March 13, 2024 Assessment & Plan (1) Hemoptysis: Resolved. Likely was multifactorial related in the setting of a lung mass, postobstructive pneumonia and epistaxis. 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 -Patient's daughter reports oncology care was received at [facility] (4) Closed rib fracture: Pain control per primary team. -Patient has possible empyema at this site which could be compounding pleuritic pain and rib fracture pain (5) Postobstructive pneumonia: Agree with expanding antibiotic coverage -Patient's daughter reported intubation not in line with long-term goals, would reconsider if this is potentially reversible -Accordingly I feel bronchoscopic evaluation is not indicated/high risk for respiratory failure, empiric antibiotic treatment at this time -We discussed possible noninvasive mechanical ventilation; however I do feel that is also relatively contraindicated. -While it may stent airways open there is risk of air trapping and development of pneumothorax (6) Thrombocytopenia: Appears to be chronic. Unclear etiology. -Likely multifactorial (7) Empyema: Radiographic findings suggestive of empyema in the setting of postobstructive pneumonia -Will likely require pleural drainage (8) Severe sepsis: Patient has known source and lungs, probable empyema -On expanded antibiotic coverage -Patient very medically complex, mass likely complicating source control from a postobstructive pneumonia standpoint -Patient would likely benefit from evaluation by thoracic surgery: Could perform decortication and possible further evaluation of lung mass (9) Nutrition disorder: Patient receiving bolus feedings via PEG tube -PEG tube recently dislodged and replaced by GI, KUB indicated contrast entering the stomach (10) Lactic acid acidosis: Supplemental thiamine -200 mg IV x 1 now (11) Counseling regarding goals of care: Utilizing patient's power of trademark attorney: With expressive aphasia it is extremely difficult to elucidate whether patient has capacity to make his medical decisions -Patient's daughter described what would be a positive outcome would be for the patient to be able to be transferred home and participate in transfers from wheelchair. -Patient's daughter reported he has not had good quality of life recently, also concerned about comfort as well as long-term complications and invasive evaluation in the setting of new lung mass and infection -Have updated the CODE STATUS to reflect DO NOT RESUSCITATE in event of cardiac arrest nor respiratory insufficiency -Discussed current goal would be to further classify lung mass, and continue to treat current infection -We do not have IR nor thoracic surgery capabilities, agree with pulmonary recommendations of tertiary care referral given his medical complexities and facility limitations -I have informed the [facility] hospitalist team who will be facilitating transfer to tertiary care -Patient may benefit from palliative care services versus hospice depending on subsequent diagnostics. Plan Critical care will sign off. History of Present Illness Reason for Consultation: Possible respiratory failure Requesting Physician: Leslye Ayon MD Attending Physician: Leslye Ayon MD History of Present Illness History is largely obtained from prior records and discussion with additional care providers as patient has baseline expressive aphasia. Patient is a 78-year-old male who has a past medical history of prior tonsillar malignancy, stroke, hypertension, sick sinus syndrome status post dual chamber pacemaker insertion as well as recent multiple falls leading to closed right rib fractures. Patient was recently admitted for pneumonia and placed on antibiotics. He has been seen by pulmonary and there was a new diagnosis of a mass of the right upper lobe. His hospital course has been complicated by hemoptysis (this may be secondary to epistaxis: Patient has history of radiation to the head and neck). I was contacted by the hospitalist over concerns of possible impending respiratory failure and the patient having a full CODE STATUS. During my bedside evaluation the patient is tolerating nasal cannula, he is only tachypneic after he attempts to cough, the cough appears to be nonproductive by enlarge. The patient's daughter who has been involved in the medical decision making and has reported medical power of trademark attorney is at the bedside. We discussed need for elucidating what this mass may represent: Reoccurrence of tonsillar malignancy versus new bronchogenic malignancy. We discussed heroic measures to be undertaken if the patient were to have a cardiac arrest, patient's daughter states that is not in line with his wishes. I discussed there definitely appears to be an underlying postobstructive pneumonia, also discussed the intricacies of pleural drainage for a presumptive empyema. Intubation in the event of respiratory insufficiency is also not in line with the patient's long-term wishes. Accordingly I have updated his CODE STATUS. Allergies Allergy/AdvReac Type Severity Reaction Status Date / Time No Known Allergies Allergy Unknown Verified 11/28/19 10:09 Home Medications Medication Instructions Recorded Confirmed Type acetaminophen 325 mg capsule 975 mg feeding tube BID PRN Pain 04/11/18 03/05/24 History (Tylenol) amlodipine 10 mg tablet (Norvasc) 5 mg feeding tube QAM 04/11/18 03/05/24 His tory aspirin 81 mg chewable tablet 81 mg feeding tube [id number] 04/11/18 03/05/24 History atorvastatin 40 mg tablet (Lipitor) 40 mg feeding tube HS 04/11/18 03/05/24 History clopidogrel 75 mg tablet (Plavix) 75 mg feeding tube QAM 04/11/18 03/05/24 History famotidine 20 mg tablet (Pepcid) 20 mg feeding tube QAM 04/11/18 03/05/24 History labetalol 300 mg tablet 300 mg feeding tube TID 04/11/18 03/05/24 History lactose-reduced food with fiber 375 ea feeding tube BID 11/28/19 03/05/24 History oral liquid lactose-reduced food with fiber 500 ea feeding tube QPM 11/28/19 03/05/24 Histo ry oral liquid finasteride 5 mg tablet 5 mg feeding tube DAILY 03/05/24 03/05/24 History ketoconazole 2 % topical cream 1 applic topical DIRECTED PRN 03/05/24 03/05/24 History Other triamcinolone acetonide 0.1 % 1 applic topical BID PRN Other 03/05/24 03/05/24 History topical cream Patient History Medical History (Updated 03/13/24 @ 14:49 by Jeremi Gutierrez DO) Pneumonia H/O ASPIRATION PNEUMONIA PER RECORD Carotid stenosis Stroke ~4 YEARS AGO. Surgical History S/P percutaneous endoscopic gastrostomy (PEG) tube placement History of esophagogastroduodenoscopy (EGD) History of carotid endarterectomy RIGHT? History of tonsillectomy Family History Other Cancer Family history of stroke Hypertension Social History Smoking Status: Former smoker Cigarettes Per Day: 20; Second Hand Exposure: No; Do You Dip or Chew Tobacco: No; Hx Alcohol Use: No Hx Substance Use: No Preferred Language: Qatari Communication Ability: Impaired Communication Ability Comment: DIFFICULTY WITH VERBAL COMMUNICATION. A&O X3 PER DAUGHTER. Health Management Consultant Required: No Beliefs That Will Affect Care: None marital status: Current Living Situation: Family Feels Safe at Home: Yes Assistive Devices: Bedside Commode, Wheelchair and Other Review of Systems Review of Systems: Other (Unobtainable due to expressive aphasia) Physical Exam Physical Exam: General: Alert. nontoxic. At times uncomfortable appearing. Winces when areas of the right chest are palpated, frail Skin: Warm, dry, Head: Atraumatic Ears, nose, mouth and throat: airway patent Cardiovascular: Normal peripheral perfusion Respiratory: no respiratory distress, episodes of tachypnea after coughing; however, returns to baseline: Saturating 92% on 3 L oxygen Gastrointestinal: Non distended, PEG tube present Musculoskeletal: No deformity Results & Data Results & Data Vital Signs (Past 12 Hours) Vital Signs Temp Pulse Pulse Resp BP BP BP 03/13/24 13:18 114/64 03/13/24 13:15 74 45 H 03/13/24 13:00 96/81 L 03/13/24 13:00 80 37 H 03/13/24 12:56 111/74 03/13/24 12:54 97 H 29 H 03/13/24 12:15 36.6 C 73 36 H 119/66 03/13/24 08:05 36.8 C 86 16 116/57 L 03/13/24 07:25 03/13/24 07:00 69 03/13/24 04:02 36.3 C L 74 20 104/62 Pulse Ox O2 Del Method O2 Flow Rate 03/13/24 13:18 03/13/24 13:15 95 Nasal Cannula 2 03/13/24 13:00 03/13/24 13:00 91 03/13/24 12:56 03/13/24 12:54 03/13/24 12:15 91 Nasal Cannula 2 03/13/24 08:05 90 Room Air 03/13/24 07:25 Room Air 03/13/24 07:00 12/15/24 04:02 90 Room Air Critical Care Results & Data Vital Signs (Past 12 Hours) Vital Signs Temp Pulse Pulse Resp BP BP BP 03/13/24 13:37 03/13/24 13:18 114/64 03/13/24 13:15 74 45 H 03/13/24 13:05 84 03/13/24 13:00 37.7 C H 03/13/24 13:00 96/81 L 03/13/24 13:00 80 37 H 03/13/24 12:56 111/74 03/13/24 12:54 97 H 29 H 03/13/24 12:15 36.6 C 73 36 H 119/66 03/13/24 08:05 36.8 C 86 16 116/57 L 03/13/24 07:25 03/13/24 07:00 69 03/13/24 04:02 36.3 C L 74 20 104/62 Pulse Ox O2 Del Method O2 Flow Rate 03/13/24 13:37 Nasal Cannula 2 03/13/24 13:18 03/13/24 13:15 95 Nasal Cannula 2 03/13/24 13:05 03/13/24 13:00 03/13/24 13:00 03/13/24 13:00 91 03/13/24 12:56 03/13/24 12:54 03/13/24 12:15 91 Nasal Cannula 2 03/13/24 08:05 90 Room Air 03/13/24 07:25 Room Air 03/13/24 07:00 03/13/24 04:02 90 Room Air Lab & Micro Results (Past 24 Hours) RBC 3.01 M/uL (4.70-6.10) L 03/13/24 WBC 13.43 K/ul (4.8-10.8) H 03/13/24 Hgb 9.5 g/dl (14.0-18.0) L 03/13/24 Hct 30.7 % (42.0-52.0) L 03/13/24 MCV 102.0 fL (80.0-100.0) H 03/13/24 MCH 31.6 pg (25.0-34.0) 03/13/24 MCHC 30.9 g/dL (32.0-36.0) L 03/13/24 RDW Standard Deviation 57.4 fL (36.4-46.3) H 03/13/24 RDW Coefficient of Variation 15.4 % (11.5-14.5) H 03/13/24 Plt Count 102 K/uL (130-400) L 03/13/24 MPV 13.6 fL (9.4-12.4) H 03/13/24 Nucleated Red Blood Cells % (auto) 0.4 % 03/13 Nucleated RBC Absolute Count (auto) 0.05 K/uL (0.00-0.12) 1 05/14/23 Neutrophils (%) (Auto) 77.9 % 03/13/24 Lymphocytes (%) (Auto) 6.2 % 03/13/24 Monocytes # (Auto) 1.89 K/uL (0.11-0.59) H 03/13/24 Eosinophils # (Auto) 0.03 K/uL (0.00-0.50) 03/13/24 Immature Granulocyte % (Auto) 1.2 % 03/13/24 Neutrophils # (Auto) 10.47 K/uL (1.40-6.50) H 03/13/24 Lymphocytes # (Auto) 0.83 K/uL (1.20-3.40) L 03/13/24 Monocytes # (Auto) 1.89 K/uL (0.11-0.59) H 03/13/24 Eosinophils # (Auto) 0.03 K/uL (0.00-0.50) 03/13/24 Basophils # (Auto) 0.05 K/uL (0.00-0.20) 03/13/24 Immature Granulocyte # (Auto) 0.16 K/uL (0.01-0.20) 4 Na 144 mmol/L (136-145) 03/13/24 K 4.0 mmol/L (3.5-5.1) 03/13/24 Cl 109 mmol/L (98-107) H 03/13/24 CO2 25 mmol/L (21-32) 03/13/24 Anion Gap 10 (3-11) 03/13/24 BUN 52 mg/dl (6-23) H 03/13/24 Creatinine 1.26 mg/dl (0.6-1.4) 03/13/24 BUN/Creatinine Ratio 41.3 (10-20) H 03/13/24 Glu 138 mg/dl (70-99(Fasting)) H 03/13/24 Ca 9.3 mg/dl (8.6-10.3) 03/13/24 Phosphorus Level 4.2 mg/dl (2.5-4.9) 03/13/24 Total Bilirubin 0.5 mg/dl (0.2-1.0) 03/13/24 AST 60 U/L (13-39) H 03/13/24 ALT 75 U/L (7-52) H 03/13/24 Alkaline Phosphatase 152 U/L (34-104) H 03/13/24 TP 6.4 gm/dl (6.0-8.3) 03/13/24 Albumin 3.2 gm/dl (3.4-5.0) L 03/13/24 Globulin 3.2 gm/dl (2.5-4.0) 03/13/24 Albumin/Globulin Ratio 1.0 (0.9-2) 03/13/24 Mg 2.1 mg/dl (1.7-2.4) 03/13/24 12:35 Calcium Level 9.3 mg/dl (8.6-10.3) 03/13/24 12:35 Microbiology 03/13/24 05:10 Gram Stain - Final Sputum, Expectorated 03/12/24 14:57 Fungal Smear - Final Blood Diagnostic Findings (Past 24 Hours) KUB X-Ray 03/12/24 13:58 EXAM: Radiograph of the Abdomen 1 View INDICATION: PEG tube placement. TECHNIQUE: Scalp view of the abdomen obtained. The patient is gastrostomy tube was then injected with 50 cc of contrast. COMPARISON: No relevant prior studies available. FINDINGS: Limitations: None. Gastrointestinal tract: Gastrostomy balloon is inflated in the gastric body. Contrast injected into the 2 edges of the stomach. No gross extravasation in 1 view. Organs: Multiple gallstones present. Bones/joints: See below. Soft tissues: No abnormality noted. No radiopaque foreign body noted. Vasculature: Atherosclerotic calcifications are noted. Inferior vena cava filter L2-L3. IMPRESSION: 1. Contrast injected into the gastrostomy tube enters the stomach. 2. Cholelithiasis. ACT 112: Negative or not required by law. Electronically signed by Humera Hemphill 03-12-2024 2:40 PM Chest X-Ray 03/13/24 07:56 XR chest 1V portable CLINICAL HISTORY: Wheezing COMPARISON STUDY: Chest CT March 05, 2024. Chest radiograph March 10, 2024. FINDINGS: A left subclavian pacer is in place. There is no pneumothorax or pleural effusion. Interstitial thickening is present. Cardiomediastinal silhouette is stable. Right hilar prominence is again noted. Extensive right upper lobe airspace opacity is significantly progressed. The suspicious right upper lobe lesion on chest CT of March 05, 2024 is obscured on this exam. IMPRESSION: 1. Progression of extensive right upper lobe airspace opacity. The findings favor pneumonia or postobstructive pneumonia given the suspicious right upper lobe lesion on prior chest CT. Pulmonary consultation is recommended. 2. Cardiomegaly with mild interstitial pulmonary edema. 3. Right hilar prominence due to lymphadenopathy better depicted on CT. ACT 112: Positive. There are findings on this exam that require communication between the performing entity and the patient following Patient Test Result Information Act ([place] Act 112) guidelines. Electronically signed by: Jonny Loya M.D. 03/13/2024 8:55 AM Chest CTA 03/13/24 10:07 CT ANGIOGRAPHY OF THE CHEST, PULMONARY EMBOLUS PROTOCOL CLINICAL HISTORY: Wheezing. Hemoptysis. Evaluate for pulmonary embolus. COMPARISON STUDY: Chest CT March 05, 2024. Chest radiograph performed earlier today. TECHNIQUE: Following IV administration of 83 mL of Optiray, helical axial images of the chest were obtained utilizing the pulmonary embolus protocol. Maximal intensity projections and sagittal and coronal reformats were viewed on an independent 3D workstation. IV contrast was administered without complication. Automated exposure control was utilized for the study. A dose lowering technique was utilized adhering to the principles of ALARA. CT DOSE: 776.5 mGy.cm FINDINGS: No pulmonary emboli are identified although segmental and subsegmental pulmonary arteries are suboptimally assessed due to respiratory motion. A left subclavian pacer is in place. There is no pericardial effusion. Heart is mildly enlarged. Several enlarged right hilar lymph nodes are present. Index right hilar node on image 120 measures 2.5 x 1.5 cm. A partially loculated moderate right pleural effusion has developed since prior CT. There is a trace left pleural effusion. Interlobular septal thickening is noted. Extensive consolidation throughout the right upper lobe as progressed. Additional patchy bilateral airspace opacities are present. A 3 cm spiculated right upper lobe mass on image 131 is unchanged. There is no pneumothorax. Subacute nondisplaced lateral right ninth and 10th rib fractures are present. There are no thoracic spine fractures. Postoperative findings within the lateral segment of the liver are incidentally noted. IMPRESSION: 1. No pulmonary emboli identified although segmental and subsegmental pulmonary arteries suboptimally assessed due to respiratory motion. 2. Significant progression of extensive right upper lobe airspace opacity suggestive of pneumonia. Additional patchy bilateral airspace opacities may be infectious or represent alveolar pulmonary edema. 3. Interval development of a partially loculated moderate right pleural effusion. A developing empyema cannot be excluded. 4. Redemonstration of a 3 cm right upper lobe mass. This favors a primary lung neoplasm. 5. Right hilar adenopathy which is likely neoplastic although reactive adenopathy could appear similar. 6. Subacute nondisplaced right ninth and 10th rib fractures. No pneumothorax. ACT 112: Negative or not required by law. Electronically signed by: Jonny Loya M.D. 03/13/2024 10:50 AM KUB X-Ray 03/13/24 12:02 KUB CLINICAL HISTORY: Abdominal pain. COMPARISON STUDY: CT of the abdomen and pelvis March 05, 2024. KUB March 12, 2024. FINDINGS: IVC filter and cholecystectomy clips are incidentally noted. There are calcified gallstones within the gallbladder. Excreted contrast within the collecting systems and ureters from recent contrast-enhanced CT is noted. Hyperdense material within the colon favors oral contrast. The bowel gas pattern is normal. The amount of stool is within normal limits. IMPRESSION: 1. No evidence for a bowel obstruction. 2. Cholelithiasis. ACT 112: Negative or not required by law. Electronically signed by: Jonny Loya M.D. 03/13/2024 12:29 PM I & O Totals 24 Hours 03/12/24 03/13/24 03/14/24 06:59 06:59 06:59 Intake Total 420 / 420 580 / 580 0 / 0 Output Total 701 / 701 663 / 663 1452 / 1452 Balance -281 / -281 -83 / -83 -1452 / -1452 Cumulative 03/05/24 14:38 thru 03/13/24 14:27 Intake Total 5205.000 Output Total 5275 Balance -70.000 RT Ventilator Mngmt (Last Documented) Ventilator Ordered Settings Respiratory Rate 45 03/13/24 13:15 Ventilator - PT Measurements Respiratory Rate 45 Coding Level of Care Code 29729 IN/OBS CONSULT LVL 5,80M Diagnoses Hemoptysis R04.2 Mass of upper lobe of right lung R91.8 Tonsillar cancer C09.9 Closed rib fracture S22.39XA Postobstructive pneumonia J18.9 Thrombocytopenia D69.6 Empyema J86.9 Severe sepsis A41.9; R65.20 Nutrition disorder E63.9 Lactic acid acidosis E87.20 Counseling regarding goals of care Z71.89
--- NOTE | 2024-03-13 13:33 | Cardiology Progress Note ---
Date of Service March 13, 2024 Assessment & Plan (1) Sepsis: (2) Empyema: (3) Elevated troponin: (4) Closed rib fracture: (5) Hemoptysis: (6) Thrombocytopenia: (7) Mass of upper lobe of right lung: Plan Complex 78 year old male admitted from home, post fall, with right sided rib fractures. Patient with hemoptysis, workup revealing a RUL pulmonary mass, post-obstructive pneumonia, history of tonsillar cancer, chronic thrombocytopenia. Patient initially evaluated in cardiology consultation with Dr. Bravo due to elevated troponin, suspected demand based ischemia treated medically, notably with contraindications to anticoagulation. Repeat evaluation by Cardiology requested due to concern for acute decompensated diastolic congestive heart failure. Patient transferred to the ICU shortly prior to my evaluation, suspected sepsis, probable empyema. Examination without decompensated heart failure, appearing mildly volume depleted. No indication for further diuresis Continue beta-chencho, statin, and antiplatelet therapy as able. Dual chamber [employer] pacemaker in place, implanted on 08/11/2014 Admission and Anticipated Discharge Date Admission Date: March 05, 2024 Supervising Physician Co-Signing Physician Notes I spent a total of 30 minutes on the date of service in preparation, delivery, and documentation of the care provided to this patient, excluding any time spent in the performance of separately billed services. I have personally performed a history and physical examination on the patient. I have reviewed the advance practitioner's documentation, and I agree with, and take responsibility for the plan of care. Subjective Asked to reevaluate patient today by Hospitalist, concern for acute decompensated diastolic congestive heart failure, family request Patient unable to provide information, expressive aphasia. and daughter at bedside BNP elevated March 11, 2020 24-1639 pg/mL, previously 285 pg/mL on March 05, 2024 Resting echocardiography on March 06, 2024 with preserved LV systolic function, EF 55 to 60%, moderate concentric LVH, grade 2 diastolic dysfunction. Doppler findings were not suggestive of pulmonary hypertension. Received 40 mg IV furosemide on March 11, 2024, 20 mg IV furosemide on March 12, 2024, and 40 mg IV furosemide earlier today Imaging of the chest earlier today negative for PE, revealing progressive extensive right upper lobe airspace opacity, additional bilateral airspace opaci ties, interval development of a partially loculated moderate right pleural effusion, probable empyema, redemonstration of a 3 cm right upper lobe mass favoring neoplasm with right hilar adenopathy, subacute nondisplaced right ninth and 10th rib fractures Telemetry benign Review of Systems Review of Systems: Unable to be obtained Physical Exam Physical Exam: General: Ill appearing, occasionally wincing Neck: No JVD. Heart: Regular, 76 bpm. Grade I-II/ systolic murmur. Lungs: Diminished. Diffuse rhonchi. Abdomen: G-tube. Extremities: Multiple excoriations. No edema. Right sided hemiparesis. Pulses: Posterior tibial=1/4. Results & Data Vital Signs (Past 12 Hours) Vital Signs Temp Pulse Pulse Resp BP BP BP 03/13/24 13:18 114/64 03/13/24 13:15 74 45 H 03/13/24 13:00 96/81 L 03/13/24 13:00 80 37 H 03/13/24 12:56 111/74 03/13/24 12:54 97 H 29 H 03/13/24 12:15 36.6 C 73 36 H 119/66 03/13/24 08:05 36.8 C 86 16 116/57 L 03/13/24 07:25 03/13/24 07:00 69 03/13/24 04:02 36.3 C L 74 20 104/62 Pulse Ox O2 Del Method O2 Flow Rate 03/13/24 13:18 03/13/24 13:15 95 Nasal Cannula 2 03/13/24 13:00 03/13/24 13:00 91 03/13/24 12:56 03/13/24 12:54 03/13/24 12:15 91 Nasal Cannula 2 03/13/24 08:05 90 Room Air 03/13/24 07:25 Room Air 03/13/24 07:00 03/13/24 04:02 90 Room Air Laboratory Results Cardiac Enzymes 03/12/24 03/13/24 03/13/24 Range/Units 14:57 05:18 12:35 AST 52 H 50 H 60 H (13-39) U/L CBC 03/12/24 03/13/24 03/13/24 Range/Units 14:57 05:18 12:35 WBC 12.40 H 12.02 H 13.43 H (4.8-10.8) K/ul RBC 2.92 L 2.84 L 3.01 L (4.70-6.10) M/uL Hgb 9.2 L 9.1 L 9.5 L (14.0-18.0) g/dl Hct 29.6 L 29.0 L 30.7 L (42.0-52.0) % Plt Count 88 L 94 L 102 L (130-400) K/uL Neut # (Auto) 9.24 H 9.43 H 10.47 H (1.40-6.50) K/uL Lymph # (Auto) 0.78 L 0.79 L 0.83 L (1.20-3.40) K/uL [place] # (Auto) 2.11 H 1.59 H 1.89 H (0.11-0.59) K/uL Eos # (Auto) 0.05 0.04 0.03 (0.00-0.50) K/uL Baso # (Auto) 0.05 0.04 0.05 (0.00-0.20) K/uL Comprehensive Metabolic Panel 03/12/24 03/13/24 03/13/24 Range/Units 14:57 05:18 12:35 Sodium 145 147 H 144 (136-145) mmol/L Potassium 3.7 3.6 4.0 (3.5-5.1) mmol/L Chloride 111 H 111 H 109 H (98-107) mmol/L Carbon Dioxide 23 27 25 (21-32) mmol/L BUN 48 H 50 H 52 H (6-23) mg/dl Creatinine 1.14 1.18 1.26 (0.6-1.4) mg/dl Glucose 108 H 120 H 138 H (70-99(Fasting)) mg/dl Calcium 9.2 9.1 9.3 (8.6-10.3) mg/dl AST 52 H 50 H 60 H (13-39) U/L ALT 60 H 68 H 75 H (7-52) U/L Alkaline Phosphatase 136 H 139 H 152 H (34-104) U/L Total Protein 6.1 6.3 6.4 (6.0-8.3) gm/dl Albumin 3.2 L 3.3 L 3.2 L (3.4-5.0) gm/dl Intake and Output 12/14/24 12/15/24 12/15/24 22:59 06:59 14:59 Intake Total 50 / 580 120 / 580 0 / 0 Output Total 411 / 663 2 / 2 Balance -361 / -83 120 / -83 -2 / -2 Intake: Oral 50 / 170 120 / 170 0 / 0 Output: Urine Amount (Catheter) 400 / 650 External 400 / 650 # Bowel Movements Other: # Unmeasured Voids 1 2 # Bowel Movement Diapers 2 Weight 69.1 kg Weight Measurement Method [facility] (1) Sepsis Sepsis type: sepsis due to unspecified organism Qualified Code(s): A41.9 - Sepsis, unspecified organism
[2024-03-13] MEDS: LINEZOLID 600 MG/300 ML BAG IV ONE (14:09)
[2024-03-13] MEDS: MEROPENEM 500 MG in SYRINGE 0 ML IV SCH ×2 (14:09→21:01)
--- NOTE | 2024-03-13 14:38 | Pulmonology Progress Note ---
Date of Service March 13, 2024 Assessment & Plan (1) Postobstructive pneumonia: Plan: Urine Legionella is pending. Repeat procalcitonin was 0.4 which is below the threshold for a "positive" procalcitonin. On repeat CT chest patient has worsening predominantly right-sided pneumonia which is quite extensive and an interval loculated pleural effusion. I did look at this pleural effusion with ultrasound which is quite small. Unfortunately the area of the effusion is quite tender as this is the area where he has a rib fracture. I do think source control is required and would recommend the patient be transferred to [place] for IR guided pigtail placement as the effusion is small, the patient is currently on Plavix and is thrombocytopenic. I am concerned and if this was attempted here and he developed a significant bleeding or other complication, we do not have thoracic surgery or IR backup for embolization or surgical intervention. There is also a strong chance that the pleural effusion may not respond to traditional pigtail drainage and I would be hesitant to use thrombolytics at this time given his use of Plavix. Her discussed this with the patient's daughter who is in agreement with this plan. The hospitalist is currently working on transferring the patient to [place] for an IR guided pigtail drainage, infectious disease input and potential oncological care and potential interventional pulmonary care. Unfortunately, all services that are unavailable at our institution. (2) Severe sepsis: Plan: Patient today with severe sepsis secondary to acute bacterial pneumonia and possible empyema. Lactate elevated to 2.4. Would encourage the use of judicial crystalloid boluses as needed given his tenuous respiratory status. I have recommended broadening the patient's antibiotics out from levofloxacin to vancomycin and meropenem. The hospitalist is ordered meropenem and linezolid which are reasonable options at this time. Would caution the use of long-term linezolid given the patient's underlying thrombocytopenia and anemia. Case discussed with the industrial equipment wirer, Dr. Jeremi Gutierrez. (3) Hemoptysis: Plan: Resolved. Likely was multifactorial related in the setting of a lung mass, postobstructive pneumonia and epistaxis. (4) Pulmonary edema: Plan: Largely resolved from 03/10/2024. Echo 03/06/2024 there is grade 2 diastolic dysfunction and moderate aortic valve sclerosis. Would hold further diuretic therapy as the patient is currently presenting with severe sepsis. (5) Mass of upper lobe of right lung: Plan: Patient had an incidental 3 cm right upper lobe mass on CT chest as part of a trauma workup this admission. The mass may potentially be partially involving the right upper lobe bronchus. I do not have any older CT chest scans to review aside for 2019 where there was a perifissural nodule measuring about 8 mm in a similar region. Presumably this area has grown over time. 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 Recommend primary team consult oncology. He is currently quite complex given the rib fractures, acute pneumonia and thrombocytopenia. He is also on Plavix for history of CVA. I do not think that he is currently a candidate for bronchoscopy but may be in the near future once the acute issues resolved. I would recommend an outpatient PET scan and would defer bronchoscopy to be done at the preference of the patient and the patient's family as an outpatient perhaps in [place] when he is clinically stable. 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 (7) Closed rib fracture: Plan: Pain control per primary team. No invasive interventions required at this time. Recommend incentive spirometry as able and out of bed to chair. (8) Thrombocytopenia: Plan: Patient appears to have thrombocytopenia which is chronic at baseline, but appears to be worsening today. Unclear etiology. Will defer to primary team for further workup. Possibly sepsis induced thrombocytopenia versus other etiologies. (9) Parapneumonic effusion: Plan Thank you for the consult. Pulmonary sign off at this time. Please call with questions. Admission and Anticipated Discharge Date Admission Date: March 05, 2024 Subjective This morning the patient had acute decompensation with increasing abdominal pain, tachypnea and dyspnea. He is not requiring 2 L of oxygen mostly for comfort. He complains of severe right chest pain and abdominal pain. KUB was completed which revealed cholelithiasis. Stat CTA of the chest was ordered by [facility] hospitalist and revealed a worsening right upper lobe and right lower lobe infiltrate and associated loculated right lower lobe pleural effusion concerning for possible empyema. Patient also spiking fevers. Discussion with the patient's daughter had at bedside regarding potential transfer to [place] for interventional radiology to drain the right pleural effusion and/or possible thoracic surgery input if drainage is unsuccessful. Review of Systems Review of Systems: All systems reviewed & are unremarkable except as noted in HPI & below Physical Exam Constitutional: Patient seems to be in moderate distress and is currently on supplemental oxygen. When asked specifically if anything hurts her or he has shortness of breath, he denies any specific complaint, but this is limited due to his expressive aphasia. Eyes: PERRL, conjunctivae normal, anicteric sclerae Respiratory: symmetric chest movement Auscultation: + diminished lung sounds and + rhonchi Cardiovascular: Rate/Rhythm: regular rate and regular rhythm (Atrial paced) Heart Sounds: normal S1 and normal S2 Vessels: no JVD Extremities: no edema Chest (Breasts): Chest: + pacemaker Gastrointestinal (Abdomen): Tender to palpation. Mild guarding. Positive bowel sounds. Neurologic: Patient with expressive aphasia at baseline. No new focal deficits seen. Psychiatric: Alert, but anxious appearing. Results & Data Results & Data Vital Signs (Past 12 Hours) Vital Signs Temp Pulse Pulse Resp BP BP BP 03/13/24 13:37 03/13/24 13:18 114/64 03/13/24 13:15 74 45 H 03/13/24 13:05 84 03/13/24 13:00 37.7 C H 03/13/24 13:00 96/81 L 03/13/24 13:00 80 37 H 03/13/24 12:56 111/74 03/13/24 12:54 97 H 29 H 03/13/24 12:15 36.6 C 73 36 H 119/66 03/13/24 08:05 36.8 C 86 16 116/57 L 03/13/24 07:25 03/13/24 07:00 69 03/13/24 04:02 36.3 C L 74 20 104/62 Pulse Ox O2 Del Method O2 Flow Rate 03/13/24 13:37 Nasal Cannula 2 03/13/24 13:18 03/13/24 13:15 95 Nasal Cannula 2 03/13/24 13:05 03/13/24 13:00 03/13/24 13:00 03/13/24 13:00 91 03/13/24 12:56 03/13/24 12:54 03/13/24 12:15 91 Nasal Cannula 2 03/13/24 08:05 90 Room Air 03/13/24 07:25 Room Air 03/13/24 07:00 03/13/24 04:02 90 Room Air PG Care Time/CCT Total # of Minutes Spent Total Time Spent with Patient: Total time spent is greater than 50% in coordination of care (as documented) at patient's floor/unit and/or counseling patient: Coding Level of Care Code 44632 SUB INP/OBS CARE 3/50MIN Diagnoses Postobstructive pneumonia J18.9 Severe sepsis A41.9; R65.20 Hemoptysis R04.2 Pulmonary edema J81.1 Mass of upper lobe of right lung R91.8 Tonsillar cancer C09.9 Closed rib fracture S22.39XA Thrombocytopenia D69.6 Parapneumonic effusion J18.9; J91.8
[2024-03-13] MEDS: THIAMINE HCL 200 MG in SODIUM CHLORIDE 0.9% 50 ML IV STA (15:00)
[2024-03-13 16:56] VITALS: TEMP 101.1
--- NOTE | 2024-03-13 17:27 | Discharge Summary ---
Discharge Summary Date of Service March 13, 2024 Principal Dx & Hospital Course #1 = Principal Diagnosis (1) Pneumonia: Plan Pt is a 78-year-old male with past medical history significant for history of CVA with expressive aphasia and nonambulatory status, status post PEG tube, hypertension, history of tonsillar cancer s/p chemo radiation treatment, radiation-induced arteritis, carotid stenosis, GERD, esophageal stricture, h istory of DVT and PE, sinus node dysfunction status post pacemaker, BPH who presented because of a fall. Patient is mostly bedbound. Patient can transfer to the wheelchair. 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 Since then he had a few more falls and the family brought him for further evaluation. Pt's hospital stay has been complicated by the discovery of a new pulmonary mass, episodes of hemoptysis and epistaxis in the setting of chronic thrombocytopenia and need to continue plavix and aspirin with Hx of CVA, as well as difficulty with rehab placement which family would like as pt is not currently at his baseline of being able to transfer on his own. Pt with acute septic decompensation on 03/13/24 with tachypnea, new oxygen requ irement of 2L, and noted progression of postobstructive pneumonia and new R sided moderate loculated pleural effusion with concern for empyema. Pt was transferred to the ICU where after further discussion with pt's daughter who is his POA, it was decided that he be transitioned to a DNR/DNI code status and transferred to the [facility] for further evaluation and management. Pt was subsequently downgraded out of the ICU once it was determined that the family would not like resuscitation efforts or intubation if needed. Pulmonology recommended the following: "On repeat CT chest patient has worsening predominantly right-sided pneumonia which is quite extensive and an interval loculated pleural effusion. I did look at this pleural effusion with ultrasound which is quite small. Unfortunately the area of the effusion is quite tender as this is the area where he has a rib fracture. I do think source control is required and would recommend the patient be transferred to [facility] for IR guided pigtail placement as the effusion is small, the patient is currently on Plavix and is thrombocytopenic. I am concerned and if this was attempted here and he developed a significant bleeding or other complication, we do not have thoracic surgery or IR backup for embolization or surgical intervention. There is also a strong chance that the pleural effusion may not respond to traditional pigtail drainage and I would be hesitant to use thrombolytics at this time given his use of Plavix. Her discussed this with the patient's daughter who is in agreement with this plan. The hospitalist is currently working on transferring the patient to [facility] for an IR guided pigtail drainage, infectious disease input and potential oncological care and potential interventional pulmonary care. Unfortunately, all services that are unavailable at our institution." The General Freight Agent recommended the following: "Patient very medically complex, mass likely complicating source control from a postobstructive pneumonia standpoint -Patient would likely benefit from evaluation by thoracic surgery: Could perform decortication and possible further evaluation of lung mass" The patient was accepted for transfer to the [facility] for further evaluation and management as recommended above on 03/13/2024. He was treated for the following: Fall R rib fractures Contusion, R hip Pt presenting from home after fall at home Abd/pelvis CT noting "acute appearing nondisplaced fractures of the right lateral ninth and 10th ribs". Also notes mild subcutaneous contusion on right hip, no organ trauma noted PRN pain control PT/OT- recommending acute rehab stay, CM assisting with placement Daughter Keysha (POA) would like pt to be back to baseline with ability to self- transfer to wheelchair/bed/commode before going back home Pulmonary Mass, RUL Post-Obstructive Pneumonia Sepsis 03/13/24 Pt with leukocytosis on admission Chest xray concerning for R perihilar infiltrate vs. nodule CT chest noting "right perihilar upper lobe soft tissue mass. Considerations include neoplasm, pneumonia and adenopathy." Respiratory viral panel negative Procalcitonin negative Legionella pending Sputum culture grew christopher glabarata Treated with IV Zosyn and doxycycline initially, transitioned to po Levaquin on 03/09/24 Given pt's cancer status and sputum cx results, also started on fluconazole 800mg daily Infectious Disease consulted, recs currently pending Pulmonology consulted, appreciate recs. Recommended/stated the following: -notes that mass may be primary vs. recurrence of previous tonsillar malignancy -might need bronchoscopy once acute issues resolve, at a tertiary care center possibly. Not currently a candidate for bronch -recommending oncology consult -recommending outpatient PET scan -"If urine Legionella is negative and white blood cell count is downtrending, recommend discontinuing Levaquin." Pt's daughter currently declining referral to oncology. Also declining palliative care consult. Pt was initially a full code. 03/13/24: Pt with acute septic decompensation on 03/13/24 with tachypnea, new oxygen requirement of 2L, leukocytosis, elevated lactate and noted progression of postobstructive pneumonia and new R sided moderate loculated pleural effusion with concern for empyema. Pt was transferred to the ICU where after further discussion with pt's daughter who is his POA, it was decided that he be transitioned to a DNR/DNI code status and transferred to the [facility] for further evaluation and management. Pt was subsequently downgraded out of the ICU once it was determined that the family would not like resuscitation efforts or intubation if needed. Hemoptysis Epistaxis Pt with episodes of hemoptysis on 03/10 and 03/11, also possible trace bleeding into PEG tube Per daughter, pt has frequent episodes of epistaxis at baseline On aspirin MWF and plavix due to Hx of prior CVA Pt with chronic thrombocytopenia Pt also with noted lung mass above that can also contribute to hemoptysis Pulmonology consulted, appreciate recs. Recommended/stated the following: -notes that hemoptysis was likely "multifactorial related in the setting of a lung mass, postobstructive pneumonia and epistaxis." -for worsening hemoptysis: nebulized TXA, urgent CTA chest, transfer to a tertiary center for embolization if active bleeding noted. -ENT consult for nosebleeds -"Agree with holding aspirin and Plavix in the setting of epistaxis, hemoptysis and thrombocytopenia. I would recommend discussion with the patient's family (as the patient is not able to be involved in a meaningful conversation given his expressive aphasia) given his prior history of stroke and antiplatelets being held." Discussion with pt's daughter Keysha (POA), she does NOT want aspirin/plavix held Continue plavix and aspirin per family request at this time Daughter declines ENT consult at this time, notes the nosebleeds are chronic PRN nasal saline PEG Tube in place PEG Tube, accidental removal s/p replacement Enteral Nutrition Pt currently strict NPO in the setting of Hx of Tonsillar cancer s/p chemo Reports of pt drinking soda by mouth, sometimes provided by his Speech consulted, recommended strict NPO or permissive aspiration discussion Daughter Keysha (POA) agreeable to strict NPO while hospitalized, declines permissive aspiration Pt accidentally removed PEG tube on 03/12 GI consulted STAT, noted/stated the following: "Patient pulled out his current Eric-Suresh low profile 16 Fr x 4 cm PEG tube, unclear why or how did this happen, left the room and went home, I checked the tube and the balloon is busted. No Eric-Suresh tube available at the hospital hence I placed a regular balloon type 16 Fr tube, balloon inflated and position confirmed by seeing gastric secretions in the tube. The tube is EnFit tube mcmahon kimberley there are no compatible syringes or adapters available on the floor. Please get an adapter, prepare a 50 ml Syringe with PO contrast, order a bedside KUB and push the contrast in the tube immediately before they get the Xray to confirm and document position. Upon discharge, he should call GI office to have the tube replaced with a Eusebio tube as OP." KUB xray in followup noting working tube Continue tube feeds-pt uses home feeds that his daughter brings in Dietary consult GI followup after discharge for tube replacement Elevated troponin Demand Ischemia Pacemaker in situ Calcification of Aorta and branches Trop elevated as high as 375.7, downtrended EKG without signs of ischemia Echo noting EF 55-60%, moderate LVH, normal wall motion, Grade II diastolic dysfunction, moderate aortic sclerosis without stenosis Pt was asymptomatic Imaging noting "calcification of aorta and branches" Cardiology was consulted, recommended/stated the following: "Suspect demand based ischemia on basis of underlying medical concerns. Continue treatment with home medications. Patient asymptomatic, with marked thrombocytopenia [facility]" Continue to monitor on telemetry Congestive Heart Failure, diastolic Pt with elevated BNP, increased from 285 to 1639 Echo on admission noting Grade II diastolic dysfunction Repeat Chest XRAY on 03/10 with worsening infiltrates s/p doses of IV lasix 40mg on 03/11 and lasix 20mg on 03/12, IV Lasix 40mg on 03/13 Cardiology consulted once more, pt to be seen on 03/13, appreciate recs. Noted/stated the following on 03/13: "Complex 78 year old male admitted from home, post fall, with right sided rib fractures. Patient with hemoptysis, workup revealing a RUL pulmonary mass, post- obstructive pneumonia, history of tonsillar cancer, chronic thrombocytopenia. Patient initially evaluated in cardiology consultation with Dr. Bravo due to elevated troponin, suspected demand based ischemia treated medically, notably with contraindications to anticoagulation. Repeat evaluation by Cardiology requested due to concern for acute decompensated diastolic congestive heart failure. Patient transferred to the ICU shortly prior to my evaluation, suspected sepsis, probable empyema. Examination without decompensated heart failure, appearing mildly volume depleted. No indication for further diuresis Continue beta-chencho, statin, and antiplatelet therapy as able. Dual chamber [employer] pacemaker in place, implanted on 08/11/2014" Diarrhea Pt with imaging noting retained stool However, pt with recent frequent BMs at this time C diff testing on 03/12 negative Since pt hospitalized more than 72hrs, system not allowing stool culture panel to be ordered PRN loperamide Concern for "soreness" with frequent cleaning/wiping PRN barrier cream Wound nurse consulted, appreciate recs and care Rectal tube placed on 03/13/24 Chronic Anemia Iron Deficiency Anemia Pt with chronic anemia, hgb 9-12 range On DAPT, noted thrombocytopenia-risk factors for bleeding FOBT negative on 03/09/24 Iron levels low on admission -s/p IV venofer -consider adding po daily iron supplement B12 and folate levels normal Transfuse for hgb <7 Continue to monitor Chronic Thrombocytopenia Platelets chronically low AM peripheral smear Hypomagnesemia Hypophosphatemia replete as needed Hypernatremia Sodium has been running high at 145-146 Continue to monitor D5w as needed Hyperglycemia AM [id number] Presence of IVC filter Noted to be in place on imaging Inguinal hernias Noted on imaging Small, bilateral PCP followup Bilateral renal cysts Nonobstructing nephrolithiasis noted on imaging no hydronephrosis stable Transaminitis Cholelithiasis Liver enzymes elevated CT abd/pelvis noting "innumerable gallstones" Continue to trend liver enzymes Consider dedicated RUQ US Consider GI consult History of CVA Expressive aphasia Mostly bedbound Can transfer to wheelchair Nutrition from PEG tube Meds via PEG tube On aspirin Plavix and statin PT OT when stable Speech recommending complete NPO status. per family patient usually uses 1 bottle of half soda that lasts him for many weeks at home. However, family not agreeable at this time to permissive aspiration. - Daughter Keysha agreeable to deferring onto the use while hospitalized. 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 Hyperlipidemia On statin Hypertension On labetalol and amlodipine Will monitor GERD On Pepcid BPH on finasteride Diet: NPO, tube feeds DVT prophylaxis: SCDs fas patient is thrombocytopenic CODE STATUS full code as per discussion of admitting provider with daughter Disposition: acute rehab Notes For Next Care Provider Pt transferred to [facility] for higher level of care Medication Changes From Visit See list below Admission HPI Per Admitting Provider 78-year-old male with past medical history significant for hypertension history of CVA with expressive aphasia and nonambulatory status, status post PEG tube, hypertension, history of tonsillar cancer s/p chemo radiation treatment, radiation-induced arteritis, carotid stenosis, GERD, esophageal stricture, history of DVT and PE, sinus node dysfunction status post pacemaker, BPH comes because of fall. Patient is mostly bedbound. Patient can transfer to the wheelchair. Last Thursday he fell down when getting transferred to the wheelchair but did not pass out. Since then he had couple more falls and the family brought him here. He seems to holding his chest but family not sure if he has any pain. No recent fever. No cough. No nausea or vomiting. He alternates diarrhea and constipation. Micturating okay. Daughter is in the r oom who helped with H&P. Hemodynamics are okay. Past medical history. As mentioned above Past surgical history. Alveoloplasty with extraction. Biopsy of the throat. Colonoscopy. EGD. Pacemaker placement. Laryngoscopy. Laparoscopic Ectomy partial lobectomy. Mechanical thrombectomy. Left carotid stent with cerebral angiogram. [place] filter. Social history. . Quit smoking 2007. Smoked 1 pack a day for 40 years. No alcohol history. No drug use. Family history. Father had lung cancer. Admission Exam Per Admitting Provider General- aphasia, Not in distress Head- atraumatic Eyes- PERRL. ENT- oropharynx dry Neck- supple, no JVD. Lungs- clear to auscultation and percussion Heart- regular rate and rhythm; no murmur, no gallop. Abdomen- normal bowel sounds, soft, nontender, no distension.Peg tube site no erythema or drainage seen Extremities- no pretibial edema, no erythema seen Neuro- alert and awake expressive aphasia present ; PERRL, no facial palsy; minimal movement of lower extremities Discharge Exam General: Alert Neuro: difficulty with speech and movement, difficulty talking HEENT: NC/AT CV: RRR Resp: increased effort of breathing, coarse breath sounds Abdomen: Soft, tender, tube in place Extremities: no edema Updated Medication List Medication Instructions Recorded Confirmed Type acetaminophen 325 mg capsule 975 mg feeding tube BID PRN Pain 04/11/18 03/05/24 History (Tylenol) amlodipine 10 mg tablet (Norvasc) 5 mg feeding tube QAM 04/11/18 03/05/24 History aspirin 81 mg chewable tablet 81 mg feeding tube [id number] 04/11/18 03/05/24 History atorvastatin 40 mg tablet (Lipitor) 40 mg feeding tube HS 04/11/18 03/05/24 History clopidogrel 75 mg tablet (Plavix) 75 mg feeding tube QAM 04/11/18 03/05/24 History famotidine 20 mg tablet (Pepcid) 20 mg feeding tube QAM 04/11/18 03/05/24 History labetalol 300 mg tablet 300 mg feeding tube TID 04/11/18 03/05/24 History lactose-reduced food with fiber 375 ea feeding tube BID 11/28/19 03/05/24 History oral liquid lactose-reduced food with fiber 500 ea feeding tube QPM 11/28/19 03/05/24 History oral liquid finasteride 5 mg tablet 5 mg feeding tube DAILY 03/05/24 03/05/24 History ketoconazole 2 % topical cream 1 applic topical DIRECTED PRN 03/05/24 03/05/24 History Other triamcinolone acetonide 0.1 % 1 applic topical BID PRN Other 03/05/24 03/05/24 History topical cream Additional Medication Comments Current Inpatient Medications Acetaminophen (Acetaminophen Susp 325 Mg/10.15 Ml Udc) 975 mg PEG BID PRN PRN Reason: Pain Stop: 04/04/24 22:53 Last Admin: 03/13/24 16:55 Dose: 975 mg Amlodipine Besylate (Amlodipine Besylate 5 Mg Tab) 5 mg PEG QAM [facility] Stop: 04/05/24 08:59 Last Admin: 03/13/24 07:23 Dose: 5 mg Aspirin (Aspirin 81 Mg Chew) 81 mg PEG MoWeFr@0900 [facility] Stop: 04/06/24 08:59 Last Admin: 03/09/24 07:54 Dose: 81 mg Atorvastatin Calcium (Atorvastatin 40 Mg Tab) 40 mg PEG HS [facility] Stop: 04/04/24 22:46 Last Admin: 03/12/24 20:43 Dose: 40 mg Clopidogrel Bisulfate (Clopidogrel Bisulfate 75 Mg Tab) [facility] [place] Stop: 04/05/24 08:59 Last Admin: 03/13/24 07:23 Dose: 75 mg Famotidine (Famotidine 20 Mg Tab) 20 [facility] [place] Stop: 04/05/24 08:59 Last Admin: 03/13/24 07:23 Dose: 20 mg Ferrous Sulfate (Ferrous Sulfate 325 Mg/7.4 Ml Udp) 325 mg [facility] [place] Stop: 04/13/24 08:59 Finasteride (Finasteride 5 Mg Tab) 5 mg PEG HS [facility] Stop: 04/05/24 20:59 Last Admin: 03/12/24 20:43 Dose: 5 mg Fluconazole (Fluconazole 100 Mg Tab) 800 [facility] [place] Stop: 03/23/24 08:59 Last Admin: 03/13/24 07:22 Dose: 800 mg Meropenem 500 mg/ Syringe 10 mls @ 2 mls/min IV Q8H [facility]; Protocol Stop: 03/18/24 21:59 Linezolid (Zyvox) 600 mg in 300 mls @ 300 mls/hr IV Q12H [facility] Stop: 03/19/24 01:59 Levofloxacin/Dextrose (Levaquin/D5w) 750 mg in 150 mls @ 100 mls/hr IV Q48H [facility]; Protocol Stop: 03/20/24 06:59 Ketoconazole (Ketoconazole 2% Cr 15 Gm Tube) 1 appln EXT DAILY PRN PRN Reason: Other Stop: 03/15/24 22:46 Labetalol HCl (Labetalol Hcl 300 Mg Tab) 300 mg PEG TID [facility] Stop: 04/04/24 22:46 Last Admin: 03/13/24 14:09 Dose: 300 mg Lidocaine (Lidocaine 5% 1 Patch) 1 patch TD [facility] Stop: 04/09/24 08:59 Last Admin: 03/13/24 07:23 Dose: 1 patch Loperamide HCl (Loperamide Hcl 2 Mg Cap) 2 mg PO TID PRN PRN Reason: diarrhea Stop: 04/11/24 21:03 Last Admin: 03/13/24 07:40 Dose: 2 mg Magnesium Oxide (Magnesium Oxide 400 Mg Tab) 400 mg PEG BID [facility] Stop: 04/09/24 08:59 Last Admin: 03/13/24 07:23 Dose: 400 mg Miscellaneous (Remove Lidoderm Patch) 1 each N/A DAILY@2100 [facility] Stop: 04/08/24 20:59 Last Admin: 03/12/24 21:48 Dose: Not Given Miscellaneous (Remove Lidoderm Patch) 1 each N/A DAILY@2100 [facility] Stop: 04/08/24 20:59 Last Admin: 03/12/24 21:48 Dose: Not Given Nitroglycerin (Nitroglycerin Sl 0.4 Mg/Tab Tab) 0.4 mg SL Q5M PRN PRN Reason: Chest Pain Stop: 04/04/24 22:46 Nutritional Formula (Patient's Own Enteral Feeding) 0 ml PEG UD@0900,1200,1700 [facility]; Protocol Stop: 04/05/24 11:59 Last Admin: 03/13/24 16:10 Dose: Not Given Sodium Chloride (Sodium Chloride 0.65% Na Soln 45 Ml ([place])) 2 sprays NA BID PRN PRN Reason: dryness of nasal mucosa Stop: 04/10/24 07:43 Sterile Water (Tube Feeding Water Flush) 100 ml PEG Q4H [facility] Stop: 04/05/24 11:59 Last Admin: 03/13/24 16:03 Dose: Not Given Triamcinolone Acetonide (Triamcinolone Acet 0.1% Cr 15 Gm Tube) 1 appln TOP BID PRN PRN Reason: Other Stop: 04/04/24 22:46 Hospital Stay Data Consultations 03/05/24 19:30 ED Decision to Admit Stat 03/06/24 06:35 Consult Cardiology Routine 03/06/24 08:00 Consult Pulmonology Routine 03/11/24 07:38 Consult Pulmonology Routine 03/12/24 13:27 Consult Gastroenterology Stat 03/12/24 20:54 Consult Infectious Diseases Routine 03/13/24 08:12 Consult Cardiology Routine 03/13/24 12:16 Consult General Freight Agent Stat 03/13/24 17:15 Burn CD for patient Stat Diagnostic Imagining Performed 03/05/24 15:16 CT abd pelvis IV con only Stat CT lumbar spine w con Stat 03/05/24 17:50 CT chest diagnostic w con Stat 03/13/24 10:07 CT angio chest PE protocol Urgent 03/13/24 12:59 US point of care ultrasound Urgent 03/13/24 16:52 CT abd pelvis wo con Urgent Abdomen/Pelvis CT 03/05/24 15:16 EXAM: CT Abdomen and Pelvis With Intravenous Contrast INDICATION: Posttraumatic pain. TECHNIQUE: Axial computed tomography images of the abdomen and pelvis with intravenous contrast. Sagittal and coronal reformatted images were created and reviewed. This CT exam was performed using one or more of the following dose reduction techniques: automated exposure control, adjustment of the mA and/or kV according to patient size, and/or use of iterative reconstruction technique. CONTRAST: 90ml of Optiray 320 was administered intravenously. COMPARISON: No relevant prior studies available. FINDINGS: Limitations: None. Lung bases: Airway thickening and atelectasis present in the lung bases. Pleural space: No basilar pleural effusion. Heart: Cardiomegaly noted. Cardiac pacing device noted. Metallic artifact limits assessment of lead integrity. Mediastinum: No abnormality noted. ABDOMEN: Liver: No abnormality noted. Gallbladder and bile ducts: Innumerable gallstones present. No ductal dilatation or stone. Pancreas: Homogeneous enhancement. No mass, inflammation or ductal dilation. Spleen: No significant abnormality noted. Adrenals: No significant abnormality noted. Kidneys and ureters: Simple bilateral renal cysts noted. No follow-up necessary. No stones or hydronephrosis. There is a 5 mm nonobstructing stone in each renal upper pole. Renal vascular calcification noted. No hydronephrosis. No urinary gas or perinephric fluid. Stomach and bowel: Large amounts of stool in the redundant colon without obstruction or inflammation. Gastrostomy balloon inflated in the stomach. PELVIS: Appendix: No findings to suggest acute appendicitis. Bladder: No filling defects to suggest mass or large stone. No inflammation. Reproductive: No abnormalities noted. ABDOMEN and PELVIS: Intraperitoneal space: No free air. No significant fluid collection. Bones/joints: There is an acute appearing nondisplaced fracture of the right lateral ninth and 10th ribs. Degenerative changes present in the spine. No pelvic or spinal fracture noted. Soft tissues: There is mild subcutaneous contusion at the level of the right hip. There are small bilateral fat containing inguinal hernias. Vasculature: Inferior vena cava filter in good position. Atherosclerotic calcification of the aorta and branches. No aneurysm. Lymph nodes: No pathologically enlarged lymph nodes. IMPRESSION: 1. There are acute appearing nondisplaced fractures of the right lateral ninth and 10th ribs. 2. No traumatic change of the solid organs. 3. Large amounts of stool in the colon without obstruction. 4. Cholelithiasis. 5. There is mild subcutaneous contusion at the level of the right hip. No body wall hematoma noted. ACT 112: Negative or not required by law. Electronically signed by Humera Hemphill 03-05-2024 5:41 PM Chest X-Ray 03/05/24 15:16 EXAM: Radiograph of the Chest 1 View INDICATION: Weakness TECHNIQUE: Frontal view of the chest. COMPARISON: 11/28/2019 and 04/12/2018 FINDINGS: Lungs and pleural spaces: Generalized increased interstitial markings with 1.4 x 1.3 cm nodular versus infiltrate in the right perihilar. . Heart: Shape and configuration within normal limits allowing for technique. Mediastinum: Normal contour. Bones/joints: No fracture, erosion or dislocation. Soft tissues: No abnormality noted. No radiopaque foreign body noted. Vasculature: Left carotid stent is present. Tubes, lines and devices: Stable prominent cardiac shadow and right atrial and ventricular intact pacing wires. Upper abdomen: No abnormality noted. IMPRESSION: 1. Increased interstitial markings may reflect bronchitis or vascular congestion. 2. Right perihilar infiltrate versus nodule. If additional imaging is warranted rather than follow-up following treatment, CT with contrast is the modality of choice. ACT 112: Negative or not required by law. Electronically signed by Humera Hemphill 03-05-2024 4:[address] 03/05/24 15:16 EXAM: CT Lumbar Spine With Intravenous Contrast INDICATION: Posttraumatic back pain. Change in bowel habits. TECHNIQUE: Axial computed tomography images of the lumbar spine with intravenous contrast. Sagittal and coronal reformatted images were created and reviewed. This CT exam was performed using one or more of the following dose reduction techniques: automated exposure control, adjustment of the mA and/or kV according to patient size, and/or use of iterative reconstruction technique. CONTRAST: 90ml of Optiray 320 was administered intravenously. COMPARISON: No relevant prior studies available. FINDINGS: Limitations: None. Vertebrae: There is mild facet hypertrophic change at all levels. Mild to moderate diffuse spondylosis. Mild uncal spurring noted at L3-L4. Moderate to space narrowing L3-L4 and L1-L2. Mild narrowing noted at other levels. Sacrum/coccyx: No significant abnormality noted. No acute change noted. Discs/spinal canal/neural foramina: See above. Soft tissues: No significant abnormality noted. Vasculature: Inferior vena cava filter in good position. IMPRESSION: Degenerative changes. No lumbar fracture. ACT 112: Negative or not required by law. Electronically signed by Humera Hemphill 03-05-2024 5:[address] 03/05/24 17:50 EXAM: CT Chest With Intravenous Contrast INDICATION: Posttraumatic pain. Rib fracture. TECHNIQUE: Axial computed tomography images of the chest with intravenous contrast. Sagittal and coronal reformatted images were created and reviewed. This CT exam was performed using one or more of the following dose reduction techniques: automated exposure control, adjustment of the mA and/or kV according to patient size, and/or use of iterative reconstruction technique. CONTRAST: 89ml of Optiray 320 was administered intravenously. COMPARISON: CT abdomen the same day. FINDINGS: Limitations: None. Lungs and pleural spaces: There is a right upper lobe perihilar soft tissue mass measuring 2.3 cm transverse by 1.7 cm AP by 1.5 cm long. There is a 5 mm noncalcified nodule in the right lower lobe posterior to the major fissure series 3 image 25. There is airway thickening which is likely chronic. T there is mucus in the left mainstem bronchus. No bronchiectasis. No consolidation. No significant effusion. Heart: Cardiomegaly noted. Cardiac pacing device noted. Metallic artifact limits assessment of lead integrity. Thyroid: No abnormality noted. Bones/joints: There is an acute nondisplaced fracture of the right lateral ninth rib. Soft tissues: No significant abnormality noted. Vasculature: No abnormality noted. No thoracic aortic aneurysm. Lymph nodes: No enlarged lymph nodes. IMPRESSION: 1. There is an acute fracture of the right lateral ninth rib. 2. Right perihilar upper lobe soft tissue mass. Considerations include neoplasm, pneumonia and adenopathy. 3. Mucus in the left mainstem bronchus. There is chronic airway thickening and basilar atelectasis. 4. Cholelithiasis. ACT 112: Negative or not required by law. Electronically signed by Humera Hemphill 03-05-2024 6:37 PM Chest X-Ray 03/10/24 16:51 EXAM: Radiograph of the Chest 1 View INDICATION: Productive cough. TECHNIQUE: Frontal view of the chest. COMPARISON: 03/05/2024 FINDINGS: Lungs and pleural spaces: Worsening right perihilar and right upper lobe infiltrates. No pleural effusion or pneumothorax. Heart: Shape and configuration within normal limits allowing for technique. Mediastinum: Normal contour. Bones/joints: Old right lateral eighth rib fracture. Degenerative changes noted in the spine. Soft tissues: No abnormality noted. No radiopaque foreign body noted. Tubes, lines and devices: Stable cardiac shadow and intact pacing device. Upper abdomen: No abnormality noted. IMPRESSION: Worsening right perihilar and right upper lobe infiltrates. ACT 112: Negative or not required by law. Electronically signed by Humera Hemphill 03-10-2024 6:35 PM KUB X-Ray 03/12/24 13:58 EXAM: Radiograph of the Abdomen 1 View INDICATION: PEG tube placement. TECHNIQUE: Scalp view of the abdomen obtained. The patient is gastrostomy tube was then injected with 50 cc of contrast. COMPARISON: No relevant prior studies available. FINDINGS: Limitations: None. Gastrointestinal tract: Gastrostomy balloon is inflated in the gastric body. Contrast injected into the 2 edges of the stomach. No gross extravasation in 1 view. Organs: Multiple gallstones present. Bones/joints: See below. Soft tissues: No abnormality noted. No radiopaque foreign body noted. Vasculature: Atherosclerotic calcifications are noted. Inferior vena cava filter L2-L3. IMPRESSION: 1. Contrast injected into the gastrostomy tube enters the stomach. 2. Cholelithiasis. ACT 112: Negative or not required by law. Electronically signed by Humera Hemphill 03-12-2024 2:40 PM Chest X-Ray 03/13/24 07:56 XR chest 1V portable CLINICAL HISTORY: Wheezing COMPARISON STUDY: Chest CT March 05, 2024. Chest radiograph March 10, 2024. FINDINGS: A left subclavian pacer is in place. There is no pneumothorax or pleural effusion. Interstitial thickening is present. Cardiomediastinal silhouette is stable. Right hilar prominence is again noted. Extensive right upper lobe airspace opacity is significantly progressed. The suspicious right upper lobe lesion on chest CT of March 05, 2024 is obscured on this exam. IMPRESSION: 1. Progression of extensive right upper lobe airspace opacity. The findings favor pneumonia or postobstructive pneumonia given the suspicious right upper lobe lesion on prior chest CT. Pulmonary consultation is recommended. 2. Cardiomegaly with mild interstitial pulmonary edema. 3. Right hilar prominence due to lymphadenopathy better depicted on CT. ACT 112: Positive. There are findings on this exam that require communication between the performing entity and the patient following Patient Test Result Information Act ([place] Act 112) guidelines. Electronically signed by: Jonny Loya M.D. 03/13/2024 8:55 AM Chest CTA 03/13/24 10:07 CT ANGIOGRAPHY OF THE CHEST, PULMONARY EMBOLUS PROTOCOL CLINICAL HISTORY: Wheezing. Hemoptysis. Evaluate for pulmonary embolus. COMPARISON STUDY: Chest CT March 05, 2024. Chest radiograph performed earlier today. TECHNIQUE: Following IV administration of 83 mL of Optiray, helical axial images of the chest were obtained utilizing the pulmonary embolus protocol. Maximal intensity projections and sagittal and coronal reformats were viewed on an [employer] 3D workstation. IV contrast was administered without complication. Automated exposure control was utilized for the study. A dose lowering technique was utilized adhering to the principles of ALARA. CT DOSE: 776.5 mGy.cm FINDINGS: No pulmonary emboli are identified although segmental and subsegmental pulmonary arteries are suboptimally assessed due to respiratory motion. A left subclavian pacer is in place. There is no pericardial effusion. Heart is mildly enlarged. Several enlarged right hilar lymph nodes are present. Index right hilar node on image 120 measures 2.5 x 1.5 cm. A partially loculated moderate right pleural effusion has developed since prior CT. There is a trace left pleural effusion. Interlobular septal thickening is noted. Extensive consolidation throughout the right upper lobe as progressed. Additional patchy bilateral airspace opacities are present. A 3 cm spiculated right upper lobe mass on image 131 is unchanged. There is no pneumothorax. Subacute nondisplaced lateral right ninth and 10th rib fractures are present. There are no thoracic spine fractures. Postoperative findings within the lateral segment of the liver are incidentally noted. IMPRESSION: 1. No pulmonary emboli identified although segmental and subsegmental pulmonary arteries suboptimally assessed due to respiratory motion. 2. Significant progression of extensive right upper lobe airspace opacity suggestive of pneumonia. Additional patchy bilateral airspace opacities may be infectious or represent alveolar pulmonary edema. 3. Interval development of a partially loculated moderate right pleural effusion. A developing empyema cannot be excluded. 4. Redemonstration of a 3 cm right upper lobe mass. This favors a primary lung neoplasm. 5. Right hilar adenopathy which is likely neoplastic although reactive adenopathy could appear similar. 6. Subacute nondisplaced right ninth and 10th rib fractures. No pneumothorax. ACT 112: Negative or not required by law. Electronically signed by: Jonny Loya M.D. 03/13/2024 10:50 AM KUB X-Ray 03/13/24 12:02 KUB CLINICAL HISTORY: Abdominal pain. COMPARISON STUDY: CT of the abdomen and pelvis March 05, 2024. KUB March 12, 2024. FINDINGS: IVC filter and cholecystectomy clips are incidentally noted. There are calcified gallstones within the gallbladder. Excreted contrast within the collecting systems and ureters from recent contrast-enhanced CT is noted. Hyperdense material within the colon favors oral contrast. The bowel gas pattern is normal. The amount of stool is within normal limits. IMPRESSION: 1. No evidence for a bowel obstruction. 2. Cholelithiasis. ACT 112: Negative or not required by law. Electronically signed by: Jonny Loya M.D. 03/13/2024 12:29 PM Pending Results Patient Have Any Pending Studies at Discharge: No Discharge Instructions Given to Patient (Per Discharging Provider) Pt is a 78-year-old male with past medical history significant for history of CVA with expressive aphasia and nonambulatory status, status post PEG tube, hypertension, history of tonsillar cancer s/p chemo radiation treatment, radiation-induced arteritis, carotid stenosis, GERD, esophageal stricture, history of DVT and PE, sinus node dysfunction status post pacemaker, BPH who presented because of a fall. Patient is mostly bedbound. Patient can transfer to the wheelchair. 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 Since then he had a few more falls and the family brought him for further evaluation. Pt's hospital stay has been complicated by the discovery of a new pulmonary mass, episodes of hemoptysis and epistaxis in the setting of chronic thrombocytopenia and need to continue plavix and aspirin with Hx of CVA, as well as difficulty with rehab placement which family would like as pt is not currently at his baseline of being able to transfer on his own. Pt with acute septic decompensation on 03/13/24 with tachypnea, new oxygen requirement of 2L, and noted progression of postobstructive pneumonia and new R sided moderate loculated pleural effusion with concern for empyema. Pt was transferred to the ICU where after further discussion with pt's daughter who is his POA, it was decided that he be transitioned to a DNR/DNI code status and [facility] and management. Pt was subsequently downgraded out of the ICU once it was determined that the family would not like resuscitation efforts or intubation if needed. Pulmonology recommended the following: "On repeat CT chest patient has worsening predominantly right-sided pneumonia which is quite extensive and an interval loculated pleural effusion. I did look at this pleural effusion with ultrasound which is quite small. Unfortunately the area of the effusion is quite tender as this is the area where he has a rib fracture. I do think source control is required and would recommend the patient be transferred to [facility] for IR guided pigtail placement as the effusion is small, the patient is currently on Plavix and is thrombocytopenic. I am concerned and if this was attempted here and he developed a significant bleeding or other complication, we do not have thoracic surgery or IR backup for embolization or surgical intervention. There is also a strong chance that the pleural effusion may not respond to traditional pigtail drainage and I would be hesitant to use thrombolytics at this time given his use of Plavix. Her discussed this with the patient's daughter who is in agreement with this plan. The hospitalist is currently working on transferring the patient to [facility] for an IR guided pigtail drainage, infectious disease input and potential oncological care and potential interventional pulmonary care. Unfortunately, all services that are unavailable at our institution." The General Freight Agent recommended the following: "Patient very medically complex, mass likely complicating source control from a postobstructive pneumonia standpoint -Patient would likely benefit from evaluation by thoracic surgery: Could perform decortication and possible further evaluation of lung mass" The patient was accepted for transfer to the [facility] for further evaluation and management as recommended above on 03/13/2024. He was treated for the following: Fall R rib fractures Contusion, R hip Pt presenting from home after fall at home Abd/pelvis CT noting "acute appearing nondisplaced fractures of the right lateral ninth and 10th ribs". Also notes mild subcutaneous contusion on right hip, no organ trauma noted PRN pain control PT/OT- recommending acute rehab stay, CM assisting with placement Daughter Keysha (POA) would like pt to be back to baseline with ability to self- transfer to wheelchair/bed/commode before going back home Pulmonary Mass, RUL Post-Obstructive Pneumonia Sepsis 03/13/24 Pt with leukocytosis on admission Chest xray concerning for R perihilar infiltrate vs. nodule CT chest noting "right perihilar upper lobe soft tissue mass. Considerations include neoplasm, pneumonia and adenopathy." Respiratory viral panel negative Procalcitonin negative Legionella pending Sputum culture grew christopher glabarata Treated with IV Zosyn and doxycycline initially, transitioned to po Levaquin on 03/09/24 Given pt's cancer status and sputum cx results, also started on fluconazole 800mg daily Infectious Disease consulted, recs currently pending Pulmonology consulted, appreciate recs. Recommended/stated the following: -notes that mass may be primary vs. recurrence of previous tonsillar malignancy -might need bronchoscopy once acute issues resolve, at a tertiary care center possibly. Not currently a candidate for bronch -recommending oncology consult -recommending outpatient PET scan -"If urine Legionella is negative and white blood cell count is downtrending, recommend discontinuing Levaquin." Pt's daughter currently declining referral to oncology. Also declining palliative care consult. Pt was initially a full code. 03/13/24: Pt with acute septic decompensation on 03/13/24 with tachypnea, new oxygen requirement of 2L, leukocytosis, elevated lactate and noted progression of postobstructive pneumonia and new R sided moderate loculated pleural effusion with concern for empyema. Pt was transferred to the ICU where after further discussion with pt's daughter who is his POA, it was decided that he be transitioned to a DNR/DNI code status and [facility] and management. Pt was subsequently downgraded out of the ICU once it was determined that the family would not like resuscitation efforts or intubation if needed. Hemoptysis Epistaxis Pt with episodes of hemoptysis on 03/10 and 03/11, also possible trace bleeding into PEG tube Per daughter, pt has frequent episodes of epistaxis at baseline On aspirin MWF and plavix due to Hx of prior CVA Pt with chronic thrombocytopenia Pt also with noted lung mass above that can also contribute to hemoptysis Pulmonology consulted, appreciate recs. Recommended/stated the following: -notes that hemoptysis was likely "multifactorial related in the setting of a lung mass, postobstructive pneumonia and epistaxis." -for worsening hemoptysis: nebulized TXA, urgent CTA chest, transfer to a tertiary center for embolization if active bleeding noted. -ENT consult for nosebleeds -"Agree with holding aspirin and Plavix in the setting of epistaxis, hemoptysis and thrombocytopenia. I would recommend discussion with the patient's family (as the patient is not able to be involved in a meaningful conversation given his expressive aphasia) given his prior history of stroke and antiplatelets being held." Discussion with pt's daughter Keysha (TIMI), she does NOT want aspirin/plavix held Continue plavix and aspirin per family request at this time Daughter declines ENT consult at this time, notes the nosebleeds are chronic PRN nasal saline PEG Tube in place PEG Tube, accidental removal s/p replacement Enteral Nutrition Pt currently strict NPO in the setting of Hx of Tonsillar cancer s/p chemo Reports of pt drinking soda by mouth, sometimes provided by his Speech consulted, recommended strict NPO or permissive aspiration discussion Daughter Keysha (TIMI) agreeable to strict NPO while hospitalized, declines permissive aspiration Pt accidentally removed PEG tube on 03/12 GI consulted STAT, noted/stated the following: "Patient pulled out his current Eric-Suresh low profile 16 Fr x 4 cm PEG tube, unclear why or how did this happen, left the room and went home, I checked the tube and the balloon is busted. No Eric-Suresh tube available at the hospital hence I placed a regular balloon type 16 Fr tube, balloon inflated and position confirmed by seeing gastric secretions in the tube. The tube is EnFit tube however there are no compatible syringes or adapters available on the floor. Please get an adapter, prepare a 50 ml Syringe with PO contrast, order a bedside KUB and push the contrast in the tube immediately before they get the Xray to confirm and document position. Upon discharge, he should call GI office to have the tube replaced with a Eusebio tube as OP." KUB xray in followup noting working tube Continue tube feeds-pt uses home feeds that his daughter brings in Dietary consult GI followup after discharge for tube replacement Elevated troponin Demand Ischemia Pacemaker in situ Calcification of Aorta and branches Trop elevated as high as 375.7, downtrended EKG without signs of ischemia Echo noting EF 55-60%, moderate LVH, normal wall motion, Grade II diastolic dysfunction, moderate aortic sclerosis without stenosis Pt was asymptomatic Imaging noting "calcification of aorta and branches" Cardiology was consulted, recommended/stated the following: "Suspect demand based ischemia on basis of underlying medical concerns. Continue treatment with home medications. Patient asymptomatic, with marked thrombocytopenia Outpatient pacemaker interrogations via the [facility]" Continue to monitor on telemetry Congestive Heart Failure, diastolic Pt with elevated BNP, increased from 285 to 1639 Echo on admission noting Grade II diastolic dysfunction Repeat Chest XRAY on 03/10 with worsening infiltrates s/p doses of IV lasix 40mg on 03/11 and lasix 20mg on 03/12, IV Lasix 40mg on 03/13 Cardiology consulted once more, pt to be seen on 03/13, appreciate recs. Noted/stated the following: "Complex 78 year old male admitted from home, post fall, with right sided rib fractures. Patient with hemoptysis, workup revealing a RUL pulmonary mass, post- obstructive pneumonia, history of tonsillar cancer, chronic thrombocytopenia. Patient initially evaluated in cardiology consultation with Dr. Bravo due to elevated troponin, suspected demand based ischemia treated medically, notably with contraindications to anticoagulation. Repeat evaluation by Cardiology requested due to concern for acute decompensated diastolic congestive heart failure. Patient transferred to the ICU shortly prior to my evaluation, suspected sepsis, probable empyema. Examination without decompensated heart failure, appearing mildly volume depleted. No indication for further diuresis Continue beta-chencho, statin, and antiplatelet therapy as able. Dual chamber [employer] pacemaker in place, implanted on 08/11/2014" Diarrhea Pt with imaging noting retained stool However, pt with recent frequent BMs at this time C diff testing on 03/12 negative Since pt hospitalized more than 72hrs, system not allowing stool culture panel to be ordered PRN loperamide Concern for "soreness" with frequent cleaning/wiping PRN barrier cream Wound nurse consulted, appreciate recs and care Rectal tube placed on 03/13/24 Chronic Anemia Iron Deficiency Anemia Pt with chronic anemia, hgb 9-12 range On DAPT, noted thrombocytopenia-risk factors for bleeding FOBT negative on 03/09/24 Iron levels low on admission -s/p IV venofer -consider adding po daily iron supplement B12 and folate levels normal Transfuse for hgb <7 Continue to monitor Chronic Thrombocytopenia Platelets chronically low AM peripheral smear Hypomagnesemia Hypophosphatemia replete as needed Hypernatremia Sodium has been running high at 145-146 Continue to monitor D5w as needed Hyperglycemia AM [id number] Presence of IVC filter Noted to be in place on imaging Inguinal hernias Noted on imaging Small, bilateral PCP followup Bilateral renal cysts Nonobstructing nephrolithiasis noted on imaging no hydronephrosis stable Transaminitis Cholelithiasis Liver enzymes elevated CT abd/pelvis noting "innumerable gallstones" Continue to trend liver enzymes Consider dedicated RUQ US Consider GI consult History of CVA Expressive aphasia Mostly bedbound Can transfer to wheelchair Nutrition from PEG tube Meds via PEG tube On aspirin Plavix and statin PT OT when stable Speech recommending complete NPO status. per family patient usually uses 1 bottle of half soda that lasts him for many weeks at home. However, family not agreeable at this time to permissive aspiration. - Daughter Keysha agreeable to deferring onto the use while hospitalized. 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 Hyperlipidemia On statin Hypertension On labetalol and amlodipine Will monitor GERD On Pepcid BPH on finasteride Diet: NPO, tube feeds DVT prophylaxis: SCDs fas patient is thrombocytopenic CODE STATUS full code as per discussion of admitting provider with daughter Disposition: acute rehab Total Time Total Time Spent Total Time Spent (In Minutes): I spent a total of 120 minutes of critical care time in further workup of pt's persistent wheezing and acute hypoxemic respiratory failure, discussing current course and providing updates to pt's daughter/POA, discussing the case with pulmonology and the General Freight Agent, and facilitating transfer. Case first discussed along with Pulmonology with the [facility] team who recommended further evaluation/discussion the next day and then with the [facility] on two separate phone calls who later accepted the pt for transfer.
--- NOTE | 2024-03-13 19:26 | CT Scan Report ---
EXAM: CT abd pelvis wo con CLINICAL HISTORY: ABDOMINAL PAIN PT UNABLE TO RAISE ARMS FOR EXAM EK/AD TECHNIQUE: CT of the abdomen was performed with intravenous contrast, with the following protocol: axial images, and reconstructed coronal and sagittal images. contrast-enhanced images acquired in arterial and venous phases. Intravenous contrast was administered using automated injection techniques. One of the following dose reduction techniques was utilized for this exam: Automated exposure control, adjustment of the mA and/or kV according to patient size, and use of iterative reconstruction. COMPARISON: 03/05/2024 CT abdomen/pelvis FINDINGS: New development of bilateral pleural effusions, more on the right side. Liver: Normal in size, shape, and density. No focal lesions, cysts, or masses were identified. Gallbladder and Biliary System: Cholelithiasis, without cholecystitis. Pancreas: Pancreatic head, body, and tail are visualized and appear normal in size and density. No pancreatic masses, cysts, or calcifications noted. Spleen: Normal in size, shape, and density. No splenic lesions or masses identified. Kidneys and Adrenal Glands: Both kidneys are normal in size, shape, and position. Cortical thickness is within normal limits. No renal calculi or hydronephrosis. Adrenal glands are unremarkable. Appendix: The appendix is normal in size without dez appendiceal fat stranding, and without an appendicolith. No evidence of appendiceal abscess or perforation. Abdominal Aorta and Vessels: The abdominal aorta and major branches are patent without evidence of an aneurysm or significant atherosclerosis. IVC filter in place. Pelvis: Urinary Bladder: Normal in contour and wall thickness. No intraluminal lesions. Mildly enlarged prostate, with parenchymal calcifications. Peritoneal and Retroperitoneal Structures: No free fluid or abnormal fluid collections were identified within the abdomen or pelvis. No lymphadenopathy was noted. Bowel: Gastrostomy tube in place. Relief of previously seen dilated colon. Bones and Soft Tissues: Moderate Spinal spondylotic changes with osteophytes. IMPRESSION: 1. New development of bilateral pleural effusions, more on the right side. Suggest dedicated study of the chest for further evaluation. 2. Newly inserted rectal enema tube, and Kc catheter 3. Gastrostomy tube in place. 4. Relief of previously seen dilated colon 5. Cholelithiasis, without cholecystitis. 6. IVC filter in place. Electronically signed by Sissy Abreu 03-13-2024 7:26 PM
[2024-03-13 21:52] VITALS: O2SAT 100
[2024-03-13 22:56] VITALS: RESP 25
[2024-03-13 23:23] VITALS: BP 104/62; PULSE 71
[2024-03-14] MEDS ORDERED: LINEZOLID 600 MG/300 ML BAG IV SCH (02:00)
[2024-03-14] MEDS ORDERED: FERROUS SULFATE 325 MG/7.4 ML UDP PEG SCH (09:00)
[2024-03-15] MEDS ORDERED: levoFLOXacin/D5W 750 MG/150 ML BAG IV SCH (07:00)
== END 2024-03-13 22:30 | disposition short-term general hospital (02) | DRG 193 ==
LOC: ED 14:42 → SUATTDRO 20:15 → 2W 20:15 → 1E 03-13 12:50